=== PATIENT | male | born 1955 | race Caucasian/White ===

== ENCOUNTER 2016-04-25 00:19 | Inpatient (IN) | payer OTHER ==
[2016-04-25] MEDS ORDERED: SODIUM CHLORIDE 0.9% 1,000 ML IV STA (00:23)
[2016-04-25] MEDS ORDERED: methylPREDNISolone SOD SUCCI 125 MG/2 ML VIAL IV STA (00:23)
[2016-04-25] MEDS ORDERED: IPRATROPIUM-ALBUTEROL 3 ML NEB INHALATION STA (00:23)
--- NOTE | 2016-04-25 00:26 | ED ---
SOB HPI - General Stated Complaint: SOB Time Seen by Provider: 04/25/16 00:19 Source: patient, EMS, RN notes reviewed Mode of arrival: EMS - History of Present Illness Initial Comments: This is a 60-year-old male who lives a alf who was brought here for evaluation for shortness of breath. He was diagnosed with pneumonia earlier yesterday. He was started on antibiotics he feels like he is not getting better be getting worse she was sent here. He does complain shortness of breath. He was moaning upon admission stating this helped him get his breath. He denies any chest pain he does complain of headache. No overt chills or sweats reported by the patient at this time. MD Complaint: shortness of breath - Related Data Allergies Allergy/AdvReac Type Severity Reaction Status Date / Time No Known Allergies Allergy Verified 04/25/16 00:27 Review of Systems ROS Statement: Those systems with pertinent positive or pertinent negative responses have been documented in the HPI. ROS Other: All systems not noted in ROS Statement are negative. General Exam - General Exam Comments Initial Comments: Is a well-developed well-nourished awake alert anxious appearing male General appearance: alert, anxious, in distress Head exam: Present: atraumatic, normocephalic, normal inspection Eye exam: Present: normal appearance, PERRL, EOMI. Absent: scleral icterus, conjunctival injection, periorbital swelling ENT exam: Present: mucous membranes dry Neck exam: Present: normal inspection. Absent: tenderness, meningismus, lymphadenopathy Respiratory exam: Present: accessory muscle use, decreased breath sounds. Absent: respiratory distress, wheezes, rales, rhonchi, stridor Cardiovascular Exam: Present: regular rate, normal rhythm, normal heart sounds. Absent: systolic murmur, diastolic murmur, rubs, gallop, clicks GI/Abdominal exam: Present: soft, normal bowel sounds. Absent: distended, tenderness, guarding, rebound, rigid Extremities exam: Present: normal inspection, full ROM, normal capillary refill. Absent: tenderness, pedal edema, joint swelling, calf tenderness Back exam: Present: normal inspection Neurological exam: Present: alert, oriented X3, CN II-XII intact Psychiatric exam: Present: normal affect, normal mood Skin exam: Present: warm, dry, intact, normal color. Absent: rash Course Vital Signs 04/25/16 04/25/16 04/25/16 00:24 00:26 00:36 Temperature 102.3 F H Pulse Rate 124 H 114 H 112 H Respiratory 20 22 Rate Blood Pressure 163/95 182/100 O2 Sat by Pulse 90 L 96 Oximetry 04/25/16 04/25/16 04/25/16 00:43 01:10 01:25 Temperature 100.0 F H Pulse Rate 108 H 105 H Respiratory 22 26 H Rate Blood Pressure 118/74 O2 Sat by Pulse 92 L Oximetry - Reevaluation(s) Reevaluation #1: 04/25/16 01:39 Reevaluation patient revealed he did have some improvement in his aeration. He is feeling a little bit better. Reevaluation #2: 04/25/16 01:39 Repeat evaluation patient states he is feeling a little bit better so short of breath however. His fever has improved after tylanol Medical Decision Making - Lab Data Result diagrams: 04/25/16 00:25 04/25/16 00:25 Lab Results 04/25/16 04/25/16 04/25/16 Range/Units 00:25 00:25 00:25 WBC 24.7 H (3.8-10.6) k/uL RBC 4.67 (4.30-5.90) m/uL Hgb 13.2 (13.0-17.5) gm/dL Hct 41.9 (39.0-53.0) % MCV 89.8 (80.0-100.0) fL MCH 28.3 (25.0-35.0) pg MCHC 31.5 (31.0-37.0) g/dL RDW 14.7 (11.5-15.5) % Plt Count 254 (150-450) k/uL Neutrophils % 81 % Lymphocytes % 10 % Monocytes % 7 % Eosinophils % 0 % Basophils % 1 % Neutrophils # 20.1 H (1.3-7.7) k/uL Lymphocytes # 2.5 (1.0-4.8) k/uL Monocytes # 1.6 H (0-1.0) k/uL Eosinophils # 0.1 (0-0.7) k/uL Basophils # 0.2 (0-0.2) k/uL PT (9.0-12.0) sec INR (<1.1) APTT (22.0-30.0) sec Sodium 138 (137-145) mmol/L Potassium 4.8 (3.5-5.1) mmol/L Chloride 97 L (98-107) mmol/L Carbon Dioxide 32 H (22-30) mmol/L Anion Gap 9 mmol/L BUN 19 (9-20) mg/dL Creatinine 0.60 L (0.66-1.25) mg/dL Est GFR (MDRD) Af Amer >60 (>60 ml/min/1.73 sqM) Est GFR (MDRD) Non-Af >60 (>60 ml/min/1.73 sqM) Glucose 144 H (74-99) mg/dL Plasma Lactic Acid Jourdan (0.7-2.0) mmol/L Calcium 10.0 (8.4-10.2) mg/dL Magnesium 1.5 L (1.6-2.3) mg/dL Total Bilirubin 0.8 (0.2-1.3) mg/dL AST 16 L (17-59) U/L ALT 43 (21-72) U/L Alkaline Phosphatase 78 (38-126) U/L Total Creatine Kinase <20 L (55-170) U/L CK-MB (CK-2) 0.4 (0.0-2.4) ng/mL CK-MB (CK-2) Rel Index 0.0 Troponin I 0.031 (0.000-0.034) ng/mL NT-Pro-B Natriuret Pep pg/mL Total Protein 6.4 (6.3-8.2) g/dL Albumin 3.5 (3.5-5.0) g/dL 04/25/16 04/25/16 04/25/16 Range/Units 00:25 00:25 00:25 WBC (3.8-10.6) k/uL RBC (4.30-5.90) m/uL Hgb (13.0-17.5) gm/dL Hct (39.0-53.0) % MCV (80.0-100.0) fL MCH (25.0-35.0) pg MCHC (31.0-37.0) g/dL RDW (11.5-15.5) % Plt Count (150-450) k/uL Neutrophils % % Lymphocytes % % Monocytes % % Eosinophils % % Basophils % % Neutrophils # (1.3-7.7) k/uL Lymphocytes # (1.0-4.8) k/uL Monocytes # (0-1.0) k/uL Eosinophils # (0-0.7) k/uL Basophils # (0-0.2) k/uL PT 11.3 (9.0-12.0) sec INR 1.1 (<1.1) APTT 21.8 L (22.0-30.0) sec Sodium (137-145) mmol/L Potassium (3.5-5.1) mmol/L Chloride (98-107) mmol/L Carbon Dioxide (22-30) mmol/L Anion Gap mmol/L BUN (9-20) mg/dL Creatinine (0.66-1.25) mg/dL Est GFR (MDRD) Af Amer (>60 ml/min/1.73 sqM) Est GFR (MDRD) Non-Af (>60 ml/min/1.73 sqM) Glucose (74-99) mg/dL Plasma Lactic Acid Jourdan 1.7 (0.7-2.0) mmol/L Calcium (8.4-10.2) mg/dL Magnesium (1.6-2.3) mg/dL Total Bilirubin (0.2-1.3) mg/dL AST (17-59) U/L ALT (21-72) U/L Alkaline Phosphatase (38-126) U/L Total Creatine Kinase (55-170) U/L CK-MB (CK-2) (0.0-2.4) ng/mL CK-MB (CK-2) Rel Index Troponin I (0.000-0.034) ng/mL NT-Pro-B Natriuret Pep 117 pg/mL Total Protein (6.3-8.2) g/dL Albumin (3.5-5.0) g/dL - Radiology Data Radiology results: report reviewed (She does show evidence of right lower lobe pneumonia.), image reviewed Critical Care Time Critical Care Time: Yes Critical Care Time: 37 minutes of critical care time which includes the monitoring of the EMS call as well as discussed with paramedics history physical lab and x-ray evaluation the patient reevaluation patient several occasions for responsive therapy discuss with the patient discussed with the admitting service admission orders and documentation of the above. Disposition Clinical Impression: Right lower lobe pneumonia, Acute exacerbation of chronic obstructive airways disease, Adult respiratory distress syndrome, Hypoxemia, Febrile illness, acute Disposition: ADMITTED IP TO THIS HOSP Condition: Stable
[2016-04-25 00:38] LABS: Basophils # (A) 0.2 k/uL (0-0.2); Basophils % (A) 1 %; CH 28.5; CHCM 31.9; Eosinophils # (A) 0.1 k/uL (0-0.7); Eosinophils % (A) 0 %; HCT 41.9 % (39.0-53.0); HGB 13.2 gm/dL (13.0-17.5); Luc # (Auto) 0.35; Luc % (Auto) 1; Lymphocytes # (A) 2.5 k/uL (1.0-4.8); Lymphocytes % (A) 10 %; MCH 28.3 pg (25.0-35.0); MCHC 31.5 g/dL (31.0-37.0); MCV 89.8 fL (80.0-100.0); Mean Platelet Volume 6.7; Monocytes # (A) 1.6 k/uL (0-1.0); Monocytes % (A) 7 %; Neutrophils # (A) 20.1 k/uL (1.3-7.7); Neutrophils % (A) 81 %; RBC 4.67 m/uL (4.30-5.90); RDW 14.7 % (11.5-15.5); WBC 24.7 k/uL (3.8-10.6); WBC (Perox) 23.26
[2016-04-25 00:47] LABS: ALT 43 U/L (21-72); AST 16 U/L (17-59); Alkaline Phosphatase 78 U/L (38-126); Anion Gap 9 mmol/L; Blood Urea Nitrogen 19 mg/dL (9-20); Carbon Dioxide 32 mmol/L (22-30); Chloride 97 mmol/L (98-107); Glucose 144 mg/dL (74-99); Magnesium 1.5 mg/dL (1.6-2.3); Non-African American GFR(MDRD) >60 (>60 ml/min/1.73 sqM); Potassium 4.8 mmol/L (3.5-5.1); Sodium 138 mmol/L (137-145); Total Bilirubin 0.8 mg/dL (0.2-1.3); Total Protein 6.4 g/dL (6.3-8.2)
[2016-04-25 00:54] LABS: INR 1.1 (<1.1); Prothrombin Time 11.3 sec (9.0-12.0)
[2016-04-25 00:57] LABS: Creatine Kinase <20 U/L (55-170)
[2016-04-25] MEDS ORDERED: MAGNESIUM SULFATE-D5W PMX 1 GM in DEXTROSE/WATER 1 100ML.BAG IVPB ONE (01:02)
[2016-04-25 01:05] LABS: Partial Thromboplastin Time 21.8 sec (22.0-30.0)
[2016-04-25 01:10] LABS: Creatine Kinase MB 0.4 ng/mL (0.0-2.4); Troponin I 0.031 ng/mL (0.000-0.034)
[2016-04-25] MEDS ORDERED: ACETAMINOPHEN IV (For NPO) 1,000 MG in EMPTY BAG 1 BAG IVPB STA (01:16)
--- NOTE | 2016-04-25 01:25 | XR ---
EXAM: XR Chest, 4 Views. CLINICAL HISTORY: Reason: difficulty breathing TECHNIQUE: Frontal and lateral views of the chest. COMPARISON: No relevant prior studies available. FINDINGS: Lungs: Right middle lobe alveolar opacities suggestive of pneumonia. Additional more inferior right middle lobe lesion is seen measuring up to 12 mm. Pleural space: Unremarkable. No pneumothorax. Heart: Unremarkable. No cardiomegaly. Mediastinum: Unremarkable. Bones/joints: Multilevel degenerative changes of the thoracic spine with mild chronic anterior wedging deformities. IMPRESSION: Right middle lobe alveolar opacities suggestive of pneumonia. Additional more inferior right middle lobe lesion is seen measuring up to 12 mm. Followup after resolution of treatment recommended.
[2016-04-25] MEDS ORDERED: PNEUMONIA PROTOCOL UTILIZED 1 EACH MISC PO PRN (01:41)
[2016-04-25] MEDS ORDERED: PIPERACILLIN-TAZOBACTAM 3.375 GM in DEXTROSE/WATER 1 50ML.BAG IVPB STA (01:52)
[2016-04-25] MEDS ORDERED: LEVOFLOXACIN 750MG-D5W PMX 750 MG in DEXTROSE/WATER 1 150ML.BAG IVPB STA (01:52)
[2016-04-25 02:57] VITALS: BMI 36.5
[2016-04-25] MEDS: SODIUM CHLORIDE 0.9% 1,000 ML IV SCH ×2 (03:11→12:54)
[2016-04-25] MEDS: ACETAMINOPHEN TAB 325 MG TAB PO SCH ×6 (03:12→20:51)
[2016-04-25] MEDS ORDERED: IPRATROPIUM-ALBUTEROL 3 ML NEB INHALATION SCH (04:00)
[2016-04-25] MEDS: methylPREDNISolone SOD SUCCI 125 MG/2 ML VIAL IV SCH ×2 (05:24→12:53)
[2016-04-25] MEDS: ALPRAZolam 0.25 MG TAB PO SCH ×2 (08:06→16:34)
[2016-04-25 08:13] LABS: Glucose,Whole Blood 280 mg/dL (75-99)
[2016-04-25] MEDS: INSULIN LISPRO (humaLOG) 300 UNIT/3 ML VIAL SQ SCH ×8 (08:15→22:14)
[2016-04-25] MEDS: MELOXICAM 7.5 MG TAB PO SCH (08:15)
[2016-04-25] MEDS: IPRATROPIUM-ALBUTEROL 3 ML NEB INHALATION SCH ×4 (08:32→18:51)
[2016-04-25] MEDS ORDERED: amLODIPine 10 MG TAB PO SCH (09:00)
[2016-04-25] MEDS ORDERED: FISH OIL PO SCH (09:00)
[2016-04-25] MEDS ORDERED: LISINOPRIL 20 MG TAB PO SCH (09:00)
[2016-04-25] MEDS ORDERED: FATTY ACIDS PO SCH (09:00)
[2016-04-25] MEDS ORDERED: OMEGA PO SCH (09:00)
[2016-04-25 11:51] LABS: Glucose,Whole Blood 279 mg/dL (75-99)
[2016-04-25] MEDS: TAMSULOSIN 0.4 MG CAP.ER.24H PO SCH (12:54)
[2016-04-25 14:27] LABS: Hemoglobin A1C 8.8 % (4.2-6.1)
--- NOTE | 2016-04-25 16:26 | HP ---
DATE OF ADMISSION: Patient is a very pleasant 60-year-old gentleman who came in with complaints of cough, runny nose, not feeling well. Patient is unable to bring up much and patient does have advanced COPD. Patient does have a history of advanced COPD and emphysema and does use 3 liters of oxygen at the rehab facility. Patient was discharged from [facility] and is presently resident of [facility]. Patient came in with fever, chills and found to have significant infiltrate in the right middle lobe. Patient was started on treatment with Zosyn and levofloxacin for healthcare associated pneumonia with significant improvement in his symptoms, awaiting for cultures. Blood cultures were obtained. Patient is presently on 5 L of oxygen. The patient was also complaining of shortness of breath. Denied any orthopnea or PND. REVIEW OF SYSTEMS: CONSTITUTIONAL: As described in HPI. HEENT: No recent visual problems or hearing problems. Denied any sore throat. CARDIOVASCULAR: No chest pain, orthopnea, PND, no palpitations, no syncope. PULMONARY: As described in HPI. GASTROINTESTINAL: No diarrhea, no nausea, no vomiting, no abdominal pain. Normoactive bowel sounds. NEUROLOGICAL: No headaches, no weakness, no numbness. HEMATOLOGICAL: Denies any bleeding or petechiae. GENITOURINARY: Denies any burning micturition, frequency, or urgency. MUSCULOSKELETAL/RHEUMATOLOGICAL: Denies any joint pain, swelling, or any muscle pain. ENDOCRINE: Denies any polyuria or polydipsia. The rest of the 14 point review of systems is negative. PAST MEDICAL HISTORY: Significant for COPD as mentioned above, diabetes mellitus, gastroesophageal reflux disease, hypertension, benign prostatic hypertrophy, cholecystectomy, hernia repair, hemorrhoidectomy in the past. SOCIAL HISTORY: Former smoker, smoked for 40 years, quit smoking years ago. Denied any alcohol abuse or drug abuse. FAMILY HISTORY: Unknown at this point of time. PHYSICAL EXAMINATION: Temperature 96.2, pulse of 78, respiratory rate of 18, blood pressure 108/86, saturating at 97% on 5 L of oxygen by nasal cannula. GENERAL: The patient is alert and oriented x3, not in any acute distress. Well developed, well nourished. HEENT: Pupils are round and equally reacting to light. EOMI. No scleral icterus. No conjunctival pallor. Normocephalic, atraumatic. No pharyngeal erythema. No thyromegaly. CARDIOVASCULAR: S1 and S2 present. No murmurs, rubs, or gallops. PULMONARY: Patient has a bronchophony egophony in the right posterior and upper lung tavarez. Fairly good air entry into bilateral lung tavarez. No wheezing was appreciated. Rhonchus breath sounds. ABDOMEN: Soft, nontender, nondistended, normoactive bowel sounds. No palpable organomegaly. MUSCULOSKELETAL: No joint swelling or deformity. EXTREMITIES: No cyanosis, clubbing, or pedal edema. NEUROLOGICAL: Gross neurological examination did not reveal any focal deficits. SKIN: No rashes. Chest x-ray as mentioned above. ASSESSMENT AND PLAN: 1. Sepsis secondary to right middle lobe and right lower lobe pneumonia. Patient is on appropriate antibiotics, treating for healthcare associated pneumonia. Awaiting sputum cultures. 2. Highly elevated blood sugars and uncontrolled blood sugars secondary to systemic steroids. Will continue with his home regimen along with sliding scale insulin for steroids and patient's hemoglobin A1c is 8.8 at the other hospital. 3. Hypomagnesemia. Magnesium will be supplemented. 4. Acute on chronic hypercapnic respiratory failure secondary to chronic obstructive pulmonary disease exacerbation. Patient is on systemic steroids inhalational treatments which will be continued. Actually cut down the steroids to 60 daily of oral steroids 5. Benign prostatic hypertrophy. 6. Generalized deconditioning. Plan is to continue with antibiotics. Possibility of discharge on Wednesday to subacute rehabilitation with oral antibiotics. I will await the cultures in the meantime, sputum cultures and blood cultures during that time. Leukocytosis secondary to pneumonia.
[2016-04-25] MEDS: MAGNESIUM SULFATE-D5W PMX 1 GM in DEXTROSE/WATER 1 100ML.BAG IVPB SCH ×2 (16:34→22:13)
[2016-04-25 16:43] LABS: Glucose,Whole Blood 300 mg/dL (75-99)
[2016-04-25] MEDS: PIPERACILLIN-TAZOBACTAM 3.375 GM in DEXTROSE/WATER 1 50ML.BAG IVPB SCH (18:06)
[2016-04-25] MEDS: MONTELUKAST 10 MG TAB PO SCH (20:51)
[2016-04-25 21:35] LABS: Glucose,Whole Blood 292 mg/dL (75-99)
[2016-04-25] MEDS: INSULIN GLARGINE 100 UNIT/ML 10 ML VIAL SQ SCH (22:13)
[2016-04-26] MEDS: SODIUM CHLORIDE 0.9% 1,000 ML IV SCH ×3 (00:14→17:47)
[2016-04-26] MEDS: PIPERACILLIN-TAZOBACTAM 3.375 GM in DEXTROSE/WATER 1 50ML.BAG IVPB SCH ×4 (00:14→23:33)
[2016-04-26] MEDS: ALPRAZolam 0.25 MG TAB PO SCH ×4 (00:17→23:33)
[2016-04-26] MEDS: ACETAMINOPHEN TAB 325 MG TAB PO SCH ×6 (04:14→21:27)
[2016-04-26] MEDS: IPRATROPIUM-ALBUTEROL 3 ML NEB INHALATION PRN ×2 (05:16→23:41)
[2016-04-26 07:35] LABS: Glucose,Whole Blood 259 mg/dL (75-99)
[2016-04-26] MEDS: IPRATROPIUM-ALBUTEROL 3 ML NEB INHALATION SCH ×4 (08:27→19:56)
[2016-04-26] MEDS: TAMSULOSIN 0.4 MG CAP.ER.24H PO SCH (09:33)
[2016-04-26] MEDS: MELOXICAM 7.5 MG TAB PO SCH (09:33)
[2016-04-26] MEDS: LEVOFLOXACIN 750 MG TAB PO SCH (09:33)
[2016-04-26] MEDS: predniSONE 20 MG TAB PO SCH (09:33)
[2016-04-26] MEDS: INSULIN LISPRO (humaLOG) 300 UNIT/3 ML VIAL SQ SCH ×8 (09:34→21:24)
--- NOTE | 2016-04-26 09:58 | XR ---
EXAMINATION TYPE: XR chest 2V DATE OF EXAM: 04/26/2016 9:53 AM COMPARISON: 04/25/2016 INDICATION: Pneumonia TECHNIQUE: Single frontal view of the chest is obtained. FINDINGS: The heart size is normal. The pulmonary vasculature is normal. There is a patchy infiltrate to the right lower lobe. Underlying mass is not entirely excluded. Follo w-up to clearing is recommended. This appears improving from comparison. IMPRESSION: 1. Improving right lower lobe infiltrate. Follow-up to complete clearing is recommended. Underlying m ass is not excluded.
[2016-04-26 12:04] LABS: Glucose,Whole Blood 255 mg/dL (75-99)
[2016-04-26] MEDS ORDERED: IV VANCOMYCIN PER PHARMACY 1 EACH MISC MISCELLANE PRN (15:34)
--- NOTE | 2016-04-26 15:50 | PN ---
A 60-year-old admitted with pneumonia, which is improving at this point of time. REVIEW OF SYSTEMS: CARDIOVASCULAR: No chest pain, no orthopnea, no PND, no palpitations. GASTROINTESTINAL: No diarrhea, nausea or vomiting. No abdominal pain. Normoactive bowel sounds. NEUROLOGIC: No headaches, no weakness, no numbness. RESPIRATORY: Improving shortness of breath. Medications were reviewed. PHYSICAL EXAMINATION: Temperature 96.5, pulse of 76, respiratory rate of 18, blood pressure is 100/70, saturating at 95% on room air. RESPIRATORY: No significant change compared to yesterday and no wheezing was appreciated. Fairly good air entry into bilateral lung tavarez. GENERAL: The patient is alert and oriented x3, not in any acute distress. Well developed, well nourished. HEENT: Pupils are round and equally reacting to light. EOMI. No scleral icterus. No conjunctival pallor. Normocephalic, atraumatic. No pharyngeal erythema. No thyromegaly. CARDIOVASCULAR: S1 and S2 present. No murmurs, rubs, or gallops. ABDOMEN: Soft, nontender, nondistended, normoactive bowel sounds. No palpable organomegaly. MUSCULOSKELETAL: No joint swelling or deformity. EXTREMITIES: No cyanosis, clubbing, or pedal edema. NEUROLOGICAL: Gross neurological examination did not reveal any focal deficits. SKIN: No rashes. LABORATORY DATA: None available from today. ASSESSMENT AND PLAN: 1. Sepsis secondary to right middle lobe as well as right lower lobe pneumonia, infiltrate is improving, blood cultures are so far negative. Sputum cultures are pending, which is showing gram-positive cocci in clusters. Patient will be started on vancomycin and patient has bacteremia with gram-positive cocci in clusters. Will repeat blood cultures today and tomorrow. Patient will be started on vancomycin, pharmacy to dose. 2. Diabetes mellitus type 2. Continue with present regimen with fairly controlled blood sugars. 3. Acute on chronic hypercapnic respiratory failure secondary to chronic obstructive pulmonary disease. 4. Benign prostatic hypertrophy. 5. General deconditioning.
[2016-04-26 17:51] LABS: Glucose,Whole Blood 272 mg/dL (75-99)
[2016-04-26] MEDS: VANCOMYCIN 1,500 MG in SODIUM CHLORIDE 0.9% 250 ML IVPB SCH (21:09)
[2016-04-26] MEDS: MONTELUKAST 10 MG TAB PO SCH (21:24)
[2016-04-26] MEDS: INSULIN GLARGINE 100 UNIT/ML 10 ML VIAL SQ SCH (21:25)
[2016-04-26 21:30] LABS: Glucose,Whole Blood 244 mg/dL (75-99)
[2016-04-27] MEDS: ACETAMINOPHEN TAB 325 MG TAB PO SCH ×6 (03:05→21:58)
[2016-04-27] MEDS: IPRATROPIUM-ALBUTEROL 3 ML NEB INHALATION PRN (03:33)
[2016-04-27] MEDS: VANCOMYCIN 1,500 MG in SODIUM CHLORIDE 0.9% 250 ML IVPB SCH (04:20)
[2016-04-27] MEDS: SODIUM CHLORIDE 0.9% 1,000 ML IV SCH ×3 (04:21→23:09)
[2016-04-27 07:03] LABS: Glucose,Whole Blood 239 mg/dL (75-99)
[2016-04-27] MEDS: IPRATROPIUM-ALBUTEROL 3 ML NEB INHALATION SCH ×4 (07:37→21:24)
[2016-04-27] MEDS: ALPRAZolam 0.25 MG TAB PO SCH ×3 (08:46→23:10)
[2016-04-27] MEDS: MELOXICAM 7.5 MG TAB PO SCH (08:46)
[2016-04-27] MEDS: LEVOFLOXACIN 750 MG TAB PO SCH (08:46)
[2016-04-27] MEDS: PIPERACILLIN-TAZOBACTAM 3.375 GM in DEXTROSE/WATER 1 50ML.BAG IVPB SCH (08:46)
[2016-04-27] MEDS: predniSONE 20 MG TAB PO SCH (08:46)
[2016-04-27] MEDS: INSULIN LISPRO (humaLOG) 300 UNIT/3 ML VIAL SQ SCH ×8 (08:47→21:58)
[2016-04-27] MEDS: TAMSULOSIN 0.4 MG CAP.ER.24H PO SCH (08:47)
[2016-04-27 09:05] LABS: CH 28.4; CHCM 30.9; HCT 36.7 % (39.0-53.0); HDW 2.37; HGB 11.4 gm/dL (13.0-17.5); Hypochromasia Slight; MCH 28.6 pg (25.0-35.0); MCHC 30.9 g/dL (31.0-37.0); MCV 92.3 fL (80.0-100.0); Mean Platelet Volume 6.3; RBC 3.97 m/uL (4.30-5.90); RDW 14.4 % (11.5-15.5); WBC 14.1 k/uL (3.8-10.6)
[2016-04-27 09:37] LABS: Anion Gap 9 mmol/L; Blood Urea Nitrogen 27 mg/dL (9-20); Calcium 9.7 mg/dL (8.4-10.2); Carbon Dioxide 31 mmol/L (22-30); Chloride 100 mmol/L (98-107); Glucose 229 mg/dL (74-99); Non-African American GFR(MDRD) >60 (>60 ml/min/1.73 sqM); Sodium 140 mmol/L (137-145)
[2016-04-27 09:45] LABS: Potassium 4.7 mmol/L (3.5-5.1)
[2016-04-27 12:26] LABS: Glucose,Whole Blood 219 mg/dL (75-99)
[2016-04-27] MEDS: cefTRIAXone 2,000 MG in SODIUM CHLORIDE 0.9% 100 ML IVPB SCH (13:27)
[2016-04-27] MEDS: HYDROcodone/APAP 5-325MG 1 EACH TAB PO PRN (13:32)
[2016-04-27] MEDS ORDERED: SALINE NASAL GEL 14.1 GM TUBE TOPICAL PRN (13:32)
[2016-04-27 16:43] LABS: Glucose,Whole Blood 273 mg/dL (75-99)
--- NOTE | 2016-04-27 17:17 | P.PN ---
Subjective Date of service 04/27/2016 Progress note being dictated for Dr. Sethi Interval history: This 60-year-old gentleman admitted with sepsis secondary to right middle lobe, right lower lobe pneumonia, coagulase-negative staph and alpha hemolytic Streptococcus bacteremia, and multiple other medical issues. Sputum culture reporting moderate gram-positive bacilli. Antibiotics adjusted and changed to Rocephin. Repeat blood culture ordered. Afebrile. Objective - Vital Signs Vital signs: Vital Signs Temp 96.3 F L 04/27/16 15:00 Pulse 74 04/27/16 16:19 Resp 20 04/27/16 15:00 BP 130/74 04/27/16 15:00 Pulse Ox 95 04/27/16 15:00 Intake & Output 04/26/16 04/27/16 04/27/16 18:59 06:59 18:59 Intake Total 700 Output Total 1200 Balance -1200 700 Intake: Oral 700 Output: Urine 1200 Other: # Voids 3 2 # Bowel Movements 1 - Exam PHYSICAL EXAM: VITAL SIGNS: As above GENERAL: [Sitting up in bed, tired appearing] HEENT: [Pupils equal conjunctiva normal.] NECK: [Supple, no JVD] RESPIRATORY EFFORT:[Mildly increased] LUNGS: [Clear air entry, no wheezing, no crackles, occasional rhonchi] CARDIOVASCULAR[regular S1 and S2, no murmurs rubs or gallops, no edema] GI: [Abdomen soft, nontender, positive bowel sounds.] PSYCH: [Alert and oriented -2, mood and affect normal. NEURO: No focal deficits Microbiology 04/26/16 11:45 Sputum Gram Stain - Preliminary 04/25/16 00:25 Blood Blood Culture Gram Stain - Preliminary 04/25/16 00:25 Blood Blood Culture - Preliminary Coagulase Negative Staph Alpha Hemolytic Streptococcus 04/25/16 00:25 Blood Blood Culture - Preliminary - Labs CBC & Chem 7: 04/27/16 08:33 04/27/16 08:33 Labs: Abnormal Lab Results - Last 24 Hours (Table) 04/26/16 04/26/16 04/27/16 Range/Units 17:50 21:16 07:00 WBC (3.8-10.6) k/uL RBC (4.30-5.90) m/uL Hgb (13.0-17.5) gm/dL Hct (39.0-53.0) % MCHC (31.0-37.0) g/dL Carbon Dioxide (22-30) mmol/L BUN (9-20) mg/dL Creatinine (0.66-1.25) mg/dL Glucose (74-99) mg/dL POC Glucose (mg/dL) 272 H 244 H 239 H (75-99) mg/dL 04/27/16 04/27/16 04/27/16 Range/Units 08:33 08:33 12:24 WBC 14.1 H (3.8-10.6) k/uL RBC 3.97 L (4.30-5.90) m/uL Hgb 11.4 L (13.0-17.5) gm/dL Hct 36.7 L (39.0-53.0) % MCHC 30.9 L (31.0-37.0) g/dL Carbon Dioxide 31 H (22-30) mmol/L BUN 27 H (9-20) mg/dL Creatinine 0.50 L (0.66-1.25) mg/dL Glucose 229 H (74-99) mg/dL POC Glucose (mg/dL) 219 H (75-99) mg/dL 04/27/16 Range/Units 16:41 WBC (3.8-10.6) k/uL RBC (4.30-5.90) m/uL Hgb (13.0-17.5) gm/dL Hct (39.0-53.0) % MCHC (31.0-37.0) g/dL Carbon Dioxide (22-30) mmol/L BUN (9-20) mg/dL Creatinine (0.66-1.25) mg/dL Glucose (74-99) mg/dL POC Glucose (mg/dL) 273 H (75-99) mg/dL Microbiology - Last 24 Hours (Table) 04/26/16 11:45 Gram Stain - Preliminary Sputum Assessment and Plan Plan: 1. [Sepsis secondary to her right mid and right lower lobe Gram-positive bacilli pneumonia, coagulase-negative staph and alpha hemolytic Streptococcus bacteremia. 2. [Diabetes mellitus type 2]. 3. [Acute on chronic hypercapnic respiratory failure secondary to COPD]. 4. [Acute hypoxic respiratory failure]. 5. [Benign prostatic hypertrophy]. 6. Medical debilitation. Plan: Continue on current medication regime ,monitoring and symptomatic treatment. Antibiotics changed to Rocephin, infectious disease consulted. Continue following cultures closely. Prognosis guarded given multiple complex medical issues. Further recommendations to follow. The impression and plan of care has been dictated as directed. : I performed a H&P examination of this patient and discussed the same with the dictator. I agree with the dictator's note. Any additional findings/opinions/ etc. will be noted.
[2016-04-27 20:43] LABS: Glucose,Whole Blood 277 mg/dL (75-99)
[2016-04-27] MEDS: INSULIN GLARGINE 100 UNIT/ML 10 ML VIAL SQ SCH (21:57)
[2016-04-27] MEDS: MONTELUKAST 10 MG TAB PO SCH (21:58)
[2016-04-28] MEDS: IPRATROPIUM-ALBUTEROL 3 ML NEB INHALATION PRN ×3 (00:13→23:30)
[2016-04-28] MEDS ORDERED: VANCOMYCIN TROUGH DUE 1 EACH MISC MISCELLANE ONE (03:00)
[2016-04-28] MEDS: ACETAMINOPHEN TAB 325 MG TAB PO SCH ×6 (03:41→20:34)
[2016-04-28 06:58] LABS: Glucose,Whole Blood 125 mg/dL (75-99)
[2016-04-28] MEDS: IPRATROPIUM-ALBUTEROL 3 ML NEB INHALATION SCH ×4 (07:05→20:06)
[2016-04-28] MEDS: INSULIN LISPRO (humaLOG) 300 UNIT/3 ML VIAL SQ SCH ×9 (07:15→20:53)
[2016-04-28] MEDS: cefTRIAXone 2,000 MG in SODIUM CHLORIDE 0.9% 100 ML IVPB SCH (08:13)
[2016-04-28] MEDS: MELOXICAM 7.5 MG TAB PO SCH (08:14)
[2016-04-28] MEDS: ALPRAZolam 0.25 MG TAB PO SCH ×3 (08:14→23:33)
[2016-04-28] MEDS: TAMSULOSIN 0.4 MG CAP.ER.24H PO SCH (08:15)
[2016-04-28] MEDS: predniSONE 20 MG TAB PO SCH (08:15)
[2016-04-28 08:33] LABS: Anion Gap 7 mmol/L; Blood Urea Nitrogen 19 mg/dL (9-20); Calcium 9.4 mg/dL (8.4-10.2); Carbon Dioxide 31 mmol/L (22-30); Chloride 102 mmol/L (98-107); Glucose 121 mg/dL (74-99); Non-African American GFR(MDRD) >60 (>60 ml/min/1.73 sqM); Potassium 4.1 mmol/L (3.5-5.1); Sodium 140 mmol/L (137-145)
[2016-04-28] MEDS: SODIUM CHLORIDE 0.9% 1,000 ML IV SCH ×2 (12:00→19:47)
--- NOTE | 2016-04-28 12:00 | CONS ---
DATE OF CONSULTATION: 04/28/2016 Reason for consultation is pneumonia and bacteremia. HISTORY OF PRESENT ILLNESS: The patient is a 60-year-old male with has been brought into the ER at [facility] on 04/25/2016 with chief complaints of increasing shortness of breath. Apparently, the patient was diagnosed with pneumonia at that facility and was started on antibiotic; however, the patient was not showing any improvement. He is not sure exactly which antibiotic he was taking. Patient main symptom has been shortness of breath. He did have a cough and bring up some big brown sputum but no hemoptysis. Patient denies any significant chest pain. Denies having any URI symptom. Patient denies having any nausea, vomiting. Patient denies having any diarrhea or any other GI symptom. Subsequently, patient has been evaluated by the ER physician and the patient did have a chest x-ray suggestive of right middle pneumonia. The patient did have blood cultures obtained which grew gram-positive cocci. vanco was added to the Rocephin. I was asked to see the patient for further recommendation regarding antibiotic therapy. REVIEW OF SYSTEMS: CONSTITUTIONAL: Positive for weakness and chills. EYES: No complaint. ENT: No complaint. RESPIRATORY: As per HPI. CARDIOVASCULAR: No complaint. GENITOURINARY: No complaint. GASTROINTESTINAL: No complaint. MUSCULOSKELETAL: No complaint. INTEGUMENT: No complaint. PSYCHOLOGIC: No complaint. ENDOCRINE: No complaint. NEUROLOGIC: No complaint. PAST MEDICAL HISTORY: Significant for COPD, diabetes mellitus, gastroesophageal reflux disease, hypertension, benign prostatic hypertrophy. PAST SURGICAL HISTORY: Cholecystectomy, hernia repair, hemorrhoidectomy. SOCIAL HISTORY: The patient is a 40 pack-year smoking; quit a few years ago. Denies any alcohol or drug use. Currently a [facility] resident. FAMILY HISTORY: No pertinent findings were noticed. ALLERGIES: No known drug allergies. Medications currently include the patient is on Tylenol, Brodnax, DuoNeb, Xanax, Rocephin 2 gm daily, Lantus, Humalog, Mobic, Singulair, Flomax. On examination, blood pressure is 125/79 with a pulse of 70, temperature of 96.4, T-max is 102.3. He is 99% on 4 L nasal cannula. General description is a middle-age male lying in bed in no distress. No tachypnea or accessory muscle of respiration use. HEENT examination shows pallor. No scleral icterus. Oral mucous membrane is dry. NECK: Trachea central, no thyromegaly. LUNGS: Unlabored breathing. Some coarse breath sounds on the right side, no wheeze. HEART: S1, S2 with regular rate and rhythm. ABDOMEN: Soft. No tenderness. EXTREMITIES: No edema of the feet. SKIN EXAMINATION: No rash or mass palpable. LABS: Hemoglobin 11.4, white count of 14.1, admission white was 24.7, BUN of 19, creatinine 0.42. Blood cultures with coagulase-negative staph, followup blood culture has been negative. Sputum showing a gram-negative bacilli. DIAGNOSTIC IMPRESSION AND PLAN: 1. Patient admitted to the hospital with difficulty in breathing, have a cough with right middle lobe infiltrate in a patient who did have a fever of 102 degrees Fahrenheit in a patient who is a [facility] resident, likely representing a gram-negative pneumonia with the sputum showing the same. 2. Patient with positive blood culture with coagulase negative staph with multiple pathogens and blood culture, more likely representing a contamination and a followup blood pressure has been negative. PLAN: 1. No need for any further vancomycin therapy at this point. 2. Will discontinue the Rocephin. 3. Will start the patient on Zosyn 3.375 q.8 while awaiting for the final ID on the gram-negative on the sputum. 4. Will follow up on the clinical condition and cultures to further adjust the medication if needed. Thank you for this consultation. Will follow this patient along with you.
[2016-04-28] MEDS: PIPERACILLIN-TAZOBACTAM 3.375 GM in DEXTROSE/WATER 1 50ML.BAG IVPB SCH ×2 (12:01→19:44)
[2016-04-28] MEDS: HYDROcodone/APAP 5-325MG 1 EACH TAB PO PRN ×2 (12:06→19:44)
[2016-04-28 12:18] LABS: Glucose,Whole Blood 140 mg/dL (75-99)
--- NOTE | 2016-04-28 16:28 | P.PN ---
Subjective Date of service 04/28/2016 Progress note being dictated for Dr. Sethi Interval history: This 60-year-old [place] [facility] resident admitted with sepsis secondary to right middle and lower lobe pneumonia, coagulase-negative staph and alpha hemolytic Streptococcus bacteremia, recent hernia repair and multiple other medical issues. Evaluated by ID with Antibiotics changed to Zosyn. Preliminary Follow-up blood culture negative. Positive diet intake with no nausea or vomiting. Afebrile. Objective - Vital Signs Vital signs: Vital Signs Temp 96.8 F L 04/28/16 15:00 Pulse 84 04/28/16 16:04 Resp 16 04/28/16 15:00 BP 136/79 04/28/16 15:00 Pulse Ox 96 04/28/16 15:00 Intake & Output 04/27/16 04/28/16 04/28/16 18:59 06:59 18:59 Output Total 1050 Balance -1050 Output: Urine 1050 Other: Voiding Method Urinal # Voids 2 3 # Bowel Movements 1 - Exam PHYSICAL EXAM: VITAL SIGNS: As above GENERAL: [Sitting up in bed, tired appearing] HEENT: [Pupils equal conjunctiva normal, pale] NECK: [Supple, no JVD] RESPIRATORY EFFORT: Normal] LUNGS: [Clear air entry, diminished on right ,no wheezing, no crackles, occasional rhonchi] CARDIOVASCULAR[regular S1 and S2, no murmurs rubs or gallops, no edema] GI: [Abdomen soft, nontender, positive bowel sounds.] PSYCH: [Alert and oriented -2, mood and affect normal. NEURO: No focal deficits Microbiology 04/27/16 08:33 Blood Blood Culture - Preliminary No Growth after 24 hours 04/26/16 11:45 Sputum Gram Stain - Preliminary 04/26/16 11:45 Sputum Sputum Culture - Preliminary Gram Neg Bacilli 04/25/16 00:25 Blood Blood Culture Gram Stain - Final 04/25/16 00:25 Blood Blood Culture - Final Coagulase Negative Staph Alpha Hemolytic Streptococcus Coagulase Negative Staph#2 04/26/16 16:02 Blood Blood Culture - Preliminary No Growth after 24 hours 04/25/16 00:25 Blood Blood Culture - Preliminary - Labs CBC & Chem 7: 04/27/16 08:33 04/28/16 07:35 Labs: Abnormal Lab Results - Last 24 Hours (Table) 04/27/16 04/27/16 04/28/16 Range/Units 16:41 20:42 06:56 Carbon Dioxide (22-30) mmol/L Creatinine (0.66-1.25) mg/dL Glucose (74-99) mg/dL POC Glucose (mg/dL) 273 H 277 H 125 H (75-99) mg/dL 04/28/16 04/28/16 Range/Units 07:35 12:09 Carbon Dioxide 31 H (22-30) mmol/L Creatinine 0.42 L (0.66-1.25) mg/dL Glucose 121 H (74-99) mg/dL POC Glucose (mg/dL) 140 H (75-99) mg/dL Microbiology - Last 24 Hours (Table) 04/27/16 08:33 Blood Culture - Preliminary Blood No Growth after 24 hours 04/26/16 11:45 Gram Stain - Preliminary Sputum Sputum Culture - Preliminary Gram Neg Bacilli 04/26/16 16:02 Blood Culture - Preliminary Blood No Growth after 24 hours Assessment and Plan Plan: 1. [Sepsis secondary to her right mid and right lower lobe Gram-positive bacilli pneumonia, coagulase-negative staph and alpha hemolytic Streptococcus bacteremia. 2. [Diabetes mellitus type 2]. 3. [Acute on chronic hypercapnic respiratory failure secondary to COPD]. 4. [Acute hypoxic respiratory failure]. 5. [Benign prostatic hypertrophy]. 6. Medical debilitation. Plan: Continue on current medication regime , Zosyn, monitoring and symptomatic treatment. Antibiotics as per ID. Continues on cultures closely. Continue following cultures closely. Prognosis guarded given multiple complex medical issues. Further recommendations to follow. The impression and plan of care has been dictated as directed. : I performed a H&P examination of this patient and discussed the same with the dictator. I agree with the dictator's note. Any additional findings/opinions/ etc. will be noted.
[2016-04-28 16:52] LABS: Glucose,Whole Blood 324 mg/dL (75-99)
[2016-04-28 20:49] LABS: Glucose,Whole Blood 255 mg/dL (75-99)
[2016-04-28] MEDS: INSULIN GLARGINE 100 UNIT/ML 10 ML VIAL SQ SCH (20:52)
[2016-04-28] MEDS: MONTELUKAST 10 MG TAB PO SCH (20:55)
[2016-04-29] MEDS: ACETAMINOPHEN TAB 325 MG TAB PO SCH ×6 (03:00→21:58)
[2016-04-29] MEDS: IPRATROPIUM-ALBUTEROL 3 ML NEB INHALATION PRN ×2 (03:11→23:58)
[2016-04-29] MEDS: PIPERACILLIN-TAZOBACTAM 3.375 GM in DEXTROSE/WATER 1 50ML.BAG IVPB SCH ×3 (03:38→20:11)
[2016-04-29] MEDS: SODIUM CHLORIDE 0.9% 1,000 ML IV SCH ×2 (05:34→15:45)
[2016-04-29] MEDS: HYDROcodone/APAP 5-325MG 1 EACH TAB PO PRN ×2 (06:16→17:33)
[2016-04-29 07:34] LABS: Glucose,Whole Blood 131 mg/dL (75-99)
[2016-04-29] MEDS: INSULIN LISPRO (humaLOG) 300 UNIT/3 ML VIAL SQ SCH ×8 (07:54→21:57)
[2016-04-29] MEDS: MELOXICAM 7.5 MG TAB PO SCH (07:56)
[2016-04-29] MEDS: ALPRAZolam 0.25 MG TAB PO SCH ×3 (07:56→23:26)
[2016-04-29] MEDS: predniSONE 20 MG TAB PO SCH (07:58)
[2016-04-29] MEDS: TAMSULOSIN 0.4 MG CAP.ER.24H PO SCH (07:58)
[2016-04-29] MEDS: IPRATROPIUM-ALBUTEROL 3 ML NEB INHALATION SCH ×4 (08:27→20:28)
[2016-04-29 09:18] LABS: Anion Gap 7 mmol/L; Blood Urea Nitrogen 21 mg/dL (9-20); Calcium 9.8 mg/dL (8.4-10.2); Carbon Dioxide 32 mmol/L (22-30); Chloride 102 mmol/L (98-107); Glucose 144 mg/dL (74-99); Non-African American GFR(MDRD) >60 (>60 ml/min/1.73 sqM); Potassium 4.4 mmol/L (3.5-5.1); Sodium 141 mmol/L (137-145)
[2016-04-29 12:32] LABS: Glucose,Whole Blood 195 mg/dL (75-99)
[2016-04-29 17:05] LABS: Glucose,Whole Blood 233 mg/dL (75-99)
[2016-04-29 17:27] VITALS: RESP 18
[2016-04-29 21:09] LABS: Glucose,Whole Blood 249 mg/dL (75-99)
[2016-04-29] MEDS: INSULIN GLARGINE 100 UNIT/ML 10 ML VIAL SQ SCH (21:56)
[2016-04-29] MEDS: MONTELUKAST 10 MG TAB PO SCH (21:56)
[2016-04-30] MEDS: ACETAMINOPHEN TAB 325 MG TAB PO SCH ×4 (02:34→16:19)
[2016-04-30] MEDS: SODIUM CHLORIDE 0.9% 1,000 ML IV SCH ×2 (02:34→11:18)
[2016-04-30] MEDS: IPRATROPIUM-ALBUTEROL 3 ML NEB INHALATION PRN (03:32)
[2016-04-30] MEDS: PIPERACILLIN-TAZOBACTAM 3.375 GM in DEXTROSE/WATER 1 50ML.BAG IVPB SCH ×2 (04:10→12:29)
--- NOTE | 2016-04-30 05:40 | PN ---
DATE OF SERVICE: 04/29/2016 Reason for followup is pseudomonas pneumonia. INTERVAL HISTORY: The patient is afebrile. His breathing has slightly improved. He did have some cough. Patient denies significant chest pain. No abdominal pain or any diarrhea. On examination, blood pressure 114/76 with pulse of 80, temperature 97.3. He 98% on 4 L nasal cannula. General description is a middle-age male, up in the chair, in no distress. RESPIRATORY SYSTEM: Unlabored breathing. Some coarse breath sounds at base. No wheeze. HEART: S1, S2. Regular rate and rhythm. ABDOMEN: Soft, no tenderness. LABS: BUN of 21 with a creatinine of 0.54. Sputum is showing a Pseudomonas aeruginosa, sensitivities pending. DIAGNOSTIC IMPRESSION AND PLAN: Patient with right lower lobe gram-negative pneumonia. Sputum has been pseudomonas. Currently the patient is on Zosyn, will await for the sensitivity to finalize to determine his discharge antibiotics. Continue supportive care.
[2016-04-30 07:17] LABS: Glucose,Whole Blood 166 mg/dL (75-99)
[2016-04-30] MEDS: ALPRAZolam 0.25 MG TAB PO SCH ×2 (07:57→16:21)
[2016-04-30] MEDS: HYDROcodone/APAP 5-325MG 1 EACH TAB PO PRN (07:57)
[2016-04-30] MEDS: TAMSULOSIN 0.4 MG CAP.ER.24H PO SCH (07:58)
[2016-04-30] MEDS: INSULIN LISPRO (humaLOG) 300 UNIT/3 ML VIAL SQ SCH ×4 (07:58→12:32)
[2016-04-30] MEDS: MELOXICAM 7.5 MG TAB PO SCH (07:58)
[2016-04-30] MEDS: predniSONE 20 MG TAB PO SCH (07:59)
[2016-04-30 08:04] LABS: Anion Gap 4 mmol/L; Blood Urea Nitrogen 18 mg/dL (9-20); Calcium 9.4 mg/dL (8.4-10.2); Carbon Dioxide 35 mmol/L (22-30); Chloride 100 mmol/L (98-107); Glucose 169 mg/dL (74-99); Non-African American GFR(MDRD) >60 (>60 ml/min/1.73 sqM); Sodium 139 mmol/L (137-145)
[2016-04-30 08:17] LABS: Potassium 4.7 mmol/L (3.5-5.1)
[2016-04-30] MEDS: IPRATROPIUM-ALBUTEROL 3 ML NEB INHALATION SCH ×2 (08:21→11:25)
--- NOTE | 2016-04-30 11:17 | P.PN ---
Subjective Date of service 04/29/2016 Progress note being dictated for Dr. Sethi Interval history: This 60-year-old [place] [facility] resident admitted with sepsis secondary to right middle and lower lobe pneumonia, coagulase-negative staph and alpha hemolytic Streptococcus bacteremia, recent hernia repair and multiple other medical issues. Repeat preliminary blood cultures negative currently. Sputum Positive for pseudomonas aeruginosa, sensitivities pending .Continues on Zosyn. Nonproductive cough. Sitting up in chair, occasional fine shaking/tremors which patient states is chronic. Positive diet intake with no nausea or vomiting. Feeling better. Afebrile. Objective - Vital Signs Vital signs: Vital Signs Temp 97.3 F L 04/29/16 15:00 Pulse 84 04/29/16 17:06 Resp 18 04/29/16 15:00 BP 114/76 04/29/16 15:00 Pulse Ox 98 04/29/16 15:00 Intake & Output 04/28/16 04/29/16 04/29/16 18:59 06:59 18:59 Intake Total 50 650 Output Total 873 649 4823 Balance -800 -625 -850 Weight 97.5 kg Intake: Intake, IV Titration 50 650 Amount Piperacillin-Tazobactam 3 50 50 .375 gm In Dextrose/Water 1 50ml.bag @ 12.5 mls/hr IVPB Q8H [facility] Rx#: [id number] Sodium Chloride 0.9% 1, 600 000 ml @ 100 mls/hr IV . Q10H [facility] Rx#:[id number] Output: Urine 776 [id number] Other: Voiding Method Urinal Urinal # Voids 1 3 # Bowel Movements 1 - Exam PHYSICAL EXAM: VITAL SIGNS: As above GENERAL: [Sitting up in chair, tired appearing, occasional tremor] HEENT: [Pupils equal conjunctiva normal, pale] NECK: [Supple, no JVD] RESPIRATORY EFFORT: Normal] LUNGS: [Clear air entry, diminished on right ,no wheezing, no crackles, coarse rhonchi] CARDIOVASCULAR[regular S1 and S2, no murmurs rubs or gallops, no edema] GI: [Abdomen soft, nontender, positive bowel sounds.] PSYCH: [Alert and oriented -3, mood and affect normal. NEURO: No focal deficits Microbiology Microbiology 04/27/16 08:33 Blood Blood Culture - Preliminary No Growth after 72 hours 04/26/16 16:02 Blood Blood Culture - Preliminary No Growth after 72 hours 04/26/16 11:45 Sputum Gram Stain - Final 04/26/16 11:45 Sputum Sputum Culture - Final Pseudomonas aeruginosa 04/25/16 00:25 Blood Blood Culture Gram Stain - Final 04/25/16 00:25 Blood Blood Culture - Final Coagulase Negative Staph Alpha Hemolytic Streptococcus Coagulase Negative Staph#2 04/25/16 00:25 Blood Blood Culture - Preliminary - Labs CBC & Chem 7: 04/27/16 08:33 04/30/16 07:30 Labs: Abnormal Lab Results - Last 24 Hours (Table) 04/28/16 04/29/16 04/29/16 Range/Units 20:45 07:24 08:20 Carbon Dioxide 32 H (22-30) mmol/L BUN 21 H (9-20) mg/dL Creatinine 0.54 L (0.66-1.25) mg/dL Glucose 144 H (74-99) mg/dL POC Glucose (mg/dL) 255 H 131 H (75-99) mg/dL 04/29/16 04/29/16 Range/Units 12:29 16:58 Carbon Dioxide (22-30) mmol/L BUN (9-20) mg/dL Creatinine (0.66-1.25) mg/dL Glucose (74-99) mg/dL POC Glucose (mg/dL) 195 H 233 H (75-99) mg/dL Microbiology - Last 24 Hours (Table) 04/26/16 16:02 Blood Culture - Preliminary Blood No Growth after 72 hours 04/27/16 08:33 Blood Culture - Preliminary Blood No Growth after 48 hours 04/26/16 11:45 Gram Stain - Final Sputum Sputum Culture - Final Pseudomonas aeruginosa Assessment and Plan Plan: 1. [Sepsis secondary to right mid and right lower lobe gram-negative pneumonia with pseudomonas aeruginosa, coagulase-negative staph and alpha hemolytic Streptococcus bacteremia. 2. [Diabetes mellitus type 2]. 3. [Acute on chronic hypercapnic respiratory failure secondary to COPD]. 4. [Acute hypoxic respiratory failure]. 5. [Benign prostatic hypertrophy]. 6. Medical debilitation. Plan: Continue on current medication regime , Zosyn, monitoring and symptomatic treatment. Antibiotics as per ID. Continue monitoring cultures closely. Awaiting final sensitivitiy. Discharge planning in progress for tomorrow for return to [facility]. Follow-up chest x-ray ordered .Further recommendations to follow. The impression and plan of care has been dictated as directed. : I performed a H&P examination of this patient and discussed the same with the dictator. I agree with the dictator's note. Any additional findings/opinions/ etc. will be noted.
[2016-04-30 11:55] LABS: Glucose,Whole Blood 223 mg/dL (75-99)
--- NOTE | 2016-04-30 13:53 | XR ---
EXAMINATION TYPE: XR chest 2V DATE OF EXAM: 04/30/2016 1:39 PM COMPARISON: Chest x-ray from 4 days ago. HISTORY: History of COPD and asthma presents with pneumonia. TECHNIQUE: Frontal and lateral views of the chest are obtained. FINDINGS: There is persistent right basilar opacity likely confined to middle lobe on 2 views. There is no new focal airspace opacity, pleural effusion, or pneumothorax seen bilaterally. Underlying em physematous change is present. The cardiac silhouette size is within normal limits. The osseous str uctures are intact. IMPRESSION: Persistent right middle lobe masslike infiltrate, no new infiltrate is seen, follow-up t o resolution to rule out underlying mass once again advised.
--- NOTE | 2016-04-30 14:14 | DS ---
DATE OF ADMISSION: 04/25/2016 DATE OF DISCHARGE: Patient is admitted with right middle lobe and right lower lobe pneumonia and patient has alpha hemolytic streptococci bacteremia, which improved at this point of time and patient is grew pseudomonas in the sputum which is sensitive to Cipro. The patient will be discharged on 750 mg p.o. b.i.d. of Cipro for 14 more days. Patient is at his baseline. Patient does have some tremors which is his baseline and patient was seen and examined on the day of discharge. Vitals are stable. PHYSICAL EXAMINATION: GENERAL: The patient is alert and oriented x3, not in any acute distress. Well developed, well nourished. HEENT: Pupils are round and equally reacting to light. EOMI. No scleral icterus. No conjunctival pallor. Normocephalic, atraumatic. No pharyngeal erythema. No thyromegaly. CARDIOVASCULAR: S1 and S2 present. No murmurs, rubs, or gallops. PULMONARY: Chest is clear to auscultation, no wheezing or crackles. ABDOMEN: Soft, nontender, nondistended, normoactive bowel sounds. No palpable organomegaly. MUSCULOSKELETAL: No joint swelling or deformity. EXTREMITIES: No cyanosis, clubbing, or pedal edema. SKIN: No rashes. NEUROLOGICAL EXAMINATION: No focal deficits but patient does have generalized weakness. Patient is being discharged back to subacute rehabilitation. Please refer to my depart summary for further list of discharge medications. ASSESSMENT AND PLAN: 1. Sepsis secondary to the right mid and lower lobe pseudomonal pneumonia. 2. Hemolytic streptococcal bacteremia, which improved. Repeat cultures are negative. 3. Type 2 diabetes mellitus. 4. Acute on chronic hypercapnic respiratory failure secondary to chronic obstructive pulmonary disease with minimal exacerbation. 5. Acute hypoxic respiratory failure secondary to pneumonia. 6. Benign prostatic hypertrophy. 7. Chronic medical debility. Patient will be discharged today in stable medical condition to subacute rehabilitation. Activity as tolerated. Cardiac diet. Patient will follow with Dr. Dheeraj Hoffmann in 2 to 3 days in subacute rehab. Spent greater than 35 minutes in total discharge process.
[2016-04-30 15:07] VITALS: BP 157/88; PULSE 76; TEMP 98.4
--- NOTE | 2016-04-30 22:18 | PN ---
DATE OF SERVICE: 04/30/2016 REASON FOR FOLLOWUP: Pseudomonas pneumonia. INTERVAL HISTORY: The patient is seen on rounds this afternoon, where the patient has been breathing comfortably. He remains to be afebrile. Denies significant chest pain or shortness of breath. Occasional cough. Not bringing up any sputum. No abdominal pain or any diarrhea. On examination, blood pressure 157/88 with a pulse of 76, temperature 98.4. He is 94% on 3L nasal cannula. General description is a middle-age male, lying in bed in no distress. RESPIRATORY SYSTEM: Unlabored breathing. Clear to auscultation anteriorly. HEART: S1, S2. Regular rate and rhythm. ABDOMEN: Soft. No tenderness. LABS: BUN of 18 with a creatinine 0.5. Sputum with Pseudomonas that is sensitive to ciprofloxacin as well as Zosyn. DIAGNOSTIC IMPRESSION AND PLAN: Patient with a right middle lung pneumonia. Sputum has been positive for Pseudomonas. The patient did well on Zosyn. In view of overall improvement, no fever, no elevated white count, patient will be on Cipro 750 twice a day for 2 weeks. The patient is encouraged to have an x-ray at the end of therapy to make sure the pneumonia has resolved. If not, he will need further workup, including a CT and maybe bronch. This was discussed with the attending physician on the floor.
== END 2016-04-30 17:06 | DRG 871 ==
LOC: EC 00:19 → 4MS4W 01:41
PROVIDERS: ADMIT Hospitalist; ATTEND Hospitalist
DX: A41.9 Sepsis, unspecified organism (principal); J15.1 Pneumonia due to Pseudomonas; J96.21 Acute and chronic respiratory failure with hypoxia; J96.22 Acute and chronic respiratory failure with hypercapnia; J44.0 Chronic obstructive pulmonary disease with (acute) lower respiratory infection; J44.1 Chronic obstructive pulmonary disease with (acute) exacerbation; E11.65 Type 2 diabetes mellitus with hyperglycemia; E83.42 Hypomagnesemia; I10 Essential (primary) hypertension; K21.9 Gastro-esophageal reflux disease without esophagitis; N40.0 Benign prostatic hyperplasia without lower urinary tract symptoms; T38.0X5A Adverse effect of glucocorticoids and synthetic analogues, initial encounter; R25.1 Tremor, unspecified; Z87.891 Personal history of nicotine dependence; Z99.81 Dependence on supplemental oxygen; Z79.4 Long term (current) use of insulin; Z79.899 Other long term (current) drug therapy; Y95 Nosocomial condition
CPT/HCPCS: 36415; 71020; 80048; 80053; 82550; 82553; 83036; 83605; 83735; 83880; 84484; 85025; 85027; 85610; 85730; 87040; 87070; 87205; 93005; 94640; 94760; 96361; 96365; 96375; 99291

== ENCOUNTER 2020-09-10 03:30 | Observation (INO) | payer MEDICARE, OTHER ==
--- NOTE | 2020-09-10 04:29 | ED ---
SOB HPI - General Chief Complaint: Shortness of Breath Stated Complaint: cardiac rhythm changes Time Seen by Provider: 09/10/20 03:35 Source: EMS, RN notes reviewed, old records reviewed Mode of arrival: EMS Limitations: no limitations - History of Present Illness Initial Comments: This is a 64-year-old male to the ER for evaluation. Patient presents today for evaluation regards to COPD exacerbation. Patient is brought in as accepted transfer for evaluation. He also complains of chest pain, urinary retention. MD Complaint: shortness of breath, cough, chest pain, anxiety -: days(s) Severity: moderate Severity scale (1-10): 5 Quality: aching Consistency: constant Improves With: nothing Worsens With: exertion, movement Known History Of: COPD Context: recent URI Associated Symptoms: chest pain, abdominal pain Treatments Prior to Arrival: none - Related Data Home Medications Medication Instructions Recorded Confirmed Acetaminophen [Tylenol] 650 mg PO Q4H PRN 04/25/16 04/25/16 Albuterol Inhaler (Mhu) [Ventolin 2 puff INHALATION RT-Q8H PRN 04/25/16 04/25/16 Hfa Inhaler (Mhu)] Albuterol Nebulized [Ventolin 2.5 mg INHALATION RT-Q4H 04/25/16 04/25/16 Nebulized] Atorvastatin [Lipitor] 40 mg PO HS 04/25/16 04/25/16 Fluticasone/Salmeterol [Advair 1 puff INHALATION RT-BID 04/25/16 04/25/16 250-50 Diskus] INSULIN ASPART (NovoLOG) [NovoLOG 12 unit SQ DAILY@1100 04/25/16 04/25/16 (formulary)] INSULIN ASPART (NovoLOG) [NovoLOG 14 unit SQ DAILY@1700 04/25/16 04/25/16 (formulary)] INSULIN LISPRO (HumaLOG) [humaLOG] See Protocol SQ ACHS 04/25/16 04/25/16 Insulin Aspart [NovoLOG] 10 units SQ DAILY@0700 04/25/16 04/25/16 Insulin Glargine [Lantus] 30 unit SQ HS 04/25/16 04/25/16 Ipratropium Nebulized [Atrovent 0.5 mg INHALATION RT-Q6H 04/25/16 04/25/16 Nebulized 0.2 MG/ML] Meloxicam [Mobic] 15 mg PO DAILY 04/25/16 04/25/16 Menthol [Biofreeze] 1 applic TOPICAL BID@1600,2100 04/25/16 04/25/16 Menthol [Biofreeze] 1 applic TOPICAL HS 04/25/16 04/25/16 Montelukast [Singulair] 10 mg PO HS 04/25/16 04/25/16 Mylanta Susp 30 ml PO Q4H PRN 04/25/16 04/25/16 Holland-3 Fatty Acids/Fish Oil [Fish 2 cap PO BID 04/25/16 04/25/16 Oil 1,000 mg Softgel] Tamsulosin [Flomax] 0.8 mg PO DAILY 04/25/16 04/25/16 lisinopriL [Zestril] 20 mg PO BID 04/25/16 04/25/16 Previous Rx's Medication Instructions Recorded ALPRAZolam [Xanax] 0.25 mg PO Q8HR #20 tablet 04/30/16 Ciprofloxacin HCl [Cipro] 750 mg PO BID #28 tablet 04/30/16 HYDROcodone/APAP 5-325MG [[place] 1 tab PO Q4HR PRN #30 tab 04/30/16 5-325] predniSONE 10 mg PO DAILY #30 tab 04/30/16 Allergies Allergy/AdvReac Type Severity Reaction Status Date / Time No Known Allergies Allergy Verified 04/25/16 11:34 Review of Systems ROS Statement: Those systems with pertinent positive or pertinent negative responses have been documented in the HPI. ROS Other: All systems not noted in ROS Statement are negative. Past Medical History Past Medical History: COPD, Diabetes Mellitus, GERD/Reflux, Hypertension Additional Past Medical History / Comment(s): BPH, left leg dvt History of Any Multi-Drug Resistant Organisms: None Reported Past Surgical History: Cholecystectomy, Hernia Repair Additional Past Surgical History / Comment(s): hemmorids removed, Past Psychological History: No Psychological Hx Reported Past Alcohol Use History: None Reported Past Drug Use History: None Reported General Exam Limitations: no limitations General appearance: alert, in no apparent distress Head exam: Present: atraumatic, normocephalic, normal inspection Eye exam: Present: normal appearance, PERRL, EOMI. Absent: scleral icterus, conjunctival injection, periorbital swelling ENT exam: Present: normal exam, mucous membranes moist Neck exam: Present: normal inspection. Absent: tenderness, meningismus, lymphadenopathy Respiratory exam: Present: normal lung sounds bilaterally. Absent: respiratory distress, wheezes, rales, rhonchi, stridor Cardiovascular Exam: Present: regular rate, normal rhythm, normal heart sounds. Absent: systolic murmur, diastolic murmur, rubs, gallop, clicks GI/Abdominal exam: Present: soft, normal bowel sounds. Absent: distended, tenderness, guarding, rebound, rigid Extremities exam: Present: normal inspection, full ROM, normal capillary refill. Absent: tenderness, pedal edema, joint swelling, calf tenderness Back exam: Present: normal inspection Neurological exam: Present: alert, oriented X3, CN II-XII intact Psychiatric exam: Present: normal affect, normal mood Skin exam: Present: warm, dry, intact, normal color. Absent: rash Course Vital Signs 09/10/20 03:32 Pulse Rate 73 Respiratory 16 Rate Blood Pressure 132/96 O2 Sat by Pulse 94 L Oximetry - Reevaluation(s) Reevaluation #1: 09/10/20 05:21 Medical record is reviewed Reevaluation #2: 09/10/20 05:21 Patient's transfer paperwork has been reviewed Reevaluation #3: 09/10/20 05:22 Patient's urinary retention is improved as he does have Abad placed, shortness of breath is improved with breathing treatments Medical Decision Making - Medical Decision Making 64 male to be admitted for COPD exacerbation compounded with some chest pain as well as urinary retention with Abad placed. Patient to be admitted for further evaluation Disposition Clinical Impression: Acute exacerbation of chronic obstructive airways disease, Hypoxemia, Urinary retention, Chest pain Disposition: ADMITTED IP TO THIS HOSP Condition: Fair Is patient prescribed a controlled substance at d/c from ED?: No Referrals: Chetan Lang DO [Primary Care Provider] - 1-2 days
[2020-09-10] MEDS ORDERED: IPRATROPIUM-ALBUTEROL 3 ML NEB INHALATION STA (05:17)
[2020-09-10] MEDS: methylPREDNISolone SOD SUCCI 125 MG/2 ML VIAL IV SCH ×2 (05:52→11:36)
[2020-09-10 07:16] LABS: Glucose,Whole Blood 211 mg/dL (75-99)
[2020-09-10 07:49] LABS: HCT 45.7 % (39.0-53.0); HGB 14.5 gm/dL (13.0-17.5); MCH 29.5 pg (25.0-35.0); MCHC 31.8 g/dL (31.0-37.0); MCV 92.7 fL (80.0-100.0); Mean Platelet Volume 7.1; RBC 4.93 m/uL (4.30-5.90); RDW 14.5 % (11.5-15.5); WBC 11.4 k/uL (3.8-10.6)
[2020-09-10 07:58] LABS: Platelet Count 180 k/uL (150-450)
[2020-09-10] MEDS ORDERED: ALBUTEROL NEBULIZED 2.5 MG/3 ML INHALATION SCH (08:00)
[2020-09-10 08:01] LABS: ALT 27 U/L (4-49); AST 23 U/L (17-59); African American GFR (CKD) >90 (>60 ml/min/1.73 sqM); Albumin 3.9 g/dL (3.5-5.0); Alkaline Phosphatase 65 U/L (38-126); Blood Urea Nitrogen 25 mg/dL (9-20); Calcium 9.4 mg/dL (8.4-10.2); Chloride 95 mmol/L (98-107); Glucose 224 mg/dL (74-99); Non-African American GFR(CKD) >90 (>60 ml/min/1.73 sqM); Potassium 4.5 mmol/L (3.5-5.1); Sodium 138 mmol/L (137-145); Total Bilirubin 0.9 mg/dL (0.2-1.3); Total Protein 6.4 g/dL (6.3-8.2)
[2020-09-10 08:09] LABS: Anion Gap 8 mmol/L
[2020-09-10] MEDS ORDERED: IPRATROPIUM-ALBUTEROL 3 ML NEB INHALATION PRN (08:12)
[2020-09-10 08:18] LABS: Carbon Dioxide 35 mmol/L (22-30)
--- NOTE | 2020-09-10 08:31 | XR ---
EXAMINATION TYPE: XR chest 1V portable DATE OF EXAM: 09/10/2020 COMPARISON: 04/30/2016 HISTORY: short of breath TECHNIQUE: Single frontal view of the chest is obtained. FINDINGS: There is no focal air space opacity, pleural effusion, or pneumothorax seen. The cardiac silhouette size is within normal limits. The osseous structures are intact. IMPRESSION: No acute process.
[2020-09-10] MEDS: APIXABAN 5 MG TAB PO SCH ×2 (09:08→21:04)
--- NOTE | 2020-09-10 09:37 | P.CNPUL ---
History of Present Illness Consult date: 09/10/20 Requesting physician: Johnson Harmon Reason for consult: dyspnea Chief complaint: Shortness of breath, urinary retention History of present illness: 64-year-old white male patient with past medical history of advanced COPD on home oxygen usually at 4 L/m, former smoker, hypertension, diabetes mellitus type 2, A. fib, BPH, history of left leg DVT, who was recently hospitalized at [facility] for acute exacerbation of COPD, urinary retention, and A. fib with RVR. Patient states he was discharged from there 6 days ago. He started experiencing worsening shortness of breath and went for evaluation to the [facility] on 09/09/2020. he denied any fever or chills, he denied any complaints of chest pain, he is producing some white colored sputum. Denies any hemoptysis, he reports some increased swelling in his bilateral lower extremities. He also reports some bruising on his toes on his left foot. Denies any injury to the left foot. At [facility] patient was afebrile, no EKG available for review, but his heart rate was controlled, blood pressure is 151/82, and he was satting 96% on 4 L of oxygen. No chest x-ray from [facility] was found on the chart. Patient requested a transfer to [facility] because he had an appointment with a urologist today, and in addition he was supposed to follow-up with a janitorial services supervisor after his most recent hospitalization. His lab work at [facility] showed white blood cell count of 9.1, hemoglobin of 13.7, WBC 9.1, d-dimer was 0.19, INR is 1.09, sodium was 141, potassium is 4.0, chloride is 101, CO2 was 36, BUN was 29, creatinine was 0.5, glucose was 166, ALT was 25, AST was 19, alkaline phosphatase is 41, troponin is less than 0.05. Patient is on Eliquis 2.5 mg twice daily for anticoagulation, he is on oral diltiazem extended release 60 mg every 12 hours, he is on Ventolin inhaler, Symbicort, DuoNeb nebulized treatments, Singulair, and patient was sent home on prednisone taper after his most recent admission. Chest x-ray was completed at this hospital showing no acute process. Patient is short of breath with exertion, he is currently on 4 L of oxygen pulse ox is 94%, blood pressure is stable, patient is currently not on the monitor, but physical exam reveals irregular heart sounds, with a controlled rate. Not appear to be in any acute distress, lung sounds revealed diffuse rhonchi. One plus lower extremity edema noted. Review of Systems All systems: negative Constitutional: Denies chills, Denies fever Eyes: denies blurred vision, denies pain Ears, nose, mouth and throat: Denies headache, Denies sore throat Cardiovascular: Reports decreased exercise tolerance, Reports dyspnea on exertion, Reports irregular heart beat, Reports leg edema, Denies chest pain, Denies shortness of breath Respiratory: Reports cough with sputum, Reports dyspnea, Reports home oxygen, Reports respiratory infections, Denies cough Gastrointestinal: Denies abdominal pain, Denies diarrhea, Denies nausea, Denies vomiting Musculoskeletal: Denies myalgias Integumentary: Denies pruritus, Denies rash Neurological: Denies numbness, Denies weakness Psychiatric: Denies anxiety, Denies depression Endocrine: Denies fatigue, Denies weight change Past Medical History Past Medical History: COPD, Diabetes Mellitus, GERD/Reflux, Hypertension Additional Past Medical History / Comment(s): BPH, left leg dvt History of Any Multi-Drug Resistant Organisms: None Reported Past Surgical History: Cholecystectomy, Hernia Repair Additional Past Surgical History / Comment(s): hemmorids removed, Past Psychological History: No Psychological Hx Reported Past Alcohol Use History: None Reported Past Drug Use History: None Reported Medications and Allergies Home Medications Medication Instructions Recorded Confirmed Type Insulin Glargine [Lantus] 20 unit SQ HS 04/25/16 09/10/20 History Montelukast [Singulair] 10 mg PO DAILY@1200 04/25/16 09/10/20 History Tamsulosin [Flomax] 0.4 mg PO DAILY@1200 04/25/16 09/10/20 History ALPRAZolam [Xanax] 0.25 mg PO BID PRN 09/10/20 09/10/20 History Albuterol Sulfate [Ventolin HFA] 2 puff INHALATION RT-Q4H PRN 09/10/20 09/10/20 History Apixaban [Eliquis] 5 mg PO BID 09/10/20 09/10/20 History Aspirin EC [Ecotrin Low Dose] 81 mg PO DAILY@1200 09/10/20 09/10/20 History Baclofen [Lioresal] 10 mg PO TID 09/10/20 09/10/20 History Budesonide/Formoterol Fumarate 2 puff INHALATION RT-BID 09/10/20 09/10/20 History [Symbicort 160-4.5 Mcg Inhaler] Diltiazem HCl [Diltiazem HCl 12Hr 60 mg PO Q12H 09/10/20 09/10/20 History ER] Docusate [Colace] 100 mg PO DAILY PRN 09/10/20 09/10/20 History Ipratropium-Albuterol Nebulize 3 ml INHALATION RT-QID 09/10/20 09/10/20 History [Duoneb 0.5 mg-3 mg/3 ml Soln] Magnesium Oxide 400 mg PO DAILY@1200 09/10/20 09/10/20 History Pantoprazole Sodium [Protonix] 40 mg PO DAILY@1200 09/10/20 09/10/20 History Allergies Allergy/AdvReac Type Severity Reaction Status Date / Time No Known Allergies Allergy Verified 09/10/20 08:33 Physical Exam Vitals: Vital Signs Pulse Resp BP Pulse Ox 09/10/20 07:00 77 16 152/99 94 L 09/10/20 03:32 73 16 132/96 94 L Intake and Output 09/09/20 09/10/20 09/10/20 22:59 06:59 14:59 Output Total 1100 Balance -1100 Output: Urine 1100 Uretheral (Abad) 1100 Other: Weight 104.326 kg GENERAL EXAM: Alert, very pleasant, 64-year-old white male, on 4 L of oxygen pulse ox of 94%, resting on the gurney in the emergency Department, mildly dyspneic with exertion, and conversation but otherwise comfortable in no apparent distress. HEAD: Normocephalic/atraumatic. EYES: Normal reaction of pupils, equal size. Conjunctiva pink, sclera white. NOSE: Clear with pink turbinates. THROAT: No erythema or exudates. NECK: No masses, no JVD, no thyroid enlargement, no adenopathy. CHEST: No chest wall deformity. Symmetrical expansion. LUNGS: Equal air entry with diffuse rhonchi CVS: Regular rate and rhythm, normal S1 and S2, no gallops, no murmurs, no rubs ABDOMEN: Soft, nontender. No hepatosplenomegaly, normal bowel sounds, no gua rding or rigidity. EXTREMITIES: No clubbing, 1+ lower extremity edema no cyanosis, 2+ pulses and upper and lower extremities. Bruising of the second, third, fourth toes on the left leg MUSCULOSKELETAL: Muscle strength and tone normal. SPINE: No scoliosis or deformity SKIN: No rashes CENTRAL NERVOUS SYSTEM: Alert and oriented -3. No focal deficits, tone is normal in all 4 extremities. PSYCHIATRIC: Alert and oriented -3. Appropriate affect. Intact judgment and insight. Results - Laboratory Findings CBC and BMP: 09/10/20 07:37 09/10/20 07:37 Abnormal lab findings: Abnormal Labs 09/10/20 09/10/20 09/10/20 05:53 05:53 05:53 WBC MCHC 30.2 L Plt Count 8 L* Neutrophils # (Manual) 9.20 H Lymphocytes # (Manual) 0.71 L Sodium 121 L Chloride 82 L Carbon Dioxide 35 H BUN Creatinine 0.42 L Glucose 637 H* POC Glucose (mg/dL) Calcium 8.1 L Magnesium 19.4 H* Total Creatine Kinase 29 L CK-MB (CK-2) 2.6 H Total Protein 5.4 L Albumin 3.3 L 09/10/20 09/10/20 09/10/20 07:14 07:37 07:37 WBC 11.4 H MCHC Plt Count Neutrophils # (Manual) Lymphocytes # (Manual) Sodium Chloride 95 L Carbon Dioxide 35 H BUN 25 H Creatinine 0.49 L Glucose 224 H POC Glucose (mg/dL) 211 H Calcium Magnesium Total Creatine Kinase CK-MB (CK-2) Total Protein Albumin - Diagnostic Findings Chest x-ray: report reviewed, image reviewed Assessment and Plan Plan: Assessment: #1. Dyspnea related to acute exacerbation of COPD, chest x-ray showed no evidence of acute pulmonary disease #2. Recent hospitalization for acute exacerbation of COPD, A. fib with RVR, and urinary retention at [facility], discharged home 6 days ago #3. BPH and urinary retention #4. Advanced COPD, on home oxygen at 4 L #5. Ex-smoker #6. A. fib, on Eliquis #7. Diabetes mellitus type 2 #8. Hypertension #9. GERD/reflux #10. History of left leg DVT Plan: Continue IV Solu-Medrol DuoNeb 4 times a day and every 2 hours when necessary for shortness of breath Pulmicort and Perforomist Chest x-ray has been reviewed Urology and cardiology evaluation We'll continue to follow I performed a history & physical examination of the patient and discussed their management with my nurse practitioner, Leatha Be. I reviewed the nurse practitioner's note and agree with the documented findings and plan of care. Lung sounds are positive for diffuse wheezes throughout the lung tavarez. The findings and the impression was discussed with the patient. I attest to the documentation by the nurse practitioner. Time with Patient: Greater than 30
[2020-09-10] MEDS ORDERED: ALPRAZolam 0.25 MG TAB PO PRN (09:40)
--- NOTE | 2020-09-10 09:53 | P.CRDCN ---
History of Present Illness History of present illness: HISTORY OF PRESENTING ILLNESS This is a pleasant 64-year-old male past medical history significant for COPD on home oxygen, paroxysmal atrial fibrillation on eliquis, diabetes mellitus, hypertension and gastroesophageal reflux disease. He denies prior history of coronary artery disease. He states he was diagnosed with atrial fibrillation within the last month and has not established with a specialty development consultant. We have been asked to see in consultation for chest pain. He was transferred here from [facility] for further pulmonary and cardiac evaluation. He states he has been admitted to [facility] 3 times over the previous one month. He states he is having persistent shortness of breath and not achieving any answers or relief. He is seen and examined sitting up in bed, mildly dyspneic with conversation. He denies symptoms of chest discomfort. He has no dizziness or palpitations. There is no EKG for review at [place] or here. He sound regular on exam. He is not on telemetry. Chest x-ray is negative for an acute cardiopulmonary process. Laboratory data reviewed, WBC 11.4, hemoglobin 14.5, platelets 180, sodium 138, potassium 4.5, creatinine 0.49, magnesium 2.0 and troponin at [place] was negative 1. Current daily cardiac medications include diltiazem 60 mg twice a day, aspirin 81 mg daily and Eliquis 5 mg twice a day. REVIEW OF SYSTEMS At the time of my exam: CONSTITUTIONAL: Denies fever or chills. CARDIOVASCULAR: Complains of shortness of breath. Denies chest pain, orthopnea, PND or palpitations. RESPIRATORY: Denies cough. GASTROINTESTINAL: Denies abdominal pain, diarrhea, constipation, nausea or vomiting. MUSCULOSKELETAL: Denies myalgias. NEUROLOGIC: Denies numbness, tingling, headacbe or weakness. ENDOCRINE: Denies fatigue, weight change, polydipsia or polyurina. GENITOURINARY: Denies burning, hematuria or urgency with micturation. HEMATOLOGIC: Denies history of anemia or bleeding. PHYSICAL EXAMINATION Blood pressure 125/83 heart rate 74 afebrile and maintaining oxygen saturation on nasal cannula. CONSTITUTIONAL: No apparent distress. HEENT: Head is normocephalic. Pupils are equal, round. Sclerae anicteric. Mucous membranes of the mouth are moist. No JVD. No carotid bruit. CHEST EXAMINATION: No chest wall tenderness is noted on palpation or with deep breathing. Scattered rhonchi, diminished bilaterally. No wheezes or rales. HEART EXAMINATION: Regular rate and rhythm. S1, S2 heard. No murmurs, gallops or rub. Distant heart sounds. ABDOMEN: Soft, nontender. Positive bowel sounds. EXTREMITIES: 2+ peripheral pulses, trace bilateral lower extremity edema and no calf tenderness. Ecchymosis noted to the left second, third and fourth toe. NEUROLOGIC EXAMINATION: Patient is awake, alert and oriented x3. ASSESSMENT Shortness of breath, likely due to COPD Leukocytosis Paroxysmal atrial fibrillation on eliquis Hypertension End stage COPD on home oxygen PLAN Obtain troponin to rule out an acute event. Obtain baseline EKG. Obtain 2D echocardiogram and doppler study to assess cardiac structure and function. Resume Eliquis for thromboembolic protection. Resume diltiazem for rate control. Check a arterial duplex of the lower extremities. Thank you kindly for this consultation. Nurse Practitioner note has been reviewed, I agree with a documented findings and plan of care. Patient was seen and examined. Past Medical History Past Medical History: COPD, Diabetes Mellitus, GERD/Reflux, Hypertension Additional Past Medical History / Comment(s): BPH, left leg dvt History of Any Multi-Drug Resistant Organisms: None Reported Past Surgical History: Cholecystectomy, Hernia Repair Additional Past Surgical History / Comment(s): hemmorids removed, Past Psychological History: No Psychological Hx Reported Past Alcohol Use History: None Reported Past Drug Use History: None Reported Medications and Allergies Home Medications Medication Instructions Recorded Confirmed Type Insulin Glargine [Lantus] 20 unit SQ HS 04/25/16 09/10/20 History Montelukast [Singulair] 10 mg PO DAILY@1200 04/25/16 09/10/20 History Tamsulosin [Flomax] 0.4 mg PO DAILY@1200 04/25/16 09/10/20 History ALPRAZolam [Xanax] 0.25 mg PO BID PRN 09/10/20 09/10/20 History Albuterol Sulfate [Ventolin HFA] 2 puff INHALATION RT-Q4H PRN 09/10/20 09/10/20 History Apixaban [Eliquis] 5 mg PO BID 09/10/20 09/10/20 History Aspirin EC [Ecotrin Low Dose] 81 mg PO DAILY@1200 09/10/20 09/10/20 History Baclofen [Lioresal] 10 mg PO TID 09/10/20 09/10/20 History Budesonide/Formoterol Fumarate 2 puff INHALATION RT-BID 09/10/20 09/10/20 History [Symbicort 160-4.5 Mcg Inhaler] Diltiazem HCl [Diltiazem HCl 12Hr 60 mg PO Q12H 09/10/20 09/10/20 History ER] Docusate [Colace] 100 mg PO DAILY PRN 09/10/20 09/10/20 History Ipratropium-Albuterol Nebulize 3 ml INHALATION RT-QID 09/10/20 09/10/20 History [Duoneb 0.5 mg-3 mg/3 ml Soln] Magnesium Oxide 400 mg PO DAILY@1200 09/10/20 09/10/20 History Pantoprazole Sodium [Protonix] 40 mg PO DAILY@1200 09/10/20 09/10/20 History Allergies Allergy/AdvReac Type Severity Reaction Status Date / Time No Known Allergies Allergy Verified 09/10/20 08:33 Physical Exam Vitals: Vital Signs Temp Pulse Resp BP Pulse Ox 09/10/20 09:33 98.4 F 74 20 125/83 92 L 09/10/20 07:00 77 16 152/99 94 L 09/10/20 03:32 73 16 132/96 94 L Intake and Output 09/09/20 09/10/20 09/10/20 22:59 06:59 14:59 Output Total 1100 Balance -1100 Output: Urine 1100 Uretheral (Abad) 1100 Other: Weight 104.326 kg Results 09/10/20 07:37 09/10/20 07:37 Cardiac Enzymes 09/10/20 09/10/20 09/10/20 Range/Units 05:53 05:53 05:53 AST 20 (17-59) U/L CK-MB (CK-2) 2.6 H (0.0-2.4) ng/mL Troponin I 0.028 (0.000-0.034) ng/mL 09/10/20 Range/Units 07:37 AST 23 (17-59) U/L CK-MB (CK-2) (0.0-2.4) ng/mL Troponin I (0.000-0.034) ng/mL CBC 09/10/20 09/10/20 Range/Units 05:53 07:37 WBC 10.2 11.4 H (3.8-10.6) k/uL RBC 4.44 4.93 (4.30-5.90) m/uL Hgb 13.0 14.5 (13.0-17.5) gm/dL Hct 43.2 45.7 (39.0-53.0) % Plt Count 8 L* 180 D (150-450) k/uL Comprehensive Metabolic Panel 09/10/20 09/10/20 Range/Units 05:53 07:37 Sodium 121 L 138 (137-145) mmol/L Potassium 3.9 4.5 (3.5-5.1) mmol/L Chloride 82 L 95 L (98-107) mmol/L Carbon Dioxide 35 H 35 H (22-30) mmol/L BUN 20 25 H (9-20) mg/dL Creatinine 0.42 L 0.49 L (0.66-1.25) mg/dL Glucose 637 H* 224 H (74-99) mg/dL Calcium 8.1 L 9.4 (8.4-10.2) mg/dL AST 20 23 (17-59) U/L ALT 23 27 (4-49) U/L Alkaline Phosphatase 63 65 (38-126) U/L Total Protein 5.4 L 6.4 (6.3-8.2) g/dL Albumin 3.3 L 3.9 (3.5-5.0) g/dL Current Medications Generic Name Dose Route Start Last Admin Trade Name Freq PRN Reason Stop Dose Admin Albuterol/Ipratropium 3 ml 09/10/20 12:00 Ipratropium-Albuterol 3 Ml Neb INHALATION RT-QID CHARLES Albuterol/Ipratropium 3 ml 09/10/20 08:12 Ipratropium-Albuterol 3 Ml Neb INHALATION RT-Q2H PRN Shortness Of Breath Or Wheezing Apixaban 5 mg 09/10/20 09:00 09/10/20 09:08 Apixaban 5 Mg Tab PO 5 mg BID [facility] Administration Protocol Budesonide 1 mg 09/10/20 20:00 Budesonide 1 Mg/2 Ml Nebu INHALATION RT-BID [facility] Formoterol Fumarate 20 mcg 09/10/20 20:00 Formoterol Fumarate 20 Mcg/2 Ml Nebu INHALATION RT-BID CHARLES Methylprednisolone Sodium Succinate 60 mg 09/10/20 06:00 09/10/20 05:52 Methylprednisolone Sod Succi 125 Mg/2 Ml Vial IV 60 mg Q6HR CHARLES Administration Intake and Output 09/09/20 09/10/20 09/10/20 22:59 06:59 14:59 Output Total 1100 Balance -1100 Output: Urine 1100 Uretheral (Abad) 1100 Other: Weight 104.326 kg 09/10/20 07:37 09/10/20 07:37
[2020-09-10 10:05] LABS: Troponin I 0.029 ng/mL (0.000-0.034)
[2020-09-10] MEDS: DILTIAZEM CD 120 MG CAP.ER.24H PO SCH (10:38)
[2020-09-10 10:46] LABS: Glucose,Whole Blood 228 mg/dL (75-99)
[2020-09-10 11:02] LABS: Creatine Kinase MB 3.4 ng/mL (0.0-2.4)
--- NOTE | 2020-09-10 11:19 | ECHOF ---
Referral Reason:cp MEASUREMENTS -------- HEIGHT: 188.0 cm WEIGHT: 104.3 kg BP: 152/99 RVIDd: 5.1 cm (< 3.3) IVSd: 1.4 cm (0.6 - 1.1) LVIDd: 4.1 cm (3.9 - 5.3) LVPWd: 1.3 cm (0.6 - 1.1) IVSs: 1.5 cm LVIDs: 2.9 cm LVPWs: 1.7 cm Ao Diam: 3.8 cm (2.0 - 3.7) AV Cusp: 2.2 cm (1.5 - 2.6) LA Diam: 3.8 cm (2.7 - 3.8) MV EXCURSION: 25.333 mm (> 18.000) MV EF SLOPE: 101 mm/s (70 - 150) EPSS: 0.4 cm MV E Saul: 0.55 m/s MV DecT: 170 ms MV A Saul: 0.64 m/s MV E/A Ratio: 0.86 RAP: 5.00 mmHg RVSP: 35.24 mmHg FINDINGS -------- Sinus rhythm. This was a technically difficult study with suboptimal apical views. The left ventricular size is normal. There is moderate concentric left ventricular hypertrophy. O verall left ventricular systolic function is normal with, an EF between 55 - 60 %. The right ventricle is severely enlarged. The left atrial size is normal. The right atrium is moderately enlarged. 5.0mg of Lumason was utilized for enhancement of images Interatrial and interventricular septum intact. The aortic valve is trileaflet and appears structurally normal. There is no evidence of aortic regu rgitation. There is no evidence of aortic stenosis. No mitral regurgitation. Mild tricuspid regurgitation present. There is mild pulmonary hypertension. The right ventricular systolic pressure, as measured by Doppler, is 35.24mmHg. There is no pulmonic regurgitation present. The aortic root size is normal. IVC Not well visulized. There is no pericardial effusion. CONCLUSIONS -------- 1. The left ventricular size is normal. 2. There is moderate concentric left ventricular hypertrophy. 3. Overall left ventricular systolic function is normal with, an EF between 55 - 60 %. 4. The right ventricle is severely enlarged. 5. The right atrium is moderately enlarged. 6. Mild tricuspid regurgitation present. 7. There is mild pulmonary hypertension. 8. The right ventricular systolic pressure, as measured by Doppler, is 35.24mmHg. ENVIRONMENTAL SAFETY SPECIALIST: Gabi Logan RDCS
[2020-09-10] MEDS: ASPIRIN 81 MG PO SCH (11:35)
[2020-09-10] MEDS: PANTOPRAZOLE 40 MG TABLET PO SCH (11:36)
[2020-09-10] MEDS: MAGNESIUM OXIDE 400 MG TAB PO SCH (11:36)
[2020-09-10] MEDS: MONTELUKAST 10 MG TAB PO SCH (11:36)
[2020-09-10] MEDS: INSULIN ASPART (NovoLOG) 100 UNIT/ML VIAL SQ SCH ×3 (11:37→21:04)
[2020-09-10] MEDS: methylPREDNISolone SOD SUCCI 40 MG/ML 1 ML VIAL IV SCH ×2 (12:00→21:03)
[2020-09-10] MEDS ORDERED: IPRATROPIUM-ALBUTEROL 3 ML NEB INHALATION SCH (12:00)
[2020-09-10] MEDS ORDERED: TAMSULOSIN 0.4 MG CAP.ER.24H PO SCH (12:00)
[2020-09-10] MEDS: IPRATROPIUM-ALBUTEROL 3 ML NEB INHALATION SCH ×4 (15:13→23:34)
[2020-09-10] MEDS: guaiFENesin 600 MG TABLET.ER PO SCH ×3 (15:22→21:04)
[2020-09-10] MEDS: BACLOFEN 10 MG TAB PO SCH ×2 (15:22→21:05)
[2020-09-10 15:33] LABS: Glucose,Whole Blood 207 mg/dL (75-99)
[2020-09-10 17:13] LABS: Glucose,Whole Blood 245 mg/dL (75-99)
[2020-09-10] MEDS: FORMOTEROL FUMARATE 20 MCG/2 ML NEBU INHALATION SCH (19:18)
[2020-09-10] MEDS: BUDESONIDE 1 MG/2 ML NEBU INHALATION SCH (19:18)
[2020-09-10 20:28] LABS: Glucose,Whole Blood 195 mg/dL (75-99)
[2020-09-10] MEDS ORDERED: RX INFO: IV CONTRAST WAS GIVEN 1 EACH MISC MISCELLANE PRN (20:37)
--- NOTE | 2020-09-10 20:44 | P.HPIM ---
History of Present Illness H&P Date: 09/10/20 Chief Complaint: Shortness of breath History of presenting complaint: This is a 64-year-old patient who follows with Dr. Hernandez. Patient was transferred here from [facility]. Chronic stable medical conditions include diabetes, GERD, hypertension, BPH. Home oxygen-4 L. Patient presented to [facility] with increasing shortness of breath, congested chest. Co ugh. Clear sputum. Appetite is fair. No fever no chills. At [facility] patient started having trouble making urine. On the wound to make a small amount. Also some discoloration was noted of the left distal foot. Patient thinks he may have bumped his foot 4 days ago. Some discomfort. No fever no chills. No chest pain. Tired. Does use a walker. [Patient was recently discharged from [facility] and was discharged about 6 days ago. Had COPD exacerbation and A. fib with rapid ventricular rate] Review of systems: GEN.: Tired EYES: None HEENT: None NECK: None RESPIRATORY: As above CARDIOVASCULAR: None GASTROINTESTINAL: None GENITOURINARY: Trouble making urine MUSCULOSKELETAL: Some joint pains LYMPHATICS: None HEMATOLOGICAL: None PSYCHIATRY: None NEUROLOGICAL: Does use a walker Past medical history to include: COPD, diabetes, GERD, hypertension, BPH, left leg DVT Social history: Lives alone. Does use a walker. Smoked about 2 packs a day for close to 40 years stopped about 40 years ago. Used to work with chemicals [employer] Family history: Reviewed, noncontributory to presentation Physical examination: VITAL SIGNS: 98.4, 74, 20, 03/18/1982, 92% on 4 L GENERAL: BMI 29.5, declining in bed, short of breath. EYES: Pupils equal. Conjunctiva normal. HEENT: External appearance of nose and ears normal, oral cavity grossly normal. NECK: JVD unable to assess; masses not palpable. HEART: First and second heart sounds are normal; no edema. LUNGS: Respiratory rate increased, diminished breath sounds prolonged expiration occasional crackles. ABDOMEN: Soft, nontender, liver spleen not palpable, no masses palpable. PSYCH: Alert and oriented x3; mood and affect tiredl. MUSCULAR skeletal: Evidence of OA NEUROLOGICAL: Cranial nerves grossly intact; no facial asymmetry, power and sensation grossly intact. LYMPHATICS: No lymph nodes palpable in the axilla and neck EXTREMITY: Patient has dorsalis pedis is palpable in the right side. Unable to feel some the left side. He has bruising across to toes, on left side. INVESTIGATIONS, reviewed in the clinical context: WBC 11.4 hemoglobin 14.5 platelets 180 potassium 4.5 BUN 25 creatinine 0.49 Troponin I 0.029, proBNP 470 COVID 19 not detected 2-D echocardiogram: Moderate concentric LVH. EF 55-60% right ventricle severely enlarged Assessment and plan: -Acute COPD exacerbation in a previous smoker DuoNeb, every 4 hours, IV Solu-Medrol, inhaled Pulmicort -Chronic hypoxic respiratory failure from COPD On 4 L of oxygen -BPH with urinary retention Increase Flomax to 0.4 mg twice a day -Diabetes mellitus type 2, chronically on insulin On Lantus. For Accu-Cheks -Paroxysmal atrial fibrillation, currently sinus rhythm On Cardizem CD 60 mg every 12. He eliquis -GERD On PPI -Chronic gait dysfunction, uses a walker at baseline -Possible PAD. Consult vascular. Aspirin. Lipitor. Patient placed on DuoNeb, IV Solu-Medrol, inhaled Pulmicort. Home medications and resume. Follow Accu-Cheks. Care was discussed with the patient. Questions answered. Past Medical History Past Medical History: COPD, Diabetes Mellitus, GERD/Reflux, Hypertension Additional Past Medical History / Comment(s): BPH, left leg dvt History of Any Multi-Drug Resistant Organisms: None Reported Past Surgical History: Cholecystectomy, Hernia Repair Additional Past Surgical History / Comment(s): hemmorids removed, Past Psychological History: No Psychological Hx Reported Past Alcohol Use History: None Reported Past Drug Use History: None Reported Medications and Allergies Home Medications Medication Instructions Recorded Confirmed Type Insulin Glargine [Lantus] 20 unit SQ HS 04/25/16 09/10/20 History Montelukast [Singulair] 10 mg PO DAILY@1200 04/25/16 09/10/20 History Tamsulosin [Flomax] 0.4 mg PO DAILY@1200 04/25/16 09/10/20 History ALPRAZolam [Xanax] 0.25 mg PO BID PRN 09/10/20 09/10/20 History Albuterol Sulfate [Ventolin HFA] 2 puff INHALATION RT-Q4H PRN 09/10/20 09/10/20 History Apixaban [Eliquis] 5 mg PO BID 09/10/20 09/10/20 History Aspirin EC [Ecotrin Low Dose] 81 mg PO DAILY@1200 09/10/20 09/10/20 History Baclofen [Lioresal] 10 mg PO TID 09/10/20 09/10/20 History Budesonide/Formoterol Fumarate 2 puff INHALATION RT-BID 09/10/20 09/10/20 History [Symbicort 160-4.5 Mcg Inhaler] Diltiazem HCl [Diltiazem HCl 12Hr 60 mg PO Q12H 09/10/20 09/10/20 History ER] Docusate [Colace] 100 mg PO DAILY PRN 09/10/20 09/10/20 History Ipratropium-Albuterol Nebulize 3 ml INHALATION RT-QID 09/10/20 09/10/20 History [Duoneb 0.5 mg-3 mg/3 ml Soln] Magnesium Oxide 400 mg PO DAILY@1200 09/10/20 09/10/20 History Pantoprazole Sodium [Protonix] 40 mg PO DAILY@1200 09/10/20 09/10/20 History Allergies Allergy/AdvReac Type Severity Reaction Status Date / Time No Known Allergies Allergy Verified 09/10/20 08:33 Physical Exam Vitals: Vital Signs Temp Pulse Resp BP Pulse Ox 09/10/20 09:33 98.4 F 74 20 125/83 92 L 09/10/20 07:00 77 16 152/99 94 L 09/10/20 03:32 73 16 132/96 94 L Intake and Output 09/09/20 09/10/20 09/10/20 22:59 06:59 14:59 Output Total 1100 Balance -1100 Output: Urine 1100 Uretheral (Abad) 1100 Other: Weight 104.326 kg Results CBC & Chem 7: 09/10/20 07:37 09/10/20 07:37 Labs: Abnormal Lab Results - Last 24 Hours (Table) 09/10/20 09/10/20 09/10/20 Range/Units 05:53 05:53 05:53 WBC (3.8-10.6) k/uL MCHC 30.2 L (31.0-37.0) g/dL Plt Count 8 L* (150-450) k/uL Neutrophils # (Manual) 9.20 H (1.3-7.7) k/uL Lymphocytes # (Manual) 0.71 L (1.0-4.8) k/uL Sodium 121 L (137-145) mmol/L Chloride 82 L (98-107) mmol/L Carbon Dioxide 35 H (22-30) mmol/L BUN (9-20) mg/dL Creatinine 0.42 L (0.66-1.25) mg/dL Glucose 637 H* (74-99) mg/dL POC Glucose (mg/dL) (75-99) mg/dL Calcium 8.1 L (8.4-10.2) mg/dL Magnesium 19.4 H* (1.6-2.3) mg/dL Total Creatine Kinase 29 L (55-170) U/L CK-MB (CK-2) 2.6 H (0.0-2.4) ng/mL Total Protein 5.4 L (6.3-8.2) g/dL Albumin 3.3 L (3.5-5.0) g/dL 09/10/20 09/10/20 09/10/20 Range/Units 07:14 07:37 07:37 WBC 11.4 H (3.8-10.6) k/uL MCHC (31.0-37.0) g/dL Plt Count (150-450) k/uL Neutrophils # (Manual) (1.3-7.7) k/uL Lymphocytes # (Manual) (1.0-4.8) k/uL Sodium (137-145) mmol/L Chloride 95 L (98-107) mmol/L Carbon Dioxide 35 H (22-30) mmol/L BUN 25 H (9-20) mg/dL Creatinine 0.49 L (0.66-1.25) mg/dL Glucose 224 H (74-99) mg/dL POC Glucose (mg/dL) 211 H (75-99) mg/dL Calcium (8.4-10.2) mg/dL Magnesium (1.6-2.3) mg/dL Total Creatine Kinase (55-170) U/L CK-MB (CK-2) (0.0-2.4) ng/mL Total Protein (6.3-8.2) g/dL Albumin (3.5-5.0) g/dL
[2020-09-10] MEDS: ATORVASTATIN 20 MG TAB PO SCH (21:04)
[2020-09-10] MEDS: TAMSULOSIN 0.4 MG CAP.ER.24H PO SCH (21:05)
[2020-09-10] MEDS: INSULIN DETEMIR (LEVEMIR) 100 UNIT/ML SYR SQ SCH (21:07)
--- NOTE | 2020-09-10 21:19 | P.GSCN ---
History of Present Illness Consult date: 09/10/20 Reason for Consult: Urinary retention Requesting physician: Gonzalez Hernández History of present illness: The patient is a 64-year-old white male with a history of COPD and atrial fibrillation. He is admitted with shortness of breath due to COPD exacerbation. He has taken tamsulosin for approximately 7 years, and experienced voiding difficulty for the past month. He has undergone Abad catheter placement on 3 occasions due to recurrent urinary retention. He currently has a Abad catheter in place, which was placed at [facility] prior to transfer to [facility]. He denies any prior history of UTIs or urolithiasis. Review of Systems - Constitutional Denies chills, Denies fever - Respiratory Reports dyspnea - Genitourinary Reports as per HPI Past Medical History Past Medical History: COPD, Diabetes Mellitus, GERD/Reflux, Hypertension Additional Past Medical History / Comment(s): BPH, left leg dvt History of Any Multi-Drug Resistant Organisms: None Reported Past Surgical History: Cholecystectomy, Hernia Repair Additional Past Surgical History / Comment(s): hemmorids removed, Past Psychological History: No Psychological Hx Reported Past Alcohol Use History: None Reported Past Drug Use History: None Reported Medications and Allergies Home Medications Medication Instructions Recorded Confirmed Type Insulin Glargine [Lantus] 20 unit SQ HS 04/25/16 09/10/20 History Montelukast [Singulair] 10 mg PO DAILY@1200 04/25/16 09/10/20 History Tamsulosin [Flomax] 0.4 mg PO DAILY@1200 04/25/16 09/10/20 History ALPRAZolam [Xanax] 0.25 mg PO BID PRN 09/10/20 09/10/20 History Albuterol Sulfate [Ventolin HFA] 2 puff INHALATION RT-Q4H PRN 09/10/20 09/10/20 History Apixaban [Eliquis] 5 mg PO BID 09/10/20 09/10/20 History Aspirin EC [Ecotrin Low Dose] 81 mg PO DAILY@1200 09/10/20 09/10/20 History Baclofen [Lioresal] 10 mg PO TID 09/10/20 09/10/20 History Budesonide/Formoterol Fumarate 2 puff INHALATION RT-BID 09/10/20 09/10/20 History [Symbicort 160-4.5 Mcg Inhaler] Diltiazem HCl [Diltiazem HCl 12Hr 60 mg PO Q12H 09/10/20 09/10/20 History ER] Docusate [Colace] 100 mg PO DAILY PRN 09/10/20 09/10/20 History Ipratropium-Albuterol Nebulize 3 ml INHALATION RT-QID 09/10/20 09/10/20 History [Duoneb 0.5 mg-3 mg/3 ml Soln] Magnesium Oxide 400 mg PO DAILY@1200 09/10/20 09/10/20 History Pantoprazole Sodium [Protonix] 40 mg PO DAILY@1200 09/10/20 09/10/20 History Allergies Allergy/AdvReac Type Severity Reaction Status Date / Time No Known Allergies Allergy Verified 09/10/20 08:33 Surgical - Exam Vital Signs Pulse Resp BP Pulse Ox 73 16 132/96 94 L 09/10/20 03:32 09/10/20 03:32 09/10/20 03:32 09/10/20 03:32 - General well developed, well nourished, no distress - Respiratory normal respiratory effort - Abdomen Abdomen: soft, non tender, no guarding, no rigid, no rebound - Genitourinary normal penis with no external lesions, testicles non-tender - Rectum Rectum: normal sphincter tone, no masses, other (Prostate 4050 grams, smooth) - Integumentary Ecchymosis of left distal dorsal foot. - Psychiatric oriented to time, oriented to person, oriented to place, speech is normal, memory intact Results - Labs 09/10/20 07:37 09/10/20 07:37 Abnormal Lab Results - Last 24 Hours (Table) 09/10/20 09/10/20 09/10/20 Range/Units 07:14 07:37 07:37 WBC 11.4 H (3.8-10.6) k/uL Chloride 95 L (98-107) mmol/L Carbon Dioxide 35 H (22-30) mmol/L BUN 25 H (9-20) mg/dL Creatinine 0.49 L (0.66-1.25) mg/dL Glucose 224 H (74-99) mg/dL POC Glucose (mg/dL) 211 H (75-99) mg/dL Total Creatine Kinase (55-170) U/L CK-MB (CK-2) (0.0-2.4) ng/mL 09/10/20 09/10/20 09/10/20 Range/Units 07:37 10:43 15:31 WBC (3.8-10.6) k/uL Chloride (98-107) mmol/L Carbon Dioxide (22-30) mmol/L BUN (9-20) mg/dL Creatinine (0.66-1.25) mg/dL Glucose (74-99) mg/dL POC Glucose (mg/dL) 228 H 207 H (75-99) mg/dL Total Creatine Kinase 27 L (55-170) U/L CK-MB (CK-2) 3.4 H (0.0-2.4) ng/mL Diabetes panel 09/10/20 09/10/20 Range/Units 05:53 07:37 Sodium 138 (137-145) mmol/L Potassium 4.5 (3.5-5.1) mmol/L Chloride 95 L (98-107) mmol/L Carbon Dioxide 35 H (22-30) mmol/L BUN 25 H (9-20) mg/dL Creatinine 0.49 L (0.66-1.25) mg/dL Glucose 224 H (74-99) mg/dL Calcium 9.4 (8.4-10.2) mg/dL AST 23 (17-59) U/L ALT 27 (4-49) U/L Alkaline Phosphatase 65 (38-126) U/L Total Protein 6.4 (6.3-8.2) g/dL Albumin 3.9 (3.5-5.0) g/dL Calcium panel 09/10/20 09/10/20 Range/Units 05:53 07:37 Calcium 9.4 (8.4-10.2) mg/dL Albumin 3.9 (3.5-5.0) g/dL Pituitary panel 09/10/20 09/10/20 Range/Units 05:53 07:37 Sodium 138 (137-145) mmol/L Potassium 4.5 (3.5-5.1) mmol/L Chloride 95 L (98-107) mmol/L Carbon Dioxide 35 H (22-30) mmol/L BUN 25 H (9-20) mg/dL Creatinine 0.49 L (0.66-1.25) mg/dL Glucose 224 H (74-99) mg/dL Calcium 9.4 (8.4-10.2) mg/dL Adrenal panel 09/10/20 09/10/20 Range/Units 05:53 07:37 Sodium 138 (137-145) mmol/L Potassium 4.5 (3.5-5.1) mmol/L Chloride 95 L (98-107) mmol/L Carbon Dioxide 35 H (22-30) mmol/L BUN 25 H (9-20) mg/dL Creatinine 0.49 L (0.66-1.25) mg/dL Glucose 224 H (74-99) mg/dL Calcium 9.4 (8.4-10.2) mg/dL Total Bilirubin 0.9 (0.2-1.3) mg/dL AST 23 (17-59) U/L ALT 27 (4-49) U/L Alkaline Phosphatase 65 (38-126) U/L Total Protein 6.4 (6.3-8.2) g/dL Albumin 3.9 (3.5-5.0) g/dL Assessment and Plan (1) Urinary retention Current Visit: Yes Status: Acute Code(s): R33.9 - RETENTION OF URINE, UNSPECIFIED SNOMED Code(s): 661974714 Plan: In summary, the patient is a 64-year-old male with a long history of BPH. He has undergone Abad catheter placement on several occasions this past month for recurrent urinary retention. It would be my recommendation that the Abad catheter remain in place, and arrangements will be made for him to undergo urodynamic testing and cystoscopy in my office (as an out-patient) for further evaluation. However, if he remains hospitalized for several days, it would be reasonable to remove the Abad catheter for a voiding trial. Tamsulosin should be continued. Time with Patient: Greater than 30
[2020-09-11] MEDS: IPRATROPIUM-ALBUTEROL 3 ML NEB INHALATION SCH ×5 (04:13→20:04)
[2020-09-11] MEDS: methylPREDNISolone SOD SUCCI 40 MG/ML 1 ML VIAL IV SCH (04:29)
[2020-09-11 07:13] LABS: Glucose,Whole Blood 203 mg/dL (75-99)
[2020-09-11] MEDS: INSULIN ASPART (NovoLOG) 100 UNIT/ML VIAL SQ SCH ×4 (07:44→21:12)
[2020-09-11] MEDS: guaiFENesin 600 MG TABLET.ER PO SCH ×4 (07:45→21:12)
[2020-09-11] MEDS: BACLOFEN 10 MG TAB PO SCH ×3 (07:45→21:12)
[2020-09-11] MEDS: DILTIAZEM CD 120 MG CAP.ER.24H PO SCH (07:46)
[2020-09-11] MEDS: APIXABAN 5 MG TAB PO SCH ×2 (07:46→21:12)
[2020-09-11] MEDS: TAMSULOSIN 0.4 MG CAP.ER.24H PO SCH ×2 (07:46→21:12)
[2020-09-11] MEDS: FORMOTEROL FUMARATE 20 MCG/2 ML NEBU INHALATION SCH ×2 (07:54→20:04)
[2020-09-11] MEDS: BUDESONIDE 1 MG/2 ML NEBU INHALATION SCH ×2 (07:54→20:04)
--- NOTE | 2020-09-11 10:25 | P.GSCN ---
History of Present Illness Consult date: 09/11/20 Reason for Consult: Left lower extremity pain Requesting physician: Gonzalez Hernández History of present illness: This is a 64-year-old male who was a transfer from an outside hospital for evaluation of COPD exacerbation, chest pain, and urinary retention. His past medical history includes COPD, oxygen dependent, proximal atrial fibrillation on [place], diabetes mellitus, hypertension, GERD, BPH, and a history of a left lower extremity DVT. The patient has a history of urinary retention and urinary tract infections with multiple Abad catheters. He reports he was having difficulty making urine. The patient states he hit his left foot hard on a cement porch. When he tripped 4-5 days ago. States he had pain and bruising following with discoloration, therefor vascular surgery was consulted. Does state that he did have some vascular work on his right leg approximately 6-7 years ago at [facility], he is not sure what but believes possible angioplasty. He has artery underwent an arterial duplex study showing an PADMINI on the right of 0.91, left, 1.12. He is a former smoker, quit approximately 14 years ago. He denies any pain in his left leg or foot at this time, denies any pain in his legs, weakness, or achiness with walking. States he cannot walk long ways due to his breathing and his COPD. Review of Systems A 14 point review of systems was completed all pertinent positives and negatives as stated in the HPI Past Medical History Past Medical History: COPD, Diabetes Mellitus, GERD/Reflux, Hypertension Additional Past Medical History / Comment(s): BPH, left leg dvt History of Any Multi-Drug Resistant Organisms: None Reported Past Surgical History: Cholecystectomy, Hernia Repair Additional Past Surgical History / Comment(s): hemmorids removed, Past Psychological History: No Psychological Hx Reported Past Alcohol Use History: None Reported Past Drug Use History: None Reported Medications and Allergies Home Medications Medication Instructions Recorded Confirmed Type Insulin Glargine [Lantus] 20 unit SQ HS 04/25/16 09/10/20 History Montelukast [Singulair] 10 mg PO DAILY@1200 04/25/16 09/10/20 History Tamsulosin [Flomax] 0.4 mg PO DAILY@1200 04/25/16 09/10/20 History ALPRAZolam [Xanax] 0.25 mg PO BID PRN 09/10/20 09/10/20 History Albuterol Sulfate [Ventolin HFA] 2 puff INHALATION RT-Q4H PRN 09/10/20 09/10/20 History Apixaban [Eliquis] 5 mg PO BID 09/10/20 09/10/20 History Aspirin EC [Ecotrin Low Dose] 81 mg PO DAILY@1200 09/10/20 09/10/20 History Baclofen [Lioresal] 10 mg PO TID 09/10/20 09/10/20 History Budesonide/Formoterol Fumarate 2 puff INHALATION RT-BID 09/10/20 09/10/20 History [Symbicort 160-4.5 Mcg Inhaler] Diltiazem HCl [Diltiazem HCl 12Hr 60 mg PO Q12H 09/10/20 09/10/20 History ER] Docusate [Colace] 100 mg PO DAILY PRN 09/10/20 09/10/20 History Ipratropium-Albuterol Nebulize 3 ml INHALATION RT-QID 09/10/20 09/10/20 History [Duoneb 0.5 mg-3 mg/3 ml Soln] Magnesium Oxide 400 mg PO DAILY@1200 09/10/20 09/10/20 History Pantoprazole Sodium [Protonix] 40 mg PO DAILY@1200 09/10/20 09/10/20 History Allergies Allergy/AdvReac Type Severity Reaction Status Date / Time No Known Allergies Allergy Verified 09/10/20 08:33 Surgical - Exam Vital Signs Pulse Resp BP Pulse Ox 73 16 132/96 94 L 09/10/20 03:32 09/10/20 03:32 09/10/20 03:32 09/10/20 03:32 General appearance: The patient is alert, oriented, in no acute distress. HET: Head is normocephalic and atraumatic. Pupils are equal and reactive. Oropharynx is clear without lesions. Neck: Supple without lymphadenopathy. Trachea midline. Heart: S1 S2. Regular rate and rhythm. Lungs: Managed bilaterally. Abdomen: Soft, nontender, nondistended with bowel sounds. No peritoneal signs. No palpable organomegaly or masses. Extremities: Bilateral lower extremity edema. Left foot medial aspect of plantar surface with bruising as well as along the first through the fourth to es. Good capillary refill bilaterally. Palpable bilateral femoral pulses, palpable right dorsalis pedis pulse. Unable to palpate left dorsalis pedis pulse. Bilateral multiphasic dorsalis pedis and posterior tibialis Doppler signal. Neurological: No focal deficits. Strength and sensation are grossly intact. Results - Labs 09/10/20 07:37 09/10/20 07:37 Abnormal Lab Results - Last 24 Hours (Table) 09/10/20 09/10/20 09/10/20 Range/Units 07:37 07:37 07:37 WBC 11.4 H (3.8-10.6) k/uL Chloride 95 L (98-107) mmol/L Carbon Dioxide 35 H (22-30) mmol/L BUN 25 H (9-20) mg/dL Creatinine 0.49 L (0.66-1.25) mg/dL Glucose 224 H (74-99) mg/dL POC Glucose (mg/dL) (75-99) mg/dL Total Creatine Kinase 27 L (55-170) U/L CK-MB (CK-2) 3.4 H (0.0-2.4) ng/mL 09/10/20 09/10/20 09/10/20 Range/Units 10:43 15:31 17:11 WBC (3.8-10.6) k/uL Chloride (98-107) mmol/L Carbon Dioxide (22-30) mmol/L BUN (9-20) mg/dL Creatinine (0.66-1.25) mg/dL Glucose (74-99) mg/dL POC Glucose (mg/dL) 228 H 207 H 245 H (75-99) mg/dL Total Creatine Kinase (55-170) U/L CK-MB (CK-2) (0.0-2.4) ng/mL 09/10/20 09/11/20 Range/Units 20:27 07:12 WBC (3.8-10.6) k/uL Chloride (98-107) mmol/L Carbon Dioxide (22-30) mmol/L BUN (9-20) mg/dL Creatinine (0.66-1.25) mg/dL Glucose (74-99) mg/dL POC Glucose (mg/dL) 195 H 203 H (75-99) mg/dL Total Creatine Kinase (55-170) U/L CK-MB (CK-2) (0.0-2.4) ng/mL Diabetes panel 09/10/20 09/10/20 Range/Units 05:53 07:37 Sodium 138 (137-145) mmol/L Potassium 4.5 (3.5-5.1) mmol/L Chloride 95 L (98-107) mmol/L Carbon Dioxide 35 H (22-30) mmol/L BUN 25 H (9-20) mg/dL Creatinine 0.49 L (0.66-1.25) mg/dL Glucose 224 H (74-99) mg/dL Calcium 9.4 (8.4-10.2) mg/dL AST 23 (17-59) U/L ALT 27 (4-49) U/L Alkaline Phosphatase 65 (38-126) U/L Total Protein 6.4 (6.3-8.2) g/dL Albumin 3.9 (3.5-5.0) g/dL Calcium panel 09/10/20 09/10/20 Range/Units 05:53 07:37 Calcium 9.4 (8.4-10.2) mg/dL Albumin 3.9 (3.5-5.0) g/dL Pituitary panel 09/10/20 09/10/20 Range/Units 05:53 07:37 Sodium 138 (137-145) mmol/L Potassium 4.5 (3.5-5.1) mmol/L Chloride 95 L (98-107) mmol/L Carbon Dioxide 35 H (22-30) mmol/L BUN 25 H (9-20) mg/dL Creatinine 0.49 L (0.66-1.25) mg/dL Glucose 224 H (74-99) mg/dL Calcium 9.4 (8.4-10.2) mg/dL Adrenal panel 09/10/20 09/10/20 Range/Units 05:53 07:37 Sodium 138 (137-145) mmol/L Potassium 4.5 (3.5-5.1) mmol/L Chloride 95 L (98-107) mmol/L Carbon Dioxide 35 H (22-30) mmol/L BUN 25 H (9-20) mg/dL Creatinine 0.49 L (0.66-1.25) mg/dL Glucose 224 H (74-99) mg/dL Calcium 9.4 (8.4-10.2) mg/dL Total Bilirubin 0.9 (0.2-1.3) mg/dL AST 23 (17-59) U/L ALT 27 (4-49) U/L Alkaline Phosphatase 65 (38-126) U/L Total Protein 6.4 (6.3-8.2) g/dL Albumin 3.9 (3.5-5.0) g/dL - Imaging Comments: Arterial duplex study: PADMINI right 0.91, left 1.12 Assessment and Plan Assessment: 1. Left foot pain 2. COPD oxygen dependent 3. Atrial fibrillation on Eliquis 4. Urinary retention 5. Diabetes mellitus 6. Hypertension 7. BPH 8. History of left lower extremity DVT Plan: 1. Arterial duplex studies reviewed 2. Continue current medical management 3. There is no indication for any vascular surgical intervention at this time Thank you for this consultation, we will continue to follow The impression and plan of care has been dictated as directed. Dr. Abad I performed a history and examination of this patient, discussed the same with the dictator. I agree with the dictator's note ,documented as a scribe. Any additional findings or plans will be noted.
--- NOTE | 2020-09-11 10:37 | P.PN ---
Subjective Progress Note Date: 09/11/20 Principal diagnosis: COPD exacerbation, urinary retention. 64-year-old white male patient with past medical history of advanced COPD on home oxygen usually at 4 L/m, former smoker, hypertension, diabetes mellitus type 2, A. fib, BPH, history of left leg DVT, who was recently hospitalized at [facility] for acute exacerbation of COPD, urinary retention, and A. fib with RVR. Patient states he was discharged from there 6 days ago. He started experiencing worsening shortness of breath and went for evaluation to the [facility] on 09/09/2020. he denied any fever or chills, he denied any complaints of chest pain, he is producing some white colored sputum. Denies any hemoptysis, he reports some increased swelling in his bilateral lower extremities. He also reports some bruising on his toes on his left foot. Denies any injury to the left foot. At [facility] patient was afebrile, no EKG available for review, but his heart rate was controlled, blood pressure is 151/82, and he was satting 96% on 4 L of oxygen. No chest x-ray from [place] was found on the chart. Patient requested a transfer to [facility] because he had an appointment with a urologist today, and in addition he was supposed to follow-up with a jewelry manager after his most recent hospitalization. His lab work at [place] showed white blood cell count of 9.1, hemoglobin of 13.7, WBC 9.1, d-dimer was 0.19, INR is 1.09, sodium was 141, potassium is 4.0, chloride is 101, CO2 was 36, BUN was 29, creatinine was 0.5, glucose was 166, ALT was 25, AST was 19, alkaline phosphatase is 41, troponin is less than 0.05. Patient is on Eliquis 2.5 mg twice daily for anticoagulation, he is on oral diltiazem extended release 60 mg every 12 hours, he is on Ventolin inhaler, Symbicort, DuoNeb nebulized treatments, Singulair, and patient was sent home on prednisone taper after his most recent admission. Chest x-ray was completed at this hospital showing no acute process. Patient is short of breath with exertion, he is currently on 4 L of oxygen pulse ox is 94%, blood pressure is stable, patient is currently not on the monitor, but physical exam reveals irregular heart sounds, with a controlled rate. Not appear to be in any acute distress, lung sounds revealed diffuse rhonchi. One plus lower extremity edema noted. Progress note dated 09/11/2020. 64-year-old white male, seen yesterday in the emergency department. The patient has advanced COPD. He's currently on 4 L oxygen /. He doesn't smoke currently. He does have a history of hypertension, diabetes, atrial fibrillation, BPH, and DVT of the left leg. He went to [facility] for urinary retention and COPD exacerbation as well as atrial fibrillation with RVR. Currently, from the pulmonary standpoint, the patient's doing much better. He states that his breathing is much improved. He was seen by urology, and they placed a Abad catheter, and told him that they would leave it in for a week or 2 and see him back in the office. No new lab data today. Chest x-ray only showed changes of COPD, without an acute process. Objective - Vital Signs Vital signs: Vital Signs Temp 97.6 F 09/11/20 07:00 Pulse 75 09/11/20 08:14 Resp 18 09/11/20 07:00 BP 137/80 09/11/20 07:00 Pulse Ox 91 L 09/11/20 07:55 Intake & Output 09/10/20 09/11/20 09/11/20 18:59 06:59 18:59 Intake Total 200 Output Total 1400 Balance -1400 200 Weight 104.326 kg Intake: Oral 200 Output: Urine 1400 Other: Voiding Method Bedside Commode Indwelling Catheter # Bowel Movements 1 - Exam No acute distress, oriented 3. Currently on 4 L nasal cannula. No audible wheezing, use of accessory muscles, or conversational dyspnea. HEENT examination is grossly unremarkable. Neck supple. Full range of motion. No adenopathy thyromegaly or neck vein distention. Cardiovascular examination reveals regular rhythm rate. S1-S2 normal. No S3 or S4. No discernible murmur noted. Heart sounds are distant. Heart rate 75 bpm. Lungs reveal mild scattered rhonchi. No wheezes or crackles. Breath sounds equal bilaterally but diminished throughout. There is prolongation on forced maneuver. Abdomen soft bowel sounds are heard. No masses or tenderness. Extremities are intact. No cyanosis or clubbing. Mild lower extremity edema noted. Skin is without rash or lesion. Neurologic examination is brief but nonfocal. - Labs CBC & Chem 7: 09/10/20 07:37 09/10/20 07:37 Labs: Abnormal Lab Results - Last 24 Hours (Table) 09/10/20 09/10/20 09/10/20 Range/Units 07:37 07:37 10:43 WBC 11.4 H (3.8-10.6) k/uL POC Glucose (mg/dL) 228 H (75-99) mg/dL CK-MB (CK-2) 3.4 H (0.0-2.4) ng/mL 09/10/20 09/10/20 09/10/20 Range/Units 15:31 17:11 20:27 WBC (3.8-10.6) k/uL POC Glucose (mg/dL) 207 H 245 H 195 H (75-99) mg/dL CK-MB (CK-2) (0.0-2.4) ng/mL 09/11/20 Range/Units 07:12 WBC (3.8-10.6) k/uL POC Glucose (mg/dL) 203 H (75-99) mg/dL CK-MB (CK-2) (0.0-2.4) ng/mL Assessment and Plan Assessment: #1. Dyspnea related to acute exacerbation of COPD, chest x-ray showed no evidence of acute pulmonary disease #2. Recent hospitalization for acute exacerbation of COPD, A. fib with RVR, and urinary retention at [facility], discharged home 6 days ago #3. BPH and urinary retention #4. Advanced COPD, on home oxygen at 4 L #5. Ex-smoker #6. A. fib, on Eliquis #7. Diabetes mellitus type 2 #8. Hypertension #9. GERD/reflux #10. History of left leg DVT Plan: Plan dated 09/11/2020. The patient continues on appropriate medications including DuoNeb, Pulmicort, P erforomist, and IV Solu-Medrol. The patient has been seen by cardiology and urology. We will continue to follow. No additional recommendations are made. Prognosis is guarded. I suspect the patient has severe COPD. He has not been seen by a lung doctor as yet. Time with Patient: Greater than 30
--- NOTE | 2020-09-11 11:04 | P.PN ---
Subjective HISTORY OF PRESENTING ILLNESS This is a pleasant 64-year-old male past medical history significant for COPD on home oxygen, paroxysmal atrial fibrillation on eliquis, diabetes mellitus, hypertension and gastroesophageal reflux disease. He denies prior history of coronary artery disease. He states he was diagnosed with atrial fibrillation within the last month and has not established with a software solutions architect. We have been asked to see in consultation for chest pain. He was transferred here from [facility] for further pulmonary and cardiac evaluation. He states he has been admitted to [facility] 3 times over the previous one month. He states he is having persistent shortness of breath and not achieving any answers or relief. He is seen and examined sitting up in bed, mildly dyspneic with conversation. He denies symptoms of chest discomfort. He has no dizziness or palpitations. There is no EKG for review at [place] or here. He sound regular on exam. He is not on telemetry. Chest x-ray is negative for an acute cardiopulmonary process. Laboratory data reviewed, WBC 11.4, hemoglobin 14.5, platelets 180, sodium 138, potassium 4.5, creatinine 0.49, magnesium 2.0 and troponin at [place] was negative 1. Current daily cardiac medications include diltiazem 60 mg twice a day, aspirin 81 mg daily and Eliquis 5 mg twice a day. 09/11/2020 Patient seen and examined sitting up in bed in no acute distress. He continues to be short of breath. He has no symptoms of chest discomfort. Blood pressure 137/80 heart rate 75 afebrile maintaining oxygen saturation on nasal cannula. EKG reveals sinus mechanism, first-degree AV block with nonspecific abnormalities with no acute ST or T wave abnormalities noted. Echocardiogram obtained reveals preserved LV systolic function with ejection fraction 55-60%, severely enlarged right ventricle, moderately enlarged right atrium, mild tricuspid regurgitation. PHYSICAL EXAMINATION CONSTITUTIONAL: No apparent distress. HEENT: Head is normocephalic. Pupils are equal, round. Sclerae anicteric. Mucous membranes of the mouth are moist. No JVD. No carotid bruit. CHEST EXAMINATION: No chest wall tenderness is noted on palpation or with deep breathing. Scattered rhonchi, diminished bilaterally. No wheezes or rales. HEART EXAMINATION: Regular rate and rhythm. S1, S2 heard. No murmurs, gallops or rub. Distant heart sounds. EXTREMITIES: 2+ peripheral pulses, trace bilateral lower extremity edema and no calf tenderness. Ecchymosis noted to the left second, third and fourth toe. ASSESSMENT Shortness of breath, likely due to COPD Leukocytosis Paroxysmal atrial fibrillation on eliquis Hypertension End stage COPD on home oxygen PLAN Clinically stable from a cardiac perspective. Follow-up with vascular surgery on lower extremity duplex. Continue Eliquis for thromboembolic protection. Ongoing treatment for COPD with pulmonary care team. We will follow along as needed, please call with further questions or concerns. Nurse Practitioner note has been reviewed, I agree with a documented findings and plan of care. Patient was seen and examined. Objective - Vital Signs Vital signs: Vital Signs Temp 97.6 F 09/11/20 07:00 Pulse 75 09/11/20 08:14 Resp 18 09/11/20 07:00 BP 137/80 09/11/20 07:00 Pulse Ox 91 L 09/11/20 07:55 Intake & Output 09/10/20 09/11/20 09/11/20 18:59 06:59 18:59 Intake Total 200 Output Total 1400 Balance -1400 200 Weight 104.326 kg Intake: Oral 200 Output: Urine 1400 Other: Voiding Method Bedside Commode Indwelling Catheter # Bowel Movements 1 - Labs CBC & Chem 7: 09/10/20 07:37 09/10/20 07:37 Labs: Abnormal Lab Results - Last 24 Hours (Table) 09/10/20 09/10/20 09/10/20 Range/Units 07:37 15:31 17:11 POC Glucose (mg/dL) 207 H 245 H (75-99) mg/dL CK-MB (CK-2) 3.4 H (0.0-2.4) ng/mL 09/10/20 09/11/20 Range/Units 20:27 07:12 POC Glucose (mg/dL) 195 H 203 H (75-99) mg/dL CK-MB (CK-2) (0.0-2.4) ng/mL
[2020-09-11 11:39] LABS: Glucose,Whole Blood 275 mg/dL (75-99)
--- NOTE | 2020-09-11 12:32 | P.ARTDOP ---
Arterial Doppler LOWER EXTREMITY ARTERIAL DOPPLER: DATE OF SERVICE: 09/10/2020 Reason for study: Discoloration left foot and toes. Doppler waveforms: Multiphasic bilaterally throughout. Pulse volume recording: []. Pressure gradients: None significant. Ankle-brachial indices: 0.91 on the right and one on the left. Toe brachial indices: 0.78 on the right, 0.61 on the left Impression: Normal study.
[2020-09-11] MEDS: MONTELUKAST 10 MG TAB PO SCH (12:53)
[2020-09-11] MEDS: ASPIRIN 81 MG PO SCH (12:53)
[2020-09-11] MEDS: MAGNESIUM OXIDE 400 MG TAB PO SCH (12:53)
[2020-09-11] MEDS: PANTOPRAZOLE 40 MG TABLET PO SCH (12:53)
[2020-09-11 17:29] LABS: Glucose,Whole Blood 140 mg/dL (75-99)
--- NOTE | 2020-09-11 17:52 | P.PN ---
Progress Note - Text Progress Note Date: 09/11/20 Chief Complaint: Shortness of breath History of presenting complaint: This is a 64-year-old patient who follows with Dr. Hernandez. Patient was transferred here from [facility]. Chronic stable medical conditions include diabetes, GERD, hypertension, BPH. Home oxygen-4 L. Patient presented to [facility] with increasing shortness of breath, congested chest. Cough. Clear sputum. Appetite is fair. No fever no chills. At [facility] patient started having trouble making urine. On the wound to make a small amount. Also some discoloration was noted of the left distal foot. Patient thinks he may have bumped his foot 4 days ago. Some discomfort. No fever no chills. No chest pain. Tired. Does use a walker. [Patient was recently discharged from another hospital and was discharged about 6 days ago. Had COPD exacerbation and A. fib with rapid ventricular rate] Admitted with acute COPD exacerbation. Acute urinary retention. Placed on neb was bronchodilators, steroids. Abad catheter was placed. Seen by urology. Dose of Flomax was increased. Discharged with Abad. Seen by surgery. No definitive intervention currently. September 11: Less congested. Bringing up sputum. Oral intake improving. Less wheezing. On bronchodilator Review of systems: Was done for constitutional, cardiovascular, GI, pulmonary. relevant finding as above Active Medications Albuterol/Ipratropium (Ipratropium-Albuterol 3 Ml Neb) 3 ml INHALATION RT-Q2H PRN PRN Reason: Shortness Of Breath Or Wheezing Albuterol/Ipratropium (Ipratropium-Albuterol 3 Ml Neb) 3 ml INHALATION RT-Q4H [facility] Last Admin: 09/11/20 15:50 Dose: 3 ml Documented by: Alprazolam (Alprazolam 0.25 Mg Tab) 0.25 mg PO BID PRN PRN Reason: Anxiety Last Admin: 09/10/20 21:04 Dose: 0.25 mg Documented by: Apixaban (Apixaban 5 Mg Tab) 5 mg PO BID [facility]; Protocol Last Admin: 09/11/20 07:46 Dose: 5 mg Documented by: Aspirin (Aspirin 81 Mg) 81 mg PO DAILY@1200 [facility] Last Admin: 09/11/20 12:53 Dose: 81 mg Documented by: Atorvastatin Calcium (Atorvastatin 20 Mg Tab) 20 mg PO [facility] Last Admin: 09/10/20 21:04 Dose: 20 mg Documented by: Baclofen (Baclofen 10 Mg Tab) 10 mg PO TID [facility] Last Admin: 09/11/20 17:21 Dose: 10 mg Documented by: Budesonide (Budesonide 1 Mg/2 Ml Nebu) 1 mg INHALATION RT-BID [facility] Last Admin: 09/11/20 07:54 Dose: 1 mg Documented by: Diltiazem HCl (Diltiazem Cd 120 Mg Cap.Er.24h) 120 mg PO DAILY [facility] Last Admin: 09/11/20 07:46 Dose: 120 mg Documented by: Formoterol Fumarate (Formoterol Fumarate 20 Mcg/2 Ml Nebu) 20 mcg INHALATION RT-BID [facility] Last Admin: 09/11/20 07:54 Dose: 20 mcg Documented by: Guaifenesin (Guaifenesin 600 Mg Tablet.Er) 600 mg PO QID [facility] Last Admin: 09/11/20 17:21 Dose: 600 mg Documented by: Insulin Aspart (Insulin Aspart (Novolog) 100 Unit/Ml Vial) 0 unit SQ [facility]; Protocol Last Admin: 09/11/20 13:00 Dose: 10 unit Documented by: Insulin Detemir (Insulin Detemir (Levemir) 100 Unit/Ml Syr) 20 unit SQ [facility] Last Admin: 09/10/20 21:07 Dose: 20 unit Documented by: Magnesium Oxide (Magnesium Oxide 400 Mg Tab) 400 mg PO DAILY@1200 [facility] Last Admin: 09/11/20 12:53 Dose: 400 mg Documented by: Miscellaneous Information (Rx Info: Iv Contrast Was Given 1 Each Misc) 1 each MISCELLANE DAILY PRN PRN Reason: Per Protocol Stop: 09/12/20 20:38 Montelukast Sodium (Montelukast 10 Mg Tab) 10 mg PO DAILY@1200 [facility] Last Admin: 09/11/20 12:53 Dose: 10 mg Documented by: Pantoprazole Sodium (Pantoprazole 40 Mg Tablet) 40 mg PO DAILY@1200 [facility] Last Admin: 09/11/20 12:53 Dose: 40 mg Documented by: Prednisone (Prednisone 10 Mg Tab) 30 mg PO DAILY [facility] Tamsulosin HCl (Tamsulosin 0.4 Mg Cap.Er.24h) 0.4 mg PO BID [facility] Last Admin: 09/11/20 07:46 Dose: 0.4 mg Documented by: Past medical history to include: COPD, diabetes, GERD, hypertension, BPH, left leg DVT Social history: Lives alone. Does use a walker. Smoked about 2 packs a day for close to 40 years stopped about 40 years ago. Used to work with [employer] Family history: Reviewed, noncontributory to presentation Physical examination: VITAL SIGNS: 97.7, 74, 18, 1 26 x 73, 95% on nasal cannula GENERAL: BMI 29.5, declining in bed, short of breath. EYES: Pupils equal. Conjunctiva normal. HEENT: External appearance of nose and ears normal, oral cavity grossly normal. NECK: JVD unable to assess; masses not palpable. HEART: First and second heart sounds are normal; no edema. LUNGS: Respiratory rate increased, diminished breath sounds prolonged expiration ABDOMEN: Soft, nontender, liver spleen not palpable, no masses palpable. PSYCH: Alert and oriented x3; mood and affect tiredl. MUSCULAR skeletal: Evidence of OA EXTREMITY: Patient has dorsalis pedis is palpable in the right side. Unable to feel some the left side. He has bruising across to toes, on left side. INVESTIGATIONS, reviewed in the clinical context: WBC 11.4 hemoglobin 14.5 platelets 180 potassium 4.5 BUN 25 creatinine 0.49 Troponin I 0.029, proBNP 470 COVID 19 not detected 2-D echocardiogram: Moderate concentric LVH. EF 55-60% right ventricle severely enlarged Assessment and plan: -Acute COPD exacerbation in a previous smoker DuoNeb, every 4 hours, IV Solu-Medrol, inhaled Pulmicort -Chronic hypoxic respiratory failure from COPD On 4 L of oxygen -BPH with urinary retention . Flomax to 0.4 mg twice a day. Abad catheter. Follow-up outpatient urology -Diabetes mellitus type 2, chronically on insulin On Lantus. For Accu-Cheks -Paroxysmal atrial fibrillation, currently sinus rhythm On Cardizem CD 60 mg every 12. He eliquis -GERD On PPI -Chronic gait dysfunction, uses a walker at baseline -Possible PAD. Consult vascular. Aspirin. Lipitor. Continue DuoNeb, IV [id number] to by mouth prednisone, inhaled Pulmicort. Hopefully home tomorrow.
[2020-09-11 20:59] LABS: Glucose,Whole Blood 257 mg/dL (75-99)
[2020-09-11] MEDS: ATORVASTATIN 20 MG TAB PO SCH (21:12)
[2020-09-11] MEDS: INSULIN DETEMIR (LEVEMIR) 100 UNIT/ML SYR SQ SCH (21:12)
[2020-09-12] MEDS: IPRATROPIUM-ALBUTEROL 3 ML NEB INHALATION SCH ×5 (00:56→15:40)
[2020-09-12 07:01] LABS: Glucose,Whole Blood 137 mg/dL (75-99)
[2020-09-12] MEDS: BUDESONIDE 1 MG/2 ML NEBU INHALATION SCH (08:08)
[2020-09-12] MEDS: FORMOTEROL FUMARATE 20 MCG/2 ML NEBU INHALATION SCH (08:08)
[2020-09-12] MEDS: INSULIN ASPART (NovoLOG) 100 UNIT/ML VIAL SQ SCH ×2 (08:26→12:36)
[2020-09-12] MEDS: BACLOFEN 10 MG TAB PO SCH (08:27)
[2020-09-12] MEDS: DILTIAZEM CD 120 MG CAP.ER.24H PO SCH (08:27)
[2020-09-12] MEDS: TAMSULOSIN 0.4 MG CAP.ER.24H PO SCH (08:27)
[2020-09-12] MEDS: guaiFENesin 600 MG TABLET.ER PO SCH ×2 (08:27→12:36)
[2020-09-12] MEDS: APIXABAN 5 MG TAB PO SCH (08:27)
[2020-09-12] MEDS ORDERED: predniSONE 10 MG TAB PO SCH (09:00)
[2020-09-12 11:53] LABS: Glucose,Whole Blood 170 mg/dL (75-99)
[2020-09-12] MEDS: PANTOPRAZOLE 40 MG TABLET PO SCH (12:36)
[2020-09-12] MEDS: MONTELUKAST 10 MG TAB PO SCH (12:36)
[2020-09-12] MEDS: ASPIRIN 81 MG PO SCH (12:36)
[2020-09-12] MEDS: MAGNESIUM OXIDE 400 MG TAB PO SCH (12:36)
--- NOTE | 2020-09-12 12:54 | P.PN ---
Subjective Progress Note Date: 09/12/20 Principal diagnosis: COPD exacerbation, urinary retention. 64-year-old white male patient with past medical history of advanced COPD on home oxygen usually at 4 L/m, former smoker, hypertension, diabetes mellitus type 2, A. fib, BPH, history of left leg DVT, who was recently hospitalized at [facility] for acute exacerbation of COPD, urinary retention, and A. fib with RVR. Patient states he was discharged from there 6 days ago. He started experiencing worsening shortness of breath and went for evaluation to the [facility] on 09/09/2020. he denied any fever or chills, he denied any complaints of chest pain, he is producing some white colored sputum. Denies any hemoptysis, he reports some increased swelling in his bilateral lower extremities. He also reports some bruising on his toes on his left foot. Denies any injury to the left foot. At [facility] patient was afebrile, no EKG available for review, but his heart rate was controlled, blood pressure is 151/82, and he was satting 96% on 4 L of oxygen. No chest x-ray from [place] was found on the chart. Patient requested a transfer to [facility] because he had an appointment with a urologist today, and in addition he was supposed to follow-up with a edi developer after his most recent hospitalization. His lab work at [place] showed white blood cell count of 9.1, hemoglobin of 13.7, WBC 9.1, d-dimer was 0.19, INR is 1.09, sodium was 141, potassium is 4.0, chloride is 101, CO2 was 36, BUN was 29, creatinine was 0.5, glucose was 166, ALT was 25, AST was 19, alkaline phosphatase is 41, troponin is less than 0.05. Patient is on Eliquis 2.5 mg twice daily for anticoagulation, he is on oral diltiazem extended release 60 mg every 12 hours, he is on Ventolin inhaler, Symbicort, DuoNeb nebulized treatments, Singulair, and patient was sent home on prednisone taper after his most recent admission. Chest x-ray was completed at this hospital showing no acute process. Patient is short of breath with exertion, he is currently on 4 L of oxygen pulse ox is 94%, blood pressure is stable, patient is currently not on the monitor, but physical exam reveals irregular heart sounds, with a controlled rate. Not appear to be in any acute distress, lung sounds revealed diffuse rhonchi. One plus lower extremity edema noted. Progress note dated 09/11/2020. 64-year-old white male, seen yesterday in the emergency department. The patient has advanced COPD. He's currently on 4 L oxygen 14/09. He doesn't smoke currently. He does have a history of hypertension, diabetes, atrial fibrillation, BPH, and DVT of the left leg. He went to [facility] for urinary retention and COPD exacerbation as well as atrial fibrillation with RVR. Currently, from the pulmonary standpoint, the patient's doing much better. He states that his breathing is much improved. He was seen by urology, and they placed a Abad catheter, and told him that they would leave it in for a week or 2 and see him back in the office. No new lab data today. Chest x-ray only showed changes of COPD, without an acute process. Progress note dated 09/12/2020. 64-year-old white male, seen in consultation at couple days ago. He was initially seen in the emergency department. The patient does have advanced COPD, with chronic hypoxemic respiratory failure, on home O2 at 4 L/m, 14/09. He quit smoking in the years back. He also has a history of hypertension, diabetes, atrial fibrillation, BPH, DVT, as well as urinary retention. He came into the hospital for the urinary retention which is anything else. Urology saw the patient and placed a Abad catheter. He is to go home with a Abad catheter, and they will deal with it later. Apparently though, is leaking around the catheter and the patient would like to see urology before he gets discharged. Clinically from the pulmonary standpoint, he is doing well. No new labs today. Objective - Vital Signs Vital signs: Vital Signs Temp 98.0 F 09/12/20 07:00 Pulse 74 09/12/20 12:04 Resp 16 09/12/20 08:00 BP 129/85 09/12/20 07:00 Pulse Ox 97 09/12/20 07:00 Intake & Output 09/11/20 09/12/20 09/12/20 18:59 06:59 18:59 Intake Total 600 Output Total 1000 950 Balance -400 -950 Intake: Oral 600 Output: Urine 1000 950 Other: Voiding Method Indwelling Catheter Indwelling Catheter Indwelling Catheter # Voids 1 - Exam No acute distress, oriented 3. Currently on 4 L nasal cannula. No audible wheezing, use of accessory muscles, or conversational dyspnea. HEENT examination is grossly unremarkable. Neck supple. Full range of motion. No adenopathy thyromegaly or neck vein distention. Cardiovascular examination reveals regular rhythm rate. S1-S2 normal. No S3 or S4. No discernible murmur noted. Heart sounds are distant. Heart rate 74 bpm. Lungs reveal mild scattered rhonchi. No wheezes or crackles. Breath sounds equ al bilaterally but diminished throughout. There is prolongation on forced maneuver. Lung sounds are essentially unchanged. Abdomen soft bowel sounds are heard. No masses or tenderness. Extremities are intact. No cyanosis or clubbing. Mild lower extremity edema noted. Skin is without rash or lesion. Neurologic examination is brief but nonfocal. - Labs CBC & Chem 7: 09/10/20 07:37 09/10/20 07:37 Labs: Abnormal Lab Results - Last 24 Hours (Table) 09/11/20 09/11/20 09/12/20 Range/Units 17:27 20:58 06:59 POC Glucose (mg/dL) 140 H 257 H 137 H (75-99) mg/dL 09/12/20 Range/Units 11:50 POC Glucose (mg/dL) 170 H (75-99) mg/dL Assessment and Plan Assessment: #1. Dyspnea related to acute exacerbation of COPD, chest x-ray showed no evidence of acute pulmonary disease. #2. Recent hospitalization for acute exacerbation of COPD, A. fib with RVR, and urinary retention at [facility], discharged home 6 days ago. #3. BPH and urinary retention. #4. Advanced COPD, on home oxygen at 4 L. #5. Ex-smoker. #6. A. fib, on Eliquis. #7. Diabetes mellitus type 2. #8. Hypertension. #9. GERD/reflux. #10. History of left leg DVT. Plan: Plan dated 09/11/2020. The patient continues on appropriate medications including DuoNeb, Pulmicort, Perforomist, and IV Solu-Medrol. The patient has been seen by cardiology and urology. We will continue to follow. No additional recommendations are made. Prognosis is guarded. I suspect the patient has severe COPD. He has not been seen by a lung doctor as yet. Plan dated 09/12/2020. The patient's doing much better from the pulmonary standpoint. In fact, and my opinion, he could be discharged home on the lung standpoint. He does have some issues that remain such as his leaking Abad catheter. His medications will be reviewed. Additional medication changes will be made. The patient will follow- up in the office. No additional recommendations are made. Prognosis is guarded. Time with Patient: Less than 30
[2020-09-12 14:36] VITALS: TEMP 98.3
[2020-09-12 15:13] VITALS: BP 138/80; RESP 20
[2020-09-12 15:50] VITALS: PULSE 74
--- NOTE | 2020-09-12 18:32 | P.DS ---
Providers Date of admission: 09/10/20 05:18 Expected date of discharge: 09/12/20 Attending physician: Gonzalez Hernández Consults: 09/10/20 05:17 Consult Physician Routine Consulting Provider: Jennifer Barragan Consult Reason/Comments: cp Do you want consulting provider notified?: Yes Consult Physician Routine Consulting Provider: Farhad Mesa Consult Reason/Comments: copd Do you want consulting provider notified?: Yes Consult Physician Routine Consulting Provider: Dean Julian Consult Reason/Comments: retention Do you want consulting provider notified?: Yes 09/10/20 20:26 Consult Physician Routine Consulting Provider: Joanna Abad Consult Reason/Comments: Left legPAD Do you want consulting provider notified?: Yes Primary care physician: Chetan Lang [facility] Course: Chief Complaint: Shortness of breath History of presenting complaint: This is a 64-year-old patient who follows with Dr. Hernandez. Patient was transferred here from [facility]. Chronic stable medical conditions include diabetes, GERD, hypertension, BPH. Home oxygen-4 L. Patient presented to [facility] with increasing shortness of breath, congested chest. Cough. Clear sputum. Appetite is fair. No fever no chills. At [facility] patient started having trouble making urine. On the wound to make a small amount. Also some discoloration was noted of the left distal foot. Patient thinks he may have bumped his foot 4 days ago. Some discomfort. No fever no chills. No chest pain. Tired. Does use a walker. [Patient was recently discharged from another hospital and was discharged about 6 days ago. Had COPD exacerbation and A. fib with rapid ventricular rate] Admitted with acute COPD exacerbation. Acute urinary retention. Placed on neb was bronchodilators, steroids. Abad catheter was placed. Seen by urology. Dose of Flomax was increased. Discharged with Abad. Seen by surgery. No definitive intervention currently. We will follow with Dr. julian as outpatient. September 11: Less congested. Bringing up sputum. Oral intake improving. Less wheezing. On bronchodilator September 12: Breathing much improved. Decreased congestion. Eating well. Keen to go home. Has a supplies at home. Consultation: Dr. Ernandez from pulmonary Dr. Colleen Rob from cardiology Dr. Abad from vascular Dr. julian from urology Past medical history to include: COPD, diabetes, GERD, hypertension, BPH, left leg DVT Social history: Lives alone. Does use a walker. Smoked about 2 packs a day for close to 40 years stopped about 40 years ago. Used to work with [employer] Family history: Reviewed, noncontributory to presentation Physical examination: VITAL SIGNS: 98.3, 82, 18, 138/80, 95% on 4 L GENERAL: BMI 29.5, sitting up in a chair, breathing better EYES: Pupils equal. Conjunctiva normal. HEENT: External appearance of nose and ears normal, oral cavity grossly normal. NECK: JVD unable to assess; masses not palpable. HEART: First and second heart sounds are normal; no edema. LUNGS: Respiratory rate normal, diminished breath sounds ABDOMEN: Soft, nontender, liver spleen not palpable, no masses palpable. PSYCH: Alert and oriented x3; mood and affect tiredl. MUSCULAR skeletal: Evidence of OA EXTREMITY: Patient has dorsalis pedis is palpable in the right side. Unable to feel some the left side. He has bruising across to toes, on left side. INVESTIGATIONS, reviewed in the clinical context: WBC 11.4 hemoglobin 14.5 platelets 180 potassium 4.5 BUN 25 creatinine 0.49 Troponin I 0.029, proBNP 470 COVID 19 not detected 2-D echocardiogram: Moderate concentric LVH. EF 55-60% right ventricle severely enlarged Assessment and plan: -Acute COPD exacerbation in a previous smoker: Improved DuoNeb, every 4 hours, IV Solu-Medrol, inhaled Pulmicort -Chronic hypoxic respiratory failure from COPD On 4 L of oxygen -BPH with urinary retention . Flomax to 0.4 mg twice a day. Abad catheter. Follow-up outpatient by Dr. julian -Diabetes mellitus type 2, chronically on insulin On Lantus. For Accu-Cheks -Paroxysmal atrial fibrillation, currently sinus rhythm On Cardizem CD 60 mg every 12. eliquis -GERD On PPI -Chronic gait dysfunction, uses a walker at baseline -Possible PAD. Seen by vascular. Aspirin. Lipitor. Disposition: Home Patient Condition at Discharge: Fair Plan - Discharge Summary Discharge Rx Participant: Yes New Discharge Prescriptions: New guaiFENesin [Mucinex] 600 mg PO QID #100 tablet.er predniSONE 30 mg PO DIRECTED #12 tab Diltiazem Cd [Cardizem CD] 120 mg PO DAILY #30 cap.er.24h Atorvastatin [Lipitor] 20 mg PO HS #30 tab Continue Montelukast [Singulair] 10 mg PO DAILY@1200 Insulin Glargine [Lantus] 20 unit SQ HS Pantoprazole Sodium [Protonix] 40 mg PO DAILY@1200 Aspirin EC [Ecotrin Low Dose] 81 mg PO DAILY@1200 ALPRAZolam [Xanax] 0.25 mg PO BID PRN PRN Reason: Anxiety Budesonide/Formoterol Fumarate [Symbicort 160-4.5 Mcg Inhaler] 2 puff INHALATION RT-BID Albuterol Sulfate [Ventolin HFA] 2 puff INHALATION RT-Q4H PRN PRN Reason: Shortness Of Breath Magnesium Oxide 400 mg PO DAILY@1200 Ipratropium-Albuterol Nebulize [Duoneb 0.5 mg-3 mg/3 ml Soln] 3 ml INHALATION RT-QID Apixaban [Eliquis] 5 mg PO BID Baclofen [Lioresal] 10 mg PO TID Changed Tamsulosin [Flomax] 0.4 mg PO BID #60 cap Discontinued Docusate [Colace] 100 mg PO DAILY PRN PRN Reason: Constipation Diltiazem HCl [Diltiazem HCl 12Hr ER] 60 mg PO Q12H Discharge Medication List Insulin Glargine [Lantus] 20 unit SQ HS 04/25/16 [History] Montelukast [Singulair] 10 mg PO DAILY@1200 04/25/16 [History] ALPRAZolam [Xanax] 0.25 mg PO BID PRN 09/10/20 [History] Albuterol Sulfate [Ventolin HFA] 2 puff INHALATION RT-Q4H PRN 09/10/20 [History] Apixaban [Eliquis] 5 mg PO BID 09/10/20 [History] Aspirin EC [Ecotrin Low Dose] 81 mg PO DAILY@1200 09/10/20 [History] Baclofen [Lioresal] 10 mg PO TID 09/10/20 [History] Budesonide/Formoterol Fumarate [Symbicort 160-4.5 Mcg Inhaler] 2 puff INHALATION RT-BID 09/10/20 [History] Ipratropium-Albuterol Nebulize [Duoneb 0.5 mg-3 mg/3 ml Soln] 3 ml INHALATION RT-QID 09/10/20 [History] Magnesium Oxide 400 mg PO DAILY@1200 09/10/20 [History] Pantoprazole Sodium [Protonix] 40 mg PO DAILY@1200 09/10/20 [History] Atorvastatin [Lipitor] 20 mg PO HS #30 tab 09/12/20 [Rx] Diltiazem Cd [Cardizem CD] 120 mg PO DAILY #30 cap.er.24h 09/12/20 [Rx] Tamsulosin [Flomax] 0.4 mg PO BID #60 cap 09/12/20 [Rx] guaiFENesin [Mucinex] 600 mg PO QID #100 tablet.er 09/12/20 [Rx] predniSONE 30 mg PO DIRECTED #12 tab 09/12/20 [Rx] Follow up Appointment(s)/Referral(s): Chetan Lang DO [Primary Care Provider] - 09/16/20 10:45 am Dean Julian MD [STAFF PHYSICIAN] - 09/17/20 9:00 am [facility], [NON-STAFF] - 1-2 Days [facility] [NON-STAFF] - 1-2 Days Shashi Rob MD [STAFF PHYSICIAN] - 2 Weeks (The office says will call patient with appointment time) Patient Instructions/Handouts: Urinary Retention in Men (GEN), Abad Catheter Placement and Care (DC), COPD (Chronic Obstructive Pulmonary Disease) (DC)
[2020-09-12] MEDS ORDERED: SYMBICORT 160-4.5 MCG INHALER INHALATION SCH (20:00)
== END 2020-09-12 16:21 ==
LOC: EC 03:30 → 1SOBS 05:18 → 6NMEDSUR 15:21
PROVIDERS: ADMIT Hospitalist; ATTEND Hospitalist
DX: J44.1 Chronic obstructive pulmonary disease with (acute) exacerbation (principal); J96.11 Chronic respiratory failure with hypoxia; R33.8 Other retention of urine; N40.1 Benign prostatic hyperplasia with lower urinary tract symptoms; E11.9 Type 2 diabetes mellitus without complications; Z20.822 Contact with and (suspected) exposure to COVID-19; I48.0 Paroxysmal atrial fibrillation; K21.9 Gastro-esophageal reflux disease without esophagitis; R26.9 Unspecified abnormalities of gait and mobility; I10 Essential (primary) hypertension; D72.829 Elevated white blood cell count, unspecified; R60.0 Localized edema; F41.9 Anxiety disorder, unspecified; I44.0 Atrioventricular block, first degree; Z79.01 Long term (current) use of anticoagulants; Z79.1 Long term (current) use of non-steroidal anti-inflammatories (NSAID); Z79.4 Long term (current) use of insulin; Z79.51 Long term (current) use of inhaled steroids; Z79.82 Long term (current) use of aspirin; Z79.899 Other long term (current) drug therapy; Z90.89 Acquired absence of other organs; Z87.891 Personal history of nicotine dependence; Z86.718 Personal history of other venous thrombosis and embolism
CPT/HCPCS: 96376 ×2; 96374; 99285; 51798; 94640 ×6; 94760; 93005; 97162; 97166; 85379; 83880; 80053; 82550; 82553; 83735; 84484; 85025; 85027; 87635; 71045; 93923; G0378 ×3; C8929; J2920 ×2; J2930; J7512; Q9950; 93306

== ENCOUNTER 2020-09-13 16:33 | Inpatient (IN) | payer MEDICARE, OTHER ==
[2020-09-13] MEDS ORDERED: IPRATROPIUM-ALBUTEROL 3 ML NEB INHALATION STA ×2 (16:46→17:48)
[2020-09-13 17:18] LABS: Basophils % (A) 0 %; Eosinophils % (A) 0 %; HCT 48.2 % (39.0-53.0); Lymphocytes # (A) 0.3 k/uL (1.0-4.8); Lymphocytes % (A) 3 %; MCH 28.8 pg (25.0-35.0); MCHC 31.1 g/dL (31.0-37.0); MCV 92.6 fL (80.0-100.0); Mean Platelet Volume 7.1; Monocytes # (A) 0.5 k/uL (0-1.0); Monocytes % (A) 4 %; Neutrophils # (A) 11.6 k/uL (1.3-7.7); Neutrophils % (A) 93 %; Platelet Count 170 k/uL (150-450); RBC 5.21 m/uL (4.30-5.90); RDW 14.6 % (11.5-15.5); WBC 12.6 k/uL (3.8-10.6)
[2020-09-13 17:27] LABS: ALT 23 U/L (4-49); AST 22 U/L (17-59); African American GFR (CKD) >90 (>60 ml/min/1.73 sqM); Albumin 3.7 g/dL (3.5-5.0); Alkaline Phosphatase 68 U/L (38-126); Anion Gap 5 mmol/L; Blood Urea Nitrogen 33 mg/dL (9-20); Carbon Dioxide 34 mmol/L (22-30); Chloride 99 mmol/L (98-107); Glucose 205 mg/dL (74-99); Magnesium 1.9 mg/dL (1.6-2.3); Non-African American GFR(CKD) >90 (>60 ml/min/1.73 sqM); Potassium 4.3 mmol/L (3.5-5.1); Sodium 138 mmol/L (137-145); Total Bilirubin 1.4 mg/dL (0.2-1.3); Total Protein 6.2 g/dL (6.3-8.2)
[2020-09-13 17:28] LABS: INR 1.2 (<1.2); Partial Thromboplastin Time 24.1 sec (22.0-30.0)
--- NOTE | 2020-09-13 17:37 | XR ---
EXAMINATION TYPE: XR chest 1V portable DATE OF EXAM: 09/13/2020 COMPARISON: 09/10/2020 HISTORY: Short of breath TECHNIQUE: Single view FINDINGS: There is no heart failure nor confluent pneumonic infiltrate. There is minimal linear densi ty at the lung bases. There are no hilar masses. Bony thorax is intact. There is probably some emphys jairo. IMPRESSION: COPD. Mild fibrotic changes at the lung bases. No change compared to recent exam.
[2020-09-13] MEDS ORDERED: ACETAMINOPHEN TAB 500 MG TAB PO STA (17:53)
[2020-09-13] MEDS ORDERED: AZITHROMYCIN 500 MG in SODIUM CHLORIDE 0.9% 250 ML IVPB STA (18:07)
[2020-09-13] MEDS: MAGNESIUM SULFATE-D5W PMX 1 GM in DEXTROSE/WATER 1 100ML.BAG IVPB SCH ×2 (18:10→19:14)
[2020-09-13 18:23] LABS: Bacteria,Urine Occasional /hpf; Mucus,Urine Rare /hpf; RBC,Urine >182 /hpf (0-5); WBC,Urine 24 /hpf (0-5)
[2020-09-13 18:26] LABS: Appearance,Urine Bloody (Clear); Color,Urine Brown
--- NOTE | 2020-09-13 20:40 | ED ---
General Adult HPI - General Chief complaint: Shortness of Breath Stated complaint: SOB Time Seen by Provider: 09/13/20 16:42 Source: EMS Mode of arrival: EMS Limitations: no limitations - History of Present Illness Initial comments: Patient is a 64-year-old male with past medical history remarkable for chronic hypoxic respiratory failure on nasal cannula oxygen at home secondary to COPD, diabetes, GERD, hypertension who presents emergency Department complaining of a one-day history of worsening shortness of breath. Patient was just discharged from this hospital earlier this week, and was given a Abad catheter due to urinary retention. He states he was at home today when he explains to COPD exacerbation. He attempted to take his home treatments which she cannot name and had little improvement. Patient otherwise has complained of just gener alized chest tightness. He denies abdominal pain, nausea, vomiting. He states he is having sputum production that is yellow in nature which is abnormal for him. He denies any dysuria but states that the color of his urine has changed. He states that the chest pressure is not endorses his breathing has gotten worse. He otherwise denies any acute complaint this time. Patient presents for his difficulty breathing. - Related Data Home Medications Medication Instructions Recorded Confirmed Insulin Glargine [Lantus] 20 unit SQ HS 04/25/16 09/13/20 Montelukast [Singulair] 10 mg PO DAILY@1200 04/25/16 09/13/20 ALPRAZolam [Xanax] 0.25 mg PO BID PRN 09/10/20 09/13/20 Albuterol Sulfate [Ventolin HFA] 2 puff INHALATION RT-Q4H PRN 09/10/20 09/13/20 Apixaban [Eliquis] 5 mg PO BID 09/10/20 09/13/20 Aspirin EC [Ecotrin Low Dose] 81 mg PO DAILY@1200 09/10/20 09/13/20 Baclofen [Lioresal] 10 mg PO TID 09/10/20 09/13/20 Budesonide/Formoterol Fumarate 2 puff INHALATION RT-BID 09/10/20 09/13/20 [Symbicort 160-4.5 Mcg Inhaler] Ipratropium-Albuterol Nebulize 3 ml INHALATION RT-QID 09/10/20 09/13/20 [Duoneb 0.5 mg-3 mg/3 ml Soln] Magnesium Oxide 400 mg PO DAILY@1200 09/10/20 09/13/20 Pantoprazole Sodium [Protonix] 40 mg PO DAILY@1200 09/10/20 09/13/20 predniSONE See Taper PO DIRECTED 09/13/20 09/13/20 Previous Rx's Medication Instructions Recorded Atorvastatin [Lipitor] 20 mg PO HS #30 tab 09/12/20 Diltiazem Cd [Cardizem CD] 120 mg PO DAILY #30 cap.er.24h 09/12/20 Tamsulosin [Flomax] 0.4 mg PO BID #60 cap 09/12/20 guaiFENesin [Mucinex] 600 mg PO QID #100 tablet.er 09/12/20 Allergies Allergy/AdvReac Type Severity Reaction Status Date / Time No Known Allergies Allergy Verified 09/13/20 16:41 Review of Systems ROS Statement: Those systems with pertinent positive or pertinent negative responses have been documented in the HPI. Review of Systems: CONST: Denies fever EYES: Denies blurry vision ENT: Denies nasal congestion C/V: Endorses chest pain RESP: Endorses shortness of breath GI: Denies abdominal pain : Denies dysuria SKIN: Denies rash. MSK: Denies joint pain. NEURO: Denies headache ROS Other: All systems not noted in ROS Statement are negative. Past Medical History Past Medical History: COPD, Diabetes Mellitus, GERD/Reflux, Hypertension Additional Past Medical History / Comment(s): BPH, left leg dvt History of Any Multi-Drug Resistant Organisms: None Reported Past Surgical History: Cholecystectomy, Hernia Repair Additional Past Surgical History / Comment(s): hemmorids removed, Past Psychological History: No Psychological Hx Reported Past Alcohol Use History: None Reported Past Drug Use History: None Reported General Exam - General Exam Comments Initial Comments: General: Appears dyspneic with tachypnea and difficulty breathing. HEAD: Normal with no signs of head trauma. EYES: PERRLA, EOMI, conjunctiva normal, no discharge. ENT: Hearing grossly intact, normal oropharynx. RESPIRATORY: Patient has reduced breath sounds bilaterally. There is end expiratory wheezing. There are no obvious rhonchi. There is increased work of breathing. C/V: Regular rate and rhythm. S1 and S2 auscultated, no edema, peripheral pulses 2+ and intact throughout ABD: Abd is soft, nontender, nondistended EXT: Normal range of motion, no obvious deformity SKIN: No rashes or lesions observed on exposed skin. NEURO: Alert and oriented 4. : Fully catheter in place with dark urine. Limitations: no limitations Course Vital Signs 09/13/20 09/13/20 09/13/20 16:36 17:11 17:23 Temperature 101.7 F H Pulse Rate 79 90 84 Respiratory 40 H Rate Blood Pressure 156/100 O2 Sat by Pulse 89 L Oximetry 09/13/20 09/13/20 09/13/20 17:43 18:30 19:01 Temperature 99 F Pulse Rate 83 76 Respiratory 20 20 Rate Blood Pressure 127/83 137/79 O2 Sat by Pulse 94 L 92 L Oximetry 09/13/20 19:06 Temperature Pulse Rate 75 Respiratory 20 Rate Blood Pressure 137/74 O2 Sat by Pulse 94 L Oximetry Medical Decision Making - Medical Decision Making Based on the patient's presentation and physical exam, he is febrile and I'm concerned for possible upper respiratory infection this time. I cannot rule out urinary tract infection either with his recent Abad placement. He does appear to be having a COPD exacerbation as well. He is complaining of mild chest pain. Appropriate we'll obtain a cardiac workup including troponin, EKG, chest x-rayslaboratory studies and urinalysis. Patient was in agreement this plan. I did offer him BiPAP, however he refused. Due to his work of breathing actively that he requires more than just nasal cannula, and therefore he was placed on high flow nasal cannula at 6 L. Patient was in agreement this plan. He will be given 2 g magnesium. He already received 125 mg of Solu-Medrol in route to the hospital. He will also be given DuoNeb breathing treatments. Patient was in agreement with this plan. He'll be placed on continuous cardiac monitoring while he is here in the emergency department. Patient's EKG revealed no acute ischemia. Chest x-ray revealed COPD with mild fibrotic changes. No obvious infiltrates. Laboratory studies are remarkable for a mildly ALLERGY troponin of 0.064, repeats are pending. Patient has a mildly elevated be when of 33. Patient has a mild leukocytosis of 12.6. Patient's urinalysis is remarkable for multiple RBCs, 24 WBCs, and occasional bacteria. Covid is not detected. I spoke with cardiology of the phone regarding the elevated troponin and they believe it is likely secondary to COPD. And low suspicion for cardiac etiology for symptoms at this time. Routine consult will be placed for cardiology due to his elevated troponin and we will trend the troponins. On reevaluation, patient is feeling improved. Denies chest pain. He is saturating well on high flow nasal cannula. Patient is now wheezing and has breath sounds bilaterally versus a prior for lung exam. Due to the patient's productive cough as well as questionable UTI, he will be started on Rocephin as well as azithromycin for infection. Urine culture was sent. We will replace is fully catheter. This is ordered. I did discuss with the patient I would I would like to admit him to the hospital he was in agreement with this plan. I consulted with pulmonology, Dr. Jiang, who agreed to evaluate the patient. He was in agreement with this plan. Also contacted the patient's admitting team, Dr. Hernández, who was in agreement with this plan. Patient was therefore admitted in serous condition. - Lab Data Result diagrams: 09/13/20 17:01 09/13/20 17:01 Lab Results 09/13/20 09/13/20 09/13/20 Range/Units 17:01 17:01 17:01 WBC 12.6 H (3.8-10.6) k/uL RBC 5.21 (4.30-5.90) m/uL Hgb 15.0 (13.0-17.5) gm/dL Hct 48.2 (39.0-53.0) % MCV 92.6 (80.0-100.0) fL MCH 28.8 (25.0-35.0) pg MCHC 31.1 (31.0-37.0) g/dL RDW 14.6 (11.5-15.5) % Plt Count 170 (150-450) k/uL MPV 7.1 Neutrophils % 93 % Lymphocytes % 3 % Monocytes % 4 % Eosinophils % 0 % Basophils % 0 % Neutrophils # 11.6 H (1.3-7.7) k/uL Lymphocytes # 0.3 L (1.0-4.8) k/uL Monocytes # 0.5 (0-1.0) k/uL Eosinophils # 0.0 (0-0.7) k/uL Basophils # 0.0 (0-0.2) k/uL PT 12.0 (9.0-12.0) sec INR 1.2 H (<1.2) APTT 24.1 (22.0-30.0) sec Sodium 138 (137-145) mmol/L Potassium 4.3 (3.5-5.1) mmol/L Chloride 99 (98-107) mmol/L Carbon Dioxide 34 H (22-30) mmol/L Anion Gap 5 mmol/L BUN 33 H (9-20) mg/dL Creatinine 0.54 L (0.66-1.25) mg/dL Est GFR (CKD-EPI)AfAm >90 (>60 ml/min/1.73 sqM) Est GFR (CKD-EPI)NonAf >90 (>60 ml/min/1.73 sqM) Glucose 205 H (74-99) mg/dL Plasma Lactic Acid Jourdan (0.7-2.0) mmol/L Calcium 9.0 (8.4-10.2) mg/dL Magnesium 1.9 (1.6-2.3) mg/dL Total Bilirubin 1.4 H (0.2-1.3) mg/dL AST 22 (17-59) U/L ALT 23 (4-49) U/L Alkaline Phosphatase 68 (38-126) U/L Troponin I (0.000-0.034) ng/mL NT-Pro-B Natriuret Pep pg/mL Total Protein 6.2 L (6.3-8.2) g/dL Albumin 3.7 (3.5-5.0) g/dL Urine Color Urine Appearance (Clear) Urine RBC (0-5) /hpf Urine WBC (0-5) /hpf Urine WBC Clumps (None) /hpf Urine Bacteria (None) /hpf Urine Mucus (None) /hpf Coronavirus (PCR) (Not Detectd) 09/13/20 09/13/20 09/13/20 Range/Units 17:01 17:01 17:01 WBC (3.8-10.6) k/uL RBC (4.30-5.90) m/uL Hgb (13.0-17.5) gm/dL Hct (39.0-53.0) % MCV (80.0-100.0) fL MCH (25.0-35.0) pg MCHC (31.0-37.0) g/dL RDW (11.5-15.5) % Plt Count (150-450) k/uL MPV Neutrophils % % Lymphocytes % % Monocytes % % Eosinophils % % Basophils % % Neutrophils # (1.3-7.7) k/uL Lymphocytes # (1.0-4.8) k/uL Monocytes # (0-1.0) k/uL Eosinophils # (0-0.7) k/uL Basophils # (0-0.2) k/uL PT (9.0-12.0) sec INR (<1.2) APTT (22.0-30.0) sec Sodium (137-145) mmol/L Potassium (3.5-5.1) mmol/L Chloride (98-107) mmol/L Carbon Dioxide (22-30) mmol/L Anion Gap mmol/L BUN (9-20) mg/dL Creatinine (0.66-1.25) mg/dL Est GFR (CKD-EPI)AfAm (>60 ml/min/1.73 sqM) Est GFR (CKD-EPI)NonAf (>60 ml/min/1.73 sqM) Glucose (74-99) mg/dL Plasma Lactic Acid Jourdan (0.7-2.0) mmol/L Calcium (8.4-10.2) mg/dL Magnesium (1.6-2.3) mg/dL Total Bilirubin (0.2-1.3) mg/dL AST (17-59) U/L ALT (4-49) U/L Alkaline Phosphatase (38-126) U/L Troponin I 0.064 H* (0.000-0.034) ng/mL NT-Pro-B Natriuret Pep 467 pg/mL Total Protein (6.3-8.2) g/dL Albumin (3.5-5.0) g/dL Urine Color Urine Appearance (Clear) Urine RBC (0-5) /hpf Urine WBC (0-5) /hpf Urine WBC Clumps (None) /hpf Urine Bacteria (None) /hpf Urine Mucus (None) /hpf Coronavirus (PCR) Not Detected (Not Detectd) 09/13/20 09/13/20 Range/Units 17:13 17:19 WBC (3.8-10.6) k/uL RBC (4.30-5.90) m/uL Hgb (13.0-17.5) gm/dL Hct (39.0-53.0) % MCV (80.0-100.0) fL MCH (25.0-35.0) pg MCHC (31.0-37.0) g/dL RDW (11.5-15.5) % Plt Count (150-450) k/uL MPV Neutrophils % % Lymphocytes % % Monocytes % % Eosinophils % % Basophils % % Neutrophils # (1.3-7.7) k/uL Lymphocytes # (1.0-4.8) k/uL Monocytes # (0-1.0) k/uL Eosinophils # (0-0.7) k/uL Basophils # (0-0.2) k/uL PT (9.0-12.0) sec INR (<1.2) APTT (22.0-30.0) sec Sodium (137-145) mmol/L Potassium (3.5-5.1) mmol/L Chloride (98-107) mmol/L Carbon Dioxide (22-30) mmol/L Anion Gap mmol/L BUN (9-20) mg/dL Creatinine (0.66-1.25) mg/dL Est GFR (CKD-EPI)AfAm (>60 ml/min/1.73 sqM) Est GFR (CKD-EPI)NonAf (>60 ml/min/1.73 sqM) Glucose (74-99) mg/dL Plasma Lactic Acid Jourdan 1.2 (0.7-2.0) mmol/L Calcium (8.4-10.2) mg/dL Magnesium (1.6-2.3) mg/dL Total Bilirubin (0.2-1.3) mg/dL AST (17-59) U/L ALT (4-49) U/L Alkaline Phosphatase (38-126) U/L Troponin I (0.000-0.034) ng/mL NT-Pro-B Natriuret Pep pg/mL Total Protein (6.3-8.2) g/dL Albumin (3.5-5.0) g/dL Urine Color Brown Urine Appearance Bloody (Clear) Urine RBC >182 H (0-5) /hpf Urine WBC 24 H (0-5) /hpf Urine WBC Clumps Few H (None) /hpf Urine Bacteria Occasional H (None) /hpf Urine Mucus Rare H (None) /hpf Coronavirus (PCR) (Not Detectd) - EKG Data -: EKG Interpreted by Me EKG Comments: 12-lead Electrocardiogram Interpretation Note EKG was reviewed and interpreted by myself. 12-lead ECG performed at 1747 is interpreted by me as revealing normal sinus rhythm at a rate of 90 beats per minute. Left axis deviation. Parables 170 ms, QRS duration 60 ms, QTc is 430 ms.. There were no ST or T wave abnormalities to suggest myocardial ischemia or injury. R wave progression across the precordium was satisfactory. By my interpretation this EKG is non-diagnostic for acute ischemia. Disposition Clinical Impression: COPD exacerbation, Bronchitis, Abad catheter in place, Hypoxia, Hematuria, Febrile illness, acute Narrative: Chronic hypoxic respiratory failure on home oxygen Disposition: ADMITTED IP TO THIS HOSP Condition: Serious Referrals: Chetan Lang DO [Primary Care Provider] - 1-2 days
[2020-09-13] MEDS ORDERED: ALPRAZolam 0.25 MG TAB PO PRN (20:47)
[2020-09-13] MEDS ORDERED: APIXABAN 5 MG TAB PO SCH (21:00)
[2020-09-13] MEDS ORDERED: APIXABAN 2.5 MG TABLET PO SCH (21:00)
[2020-09-13] MEDS: ATORVASTATIN 20 MG TAB PO SCH (21:52)
[2020-09-13] MEDS: TAMSULOSIN 0.4 MG CAP.ER.24H PO SCH (21:52)
[2020-09-13] MEDS: guaiFENesin 600 MG TABLET.ER PO SCH (22:27)
[2020-09-14] MEDS ORDERED: IPRATROPIUM-ALBUTEROL 3 ML NEB INHALATION SCH
[2020-09-14] MEDS ORDERED: IPRATROPIUM-ALBUTEROL 3 ML NEB INHALATION PRN (03:20)
[2020-09-14] MEDS: methylPREDNISolone SOD SUCCI 40 MG/ML 1 ML VIAL IV SCH ×2 (05:42→09:41)
[2020-09-14] MEDS: IPRATROPIUM-ALBUTEROL 3 ML NEB INHALATION SCH ×7 (06:12→23:50)
[2020-09-14] MEDS ORDERED: SYMBICORT 160-4.5 MCG INHALER INHALATION SCH (08:00)
--- NOTE | 2020-09-14 09:21 | CONS ---
CONSULTATION Mr. Castano is a 64-year-old male who presented to the emergency room with hematuria, dyspnea and fever. His troponins were checked and were mildly elevated and because of that cardiology consultation was requested. The patient denies any clear anginal symptoms. He has a history of chronic obstructive lung disease, on home oxygen. He is limited in his physical activity. He noted the hematuria recently. He was in the hospital recently and he has a history of paroxysmal atrial fibrillation, has been anticoagulated. He is in sinus mechanism at this time. He denies any dizziness or palpitation. He denies any syncope. He has no clear PND nor orthopnea. He had an echocardiogram during his last admission that showed normal systolic function with mild tricuspid regurgitation. His coronary risk factors are remarkable for remote history of smoking. He is hyperlipidemic, diabetic. MEDICATION: At home include Lipitor 20 mg daily, Cardizem CD 120 mg daily, Eliquis 5 mg twice a day, insulin, Singulair 10 mg daily, Protonix, Flomax, Mucinex. REVIEW OF SYSTEMS: RESPIRATORY SYSTEM: He has a history of chronic obstructive pulmonary disease, on home oxygen. He has some cough. On presentation to the emergency room he was febrile with temperature of 101.7. GI SYSTEM: No recent GI bleeding. No peptic ulcer disease. SYSTEM: He had hematuria. NERVOUS SYSTEM: No history of stroke or seizure. PHYSICAL EXAMINATION: GENERAL: He is a 64-year-old male, alert, oriented, no apparent distress. VITAL SIGNS: Blood pressure running in the 130s to 150s with a heart rate in the 80s. HEAD: Normocephalic. Eyes sclerae anicteric. LUNGS: With decreased air exchange, no wheezes. HEART: Regular rhythm S1, S2. No S3. No rub. No gallop. ABDOMEN: Soft and nontender. Positive bowel sounds. No organomegaly. EXTREMITIES: No edema. Intact pulses. LAB DATA: Lab data revealed a hemoglobin of 15, white blood cells 12.6. Troponin 0.064, 0.061 and 0.047. BUN and creatinine 33 and 0.54, potassium 4.3. EKG revealed a sinus mechanism with PACs and left axis deviation with rare PVCs. Chest x-ray shows evidence of COPD with no acute changes. IMPRESSION: 1. Symptoms of progressive dyspnea in a patient with known history of severe chronic obstructive lung disease, possible exacerbation of chronic obstructive pulmonary disease. 2. Hematuria, etiology unclear. The patient has been anticoagulated. 3. Paroxysmal fibrillation. Remains in sinus mechanism. 4. Prior history of benign prostatic hypertrophy and urinary retention. 5. Troponin elevation most likely representing a type 2 myocardial infarction. No evidence to suggest acute myocardial infarction at this time. 6. Diabetes. 7. Hyperlipidemia. RECOMMENDATION: From the cardiac standpoint, I will hold on the Eliquis pending the evaluation of his hematuria. I do not see any indication of acute coronary syndrome at this time. We will continue the rest of his medical regimen. Depending on his progress, further recommendation will be made. Thank you for this consult. We will follow with you. WESTON / CAMILAN: [id number] / NANCIE
[2020-09-14] MEDS: PANTOPRAZOLE 40 MG TABLET PO SCH (09:42)
[2020-09-14] MEDS: DILTIAZEM CD 120 MG CAP.ER.24H PO SCH (09:42)
[2020-09-14] MEDS: TAMSULOSIN 0.4 MG CAP.ER.24H PO SCH ×2 (09:42→20:10)
[2020-09-14] MEDS: ASPIRIN 81 MG PO SCH (09:42)
[2020-09-14] MEDS: guaiFENesin 600 MG TABLET.ER PO SCH ×4 (09:43→21:24)
[2020-09-14 11:44] LABS: Glucose,Whole Blood 265 mg/dL (75-99)
[2020-09-14] MEDS: MAGNESIUM OXIDE 400 MG TAB PO SCH (12:23)
[2020-09-14] MEDS: MONTELUKAST 10 MG TAB PO SCH (12:23)
[2020-09-14] MEDS: INSULIN ASPART (NovoLOG) 100 UNIT/ML VIAL SQ SCH ×3 (12:23→20:10)
--- NOTE | 2020-09-14 12:32 | P.CNPUL ---
History of Present Illness Consult date: 09/14/20 Reason for consult: dyspnea Chief complaint: Fever, chills, shortness of breath, urinary tract infection History of present illness: This is a 64-year-old white male patient with past medical history of advanced COPD on home oxygen, usually worse 4 L/m, former smoker, hypertension, diabetes mellitus, chronic A. fib, BPH, previous history of left leg DVT. We recently saw the patient in consultation during his recent hospital admission for acute exacerbation of COPD and urinary retention. Patient was treated with nebulized treatments and steroids. He was seen by urology during his previous admission, he had been on tamsulosin previously, his had 3 previous occasions of Abad catheter placement related to recurrent urinary retention. Patient wasn't discharged home with a Abad catheter in place and instructions to follow-up with urology on an outpatient basis to undergo urodynamic testing and cystoscopy in the office for further evaluation. Patient was discharged home on 09/12/2020. On 09/13/2020 patient was brought back to the emergency department per EMS for evaluating of fever, chills, worsening shortness of breath. Patient attempted to take his home treatments however they did not improve his breathing much. She was complaining of just generalized chest tightness, he denied any abdominal pain, nausea or vomiting. He stated that he was having occasional cough with some sputum production that was yellowish in nature, which was abnormal for him. He still had his Abad catheter in place and he thought that the color of urine has changed. Patient's EKG revealed no acute ischemia. Chest x-ray revealed COPD with mild fibrotic changes, no obvious infiltrates. His troponin was mildly elevated at 0.064. He had a mild leukocytosis with a white blood cell count of 12.6. Patient's urinalysis was remarkable for multiple red blood cells, 24 white blood cells, and occasional bacteria. COVID was not detected. Urine cultures have been sent, patient was started on azithromycin and Rocephin, nebulized bronchodilators and IV steroids. During our evaluation patient is seen comfortably, he is currently on 5 L of oxygen pulse ox is 98-99%, appears to be in no acute distress, lung sounds are diminished, no wheezing auscultated, afebrile, hemodynamically he is stable, no altered mentation, remains just on Rocephin for antibiotic coverage. Abad catheter is draining clear aaliyah urine. Review of Systems All systems: negative Constitutional: Reports fever, Denies chills Eyes: denies blurred vision, denies pain Ears, nose, mouth and throat: Denies headache, Denies sore throat Cardiovascular: Denies chest pain, Denies shortness of breath Respiratory: Reports cough with sputum, Reports dyspnea, Reports home oxygen, R eports respiratory infections, Reports wheezing, Denies cough Gastrointestinal: Denies abdominal pain, Denies diarrhea, Denies nausea, Denies vomiting Musculoskeletal: Denies myalgias Integumentary: Denies pruritus, Denies rash Neurological: Denies numbness, Denies weakness Psychiatric: Denies anxiety, Denies depression Endocrine: Denies fatigue, Denies weight change Past Medical History Past Medical History: COPD, Diabetes Mellitus, GERD/Reflux, Hypertension Additional Past Medical History / Comment(s): BPH, left leg dvt History of Any Multi-Drug Resistant Organisms: None Reported Past Surgical History: Cholecystectomy, Hernia Repair Additional Past Surgical History / Comment(s): hemmorids removed, Past Psychological History: No Psychological Hx Reported Past Alcohol Use History: None Reported Past Drug Use History: None Reported Medications and Allergies Home Medications Medication Instructions Recorded Confirmed Type Insulin Glargine [Lantus] 20 unit SQ HS 04/25/16 09/13/20 History Montelukast [Singulair] 10 mg PO DAILY@1200 04/25/16 09/13/20 History ALPRAZolam [Xanax] 0.25 mg PO BID PRN 09/10/20 09/13/20 History Albuterol Sulfate [Ventolin HFA] 2 puff INHALATION RT-Q4H PRN 09/10/20 09/13/20 History Apixaban [Eliquis] 5 mg PO BID 09/10/20 09/13/20 History Aspirin EC [Ecotrin Low Dose] 81 mg PO DAILY@1200 09/10/20 09/13/20 History Baclofen [Lioresal] 10 mg PO TID 09/10/20 09/13/20 History Budesonide/Formoterol Fumarate 2 puff INHALATION RT-BID 09/10/20 09/13/20 History [Symbicort 160-4.5 Mcg Inhaler] Ipratropium-Albuterol Nebulize 3 ml INHALATION RT-QID 09/10/20 09/13/20 History [Duoneb 0.5 mg-3 mg/3 ml Soln] Magnesium Oxide 400 mg PO DAILY@1200 09/10/20 09/13/20 History Pantoprazole Sodium [Protonix] 40 mg PO DAILY@1200 09/10/20 09/13/20 History Atorvastatin [Lipitor] 20 mg PO HS #30 tab 09/12/20 09/13/20 Rx Diltiazem Cd [Cardizem CD] 120 mg PO DAILY #30 cap.er.24h 09/12/20 09/13/20 Rx Tamsulosin [Flomax] 0.4 mg PO BID #60 cap 09/12/20 09/13/20 Rx guaiFENesin [Mucinex] 600 mg PO QID #100 tablet.er 09/12/20 09/13/20 Rx predniSONE See Taper PO DIRECTED 09/13/20 09/13/20 History Allergies Allergy/AdvReac Type Severity Reaction Status Date / Time No Known Allergies Allergy Verified 09/13/20 16:41 Physical Exam Vitals: Vital Signs Temp Pulse Resp BP Pulse Ox 09/14/20 09:09 76 09/14/20 08:55 72 09/14/20 08:11 97.6 F 70 20 153/83 98 09/14/20 07:15 98.3 F 55 L 16 132/83 99 09/14/20 06:22 63 09/14/20 06:15 71 09/14/20 02:28 98 F 09/14/20 00:00 58 L 17 128/84 98 09/13/20 19:06 75 20 137/74 94 L 09/13/20 19:01 99 F 09/13/20 18:30 76 20 137/79 92 L 09/13/20 17:43 83 20 127/83 94 L 09/13/20 17:23 84 09/13/20 17:11 90 09/13/20 16:36 101.7 F H 79 40 H 156/100 89 L Intake and Output 09/13/20 09/14/20 09/14/20 22:59 06:59 14:59 Other: Weight 104.326 kg GENERAL EXAM: Alert, very pleasant, 64-year-old white male, on 5 L of oxygen pulse ox of 98%, comfortable in no apparent distress. HEAD: Normocephalic/atraumatic. EYES: Normal reaction of pupils, equal size. Conjunctiva pink, sclera white. NOSE: Clear with pink turbinates. THROAT: No erythema or exudates. NECK: No masses, no JVD, no thyroid enlargement, no adenopathy. CHEST: No chest wall deformity. Symmetrical expansion. LUNGS: Equal air entry with no evidence of rhonchi or wheezing CVS: Regular rate and rhythm, normal S1 and S2, no gallops, no murmurs, no rubs ABDOMEN: Soft, nontender. No hepatosplenomegaly, normal bowel sounds, no guarding or rigidity. EXTREMITIES: No clubbing, 1+ lower extremity edema no cyanosis, 2+ pulses and upper and lower extremities. Bruising of the second, third, fourth toes on the left leg MUSCULOSKELETAL: Muscle strength and tone normal. SPINE: No scoliosis or deformity SKIN: No rashes CENTRAL NERVOUS SYSTEM: Alert and oriented -3. No focal deficits, tone is normal in all 4 extremities. PSYCHIATRIC: Alert and oriented -3. Appropriate affect. Intact judgment and insight. Results - Laboratory Findings CBC and BMP: 09/13/20 17:01 09/13/20 17:01 PT/INR, D-dimer PT 12.0 sec (9.0-12.0) 09/13/20 17:01 INR 1.2 (<1.2) H 09/13/20 17:01 Abnormal lab findings: Abnormal Labs 09/13/20 09/13/20 09/13/20 17:01 17:01 17:01 WBC 12.6 H Neutrophils # 11.6 H Lymphocytes # 0.3 L INR 1.2 H Carbon Dioxide 34 H BUN 33 H Creatinine 0.54 L Glucose 205 H POC Glucose (mg/dL) Total Bilirubin 1.4 H Troponin I Total Protein 6.2 L Urine RBC Urine WBC Urine WBC Clumps Urine Bacteria Urine Mucus 09/13/20 09/13/20 09/13/20 17:01 17:19 21:17 WBC Neutrophils # Lymphocytes # INR Carbon Dioxide BUN Creatinine Glucose POC Glucose (mg/dL) Total Bilirubin Troponin I 0.064 H* 0.061 H* Total Protein Urine RBC >182 H Urine WBC 24 H Urine WBC Clumps Few H Urine Bacteria Occasional H Urine Mucus Rare H 09/14/20 09/14/20 00:25 11:43 WBC Neutrophils # Lymphocytes # INR Carbon Dioxide BUN Creatinine Glucose POC Glucose (mg/dL) 265 H Total Bilirubin Troponin I 0.047 H* Total Protein Urine RBC Urine WBC Urine WBC Clumps Urine Bacteria Urine Mucus - Diagnostic Findings Chest x-ray: report reviewed, image reviewed Assessment and Plan Plan: Assessment: #1. Acute exacerbation of COPD, chest x-ray showed no evidence of acute pulmonary disease, and some chronic fibrotic changes. COVID-19 PCR was negative #2. Acute urinary tract infection, currently on Rocephin #3. Mild elevation of troponins, cardiology is following #4. Chronic indwelling catheter for urinary retention, patient is being followed by urology #5. BPH #6. Advanced COPD, normally wears 4 L of oxygen on a regular basis #7. Ex-smoker #8. Paroxysmal A. fib, currently in sinus rhythm, on Eliquis #9. Diabetes mellitus #10. History of left leg DVT #11. Recent hospitalization at [facility] for COPD, A. fib with RVR and urinary retention #12. Hypertension Plan: Continue current antibiotics, patient is just on Rocephin Will await urine cultures Vital signs are stable Lung sounds are not particularly wheezy, patient has already improved since admission in terms of breathing We'll switch IV steroids to oral prednisone Continue nebulized bronchodilators We'll continue to follow I performed a history & physical examination of the patient and discussed their management with my nurse practitioner, Leatha Be. I reviewed the nurse practitioner's note and agree with the documented findings and plan of care. Lung sounds are positive for diminished breath sounds. The findings and the impression was discussed with the patient. I attest to the documentation by the nurse practitioner. Time with Patient: Greater than 30
[2020-09-14] MEDS: BUDESONIDE 1 MG/2 ML NEBU INHALATION SCH ×2 (12:37→20:07)
[2020-09-14] MEDS: FORMOTEROL FUMARATE 20 MCG/2 ML NEBU INHALATION SCH ×2 (12:37→20:17)
--- NOTE | 2020-09-14 14:49 | P.HPIM ---
History of Present Illness H&P Date: 09/14/20 Chief Complaint: Short of breath History of presenting complaint: This is a 64-year-old patient who follows with Dr. Hernandez. Chronic stable medical conditions include diabetes, GERD, hypertension, BPH. Home oxygen-4 L. Just Admitted to the hospital from September 10 through September 12: with acute COPD exacerbation. Acute urinary retention. Abad catheter was placed. Seen by urology. Dose of Flomax was increased. Discharged with Abad. He was to follow up with urology as outpatient. Also seen by vascular. No intervention. Now presents with some blood in the Abad catheter. Also some fever cough congestion increase in shortness of breath and wheezing. Slight sputum production yellow in color. Decreased appetite. Review of systems: GEN.: Tired, fever EYES: None HEENT: None NECK: None RESPIRATORY: As above CARDIOVASCULAR: None GASTROINTESTINAL: None GENITOURINARY: Hematuria MUSCULOSKELETAL: Some joint pains LYMPHATICS: None HEMATOLOGICAL: None PSYCHIATRY: None NEUROLOGICAL: Does use a walker Past medical history to include: COPD, diabetes, GERD, hypertension, BPH, left leg DVT Social history: Lives alone. Does use a walker. Smoked about 2 packs a day for close to 40 years stopped about 14 years ago. Used to work with [employer] Family history: Reviewed, noncontributory to presentation Physical examination: VITAL SIGNS: 97.6, 70, 20, 153/83, 98% on 5 L GENERAL: BMI 30.3, declining in bed, short of breath EYES: Pupils equal. Conjunctiva normal. HEENT: External appearance of nose and ears normal, oral cavity grossly normal. NECK: JVD unable to assess; masses not palpable. HEART: First and second heart sounds are normal; no edema. LUNGS: Respiratory rate increased, diminished breath sounds prolonged expiration occasional crackles. ABDOMEN: Soft, nontender, liver spleen not palpable, no masses palpable. PSYCH: Alert and oriented x3; mood and affect tiredl. MUSCULAR skeletal: Evidence of OA NEUROLOGICAL: Cranial nerves grossly intact; no facial asymmetry, power and sensation grossly intact. LYMPHATICS: No lymph nodes palpable in the axilla and neck EXTREMITY: Patient has dorsalis pedis is palpable in the right side. Unable to feel some the left side. He has bruising across to toes, on left side. INVESTIGATIONS, reviewed in the clinical context: WBC 12.6 hemoglobin 15 potassium 4.3 BUN 33 creatinine 0.5 for Troponin I 0.064, 0.061, 0.047 EKG tracing personally reviewed by me-normal sinus rhythm. PVC. COVID 19: Not detected Chest x-ray film -possible fibrotic changes at the bases. Recent testing 2-D echocardiogram: Moderate concentric LVH. EF 55-60% right ventricle severely enlarged Assessment and plan: -Acute COPD exacerbation in a previous smoker DuoNeb, every 4 hours, IV Solu-Medrol, inhaled Pulmicort -Acute tracheal bronchitis IV ceftriaxone -Chronic hypoxic respiratory failure from COPD On 4 L of oxygen -Acute hematuria likely from traumatic from Abad catheter Flush Bladder -BPH with urinary retention . Flomax to 0.4 mg twice a day. Abad catheter. Follow-up outpatient by Dr. obregon -Diabetes mellitus type 2, chronically on insulin On Lantus. For Accu-Cheks -Paroxysmal atrial fibrillation, currently sinus rhythm On Cardizem CD 60 mg every 12. eliquis -GERD On PPI -Chronic gait dysfunction, uses a walker at baseline -Possible PAD. Aspirin. Lipitor. DuoNeb, inhaled steroids. Long-acting beta agonist. Home medications renewed. Flush Abad catheter. Other home medications renewed. Discussed with the patient. Given the complexity and severity of patient's condition expect the patient to be in the hospital at least for 2 overnights Past Medical History Past Medical History: COPD, Diabetes Mellitus, GERD/Reflux, Hypertension Additional Past Medical History / Comment(s): BPH, left leg dvt History of Any Multi-Drug Resistant Organisms: None Reported Past Surgical History: Cholecystectomy, Hernia Repair Additional Past Surgical History / Comment(s): hemmorids removed, Past Psychological History: No Psychological Hx Reported Past Alcohol Use History: None Reported Past Drug Use History: None Reported Medications and Allergies Home Medications Medication Instructions Recorded Confirmed Type Insulin Glargine [Lantus] 20 unit SQ HS 04/25/16 09/13/20 History Montelukast [Singulair] 10 mg PO DAILY@1200 04/25/16 09/13/20 History ALPRAZolam [Xanax] 0.25 mg PO BID PRN 09/10/20 09/13/20 History Albuterol Sulfate [Ventolin HFA] 2 puff INHALATION RT-Q4H PRN 09/10/20 09/13/20 History Apixaban [Eliquis] 5 mg PO BID 09/10/20 09/13/20 History Aspirin EC [Ecotrin Low Dose] 81 mg PO DAILY@1200 09/10/20 09/13/20 History Baclofen [Lioresal] 10 mg PO TID 09/10/20 09/13/20 History Budesonide/Formoterol Fumarate 2 puff INHALATION RT-BID 09/10/20 09/13/20 History [Symbicort 160-4.5 Mcg Inhaler] Ipratropium-Albuterol Nebulize 3 ml INHALATION RT-QID 09/10/20 09/13/20 History [Duoneb 0.5 mg-3 mg/3 ml Soln] Magnesium Oxide 400 mg PO DAILY@1200 09/10/20 09/13/20 History Pantoprazole Sodium [Protonix] 40 mg PO DAILY@1200 09/10/20 09/13/20 History Atorvastatin [Lipitor] 20 mg PO HS #30 tab 09/12/20 09/13/20 Rx Diltiazem Cd [Cardizem CD] 120 mg PO DAILY #30 cap.er.24h 09/12/20 09/13/20 Rx Tamsulosin [Flomax] 0.4 mg PO BID #60 cap 09/12/20 09/13/20 Rx guaiFENesin [Mucinex] 600 mg PO QID #100 tablet.er 09/12/20 09/13/20 Rx predniSONE See Taper PO DIRECTED 09/13/20 09/13/20 History Allergies Allergy/AdvReac Type Severity Reaction Status Date / Time No Known Allergies Allergy Verified 09/13/20 16:41 Physical Exam Vitals: Vital Signs Temp Pulse Resp BP Pulse Ox 09/14/20 09:09 76 09/14/20 08:55 72 09/14/20 08:11 97.6 F 70 20 153/83 98 09/14/20 07:15 98.3 F 55 L 16 132/83 99 09/14/20 06:22 63 09/14/20 06:15 71 09/14/20 02:28 98 F 09/14/20 00:00 58 L 17 128/84 98 09/13/20 19:06 75 20 137/74 94 L 09/13/20 19:01 99 F 09/13/20 18:30 76 20 137/79 92 L 09/13/20 17:43 83 20 127/83 94 L 09/13/20 17:23 84 09/13/20 17:11 90 09/13/20 16:36 101.7 F H 79 40 H 156/100 89 L Intake and Output 09/13/20 09/14/20 09/14/20 22:59 06:59 14:59 Other: Weight 104.326 kg Results CBC & Chem 7: 09/13/20 17:01 09/13/20 17:01 Labs: Abnormal Lab Results - Last 24 Hours (Table) 09/13/20 09/13/20 09/13/20 Range/Units 17:01 17:01 17:01 WBC 12.6 H (3.8-10.6) k/uL Neutrophils # 11.6 H (1.3-7.7) k/uL Lymphocytes # 0.3 L (1.0-4.8) k/uL INR 1.2 H (<1.2) Carbon Dioxide 34 H (22-30) mmol/L BUN 33 H (9-20) mg/dL Creatinine 0.54 L (0.66-1.25) mg/dL Glucose 205 H (74-99) mg/dL Total Bilirubin 1.4 H (0.2-1.3) mg/dL Troponin I (0.000-0.034) ng/mL Total Protein 6.2 L (6.3-8.2) g/dL Urine RBC (0-5) /hpf Urine WBC (0-5) /hpf Urine WBC Clumps (None) /hpf Urine Bacteria (None) /hpf Urine Mucus (None) /hpf 09/13/20 09/13/20 09/13/20 Range/Units 17:01 17:19 21:17 WBC (3.8-10.6) k/uL Neutrophils # (1.3-7.7) k/uL Lymphocytes # (1.0-4.8) k/uL INR (<1.2) Carbon Dioxide (22-30) mmol/L BUN (9-20) mg/dL Creatinine (0.66-1.25) mg/dL Glucose (74-99) mg/dL Total Bilirubin (0.2-1.3) mg/dL Troponin I 0.064 H* 0.061 H* (0.000-0.034) ng/mL Total Protein (6.3-8.2) g/dL Urine RBC >182 H (0-5) /hpf Urine WBC 24 H (0-5) /hpf Urine WBC Clumps Few H (None) /hpf Urine Bacteria Occasional H (None) /hpf Urine Mucus Rare H (None) /hpf 09/14/20 Range/Units 00:25 WBC (3.8-10.6) k/uL Neutrophils # (1.3-7.7) k/uL Lymphocytes # (1.0-4.8) k/uL INR (<1.2) Carbon Dioxide (22-30) mmol/L BUN (9-20) mg/dL Creatinine (0.66-1.25) mg/dL Glucose (74-99) mg/dL Total Bilirubin (0.2-1.3) mg/dL Troponin I 0.047 H* (0.000-0.034) ng/mL Total Protein (6.3-8.2) g/dL Urine RBC (0-5) /hpf Urine WBC (0-5) /hpf Urine WBC Clumps (None) /hpf Urine Bacteria (None) /hpf Urine Mucus (None) /hpf Microbiology - Last 24 Hours (Table) 09/13/20 17:19 Urine Culture - Preliminary Urine,Voided
[2020-09-14 16:32] LABS: Glucose,Whole Blood 195 mg/dL (75-99)
[2020-09-14] MEDS: BACLOFEN 10 MG TAB PO SCH ×2 (16:32→21:24)
[2020-09-14] MEDS: ENOXAPARIN 40 MG/0.4 ML SYRINGE SQ SCH (18:03)
[2020-09-14 20:03] LABS: Glucose,Whole Blood 264 mg/dL (75-99)
[2020-09-14] MEDS: INSULIN DETEMIR (LEVEMIR) 100 UNIT/ML SYR SQ SCH (20:10)
[2020-09-14] MEDS: ATORVASTATIN 20 MG TAB PO SCH (20:10)
[2020-09-15] MEDS: BENZOCAINE/MENTHOL LOZENG 1 EACH LOZENGE MUCOUS MEM PRN ×4 (00:30→21:17)
[2020-09-15] MEDS: ACETAMINOPHEN TAB 325 MG TAB PO PRN (02:12)
[2020-09-15] MEDS: BUDESONIDE 1 MG/2 ML NEBU INHALATION SCH ×2 (05:17→19:17)
[2020-09-15] MEDS: IPRATROPIUM-ALBUTEROL 3 ML NEB INHALATION SCH ×6 (05:17→23:43)
[2020-09-15] MEDS: FORMOTEROL FUMARATE 20 MCG/2 ML NEBU INHALATION SCH ×2 (05:17→19:17)
[2020-09-15 06:03] LABS: Glucose,Whole Blood 113 mg/dL (75-99)
[2020-09-15] MEDS: INSULIN ASPART (NovoLOG) 100 UNIT/ML VIAL SQ SCH ×4 (06:04→21:12)
[2020-09-15] MEDS: guaiFENesin 600 MG TABLET.ER PO SCH ×4 (08:48→21:12)
[2020-09-15] MEDS: ENOXAPARIN 40 MG/0.4 ML SYRINGE SQ SCH (08:48)
[2020-09-15] MEDS: MAGNESIUM OXIDE 400 MG TAB PO SCH (08:48)
[2020-09-15] MEDS: predniSONE 20 MG TAB PO SCH (08:48)
[2020-09-15] MEDS: BACLOFEN 10 MG TAB PO SCH ×3 (08:48→21:12)
[2020-09-15] MEDS: DILTIAZEM CD 120 MG CAP.ER.24H PO SCH (08:48)
[2020-09-15] MEDS: TAMSULOSIN 0.4 MG CAP.ER.24H PO SCH ×2 (08:48→21:12)
[2020-09-15 11:45] LABS: Glucose,Whole Blood 127 mg/dL (75-99)
--- NOTE | 2020-09-15 11:57 | PN ---
PROGRESS NOTE Mr. Castano is 64-year-old male with history of atrial fibrillation, history of chronic obstructive lung disease, who presented with symptoms of progressive dyspnea as well as hematuria. His breathing is slightly better today. His hematuria persists although is better. He denies any chest pain. He denies any dizziness or palpitation. He continues to be in sinus mechanism. He had a mild troponin elevation that most likely represents a type 2 event related to his exacerbation of chronic obstructive pulmonary disease. He continues to have an indwelling Abad catheter. He continues to be at this time on aspirin 81 mg daily Lipitor 20 mg daily, diltiazem CD 120 mg daily, Singulair, prednisone and Protonix. PHYSICAL EXAMINATION: Blood pressure 127/80 with a heart rate in the 80s. Lungs with decreased air exchange. No wheezes. Heart: Regular rate and rhythm S1, S2. No S3. No rub. Abdomen: Soft, nontender. Extremities: No edema. Discoloration of the toes on the left side noted. IMPRESSION: 1. Exacerbation of chronic obstructive pulmonary disease. 2. Mild troponin elevation related to exacerbation of chronic obstructive pulmonary disease, does not represent any acute ischemic event. 3. History of paroxysmal atrial fibrillation. 4. Hematuria. 5. Diabetes mellitus. 6. Hyperlipidemia. RECOMMENDATIONS: From the cardiac standpoint, will continue present therapy. Continue the treatment as per Dr. Jiang. Await the input of the urology service and depending on his progress further recommendations will be made. MMODL / IJN: [id number] /
[2020-09-15] MEDS: MONTELUKAST 10 MG TAB PO SCH (12:11)
[2020-09-15] MEDS: PANTOPRAZOLE 40 MG TABLET PO SCH (12:11)
[2020-09-15] MEDS: ASPIRIN 81 MG PO SCH (12:11)
--- NOTE | 2020-09-15 12:18 | P.PN ---
Subjective Progress Note Date: 09/15/20 Principal diagnosis: Acute exacerbation of COPD, urinary retention This is a 64-year-old white male patient with past medical history of advanced COPD on home oxygen, usually worse 4 L/m, former smoker, hypertension, diabetes mellitus, chronic A. fib, BPH, previous history of left leg DVT. We recently saw the patient in consultation during his recent hospital admission for acute exacerbation of COPD and urinary retention. Patient was treated with nebulized treatments and steroids. He was seen by urology during his previous admission, he had been on tamsulosin previously, his had 3 previous occasions of Abad catheter placement related to recurrent urinary retention. Patient wasn't discharged home with a Abad catheter in place and instructions to follow-up with urology on an outpatient basis to undergo urodynamic testing and cystoscopy in the office for further evaluation. Patient was discharged home on 09/12/2020. On 09/13/2020 patient was brought back to the emergency department per EMS for evaluating of fever, chills, worsening shortness of breath. Patient attempted to take his home treatments however they did not improve his breathing much. She was complaining of just generalized chest tightness, he denied any abdominal pain, nausea or vomiting. He stated that he was having occasional cough with some sputum production that was yellowish in nature, which was abnormal for him. He still had his Abad catheter in place and he thought that the color of urine has changed. Patient's EKG revealed no acute ischemia. Chest x-ray revealed COPD with mild fibrotic changes, no obvious infiltrates. His troponin was mildly elevated at 0.064. He had a mild leukocytosis with a white blood cell count of 12.6. Patient's urinalysis was remarkable for m ultiple red blood cells, 24 white blood cells, and occasional bacteria. COVID was not detected. Urine cultures have been sent, patient was started on azithromycin and Rocephin, nebulized bronchodilators and IV steroids. During our evaluation patient is seen comfortably, he is currently on 5 L of oxygen pulse ox is 98-99%, appears to be in no acute distress, lung sounds are diminished, no wheezing auscultated, afebrile, hemodynamically he is stable, no altered mentation, remains just on Rocephin for antibiotic coverage. Abad catheter is draining clear aaliyah urine. On 09/15/2020 patient seen in follow-up on selective care unit, he is breathing easier today, resting comfortably in bed, currently on 5 L of oxygen pulse ox is 96%, afebrile, hemodynamically stable, no complaints of chest discomfort, remains on Rocephin for empiric antibiotic coverage, culture showed coagulase- negative staph, blood culture showed gram-positive cocci in clusters. Likely contaminated specimen. No fever or chills, remains on oral prednisone, and breathing treatments. Objective - Vital Signs Vital signs: Vital Signs Temp 97.6 F 09/15/20 08:00 Pulse 96 09/15/20 11:55 Resp 18 09/15/20 08:00 BP 127/81 09/15/20 08:00 Pulse Ox 96 09/15/20 08:00 Intake & Output 09/14/20 09/15/20 09/15/20 18:59 06:59 18:59 Intake Total 180 240 Output Total 600 820 Balance -420 -820 240 Weight 104.326 kg 93.5 kg Intake: Oral 180 240 Output: Urine 600 820 Other: Voiding Method Indwelling Catheter Indwelling Catheter Indwelling Catheter # Bowel Movements 1 - Exam GENERAL EXAM: Alert, very pleasant, 64-year-old white male, on 5 L of oxygen pulse ox of 98%, comfortable in no apparent distress. HEAD: Normocephalic/atraumatic. EYES: Normal reaction of pupils, equal size. Conjunctiva pink, sclera white. NOSE: Clear with pink turbinates. THROAT: No erythema or exudates. NECK: No masses, no JVD, no thyroid enlargement, no adenopathy. CHEST: No chest wall deformity. Symmetrical expansion. LUNGS: Equal air entry with no evidence of rhonchi or wheezing CVS: Regular rate and rhythm, normal S1 and S2, no gallops, no murmurs, no rubs ABDOMEN: Soft, nontender. No hepatosplenomegaly, normal bowel sounds, no guarding or rigidity. EXTREMITIES: No clubbing, 1+ lower extremity edema no cyanosis, 2+ pulses and upper and lower extremities. Bruising of the second, third, fourth toes on the left leg MUSCULOSKELETAL: Muscle strength and tone normal. SPINE: No scoliosis or deformity SKIN: No rashes CENTRAL NERVOUS SYSTEM: Alert and oriented -3. No focal deficits, tone is normal in all 4 extremities. PSYCHIATRIC: Alert and oriented -3. Appropriate affect. Intact judgment and insight - Labs CBC & Chem 7: 09/13/20 17:01 09/13/20 17:01 Labs: Abnormal Lab Results - Last 24 Hours (Table) 09/14/20 09/14/20 09/15/20 Range/Units 16:31 20:01 06:02 POC Glucose (mg/dL) 195 H 264 H 113 H (75-99) mg/dL 09/15/20 Range/Units 11:44 POC Glucose (mg/dL) 127 H (75-99) mg/dL Microbiology - Last 24 Hours (Table) 09/13/20 17:19 Blood Culture Gram Stain - Preliminary Blood 09/13/20 17:19 Blood Culture - Final Blood 09/13/20 17:19 Urine Culture - Preliminary Urine,Voided Coagulase Negative Staph Assessment and Plan Plan: Assessment: #1. Acute exacerbation of COPD, chest x-ray showed no evidence of acute pulmonary disease, and some chronic fibrotic changes. COVID-19 PCR was negative #2. Acute urinary tract infection, currently on Rocephin #3. Mild elevation of troponins, cardiology is following #4. Chronic indwelling catheter for urinary retention, patient is being followed by urology #5. BPH #6. Advanced COPD, normally wears 4 L of oxygen on a regular basis #7. Ex-smoker #8. Paroxysmal A. fib, currently in sinus rhythm, on Eliquis #9. Diabetes mellitus #10. History of left leg DVT #11. Recent hospitalization at [facility] for COPD, A. fib with RVR and urinary retention #12. Hypertension Plan: Continue oral prednisone, Continue antibiotics Continue nebulized bronchodilators Breathing is improving Urine and blood culture have been noted, Waiting final cultures Consult urology I performed a history & physical examination of the patient and discussed their management with my nurse practitioner, Leatha Be. I reviewed the nurse practitioner's note and agree with the documented findings and plan of care. Lung sounds are positive for diminished breath sounds. The findings and the impression was discussed with the patient. I attest to the documentation by the nurse practitioner. Time with Patient: Less than 30
[2020-09-15 16:40] LABS: Glucose,Whole Blood 227 mg/dL (75-99)
--- NOTE | 2020-09-15 16:46 | P.PN ---
Progress Note - Text Progress Note Date: 09/15/20 Chief Complaint: Short of breath History of presenting complaint: This is a 64-year-old patient who follows with Dr. Hernandez. Chronic stable medical conditions include diabetes, GERD, hypertension, BPH. Home oxygen-4 L. Just Admitted to the hospital from September 10 through September 12: with acute COPD exacerbation. Acute urinary retention. Abad catheter was placed. Seen by urology. Dose of Flomax was increased. Discharged with Abad. He was to follow up with urology as outpatient. Also seen by vascular. No intervention. Now presents with some blood in the Abad catheter. Also some fever cough congestion increase in shortness of breath and wheezing. Slight sputum production yellow in color. Decreased appetite. Admitted with COPD exacerbation, some hematuria, felt to be traumatic. Started on bronchodilators, inhaled steroids. Mucinex. September 15: Sitting up on bed. Some wheezing. Some cough. Some sputum production. Started to eat better. Urine has cleared up. Review of systems: Was done for constitutional, cardiovascular, GI, pulmonary. relevant finding as above Active Medications Acetaminophen (Acetaminophen Tab 325 Mg Tab) 650 mg PO Q6HR PRN PRN Reason: Mild Pain or Fever > 100.5 Last Admin: 09/15/20 02:12 Dose: 650 mg Documented by: Albuterol/Ipratropium (Ipratropium-Albuterol 3 Ml Neb) 3 ml INHALATION RT-Q2H PRN PRN Reason: Shortness Of Breath Or Wheezing Last Admin: 09/14/20 06:15 Dose: 3 ml Documented by: Albuterol/Ipratropium (Ipratropium-Albuterol 3 Ml Neb) 3 ml INHALATION RT-Q4H [facility] Last Admin: 09/15/20 15:21 Dose: 3 ml Documented by: Alprazolam (Alprazolam 0.25 Mg Tab) 0.25 mg PO BID PRN PRN Reason: Anxiety Last Admin: 09/14/20 09:42 Dose: 0.25 mg Documented by: Aspirin (Aspirin 81 Mg) 81 mg PO DAILY@1200 [facility] Last Admin: 09/15/20 12:11 Dose: 81 mg Documented by: Atorvastatin Calcium (Atorvastatin 20 Mg Tab) 20 mg PO [facility] Last Admin: 09/14/20 20:10 Dose: 20 mg Documented by: Baclofen (Baclofen 10 Mg Tab) 10 mg PO TID [facility] Last Admin: 09/15/20 08:48 Dose: 10 mg Documented by: Benzocaine/Menthol (Benzocaine/Menthol Lozeng 1 Each Lozenge) 1 each MUCOUS MEM Q4HR PRN PRN Reason: Cough Last Admin: 09/15/20 08:48 Dose: 1 each Documented by: Budesonide (Budesonide 1 Mg/2 Ml Nebu) 1 mg INHALATION RT-BID [facility] Last Admin: 09/15/20 05:17 Dose: 1 mg Documented by: Diltiazem HCl (Diltiazem Cd 120 Mg Cap.Er.24h) 120 mg PO DAILY [facility] Last Admin: 09/15/20 08:48 Dose: 120 mg Documented by: Enoxaparin Sodium (Enoxaparin 40 Mg/0.4 Ml Syringe) 40 mg SQ DAILY [facility] Last Admin: 09/15/20 08:48 Dose: 40 mg Documented by: Formoterol Fumarate (Formoterol Fumarate 20 Mcg/2 Ml Nebu) 20 mcg INHALATION RT-BID [facility] Last Admin: 09/15/20 05:17 Dose: 20 mcg Documented by: Guaifenesin (Guaifenesin 600 Mg Tablet.Er) 600 mg PO QID [facility] Last Admin: 09/15/20 12:11 Dose: 600 mg Documented by: Ceftriaxone Sodium 1 gm/ (Sodium Chloride) 50 mls @ 100 mls/hr IVPB Q24HR [facility] Last Admin: 09/15/20 08:47 Dose: 100 mls/hr Documented by: Insulin Aspart (Insulin Aspart (Novolog) 100 Unit/Ml Vial) 0 unit SQ [facility]; Protocol Last Admin: 09/15/20 12:12 Dose: Not Given Documented by: Insulin Detemir (Insulin Detemir (Levemir) 100 Unit/Ml Syr) 20 unit SQ HS [facility] Last Admin: 09/14/20 20:10 Dose: 20 unit Documented by: Magnesium Oxide (Magnesium Oxide 400 Mg Tab) 400 mg PO DAILY@1200 [facility] Last Admin: 09/15/20 08:48 Dose: 400 mg Documented by: Montelukast Sodium (Montelukast 10 Mg Tab) 10 mg PO DAILY@1200 [facility] Last Admin: 09/15/20 12:11 Dose: 10 mg Documented by: Pantoprazole Sodium (Pantoprazole 40 Mg Tablet) 40 mg PO DAILY@1200 [facility] Last Admin: 09/15/20 12:11 Dose: 40 mg Documented by: Prednisone (Prednisone 20 Mg Tab) 40 mg PO DAILY [facility] Last Admin: 09/15/20 08:48 Dose: 40 mg Documented by: Tamsulosin HCl (Tamsulosin 0.4 Mg Cap.Er.24h) 0.4 mg PO BID [facility] Last Admin: 09/15/20 08:48 Dose: 0.4 mg Documented by: Past medical history to include: COPD, diabetes, GERD, hypertension, BPH, left leg DVT Social history: Lives alone. Does use a walker. Smoked about 2 packs a day for close to 40 years stopped about 14 years ago. Used to work with [employer] Family history: Reviewed, noncontributory to presentation Physical examination: VITAL SIGNS: Afebrile, 76, 18, 149/89, 95% on 5 L GENERAL: Requiring in bed, short of breath EYES: Pupils equal. Conjunctiva normal. HEENT: External appearance of nose and ears normal, oral cavity grossly normal. NECK: JVD unable to assess; masses not palpable. HEART: First and second heart sounds are normal; no edema. LUNGS: Respiratory rate increased, diminished breath sounds prolonged expiration occasional crackles. ABDOMEN: Soft, nontender, liver spleen not palpable, no masses palpable. PSYCH: Alert and oriented x3; mood and affect tiredl. MUSCULAR skeletal: Evidence of OA EXTREMITY: Patient has dorsalis pedis is palpable in the right side. Unable to feel some the left side. He has bruising across to toes, on left side. INVESTIGATIONS, reviewed in the clinical context: WBC 12.6 hemoglobin 15 potassium 4.3 BUN 33 creatinine 0.5 for Troponin I 0.064, 0.061, 0.047 EKG tracing personally reviewed by me-normal sinus rhythm. PVC. COVID 19: Not detected Chest x-ray film -possible fibrotic changes at the bases. Recent testing 2-D echocardiogram: Moderate concentric LVH. EF 55-60% right ventricle severely enlarged Assessment and plan: -Acute COPD exacerbation in a previous smoker: Slow to respond DuoNeb, every 4 hours, prednisone 40, inhaled Pulmicort -Acute tracheal bronchitis IV ceftriaxone -Chronic hypoxic respiratory failure from COPD On 4 L of oxygen -Acute hematuria likely from traumatic from Abad catheter: Clear to Flush Bladder -BPH with urinary retention . Flomax to 0.4 mg twice a day. Abad catheter. Follow-up outpatient by Dr. obregon -Diabetes mellitus type 2, chronically on insulin On Lantus. For Accu-Cheks -Paroxysmal atrial fibrillation, currently sinus rhythm On Cardizem CD 60 mg every 12. eliquis -GERD On PPI -Chronic gait dysfunction, uses a walker at baseline -Possible PAD. Aspirin. Lipitor. DuoNeb, inhaled steroids. Long-acting beta agonist. Other home medications renewed. Discussed with the patient.
[2020-09-15 19:57] LABS: Glucose,Whole Blood 219 mg/dL (75-99)
[2020-09-15] MEDS: ATORVASTATIN 20 MG TAB PO SCH (21:12)
[2020-09-15] MEDS: INSULIN DETEMIR (LEVEMIR) 100 UNIT/ML SYR SQ SCH (21:12)
--- NOTE | 2020-09-15 21:49 | P.GSCN ---
History of Present Illness Consult date: 09/15/20 Reason for Consult: Hematuria Requesting physician: Gonzalez Hernández History of present illness: The patient is a 64-year-old white male with a history of COPD and atrial fibrillation. He was admitted last week with shortness of breath due to COPD exacerbation. He has taken tamsulosin for approximately 7 years, and expe rienced voiding difficulty for the past month. He has undergone Abad catheter placement on 3 occasions due to recurrent urinary retention. He currently has a Abad catheter in place, which was placed at [facility] prior to transfer to [facility] last week. He denies any prior history of UTIs or urolithiasis. He was discharged home on September 12, but readmitted with hematu sheila, shortness of breath, fever and chills. Review of Systems - Constitutional Reports chills, Reports fever - Respiratory Reports dyspnea - Genitourinary Reports hematuria Past Medical History Past Medical History: COPD, Diabetes Mellitus, GERD/Reflux, Hypertension Additional Past Medical History / Comment(s): BPH, left leg dvt History of Any Multi-Drug Resistant Organisms: None Reported Past Surgical History: Cholecystectomy, Hernia Repair Additional Past Surgical History / Comment(s): hemmorids removed, Past Anesthesia/Blood Transfusion Reactions: No Reported Reaction Past Psychological History: No Psychological Hx Reported Past Alcohol Use History: None Reported Past Drug Use History: None Reported Medications and Allergies Home Medications Medication Instructions Recorded Confirmed Type Insulin Glargine [Lantus] 20 unit SQ HS 04/25/16 09/13/20 History Montelukast [Singulair] 10 mg PO DAILY@1200 04/25/16 09/13/20 History ALPRAZolam [Xanax] 0.25 mg PO BID PRN 09/10/20 09/13/20 History Albuterol Sulfate [Ventolin HFA] 2 puff INHALATION RT-Q4H PRN 09/10/20 09/13/20 History Apixaban [Eliquis] 5 mg PO BID 09/10/20 09/13/20 History Aspirin EC [Ecotrin Low Dose] 81 mg PO DAILY@1200 09/10/20 09/13/20 History Baclofen [Lioresal] 10 mg PO TID 09/10/20 09/13/20 History Budesonide/Formoterol Fumarate 2 puff INHALATION RT-BID 09/10/20 09/13/20 History [Symbicort 160-4.5 Mcg Inhaler] Ipratropium-Albuterol Nebulize 3 ml INHALATION RT-QID 09/10/20 09/13/20 History [Duoneb 0.5 mg-3 mg/3 ml Soln] Magnesium Oxide 400 mg PO DAILY@1200 09/10/20 09/13/20 History Pantoprazole Sodium [Protonix] 40 mg PO DAILY@1200 09/10/20 09/13/20 History Atorvastatin [Lipitor] 20 mg PO HS #30 tab 09/12/20 09/13/20 Rx Diltiazem Cd [Cardizem CD] 120 mg PO DAILY #30 cap.er.24h 09/12/20 09/13/20 Rx Tamsulosin [Flomax] 0.4 mg PO BID #60 cap 09/12/20 09/13/20 Rx guaiFENesin [Mucinex] 600 mg PO QID #100 tablet.er 09/12/20 09/13/20 Rx predniSONE See Taper PO DIRECTED 09/13/20 09/13/20 History Allergies Allergy/AdvReac Type Severity Reaction Status Date / Time No Known Allergies Allergy Verified 09/13/20 16:41 Surgical - Exam Vital Signs Temp Pulse Resp BP Pulse Ox 101.7 F H 79 40 H 156/100 89 L 09/13/20 16:36 09/13/20 16:36 09/13/20 16:36 09/13/20 16:36 09/13/20 16:36 - General well developed, well nourished, no distress - Genitourinary normal penis with no external lesions, testicles non-tender - Psychiatric oriented to time, oriented to person, oriented to place, speech is normal, memory intact Results - Labs 09/13/20 17:01 09/13/20 17:01 Abnormal Lab Results - Last 24 Hours (Table) 09/15/20 09/15/20 09/15/20 Range/Units 06:02 11:44 16:38 POC Glucose (mg/dL) 113 H 127 H 227 H (75-99) mg/dL 09/15/20 Range/Units 19:56 POC Glucose (mg/dL) 219 H (75-99) mg/dL Microbiology - Last 24 Hours (Table) 09/13/20 17:19 Urine Culture - Final Urine,Voided Staphylococcus epidermidis 09/13/20 17:19 Blood Culture Gram Stain - Preliminary Blood 09/13/20 17:19 Blood Culture - Final Blood Assessment and Plan (1) Urinary retention Current Visit: No Status: Acute Code(s): R33.9 - RETENTION OF URINE, UNSPECIFIED SNOMED Code(s): 923240143 Plan: A urine culture obtained on September 13 shows staph epidermidis. The Abad catheter is currently draining clear yellow urine. Patient is receiving ceftriaxone. He also continues to receive tamsulosin 0.4 mg twice a day. The Abad catheter will be removed tomorrow for a voiding trial. Time with Patient: Less than 30
[2020-09-16] MEDS: IPRATROPIUM-ALBUTEROL 3 ML NEB INHALATION SCH ×6 (03:07→23:53)
[2020-09-16 06:04] LABS: Glucose,Whole Blood 133 mg/dL (75-99)
[2020-09-16] MEDS: INSULIN ASPART (NovoLOG) 100 UNIT/ML VIAL SQ SCH ×4 (06:07→20:24)
[2020-09-16] MEDS: guaiFENesin 600 MG TABLET.ER PO SCH ×4 (08:41→20:24)
[2020-09-16] MEDS: MAGNESIUM OXIDE 400 MG TAB PO SCH (08:42)
[2020-09-16] MEDS: PANTOPRAZOLE 40 MG TABLET PO SCH (08:42)
[2020-09-16] MEDS: TAMSULOSIN 0.4 MG CAP.ER.24H PO SCH ×2 (08:42→20:23)
[2020-09-16] MEDS: MONTELUKAST 10 MG TAB PO SCH (08:42)
[2020-09-16] MEDS: predniSONE 20 MG TAB PO SCH (08:42)
[2020-09-16] MEDS: BACLOFEN 10 MG TAB PO SCH ×3 (08:42→20:23)
[2020-09-16] MEDS: ASPIRIN 81 MG PO SCH (08:42)
[2020-09-16] MEDS: DILTIAZEM CD 120 MG CAP.ER.24H PO SCH (08:42)
[2020-09-16] MEDS: ENOXAPARIN 40 MG/0.4 ML SYRINGE SQ SCH (08:43)
[2020-09-16] MEDS: BUDESONIDE 1 MG/2 ML NEBU INHALATION SCH ×2 (08:45→19:01)
[2020-09-16] MEDS: FORMOTEROL FUMARATE 20 MCG/2 ML NEBU INHALATION SCH ×2 (08:45→19:01)
[2020-09-16] MEDS: ACETAMINOPHEN TAB 325 MG TAB PO PRN (08:48)
[2020-09-16 09:56] LABS: Appearance,Urine Clear (Clear); Bacteria,Urine Rare /hpf; Bilirubin,Urine Negative (Negative); Blood,Urine Small (Negative); Color,Urine Yellow; Glucose,Urine (UA) Trace (Negative); Hyaline Casts,Urine 1 /lpf (0-2); Ketones,Urine Negative (Negative); Leukocyte Esterase,Urine Moderate (Negative); Mucus,Urine Occasional /hpf; Nitrite,Urine Negative (Negative); PH, Urine 5.5 (5.0-8.0); Protein,Urine Trace (Negative); RBC,Urine 9 /hpf (0-5); Specific Gravity,Urine 1.023 (1.001-1.035); Squamous Epithelial Cell,Urine <1 /hpf (0-4); Urobilinogen,Urine <2.0 mg/dL (<2.0); WBC,Urine 17 /hpf (0-5)
[2020-09-16 11:40] LABS: Glucose,Whole Blood 188 mg/dL (75-99)
--- NOTE | 2020-09-16 11:50 | CDI ---
Documentation Clarification Form Date: 09/16/2020 11:23:59 AM From: Amy Martinez RN CCDS Admit Date: 09/13/2020 06:43:00 PM Patient Name: Raghav Castano Visit Number: [id number] Discharge Date: ATTENTION: The Clinical Documentation Specialists (CDI) and [facility] Coding Staff appreciate your assistance in clarifying documentation. Please respond to the clarification below the line at the bottom and electronically sign. The CDI & [facility] Coding staff will review the response and follow-up if needed. Please note: Queries are made part of the Legal Health Record. If you have any questions, please contact the author of this message via ITS. Dr. Heriberto Darling, UTI is documented 09/15, in Pulmonology progress note. Additional clarification regarding this diagnosis is requested. History/Risk Factors: 64-year-old male presents to the ED for fever cough congestion, increased shortness of breath and wheezing. Medical History: Recently discharged 09/12 with AECOPD and Acute urinary retention. Discharged with rea catheter and increased Flomax. COPD, DM, BPH and Left leg DVT. H&P 09/14. Clinical Indicators: Vital Signs: 09/13 B/P 156/100; HR 79; Temp 102.7 F Oral; RR 40; SpO2 89% nasal cannula 6L. WBC: 09/13 12.6 Urinalysis: 09/13 Rbc >182, Wbc 24, Wbc Clumps Few, Bacteria Occasional, Mucus Rare. Urine Culture: 09/13 Staphylococcus epidermidis. A urine culture obtained on September 13 shows staph epidermidis The Rea catheter is currently draining clear yellow urine. Patient is receiving ceftriaxone. He also continues to receive tamsulosin 0.4mg twice a day. Urology Consult 09/15. Treatment Urology consult above. Antibiotics: 09/13 Azithromycin 500mg Ivpb x1; 09/13 Ceftriaxone 1gm IVPB X1; 09/14 Ceftriaxone 1gm IVPB Q24HR [facility]. Please clarify if there is an additional diagnosis associated with the UTI: [ ] UTI only [ ] UTI secondary to Rea Catheter [ ] Other, please specify [ ] Unable to determine (Template Last Revised: April 2020) UTI, catheter related MTDD
--- NOTE | 2020-09-16 12:32 | P.PN ---
Subjective This is a pleasant 64-year-old male past medical history significant for COPD and paroxysmal atrial fibrillation. He initially had presented to the hospital with symptoms of shortness of breath and hematuria. His hematuria has improved and his hemoglobin is stable. He denies symptoms of chest pain. He states his breathing is stable with no worsening since admission. Blood pressure 136/86 heart rate 85 afebrile maintaining oxygen saturation on nasal cannula. Telemetry tracings reviewed, he continues to maintain sinus mechanism. GENERAL: Well-appearing, well-nourished and in no acute distress. NECK: Supple without JVD or thyromegaly. LUNGS: Breath sounds clear to auscultation bilaterally. Respiration equal and unlabored. No wheezes, rales or rhonchi. Diminished bilaterally. HEART: Regular rate and rhythm without murmurs, rubs or gallops. S1 and S2 heard. EXTREMITIES: Normal range of motion, no edema. Discoloration noted to the left second and third toe as well as the anterior portion of the left foot. No clubbing or cyanosis. Peripheral pulses intact. ASSESSMENT Acute exacerbation of COPD Troponin elevation secondary to COPD does not represent an acute ischemic event Paroxysmal atrial fibrillation on Eliquis Hematuria Diabetes mellitus Dyslipidemia PLAN Resume Eliquis for thromboembolic protection. Ongoing medical management, we will follow along as needed. Nurse Practitioner note has been reviewed, I agree with a documented findings and plan of care. Patient was seen and examined. Objective - Vital Signs Vital signs: Vital Signs Temp 98.2 F 09/16/20 12:00 Pulse 85 09/16/20 12:00 Resp 18 09/16/20 12:00 BP 136/86 09/16/20 12:00 Pulse Ox 96 09/16/20 12:00 Intake & Output 09/15/20 09/16/20 09/16/20 18:59 06:59 18:59 Intake Total 900 Output Total 550 1700 80 Balance 350 -1700 -80 Weight 95 kg Intake: Oral 900 Output: Urine 550 1700 Post Void Residual 80 Other: Voiding Method Indwelling Catheter Indwelling Catheter Urinal - Labs CBC & Chem 7: 09/13/20 17:01 09/13/20 17:01 Labs: Abnormal Lab Results - Last 24 Hours (Table) 09/15/20 09/15/20 09/16/20 Range/Units 16:38 19:56 06:02 POC Glucose (mg/dL) 227 H 219 H 133 H (75-99) mg/dL Urine Protein (Negative) Urine Glucose (UA) (Negative) Urine Blood (Negative) Ur Leukocyte Esterase (Negative) Urine RBC (0-5) /hpf Urine WBC (0-5) /hpf Urine Bacteria (None) /hpf Urine Mucus (None) /hpf 09/16/20 09/16/20 Range/Units 09:40 11:36 POC Glucose (mg/dL) 188 H (75-99) mg/dL Urine Protein Trace H (Negative) Urine Glucose (UA) Trace H (Negative) Urine Blood Small H (Negative) Ur Leukocyte Esterase Moderate H (Negative) Urine RBC 9 H (0-5) /hpf Urine WBC 17 H (0-5) /hpf Urine Bacteria Rare H (None) /hpf Urine Mucus Occasional H (None) /hpf Microbiology - Last 24 Hours (Table) 09/13/20 17:19 Urine Culture - Final Urine,Voided Staphylococcus epidermidis 09/13/20 17:19 Blood Culture Gram Stain - Preliminary Blood
--- NOTE | 2020-09-16 13:07 | P.PN ---
Subjective Progress Note Date: 09/16/20 Principal diagnosis: Acute exacerbation of COPD, urinary retention This is a 64-year-old white male patient with past medical history of advanced COPD on home oxygen, usually worse 4 L/m, former smoker, hypertension, diabetes mellitus, chronic A. fib, BPH, previous history of left leg DVT. We recently saw the patient in consultation during his recent hospital admission for acute exacerbation of COPD and urinary retention. Patient was treated with nebulized treatments and steroids. He was seen by urology during his previous admission, he had been on tamsulosin previously, his had 3 previous occasions of Abad catheter placement related to recurrent urinary retention. Patient wasn't discharged home with a Abad catheter in place and instructions to follow-up with urology on an outpatient basis to undergo urodynamic testing and cystoscopy in the office for further evaluation. Patient was discharged home on 09/12/2020. On 09/13/2020 patient was brought back to the emergency department per EMS for evaluating of fever, chills, worsening shortness of breath. Patient attempted to take his home treatments however they did not improve his breathing much. She was complaining of just generalized chest tightness, he denied any abdominal pain, nausea or vomiting. He stated that he was having occasional cough with some sputum production that was yellowish in nature, which was abnormal for him. He still had his Abad catheter in place and he thought that the color of urine has changed. Patient's EKG revealed no acute ischemia. Chest x-ray revealed COPD with mild fibrotic changes, no obvious infiltrates. His troponin was mildly elevated at 0.064. He had a mild leukocytosis with a white blood cell count of 12.6. Patient's urinalysis was remarkable for m ultiple red blood cells, 24 white blood cells, and occasional bacteria. COVID was not detected. Urine cultures have been sent, patient was started on azithromycin and Rocephin, nebulized bronchodilators and IV steroids. During our evaluation patient is seen comfortably, he is currently on 5 L of oxygen pulse ox is 98-99%, appears to be in no acute distress, lung sounds are diminished, no wheezing auscultated, afebrile, hemodynamically he is stable, no altered mentation, remains just on Rocephin for antibiotic coverage. Abad catheter is draining clear aaliyah urine. On 09/15/2020 patient seen in follow-up on selective care unit, he is breathing easier today, resting comfortably in bed, currently on 5 L of oxygen pulse ox is 96%, afebrile, hemodynamically stable, no complaints of chest discomfort, remains on Rocephin for empiric antibiotic coverage, culture showed coagulase- negative staph, blood culture showed gram-positive cocci in clusters. Likely contaminated specimen. No fever or chills, remains on oral prednisone, and breathing treatments. On 09/16/2020 patient seen in follow-up on selective care unit. He is breathing comfortably, lung sounds reveal a few scattered rhonchi, no worsening dyspnea, no worsening wheezing coughing or phlegm production. He is on oral prednisone 40 mg daily, nebulized bronchodilators, his heart rate is controlled, his IV Cardizem has been converted to oral Cardizem CD 120 mg daily, patient is on Eliquis for anticoagulation, he is also on IV Levaquin, his urine cultures showed Staphylococcus epidermidis, and blood culture was positive for micrococcus species. No acute events overnight. Fever or chills. Hemodynamically has been stable, Abad catheter is been removed per urology. Patient is being monitored for urinary retention. Objective - Vital Signs Vital signs: Vital Signs Temp 98.2 F 09/16/20 12:00 Pulse 96 09/16/20 12:40 Resp 18 09/16/20 12:00 BP 136/86 09/16/20 12:00 Pulse Ox 96 09/16/20 12:00 Intake & Output 09/15/20 09/16/20 09/16/20 18:59 06:59 18:59 Intake Total 900 240 Output Total 550 1700 80 Balance 350 -1700 160 Weight 95 kg Intake: Oral 900 240 Output: Urine 550 1700 Post Void Residual 80 Other: Voiding Method Indwelling Catheter Indwelling Catheter Urinal - Exam GENERAL EXAM: Alert, very pleasant, 64-year-old white male, on 4 L of oxygen pulse ox of 98%, comfortable in no apparent distress. HEAD: Normocephalic/atraumatic. EYES: Normal reaction of pupils, equal size. Conjunctiva pink, sclera white. NOSE: Clear with pink turbinates. THROAT: No erythema or exudates. NECK: No masses, no JVD, no thyroid enlargement, no adenopathy. CHEST: No chest wall deformity. Symmetrical expansion. LUNGS: Equal air entry with no evidence of rhonchi or wheezing CVS: Regular rate and rhythm, normal S1 and S2, no gallops, no murmurs, no rubs ABDOMEN: Soft, nontender. No hepatosplenomegaly, normal bowel sounds, no guarding or rigidity. EXTREMITIES: No clubbing, 1+ lower extremity edema no cyanosis, 2+ pulses and upper and lower extremities. Bruising of the second, third, fourth toes on the left leg MUSCULOSKELETAL: Muscle strength and tone normal. SPINE: No scoliosis or deformity SKIN: No rashes CENTRAL NERVOUS SYSTEM: Alert and oriented -3. No focal deficits, tone is normal in all 4 extremities. PSYCHIATRIC: Alert and oriented -3. Appropriate affect. Intact judgment and insight - Labs CBC & Chem 7: 09/13/20 17:01 09/13/20 17:01 Labs: Abnormal Lab Results - Last 24 Hours (Table) 09/15/20 09/15/20 09/16/20 Range/Units 16:38 19:56 06:02 POC Glucose (mg/dL) 227 H 219 H 133 H (75-99) mg/dL Urine Protein (Negative) Urine Glucose (UA) (Negative) Urine Blood (Negative) Ur Leukocyte Esterase (Negative) Urine RBC (0-5) /hpf Urine WBC (0-5) /hpf Urine Bacteria (None) /hpf Urine Mucus (None) /hpf 09/16/20 09/16/20 Range/Units 09:40 11:36 POC Glucose (mg/dL) 188 H (75-99) mg/dL Urine Protein Trace H (Negative) Urine Glucose (UA) Trace H (Negative) Urine Blood Small H (Negative) Ur Leukocyte Esterase Moderate H (Negative) Urine RBC 9 H (0-5) /hpf Urine WBC 17 H (0-5) /hpf Urine Bacteria Rare H (None) /hpf Urine Mucus Occasional H (None) /hpf Microbiology - Last 24 Hours (Table) 09/13/20 17:19 Blood Culture Gram Stain - Preliminary Blood Blood Culture - Preliminary Micrococcus species 09/13/20 17:19 Urine Culture - Final Urine,Voided Staphylococcus epidermidis Assessment and Plan Plan: Assessment: #1. Acute exacerbation of COPD, chest x-ray showed no evidence of acute pulmonary disease, and some chronic fibrotic changes. COVID-19 PCR was negative #2. Acute urinary tract infection, currently on Rocephin #3. Mild elevation of troponins, cardiology is following #4. Chronic indwelling catheter for urinary retention, patient is being followed by urology #5. BPH #6. Advanced COPD, normally wears 4 L of oxygen on a regular basis #7. Ex-smoker #8. Paroxysmal A. fib, currently in sinus rhythm, on Eliquis #9. Diabetes mellitus #10. History of left leg DVT #11. Recent hospitalization at [facility] for COPD, A. fib with RVR and urinary retention #12. Hypertension Plan: Continue oral prednisone Patient is improving from pulmonary perspective Continue nebulized bronchodilators and antibiotics His heart rate is better controlled, he has been transitioned to oral Cardizem and he is on oral anticoagulation form of Eliquis Vital signs are stable Urology saw the patient, for catheter has been removed From pulmonary perspective he can probably be considered for discharge home in next 24-48 hours if cleared by cardiology and urology. I performed a history & physical examination of the patient and discussed their management with my nurse practitioner, Leatha Be. I reviewed the nurse practitioner's note and agree with the documented findings and plan of care. Lung sounds are positive for diminished breath sounds. The findings and the impression was discussed with the patient. I attest to the documentation by the nurse practitioner. Time with Patient: Less than 30
[2020-09-16] MEDS: LEVOFLOXACIN 500MG-D5W PMX 500 MG in DEXTROSE/WATER 1 100ML.BAG IVPB SCH (13:10)
--- NOTE | 2020-09-16 13:13 | P.PN ---
Progress Note - Text Progress Note Date: 09/16/20 No acute overnight event, rea removed this am, patient has been able to void. Denies any gross hematuria or any dysuria. -Obtain a PVR if >300 mL reinsert rea. If patient is still in retention then he will need cystoscopy/Urodynamics as an outpatient -Continue flomax 0.4 mg BID
[2020-09-16 16:37] LABS: Glucose,Whole Blood 210 mg/dL (75-99)
[2020-09-16 18:54] LABS: Appearance,Urine Clear (Clear); Bilirubin,Urine Negative (Negative); Blood,Urine Negative (Negative); Color,Urine Light Yellow; Glucose,Urine (UA) 4+ (Negative); Ketones,Urine Negative (Negative); Leukocyte Esterase,Urine Negative (Negative); Nitrite,Urine Negative (Negative); PH, Urine 7.5 (5.0-8.0); Protein,Urine Negative (Negative); Specific Gravity,Urine 1.009 (1.001-1.035); Urobilinogen,Urine <2.0 mg/dL (<2.0)
[2020-09-16 19:57] LABS: Glucose,Whole Blood 231 mg/dL (75-99)
[2020-09-16] MEDS: ATORVASTATIN 20 MG TAB PO SCH (20:23)
[2020-09-16] MEDS: INSULIN DETEMIR (LEVEMIR) 100 UNIT/ML SYR SQ SCH (21:21)
--- NOTE | 2020-09-16 22:16 | P.CONS ---
History of Present Illness - Reason for Consult Consult date: 09/16/20 Bacteremia Requesting physician: Heriberto E Sheet - Chief Complaint Shortness of breath x few days - History of Present Illness Patient is a 64-year male presenting to the hospital 3 days ago for evaluation of increasing shortness of breath patient did use some home nebulizer treatment without improvement notes was complaining of generalized chest tightness patient also have a cough with some yellow sputum no hemoptysis no chest pain patient did have urinary retention requiring a Abad catheter placement patient denied any dysuria or change in color of his urine with the symptom the patient has been evaluated by ER physician on arrival to the ER the patient did have a fever of 101.7 treated for right patient did have white count of 12.6 and he has not been repeated since then did have elevated BUN hematocrit was normal liver enzymes are normal urine was positive brown PCR was negative patient did have a chest x-ray COPD microbleed changes lung bases no change compared to recent exam patient has been treated with 3 doses of Rocephin and currently on Levaquin did have overall resolution of his fever patient urine culture subsequently came back positive for staph epi and the blood cultures came back positive with the micrococcus species that has prompted this infectious disease consultation patient is recommending of shortness of breath cough and sputum production though no sputum has been collected on this admission. Review of Systems Positive point has been mentioned in the HPI rest of the systems are negative Past Medical History Past Medical History: COPD, Diabetes Mellitus, GERD/Reflux, Hypertension Additional Past Medical History / Comment(s): BPH, left leg dvt History of Any Multi-Drug Resistant Organisms: None Reported Past Surgical History: Cholecystectomy, Hernia Repair Additional Past Surgical History / Comment(s): hemmorids removed, Past Anesthesia/Blood Transfusion Reactions: No Reported Reaction Past Psychological History: No Psychological Hx Reported Past Alcohol Use History: None Reported Past Drug Use History: None Reported Medications and Allergies Home Medications Medication Instructions Recorded Confirmed Type Insulin Glargine [Lantus] 20 unit SQ HS 04/25/16 09/13/20 History Montelukast [Singulair] 10 mg PO DAILY@1200 04/25/16 09/13/20 History ALPRAZolam [Xanax] 0.25 mg PO BID PRN 09/10/20 09/13/20 History Albuterol Sulfate [Ventolin HFA] 2 puff INHALATION RT-Q4H PRN 09/10/20 09/13/20 History Apixaban [Eliquis] 5 mg PO BID 09/10/20 09/13/20 History Aspirin EC [Ecotrin Low Dose] 81 mg PO DAILY@1200 09/10/20 09/13/20 History Baclofen [Lioresal] 10 mg PO TID 09/10/20 09/13/20 History Budesonide/Formoterol Fumarate 2 puff INHALATION RT-BID 09/10/20 09/13/20 History [Symbicort 160-4.5 Mcg Inhaler] Ipratropium-Albuterol Nebulize 3 ml INHALATION RT-QID 09/10/20 09/13/20 History [Duoneb 0.5 mg-3 mg/3 ml Soln] Magnesium Oxide 400 mg PO DAILY@1200 09/10/20 09/13/20 History Pantoprazole Sodium [Protonix] 40 mg PO DAILY@1200 09/10/20 09/13/20 History Atorvastatin [Lipitor] 20 mg PO HS #30 tab 09/12/20 09/13/20 Rx Diltiazem Cd [Cardizem CD] 120 mg PO DAILY #30 cap.er.24h 09/12/20 09/13/20 Rx Tamsulosin [Flomax] 0.4 mg PO BID #60 cap 09/12/20 09/13/20 Rx guaiFENesin [Mucinex] 600 mg PO QID #100 tablet.er 09/12/20 09/13/20 Rx predniSONE See Taper PO DIRECTED 09/13/20 09/13/20 History Allergies Allergy/AdvReac Type Severity Reaction Status Date / Time No Known Allergies Allergy Verified 09/13/20 16:41 Physical Exam Vitals: Vital Signs Temp Pulse Pulse Resp BP Pulse Ox 09/16/20 16:21 78 09/16/20 16:16 92 L 09/16/20 16:10 72 09/16/20 16:00 98.1 F 79 16 151/83 92 L 09/16/20 14:00 85 18 09/16/20 12:40 96 09/16/20 12:30 92 09/16/20 12:00 98.2 F 85 18 136/86 96 09/16/20 09:11 84 09/16/20 09:03 80 09/16/20 09:02 80 09/16/20 08:48 86 94 L 09/16/20 08:10 97.9 F 72 18 136/77 94 L 09/16/20 03:49 97.5 F L 64 20 143/89 98 09/16/20 03:17 80 09/16/20 03:07 78 09/15/20 23:53 73 09/15/20 23:43 70 09/15/20 23:36 97.7 F 64 20 145/86 96 09/15/20 20:00 97.7 F 78 20 134/82 98 09/15/20 19:34 69 09/15/20 19:25 66 09/15/20 19:24 66 09/15/20 19:17 64 Intake and Output 09/16/20 09/16/20 09/16/20 06:59 14:59 22:59 Intake Total 240 Output Total 850 1230 Balance -850 -990 Intake: Oral 240 Output: Urine 850 1150 Post Void Residual 80 Other: Voiding Method Indwelling Catheter Urinal Weight 95 kg GENERAL DESCRIPTION: An elderly male lying in bed, no distress. No tachypnea or accessory muscle of respiration use. HEENT: Shows Pallor , no scleral icterus. Oral mucous membrane is dry. No pharyngeal erythema or thrush NECK: Trachea central, no thyromegaly. LUNGS: Unlabored breathing. coarse breath sounds bilaterally. No wheeze or crackle. HEART: S1, S2, regular rate and rhythm. No loud murmur ABDOMEN: Soft, no tenderness , guarding or rigidity, no organomegaly EXTREMITIES: No edema of feet. SKIN: No rash, no masses palpable. NEUROLOGICAL: The patient is awake, alert, oriented x3, mood and affect normal. Results CBC & Chem 7: 09/13/20 17:01 09/13/20 17:01 Labs: Abnormal Lab Results - Last 24 Hours (Table) 09/15/20 09/16/20 09/16/20 Range/Units 19:56 06:02 09:40 POC Glucose (mg/dL) 219 H 133 H (75-99) mg/dL Urine Protein Trace H (Negative) Urine Glucose (UA) Trace H (Negative) Urine Blood Small H (Negative) Ur Leukocyte Esterase Moderate H (Negative) Urine RBC 9 H (0-5) /hpf Urine WBC 17 H (0-5) /hpf Urine Bacteria Rare H (None) /hpf Urine Mucus Occasional H (None) /hpf 09/16/20 09/16/20 Range/Units 11:36 16:31 POC Glucose (mg/dL) 188 H 210 H (75-99) mg/dL Urine Protein (Negative) Urine Glucose (UA) (Negative) Urine Blood (Negative) Ur Leukocyte Esterase (Negative) Urine RBC (0-5) /hpf Urine WBC (0-5) /hpf Urine Bacteria (None) /hpf Urine Mucus (None) /hpf Microbiology - Last 24 Hours (Table) 09/13/20 17:19 Blood Culture Gram Stain - Preliminary Blood Blood Culture - Preliminary Micrococcus species 09/13/20 17:19 Urine Culture - Final Urine,Voided Staphylococcus epidermidis Assessment and Plan Assessment: 1-patient presented to hospital with sepsis in hospital have a fever elevated white count predominantly respiratory symptoms concern for possible community- acquired pneumonia hence this patient's admission overall improvement with Rocephin and Levaquin unfortunately sputum was not collected in any chest x-ray did not show significant consolidation, the patient did have a positive UA and urine could have been the likely source as well with reformats with staph epi sensitive to Levaquin resistant to oxacillin 2-positive blood culture with micrococcus which is likely skin contaminant (1) UTI (urinary tract infection) Current Visit: Yes Status: Acute Code(s): N39.0 - URINARY TRACT INFECTION, SITE NOT SPECIFIED SNOMED Code(s): 68198955 (2) Sepsis Current Visit: Yes Status: Acute Code(s): A41.9 - SEPSIS, UNSPECIFIED ORGANISM SNOMED Code(s): 16813985 (3) Positive blood culture Current Visit: Yes Status: Acute Code(s): R78.81 - BACTEREMIA SNOMED Code(s): 940597443 (4) Right lower lobe pneumonia Current Visit: No Status: Acute Code(s): J18.1 - LOBAR PNEUMONIA, UNSPECIFIED ORGANISM SNOMED Code(s): 533029907 Plan: 1-blood cultures will be repeated document clearance of his bacteremia 2-obtain sputum for Gram stain culture 3-check a CRP procalcitonin level and repeat chest x-ray 4-continue with the Levaquin We will follow on clinical condition and cultures to further adjust medication if needed Thank you for this consultation we will follow the patient along with you Time with Patient: Greater than 30
--- NOTE | 2020-09-16 22:20 | P.PN ---
Subjective This is a pleasant 64 years old male with multiple medical problems was admitted on 09/13 for urinary retention and shortness of breath. Found to have acute COPD exacerbation improved with steroids, pulmonary and the case and his currently on a prednisone 40 mg daily. Also he has evidence of urinary tract infection evaluated by urologist. Culture is growing staph epidermidis treated with ceftriaxone, repeat urinalysis from today is negative. Patient Abad catheter was discontinued and post void residual is not elevated. A radiology services manager fol lowing patient elevated troponin secondary to COPD that needs only conservative management and monitoring. Vision was cleared by all consultants for discharge including radiology services manager and neurologist, leaving pulmonary considering discharging the patient between today and tomorrow however blood culture came back positive with Micrococcus today. Patient today is placed on Levaquin IV and consult infectious disease team Objective - Vital Signs Vital signs: Vital Signs Temp 98.1 F 09/16/20 16:00 Pulse 77 09/16/20 19:18 Resp 16 09/16/20 16:00 BP 151/83 09/16/20 16:00 Pulse Ox 92 L 09/16/20 16:16 Intake & Output 09/16/20 09/16/20 09/17/20 06:59 18:59 06:59 Intake Total 480 Output Total 1700 1230 Balance -1700 -750 Weight 95 kg Intake: Oral 480 Output: Urine 1700 1150 Post Void Residual 80 Other: Voiding Method Indwelling Catheter Urinal - Exam -GENERAL: The patient is alert and oriented x3, not in any acute distress. Well developed, well nourished. Generally weak HEENT: Pupils are round and equally reacting to light. EOMI. No scleral icterus. No conjunctival pallor. Normocephalic, atraumatic. No pharyngeal erythema. No thyromegaly. CARDIOVASCULAR: S1 and S2 present. No murmurs, rubs, or gallops. PULMONARY: Chest is clear to auscultation, no wheezing or crackles. ABDOMEN: Soft, nontender, nondistended, normoactive bowel sounds. No palpable organomegaly. MUSCULOSKELETAL: No joint swelling or deformity. EXTREMITIES: No cyanosis, clubbing, or pedal edema. NEUROLOGICAL: Gross neurological examination did not reveal any focal deficits. SKIN: No rashes. no petechiae. - Labs CBC & Chem 7: 09/13/20 17:01 09/13/20 17:01 Labs: Abnormal Lab Results - Last 24 Hours (Table) 09/15/20 09/16/20 09/16/20 Range/Units 19:56 06:02 09:40 POC Glucose (mg/dL) 219 H 133 H (75-99) mg/dL Urine Protein Trace H (Negative) Urine Glucose (UA) Trace H (Negative) Urine Blood Small H (Negative) Ur Leukocyte Esterase Moderate H (Negative) Urine RBC 9 H (0-5) /hpf Urine WBC 17 H (0-5) /hpf Urine Bacteria Rare H (None) /hpf Urine Mucus Occasional H (None) /hpf 09/16/20 09/16/20 09/16/20 Range/Units 11:36 16:31 18:30 POC Glucose (mg/dL) 188 H 210 H (75-99) mg/dL Urine Protein (Negative) Urine Glucose (UA) 4+ H (Negative) Urine Blood (Negative) Ur Leukocyte Esterase (Negative) Urine RBC (0-5) /hpf Urine WBC (0-5) /hpf Urine Bacteria (None) /hpf Urine Mucus (None) /hpf Microbiology - Last 24 Hours (Table) 09/13/20 17:19 Blood Culture Gram Stain - Preliminary Blood Blood Culture - Preliminary Micrococcus species 09/13/20 17:19 Urine Culture - Final Urine,Voided Staphylococcus epidermidis Assessment and Plan Assessment: Micrococcus bacteremia Acute COPD exacerbation, improving Weighted troponin secondary to COPD per radiology services manager Acute urinary tract infection secondary to staph epidermidis, efficiently treated Recent history of urinary retention, improved Plan: This is a pleasant 64 years old male currently presents with positive blood culture with Micrococcus. Continue Levaquin Infectious disease consult Chest x-ray in the morning and repeat labs Labs and medication were reviewed.. Continue same treatment. Continue with symptomatic treatment. Resume home medication. Monitor lytes and vitals. DVT and GI prophylaxis. Further recommendationsas per clinical course of the patient DVT prophylaxis: Eliquis GI Prophylaxis: Ppi PT/OT: Pending Prognosis is guarded
[2020-09-16] MEDS: BENZOCAINE/MENTHOL LOZENG 1 EACH LOZENGE MUCOUS MEM PRN (23:48)
[2020-09-17] MEDS: IPRATROPIUM-ALBUTEROL 3 ML NEB INHALATION SCH ×5 (03:19→19:29)
[2020-09-17 06:11] LABS: Glucose,Whole Blood 110 mg/dL (75-99)
[2020-09-17] MEDS: INSULIN ASPART (NovoLOG) 100 UNIT/ML VIAL SQ SCH ×4 (06:23→20:59)
--- NOTE | 2020-09-17 07:13 | XR ---
EXAMINATION TYPE: XR chest 2V DATE OF EXAM: 09/17/2020 COMPARISON: 09/13/2020 HISTORY: Shortness of breath TECHNIQUE: Frontal and lateral views of the chest are obtained. FINDINGS: Scattered senescent parenchymal changes noted. Hyperinflation compatible with COPD. No evidence for infiltrate. No evidence for atelectasis. Heart size is stable. Mediastinal structures are stable and grossly unremarkable. No evidence for hilar prominence. Degenerative changes dorsal spine. IMPRESSION: 1. No evidence for acute pulmonary disease.
[2020-09-17] MEDS: FORMOTEROL FUMARATE 20 MCG/2 ML NEBU INHALATION SCH ×2 (07:34→19:29)
[2020-09-17] MEDS: BUDESONIDE 1 MG/2 ML NEBU INHALATION SCH ×2 (07:34→19:29)
[2020-09-17] MEDS: TAMSULOSIN 0.4 MG CAP.ER.24H PO SCH ×2 (08:26→20:58)
[2020-09-17] MEDS: guaiFENesin 600 MG TABLET.ER PO SCH ×4 (08:26→20:58)
[2020-09-17] MEDS: DILTIAZEM CD 120 MG CAP.ER.24H PO SCH (08:26)
[2020-09-17] MEDS: BACLOFEN 10 MG TAB PO SCH ×3 (08:26→20:59)
[2020-09-17] MEDS: predniSONE 20 MG TAB PO SCH (08:26)
[2020-09-17] MEDS: APIXABAN 5 MG TAB PO SCH ×2 (08:26→20:58)
[2020-09-17] MEDS: BENZOCAINE/MENTHOL LOZENG 1 EACH LOZENGE MUCOUS MEM PRN ×2 (08:31→20:58)
[2020-09-17] MEDS ORDERED: DOCUSATE 100 MG CAP PO PRN (08:38)
[2020-09-17 09:27] LABS: Basophils % (A) 0 %; Eosinophils % (A) 0 %; HCT 45.2 % (39.0-53.0); HGB 14.3 gm/dL (13.0-17.5); Lymphocytes % (A) 10 %; MCH 29.4 pg (25.0-35.0); MCHC 31.6 g/dL (31.0-37.0); MCV 93.2 fL (80.0-100.0); Mean Platelet Volume 7.1; Monocytes # (A) 0.7 k/uL (0-1.0); Monocytes % (A) 7 %; Neutrophils # (A) 8.6 k/uL (1.3-7.7); Neutrophils % (A) 82 %; Platelet Count 165 k/uL (150-450); RBC 4.85 m/uL (4.30-5.90); RDW 14.2 % (11.5-15.5); WBC 10.5 k/uL (3.8-10.6)
[2020-09-17 09:41] LABS: African American GFR (CKD) >90 (>60 ml/min/1.73 sqM); Blood Urea Nitrogen 18 mg/dL (9-20); C Reactive Protein 1.3 mg/dL (<1.0); Calcium 9.2 mg/dL (8.4-10.2); Chloride 95 mmol/L (98-107); Glucose 123 mg/dL (74-99); Non-African American GFR(CKD) >90 (>60 ml/min/1.73 sqM); Potassium 4.2 mmol/L (3.5-5.1); Sodium 140 mmol/L (137-145)
[2020-09-17 09:45] LABS: Anion Gap 6 mmol/L
[2020-09-17 09:53] LABS: Carbon Dioxide 39 mmol/L (22-30)
[2020-09-17 11:57] LABS: Glucose,Whole Blood 144 mg/dL (75-99)
[2020-09-17] MEDS: PANTOPRAZOLE 40 MG TABLET PO SCH (12:16)
[2020-09-17] MEDS: LEVOFLOXACIN 500MG-D5W PMX 500 MG in DEXTROSE/WATER 1 100ML.BAG IVPB SCH (12:16)
[2020-09-17] MEDS: methylPREDNISolone SOD SUCCI 125 MG/2 ML VIAL IV SCH ×3 (12:16→22:43)
[2020-09-17] MEDS: MAGNESIUM OXIDE 400 MG TAB PO SCH (12:17)
[2020-09-17] MEDS: MONTELUKAST 10 MG TAB PO SCH (12:17)
[2020-09-17] MEDS: ACETAMINOPHEN TAB 325 MG TAB PO PRN (12:18)
--- NOTE | 2020-09-17 12:24 | P.PN ---
Subjective This is a pleasant 64 years old male with multiple medical problems was admitted on 09/13 for urinary retention and shortness of breath. Found to have acute COPD exacerbation improved with steroids, pulmonary and the case and his currently on a prednisone 40 mg daily. Also he has evidence of urinary tract infection evaluated by urologist. Culture is growing staph epidermidis treated with ceftriaxone, repeat urinalysis from today is negative. Patient Abad catheter was discontinued and post void residual is not elevated. A marketing and communications officer fol lowing patient elevated troponin secondary to COPD that needs only conservative management and monitoring. Vision was cleared by all consultants for discharge including marketing and communications officer and neurologist, leaving pulmonary considering discharging the patient between today and tomorrow however blood culture came back positive with Micrococcus today. Patient today is placed on Levaquin IV and consult infectious disease team 09/17/2020 She still feels generally weak and short of breath while at rest, his saturation 96% on 5 L oxygen, compared to 4 L at home as is telling me today. His air entry is diminished on both sides so we switched his prednisone to Solu- Medrol 60 mg again His pain well with no difficulties Repeat chest x-ray for positive blood cultures should is unremarkable, repeat urinalysis showing improvement Blood culture is positive for Micrococcus species. Currently covered with Lakeisha carney Discussed the plan with the patient and he agrees with it Objective - Vital Signs Vital signs: Vital Signs Temp 98.3 F 09/17/20 12:15 Pulse 74 09/17/20 12:15 Resp 18 09/17/20 12:15 BP 146/90 09/17/20 12:15 Pulse Ox 96 09/17/20 12:15 Intake & Output 09/16/20 09/17/20 09/17/20 18:59 06:59 18:59 Intake Total 480 250 Output Total 1230 2320 250 Balance -750 -2320 0 Weight 90.5 kg Intake: Oral 480 250 Output: Urine 1150 2320 250 Post Void Residual 80 Other: Voiding Method Urinal Urinal Urinal # Voids 2 - Exam -GENERAL: The patient is alert and oriented x3, not in any acute distress. Well developed, well nourished. Generally weak HEENT: Pupils are round and equally reacting to light. EOMI. No scleral icterus. No conjunctival pallor. Normocephalic, atraumatic. No pharyngeal erythema. No thyromegaly. CARDIOVASCULAR: S1 and S2 present. No murmurs, rubs, or gallops. PULMONARY: Chest is clear to auscultation, no wheezing or crackles. ABDOMEN: Soft, nontender, nondistended, normoactive bowel sounds. No palpable organomegaly. MUSCULOSKELETAL: No joint swelling or deformity. EXTREMITIES: No cyanosis, clubbing, or pedal edema. NEUROLOGICAL: Gross neurological examination did not reveal any focal deficits. SKIN: No rashes. no petechiae. - Labs CBC & Chem 7: 09/17/20 08:29 09/17/20 08:29 Labs: Abnormal Lab Results - Last 24 Hours (Table) 09/16/20 09/16/20 09/16/20 Range/Units 16:31 18:30 19:56 Neutrophils # (1.3-7.7) k/uL Chloride (98-107) mmol/L Carbon Dioxide (22-30) mmol/L Creatinine (0.66-1.25) mg/dL Glucose (74-99) mg/dL POC Glucose (mg/dL) 210 H 231 H (75-99) mg/dL C-Reactive Protein (<1.0) mg/dL Urine Glucose (UA) 4+ H (Negative) 09/17/20 09/17/20 09/17/20 Range/Units 06:10 08:29 08:29 Neutrophils # 8.6 H (1.3-7.7) k/uL Chloride 95 L (98-107) mmol/L Carbon Dioxide 39 H (22-30) mmol/L Creatinine 0.45 L (0.66-1.25) mg/dL Glucose 123 H (74-99) mg/dL POC Glucose (mg/dL) 110 H (75-99) mg/dL C-Reactive Protein 1.3 H (<1.0) mg/dL Urine Glucose (UA) (Negative) 09/17/20 Range/Units 11:50 Neutrophils # (1.3-7.7) k/uL Chloride (98-107) mmol/L Carbon Dioxide (22-30) mmol/L Creatinine (0.66-1.25) mg/dL Glucose (74-99) mg/dL POC Glucose (mg/dL) 144 H (75-99) mg/dL C-Reactive Protein (<1.0) mg/dL Urine Glucose (UA) (Negative) Microbiology - Last 24 Hours (Table) 09/13/20 17:19 Blood Culture Gram Stain - Preliminary Blood Blood Culture - Preliminary Micrococcus species Assessment and Plan Assessment: Micrococcus bacteremia Acute COPD exacerbation, improving Elevated troponin secondary to COPD per marketing and communications officer Acute urinary tract infection secondary to staph epidermidis, efficiently treated Recent history of urinary retention, improved Plan: This is a pleasant 64 years old male currently presents with positive blood culture with Micrococcus. Continue Levaquin Infectious disease consult Labs and medication were reviewed.. Continue same treatment. Continue with symptomatic treatment. Resume home medication. Monitor lytes and vitals. DVT and GI prophylaxis. Further recommendationsas per clinical course of the patient DVT prophylaxis: Eliquis which is home medication GI Prophylaxis: Ppi PT/OT: Pending Prognosis is guarded
--- NOTE | 2020-09-17 12:50 | P.PN ---
Subjective Progress Note Date: 09/17/20 This is a 64-year-old white male patient with past medical history of advanced COPD on home oxygen, usually worse 4 L/m, former smoker, hypertension, diabetes mellitus, chronic A. fib, BPH, previous history of left leg DVT. We recently saw the patient in consultation during his recent hospital admission for acute exacerbation of COPD and urinary retention. Patient was treated with nebulized treatments and steroids. He was seen by urology during his previous admission, he had been on tamsulosin previously, his had 3 previous occasions of Abad catheter placement related to recurrent urinary retention. Patient wasn't discharged home with a Abad catheter in place and instructions to follow-up w [facility] urology on an outpatient basis to undergo urodynamic testing and cystoscopy in the office for further evaluation. Patient was discharged home on 09/12/2020. On 09/13/2020 patient was brought back to the emergency department per EMS for evaluating of fever, chills, worsening shortness of breath. Patient attempted to take his home treatments however they did not improve his breathing much. She was complaining of just generalized chest tightness, he denied any abdominal pain, nausea or vomiting. He stated that he was having occasional cough with some sputum production that was yellowish in nature, which was abnormal for him. He still had his Abad catheter in place and he thought that the color of urine has changed. Patient's EKG revealed no acute ischemia. Chest x-ray revealed COPD with mild fibrotic changes, no obvious infiltrates. His troponin was mildly elevated at 0.064. He had a mild leukocytosis with a white blood cell count of 12.6. Patient's urinalysis was remarkable for multiple red blood cells, 24 white blood cells, and occasional bacteria. COVID was not detected. Urine cultures have been sent, patient was started on azithromycin and Rocephin, nebulized bronchodilators and IV steroids. During our evaluation patient is seen comfortably, he is currently on 5 L of oxygen pulse ox is 98-99%, appears to be in no acute distress, lung sounds are diminished, no wheezing auscultated, afebrile, hemodynamically he is stable, no altered mentation, remains just on Rocephin for antibiotic coverage. Abad catheter is draining clear aaliyah urine. On 09/15/2020 patient seen in follow-up on selective care unit, he is breathing easier today, resting comfortably in bed, currently on 5 L of oxygen pulse ox is 96%, afebrile, hemodynamically stable, no complaints of chest discomfort, remains on Rocephin for empiric antibiotic coverage, culture showed coagulase-negative staph, blood culture showed gram-positive cocci in clusters. Likely contaminated specimen. No fever or chills, remains on oral prednisone, and breathing treatments. On 09/16/2020 patient seen in follow-up on selective care unit. He is breathing comfortably, lung sounds reveal a few scattered rhonchi, no worsening dyspnea, no worsening wheezing coughing or phlegm production. He is on oral prednisone 40 mg daily, nebulized bronchodilators, his heart rate is controlled, his IV Cardizem has been converted to oral Cardizem CD 120 mg daily, patient is on Eliquis for anticoagulation, he is also on IV Levaquin, his urine cultures showed Staphylococcus epidermidis, and blood culture was positive for micrococcus species. No acute events overnight. Fever or chills. Hemodynamically has been stable, Abad catheter is been removed per urology. Patient is being monitored for urinary retention. 2020, the patient is being seen for a follow-up. The patient was being seen for COPD exacerbation ongoing shortness of breath. The patient is known to have COPD with chronic hypoxic respiratory failure and on 02 4l minute nasal cannula. The patient is also known to have various comorbidities including hypertension, diabetes mellitus, chronic atrial fibrillation, previous history of revealed a left lower extremity DVT He remains on nebulizer treatments around the clock. The patient remains on IV Solu-Medrol. He is also on bronchodilators it is gradually improving. Abad cath was inserted for urinary retention and he is voiding for now and the catheter has been removed. No chills. No fever. No other complaints otherwise for now. Objective - Vital Signs Vital signs: Vital Signs Temp 98.3 F 09/17/20 12:15 Pulse 74 09/17/20 12:15 Resp 18 09/17/20 12:15 BP 146/90 09/17/20 12:15 Pulse Ox 96 09/17/20 12:15 Intake & Output 09/16/20 09/17/20 09/17/20 18:59 06:59 18:59 Intake Total 480 250 Output Total 1230 2320 250 Balance -750 -2320 0 Weight 90.5 kg Intake: Oral 480 250 Output: Urine 1150 2320 250 Post Void Residual 80 Other: Voiding Method Urinal Urinal Urinal # Voids 2 - Exam GENERAL EXAM: Alert, very pleasant, 64-year-old white male, on 4 L of oxygen pulse ox of 98%, comfortable in no apparent distress. HEAD: Normocephalic/atraumatic. EYES: Normal reaction of pupils, equal size. Conjunctiva pink, sclera white. NOSE: Clear with pink turbinates. THROAT: No erythema or exudates. NECK: No masses, no JVD, no thyroid enlargement, no adenopathy. CHEST: No chest wall deformity. Symmetrical expansion. LUNGS: Equal air entry with no evidence of rhonchi or wheezing CVS: Regular rate and rhythm, normal S1 and S2, no gallops, no murmurs, no rubs ABDOMEN: Soft, nontender. No hepatosplenomegaly, normal bowel sounds, no guarding or rigidity. EXTREMITIES: No clubbing, 1+ lower extremity edema no cyanosis, 2+ pulses and upper and lower extremities. Bruising of the second, third, fourth toes on the left leg MUSCULOSKELETAL: Muscle strength and tone normal. SPINE: No scoliosis or deformity SKIN: No rashes CENTRAL NERVOUS SYSTEM: Alert and oriented -3. No focal deficits, tone is normal in all 4 extremities. PSYCHIATRIC: Alert and oriented -3. Appropriate affect. Intact judgment and insight - Labs CBC & Chem 7: 09/17/20 08:29 09/17/20 08:29 Labs: Abnormal Lab Results - Last 24 Hours (Table) 09/16/20 09/16/20 09/16/20 Range/Units 16:31 18:30 19:56 Neutrophils # (1.3-7.7) k/uL Chloride (98-107) mmol/L Carbon Dioxide (22-30) mmol/L Creatinine (0.66-1.25) mg/dL Glucose (74-99) mg/dL POC Glucose (mg/dL) 210 H 231 H (75-99) mg/dL C-Reactive Protein (<1.0) mg/dL Urine Glucose (UA) 4+ H (Negative) 09/17/20 09/17/20 09/17/20 Range/Units 06:10 08:29 08:29 Neutrophils # 8.6 H (1.3-7.7) k/uL Chloride 95 L (98-107) mmol/L Carbon Dioxide 39 H (22-30) mmol/L Creatinine 0.45 L (0.66-1.25) mg/dL Glucose 123 H (74-99) mg/dL POC Glucose (mg/dL) 110 H (75-99) mg/dL C-Reactive Protein 1.3 H (<1.0) mg/dL Urine Glucose (UA) (Negative) 09/17/20 Range/Units 11:50 Neutrophils # (1.3-7.7) k/uL Chloride (98-107) mmol/L Carbon Dioxide (22-30) mmol/L Creatinine (0.66-1.25) mg/dL Glucose (74-99) mg/dL POC Glucose (mg/dL) 144 H (75-99) mg/dL C-Reactive Protein (<1.0) mg/dL Urine Glucose (UA) (Negative) Microbiology - Last 24 Hours (Table) 09/13/20 17:19 Blood Culture Gram Stain - Preliminary Blood Blood Culture - Preliminary Micrococcus species Assessment and Plan Plan: #1. Acute exacerbation of COPD, chest x-ray showed no evidence of acute pulmonary disease, and some chronic fibrotic changes. COVID-19 PCR was negative #2. Acute urinary tract infection, currently on Rocephin #3. Mild elevation of troponins, cardiology is following #4. Chronic indwelling catheter for urinary retention, patient is being followed by urology #5. BPH #6. Advanced COPD, normally wears 4 L of oxygen on a regular basis #7. Ex-smoker #8. Paroxysmal A. fib, currently in sinus rhythm, on Eliquis #9. Diabetes mellitus #10. History of left leg DVT #11. Recent hospitalization at [facility] for COPD, A. fib with RVR and urinary retention #12. Hypertension Plan: Continue IV Solu Medrol for another 24 hours and switch the patient's of prednisone as of tomorrow, clinically improving Patient is improving from pulmonary perspective Continue nebulized bronchodilators and antibiotics His heart rate is better controlled, he has been transitioned to oral Cardizem and he is on oral anticoagulation form of Eliquis Vital signs are stable Urology saw the patient, for catheter has been removed From pulmonary perspective he can probably be considered for discharge home in next 24-48 hours , may need also rehabilitation/ECF at a time of discharge and this is to be considered by the medical group.
--- NOTE | 2020-09-17 15:23 | CDI ---
Documentation Clarification Form Date: 09/17/2020 03:06:28 PM From: Amy Martinez RN CCDS Admit Date: 09/13/2020 06:43:00 PM Patient Name: Raghav Castano Visit Number: [id number] Discharge Date: ATTENTION: The Clinical Documentation Specialists (CDI) and [facility] Coding Staff appreciate your assistance in clarifying documentation. Please respond to the clarification below the line at the bottom and electronically sign. The CDI & [facility] Coding staff will review the response and follow-up if needed. Please note: Queries are made part of the Legal Health Record. If you have any questions, please contact the author of this message via ITS. Dr. Heriberto Darling, The patient presented with the following clinical indicators. Additional clarification regarding the etiology/cause of the clinical indicators is requested. History/Risk Factors: 64-year-old male presents to the ED for fever cough congestion, increased shortness of breath and wheezing. Medical History: Recently discharged 09/12 with AECOPD and Acute urinary retention. Discharged with rea catheter and increased Flomax. COPD, DM, BPH and Left leg DVT. H&P 09/14. Clinical Indicators: WBC: 09/13: 12.6 Blood cultures: 09/13 Micrococcus; gram positive cocci in clusters. Vital Signs: 09/13 B/P 156/100; HR 79; Temp 102.7 F Oral; RR 40; SpO2 89% nasal cannula 6L. Treatment: ID Consult: 09/16 Sepsis with fever, elevated white count, predominantly respiratory symptoms concern for possible community acquired pneumonia. Positive blood culture which is likely skin contaminant. UTI. Positive blood culture. Right lower lobe pneumonia. Antibiotics: 09/13 Azithromycin 500mg Ivpb x1; 09/13 Ceftriaxone 1gm IVPB X1; 09/14 Ceftriaxone 1gm IVPB Q24HR CHARLES d/c 09/16; 09/16 Levaquin 500mg IVPB Q24H to current. IV Bolus: In your professional opinion, please clarify if these findings signify one of the following conditions: [ ] Sepsis POA [ ] Sepsis ruled out [ ] Other, please specify [ ] Unable to determine SIRS Criteria: 2 or more of the following may indicate SIRS -Temperature < 96.8F (36C) or > 101.0F (38.3C) -Heart Rate > 90 bpm -Respiratory Rate > 20 breaths/min or PaCO2 < 32 mmHg -White Blood Cell Count > 12,000 or < 4,000 cells/mm3 or > 10% bands (Template Last Reviewed: March 2020) Sepsis with fever and leukocytosis. Present On admission.improved MTDD
[2020-09-17 16:57] LABS: Glucose,Whole Blood 240 mg/dL (75-99)
[2020-09-17 20:27] LABS: Glucose,Whole Blood 239 mg/dL (75-99)
[2020-09-17] MEDS: ATORVASTATIN 20 MG TAB PO SCH (20:58)
[2020-09-17] MEDS: INSULIN DETEMIR (LEVEMIR) 100 UNIT/ML SYR SQ SCH (20:59)
--- NOTE | 2020-09-17 22:43 | PN ---
PROGRESS NOTE DATE OF SERVICE: 09/17/2020. REASON FOR FOLLOWUP: 1. Positive blood culture. 2. UTI and question of pneumonia. INTERVAL HISTORY: Patient is afebrile. The patient is breathing more comfortably. The patient did have a cough with occasional sputum. No chest pain. No abdominal pain. No diarrhea. PHYSICAL EXAMINATION: Blood pressure 154/82 with a pulse of 87, temperature 98.6, 92% on 5 L nasal cannula. General description is an elderly male lying in bed in no distress. Respiratory system: Unlabored breathing, coarse breath sounds bilaterally. No wheeze. Heart S1, S2. Regular rate and rhythm. Abdomen: Soft, no tenderness. LABS: Hemoglobin is 14.8, white count 10.5, BUN of 18, creatinine 0.45. Procalcitonin 0.04. CRP is 1.3. Sputum pending. Chest x-ray did not show any acute infiltrate. DIAGNOSTIC IMPRESSION AND PLAN: 1. Patient with a positive blood culture with micrococcus species likely contaminant. 2. Patient with possible catheter associated urinary tract infection , urine has been Staph epi. Patient has responded to the Levaquin to continue for another week to finish course of therapy and close outpatient followup. MMODL / IJN: [id number] /
[2020-09-18] MEDS: IPRATROPIUM-ALBUTEROL 3 ML NEB INHALATION SCH ×6 (06:03→20:25)
[2020-09-18 06:06] LABS: Glucose,Whole Blood 216 mg/dL (75-99)
[2020-09-18] MEDS: INSULIN ASPART (NovoLOG) 100 UNIT/ML VIAL SQ SCH ×4 (06:55→20:43)
[2020-09-18] MEDS: methylPREDNISolone SOD SUCCI 125 MG/2 ML VIAL IV SCH ×4 (06:55→22:55)
[2020-09-18] MEDS: BUDESONIDE 1 MG/2 ML NEBU INHALATION SCH ×2 (08:14→20:25)
[2020-09-18] MEDS: FORMOTEROL FUMARATE 20 MCG/2 ML NEBU INHALATION SCH ×2 (08:14→20:25)
[2020-09-18] MEDS: TAMSULOSIN 0.4 MG CAP.ER.24H PO SCH ×2 (08:29→20:43)
[2020-09-18] MEDS: BACLOFEN 10 MG TAB PO SCH ×3 (08:29→20:43)
[2020-09-18] MEDS: guaiFENesin 600 MG TABLET.ER PO SCH ×4 (08:29→20:43)
[2020-09-18] MEDS: APIXABAN 5 MG TAB PO SCH ×2 (08:29→20:43)
[2020-09-18] MEDS: DILTIAZEM CD 120 MG CAP.ER.24H PO SCH (08:30)
[2020-09-18 11:00] VITALS: BMI 26.2
[2020-09-18 12:21] LABS: Glucose,Whole Blood 270 mg/dL (75-99)
[2020-09-18] MEDS: LEVOFLOXACIN 500MG-D5W PMX 500 MG in DEXTROSE/WATER 1 100ML.BAG IVPB SCH (12:29)
[2020-09-18] MEDS: MONTELUKAST 10 MG TAB PO SCH (12:30)
[2020-09-18] MEDS: PANTOPRAZOLE 40 MG TABLET PO SCH (12:30)
[2020-09-18] MEDS: MAGNESIUM OXIDE 400 MG TAB PO SCH (12:30)
--- NOTE | 2020-09-18 12:56 | P.PN ---
Subjective Progress Note Date: 09/18/20 Principal diagnosis: Acute exacerbation of COPD, urinary retention This is a 64-year-old white male patient with past medical history of advanced COPD on home oxygen, usually worse 4 L/m, former smoker, hypertension, diabetes mellitus, chronic A. fib, BPH, previous history of left leg DVT. We recently saw the patient in consultation during his recent hospital admission for acute exacerbation of COPD and urinary retention. Patient was treated with nebulized treatments and steroids. He was seen by urology during his previous admission, he had been on tamsulosin previously, his had 3 previous occasions of Abad catheter placement related to recurrent urinary retention. Patient wasn't discharged home with a Abad catheter in place and instructions to follow-up with urology on an outpatient basis to undergo urodynamic testing and cystoscopy in the office for further evaluation. Patient was discharged home on 09/12/2020. On 09/13/2020 patient was brought back to the emergency department per EMS for evaluating of fever, chills, worsening shortness of breath. Patient attempted to take his home treatments however they did not improve his breathing much. She was complaining of just generalized chest tightness, he denied any abdominal pain, nausea or vomiting. He stated that he was having occasional cough with some sputum production that was yellowish in nature, which was abnormal for him. He still had his Abad catheter in place and he thought that the color of urine has changed. Patient's EKG revealed no acute ischemia. Chest x-ray revealed COPD with mild fibrotic changes, no obvious infiltrates. His troponin was mildly elevated at 0.064. He had a mild leukocytosis with a white blood cell count of 12.6. Patient's urinalysis was remarkable for m ultiple red blood cells, 24 white blood cells, and occasional bacteria. COVID was not detected. Urine cultures have been sent, patient was started on azithromycin and Rocephin, nebulized bronchodilators and IV steroids. During our evaluation patient is seen comfortably, he is currently on 5 L of oxygen pulse ox is 98-99%, appears to be in no acute distress, lung sounds are diminished, no wheezing auscultated, afebrile, hemodynamically he is stable, no altered mentation, remains just on Rocephin for antibiotic coverage. Abad catheter is draining clear aaliyah urine. On 09/15/2020 patient seen in follow-up on selective care unit, he is breathing easier today, resting comfortably in bed, currently on 5 L of oxygen pulse ox is 96%, afebrile, hemodynamically stable, no complaints of chest discomfort, remains on Rocephin for empiric antibiotic coverage, culture showed coagulase- negative staph, blood culture showed gram-positive cocci in clusters. Likely contaminated specimen. No fever or chills, remains on oral prednisone, and breathing treatments. On 09/16/2020 patient seen in follow-up on selective care unit. He is breathing comfortably, lung sounds reveal a few scattered rhonchi, no worsening dyspnea, no worsening wheezing coughing or phlegm production. He is on oral prednisone 40 mg daily, nebulized bronchodilators, his heart rate is controlled, his IV Cardizem has been converted to oral Cardizem CD 120 mg daily, patient is on Eliquis for anticoagulation, he is also on IV Levaquin, his urine cultures showed Staphylococcus epidermidis, and blood culture was positive for micrococcus species. No acute events overnight. Fever or chills. Hemodynamically has been stable, Abad catheter is been removed per urology. Patient is being monitored for urinary retention. On the 09/18/2020 patient seen in follow-up on selective care unit, he is awake and alert, in no acute distress, he is breathing easier today, much less bronchospastic and congested. He remains on 5 L of oxygen with a pulse ox of 90%, lung sounds are diminished, no major wheezing or coughing, his been afebrile, remains on Levaquin, remains on IV Solu-Medrol and nebulized bronchodilators. His urine cultures were positive for staph epidermidis, and blood culture from 09/13/2020 showed micrococcus species, follow-up blood cultures have been negative at the 24-hour dennis, sputum Gram stain showing moderate PMNs, and few gram-positive cocci. Pro-calcitonin is negative at 0.04, repeat urinalysis was done showing rare bacteria, 17 of white blood cells, and 4+ glucose. Patient has been voiding. ID service and neurology are following. Objective - Vital Signs Vital signs: Vital Signs Temp 97.6 F 09/18/20 08:00 Pulse 100 09/18/20 11:34 Resp 18 09/18/20 11:09 BP 164/96 09/18/20 11:09 Pulse Ox 90 L 09/18/20 11:09 Intake & Output 09/17/20 09/18/20 09/18/20 18:59 06:59 18:59 Intake Total 730 240 360 Output Total 650 1200 550 Balance 80 -960 -190 Weight 90 kg 90 kg Intake: Oral 730 240 360 Output: Urine 650 1200 550 Other: Voiding Method Urinal Urinal Urinal # Voids 3 - Exam GENERAL EXAM: Alert, very pleasant, 64-year-old white male, on 5 L of oxygen pulse ox of 94%, comfortable in no apparent distress. HEAD: Normocephalic/atraumatic. EYES: Normal reaction of pupils, equal size. Conjunctiva pink, sclera white. NOSE: Clear with pink turbinates. THROAT: No erythema or exudates. NECK: No masses, no JVD, no thyroid enlargement, no adenopathy. CHEST: No chest wall deformity. Symmetrical expansion. LUNGS: Equal air entry with no evidence of rhonchi or wheezing CVS: Regular rate and rhythm, normal S1 and S2, no gallops, no murmurs, no rubs ABDOMEN: Soft, nontender. No hepatosplenomegaly, normal bowel sounds, no guarding or rigidity. EXTREMITIES: No clubbing, 1+ lower extremity edema no cyanosis, 2+ pulses and upper and lower extremities. Bruising of the second, third, fourth toes on the left leg MUSCULOSKELETAL: Muscle strength and tone normal. SPINE: No scoliosis or deformity SKIN: No rashes CENTRAL NERVOUS SYSTEM: Alert and oriented -3. No focal deficits, tone is normal in all 4 extremities. PSYCHIATRIC: Alert and oriented -3. Appropriate affect. Intact judgment and insight - Labs CBC & Chem 7: 09/17/20 08:29 09/17/20 08:29 Labs: Abnormal Lab Results - Last 24 Hours (Table) 09/17/20 09/17/20 09/18/20 Range/Units 16:46 20:25 06:05 POC Glucose (mg/dL) 240 H 239 H 216 H (75-99) mg/dL 09/18/20 Range/Units 12:00 POC Glucose (mg/dL) 270 H (75-99) mg/dL Microbiology - Last 24 Hours (Table) 09/17/20 08:29 Blood Culture - Preliminary Blood No Growth after 24 hours 09/17/20 03:30 Gram Stain - Preliminary Sputum Sputum Culture - Preliminary Assessment and Plan Plan: Assessment: #1. Acute exacerbation of COPD, chest x-ray showed no evidence of acute pulmonary disease, and some chronic fibrotic changes. COVID-19 PCR was negative #2. Acute urinary tract infection, currently on Rocephin #3. Mild elevation of troponins, cardiology is following #4. Chronic indwelling catheter for urinary retention, patient is being followed by urology #5. BPH #6. Advanced COPD, normally wears 4 L of oxygen on a regular basis #7. Ex-smoker #8. Paroxysmal A. fib, currently in sinus rhythm, on Eliquis #9. Diabetes mellitus #10. History of left leg DVT #11. Recent hospitalization at [facility] for COPD, A. fib with RVR and urinary retention #12. Hypertension Plan: Continue nebulized bronchodilators and steroids Patient is improving, less bronchospastic and dyspneic We can probably dropped down his IV steroids to 40 mg every 8 hours Overall his breathing easier, He's had no acute events overnight Follow-up blood cultures remain negative, No fever or chills Discharge planning is following and the plan is home with home care I performed a history & physical examination of the patient and discussed their management with my nurse practitioner, Leatha Be. I reviewed the nurse practitioner's note and agree with the documented findings and plan of care. Lung sounds are positive for diminished breath sounds. The findings and the impression was discussed with the patient. I attest to the documentation by the nurse practitioner. Time with Patient: Less than 30
--- NOTE | 2020-09-18 13:30 | P.PN ---
Subjective This is a pleasant 64 years old male with multiple medical problems was admitted on 09/13 for urinary retention and shortness of breath. Found to have acute COPD exacerbation improved with steroids, pulmonary and the case and his currently on a prednisone 40 mg daily. Also he has evidence of urinary tract infection evaluated by urologist. Culture is growing staph epidermidis treated with ceftriaxone, repeat urinalysis from today is negative. Patient Abad catheter was discontinued and post void residual is not elevated. A patient admitting clerk fol lowing patient elevated troponin secondary to COPD that needs only conservative management and monitoring. Vision was cleared by all consultants for discharge including patient admitting clerk and neurologist, leaving pulmonary considering discharging the patient between today and tomorrow however blood culture came back positive with Micrococcus today. Patient today is placed on Levaquin IV and consult infectious disease team 09/17/2020 She still feels generally weak and short of breath while at rest, his saturation 96% on 5 L oxygen, compared to 4 L at home as is telling me today. His air entry is diminished on both sides so we switched his prednisone to Solu- Medrol 60 mg again His pain well with no difficulties Repeat chest x-ray for positive blood cultures should is unremarkable, repeat urinalysis showing improvement Blood culture is positive for Micrococcus species. Currently covered with Lakeisha carney Discussed the plan with the patient and he agrees with it 09/18/2020 Patient states that his breathing is feeling better today although it is still limited. He is saturating 88% on 5-6 L of oxygen, mildly tachypneic. No chest pain or abdominal pain or other new symptoms. His leukocytosis is improving. His breathing is improving. His Micrococcus species in a blood culture most likely concomitant. Repeat blood culture are still pending His UTI secondary to staph epidermidis is responding to Levaquin PT/OT recommended home health care versus rehab, I talked to the patient and he refuses in rehab and he wants to go home with home care stated last time they looked in rehab for 4-5 days does not want that. Possible discharge in 24-48 hours if he keeps improving Objective - Vital Signs Vital signs: Vital Signs Temp 97.6 F 09/18/20 08:00 Pulse 100 09/18/20 11:34 Resp 18 09/18/20 11:09 BP 164/96 09/18/20 11:09 Pulse Ox 90 L 07/28/21 11:09 Intake & Output 09/17/20 09/18/20 09/18/20 18:59 06:59 18:59 Intake Total 730 240 360 Output Total 650 1200 550 Balance 80 -960 -190 Weight 90 kg 90 kg Intake: Oral 730 240 360 Output: Urine 650 1200 550 Other: Voiding Method Urinal Urinal Urinal # Voids 3 - Exam -GENERAL: The patient is alert and oriented x3, not in any acute distress. Well developed, well nourished. Generally weak HEENT: Pupils are round and equally reacting to light. EOMI. No scleral icterus. No conjunctival pallor. Normocephalic, atraumatic. No pharyngeal erythema. No thyromegaly. CARDIOVASCULAR: S1 and S2 present. No murmurs, rubs, or gallops. PULMONARY: Chest is clear to auscultation, no wheezing or crackles. ABDOMEN: Soft, nontender, nondistended, normoactive bowel sounds. No palpable organomegaly. MUSCULOSKELETAL: No joint swelling or deformity. EXTREMITIES: No cyanosis, clubbing, or pedal edema. NEUROLOGICAL: Gross neurological examination did not reveal any focal deficits. SKIN: No rashes. no petechiae. - Labs CBC & Chem 7: 09/17/20 08:29 09/17/20 08:29 Labs: Abnormal Lab Results - Last 24 Hours (Table) 09/17/20 09/17/20 09/18/20 Range/Units 16:46 20:25 06:05 POC Glucose (mg/dL) 240 H 239 H 216 H (75-99) mg/dL 09/18/20 Range/Units 12:00 POC Glucose (mg/dL) 270 H (75-99) mg/dL Microbiology - Last 24 Hours (Table) 09/17/20 03:30 Gram Stain - Preliminary Sputum Sputum Culture - Preliminary 09/17/20 08:29 Blood Culture - Preliminary Blood No Growth after 24 hours Assessment and Plan Assessment: Micrococcus bacteremia Acute COPD exacerbation, improving Elevated troponin secondary to COPD per patient admitting clerk Acute urinary tract infection secondary to staph epidermidis, efficiently treated Recent history of urinary retention, improved Plan: This is a pleasant 64 years old male currently presents with positive blood culture with Micrococcus. Continue Levaquin Infectious disease consult Labs and medication were reviewed.. Continue same treatment. Continue with symptomatic treatment. Resume home medication. Monitor lytes and vitals. DVT and GI prophylaxis. Further recommendationsas per clinical course of the patient DVT prophylaxis: Eliquis which is home medication GI Prophylaxis: Ppi PT/OT: Pending Prognosis is guarded
[2020-09-18 16:38] LABS: Glucose,Whole Blood 189 mg/dL (75-99)
--- NOTE | 2020-09-18 18:09 | PN ---
PROGRESS NOTE DATE OF SERVICE: 09/18/2020 REASON FOR FOLLOW UP: 1. Positive blood culture. 2. UTI. INTERVAL HISTORY: The patient is afebrile. The patient is breathing more comfortably. The patient denies having any chest pain. He did have a cough, decreased intensity with occasional sputum production. No abdominal pain or diarrhea. PHYSICAL EXAMINATION: Blood pressure 154/96, pulse of 85, temperature is 97.6. He is 94% on 6 L nasal cannula. General description is an elderly male lying in bed in no distress. Respiratory system: Unlabored breathing. Coarse breath sounds bilaterally, no wheeze. Heart S1, S2. Regular rate and rhythm. LABS: No new labs have been obtained today. DIAGNOSTIC IMPRESSION AND PLAN: 1. Patient admitted to the hospital with shortness of breath and cough. He did have a fever, elevated white count on admission, possible urinary source. Pneumonia excluded. Patient having overall improvement. Continue Levaquin for another 5 days to finish a course of therapy. 2. Positive blood culture, likely skin contaminant and no need for further therapy for the same. MMODL / IJN: [id number] /
[2020-09-18 19:56] LABS: Glucose,Whole Blood 180 mg/dL (75-99)
[2020-09-18] MEDS: ATORVASTATIN 20 MG TAB PO SCH (20:43)
[2020-09-18] MEDS: INSULIN DETEMIR (LEVEMIR) 100 UNIT/ML SYR SQ SCH (20:43)
[2020-09-19] MEDS: ACETAMINOPHEN TAB 325 MG TAB PO PRN (00:12)
[2020-09-19] MEDS: IPRATROPIUM-ALBUTEROL 3 ML NEB INHALATION SCH ×6 (00:23→19:17)
[2020-09-19 06:06] LABS: Glucose,Whole Blood 209 mg/dL (75-99)
[2020-09-19] MEDS: methylPREDNISolone SOD SUCCI 125 MG/2 ML VIAL IV SCH ×2 (06:37→13:05)
[2020-09-19] MEDS: INSULIN ASPART (NovoLOG) 100 UNIT/ML VIAL SQ SCH ×3 (06:38→17:38)
[2020-09-19] MEDS: BENZOCAINE/MENTHOL LOZENG 1 EACH LOZENGE MUCOUS MEM PRN ×2 (06:41→17:38)
[2020-09-19] MEDS: BUDESONIDE 1 MG/2 ML NEBU INHALATION SCH ×2 (07:11→19:17)
[2020-09-19] MEDS: FORMOTEROL FUMARATE 20 MCG/2 ML NEBU INHALATION SCH ×2 (07:11→19:17)
[2020-09-19] MEDS: BACLOFEN 10 MG TAB PO SCH ×2 (08:24→17:38)
[2020-09-19] MEDS: TAMSULOSIN 0.4 MG CAP.ER.24H PO SCH (08:24)
[2020-09-19] MEDS: DILTIAZEM CD 120 MG CAP.ER.24H PO SCH (08:24)
[2020-09-19] MEDS: guaiFENesin 600 MG TABLET.ER PO SCH ×3 (08:24→17:39)
[2020-09-19] MEDS: APIXABAN 5 MG TAB PO SCH (08:24)
[2020-09-19 09:04] VITALS: TEMP 97.8
[2020-09-19 11:43] VITALS: RESP 18
[2020-09-19 12:51] LABS: Glucose,Whole Blood 189 mg/dL (75-99)
[2020-09-19] MEDS: MAGNESIUM OXIDE 400 MG TAB PO SCH (13:06)
[2020-09-19] MEDS: MONTELUKAST 10 MG TAB PO SCH (13:06)
[2020-09-19] MEDS: LEVOFLOXACIN 500MG-D5W PMX 500 MG in DEXTROSE/WATER 1 100ML.BAG IVPB SCH (13:06)
[2020-09-19] MEDS: PANTOPRAZOLE 40 MG TABLET PO SCH (13:06)
--- NOTE | 2020-09-19 14:22 | P.PN ---
Subjective Progress Note Date: 09/19/20 Principal diagnosis: Acute exacerbation of COPD, urinary retention This is a 64-year-old white male patient with past medical history of advanced COPD on home oxygen, usually worse 4 L/m, former smoker, hypertension, diabetes mellitus, chronic A. fib, BPH, previous history of left leg DVT. We recently saw the patient in consultation during his recent hospital admission for acute exacerbation of COPD and urinary retention. Patient was treated with nebulized treatments and steroids. He was seen by urology during his previous admission, he had been on tamsulosin previously, his had 3 previous occasions of Abad catheter placement related to recurrent urinary retention. Patient wasn't discharged home with a Abda catheter in place and instructions to follow-up with urology on an outpatient basis to undergo urodynamic testing and cystoscopy in the office for further evaluation. Patient was discharged home on 09/12/2020. On 09/13/2020 patient was brought back to the emergency department per EMS for evaluating of fever, chills, worsening shortness of breath. Patient attempted to take his home treatments however they did not improve his breathing much. She was complaining of just generalized chest tightness, he denied any abdominal pain, nausea or vomiting. He stated that he was having occasional cough with some sputum production that was yellowish in nature, which was abnormal for him. He still had his Abad catheter in place and he thought that the color of urine has changed. Patient's EKG revealed no acute ischemia. Chest x-ray revealed COPD with mild fibrotic changes, no obvious infiltrates. His troponin was mildly elevated at 0.064. He had a mild leukocytosis with a white blood cell count of 12.6. Patient's urinalysis was remarkable for m ultiple red blood cells, 24 white blood cells, and occasional bacteria. COVID was not detected. Urine cultures have been sent, patient was started on azithromycin and Rocephin, nebulized bronchodilators and IV steroids. During our evaluation patient is seen comfortably, he is currently on 5 L of oxygen pulse ox is 98-99%, appears to be in no acute distress, lung sounds are diminished, no wheezing auscultated, afebrile, hemodynamically he is stable, no altered mentation, remains just on Rocephin for antibiotic coverage. Abad catheter is draining clear aaliyah urine. On 09/15/2020 patient seen in follow-up on selective care unit, he is breathing easier today, resting comfortably in bed, currently on 5 L of oxygen pulse ox is 96%, afebrile, hemodynamically stable, no complaints of chest discomfort, remains on Rocephin for empiric antibiotic coverage, culture showed coagulase- negative staph, blood culture showed gram-positive cocci in clusters. Likely contaminated specimen. No fever or chills, remains on oral prednisone, and breathing treatments. On 09/16/2020 patient seen in follow-up on selective care unit. He is breathing comfortably, lung sounds reveal a few scattered rhonchi, no worsening dyspnea, no worsening wheezing coughing or phlegm production. He is on oral prednisone 40 mg daily, nebulized bronchodilators, his heart rate is controlled, his IV Cardizem has been converted to oral Cardizem CD 120 mg daily, patient is on Eliquis for anticoagulation, he is also on IV Levaquin, his urine cultures showed Staphylococcus epidermidis, and blood culture was positive for micrococcus species. No acute events overnight. Fever or chills. Hemodynamically has been stable, Abad catheter is been removed per urology. Patient is being monitored for urinary retention. On the 09/18/2020 patient seen in follow-up on selective care unit, he is awake and alert, in no acute distress, he is breathing easier today, much less bronchospastic and congested. He remains on 5 L of oxygen with a pulse ox of 90%, lung sounds are diminished, no major wheezing or coughing, his been afebrile, remains on Levaquin, remains on IV Solu-Medrol and nebulized bronchodilators. His urine cultures were positive for staph epidermidis, and blood culture from 09/13/2020 showed micrococcus species, follow-up blood cultures have been negative at the 24-hour dennis, sputum Gram stain showing moderate PMNs, and few gram-positive cocci. Pro-calcitonin is negative at 0.04, repeat urinalysis was done showing rare bacteria, 17 of white blood cells, and 4+ glucose. Patient has been voiding. ID service and neurology are following. On 09/19/2020 patient seen in follow-up on selective care. He is awake and alert, in no acute distress, sitting up in the chair, he is sounding better today, and breathing easier. He is currently on 5 L of oxygen a pulse ox of 96%, and he normally wears 4 L of oxygen at home on a regular basis, his vital signs have been stable, he has had no fever or chills, he is breathing comfortably. Patient remains on antibiotics in the form of Levaquin, he is on nebulized bronchodilators, his been treated with IV steroids which we can transition to oral prednisone today. Urine culture was positive for MSSA. Abad catheter has been discontinued, patient has been voiding. Objective - Vital Signs Vital signs: Vital Signs Temp 97.8 F 09/19/20 08:00 Pulse 75 09/19/20 11:42 Resp 18 09/19/20 13:32 BP 152/87 09/19/20 11:42 Pulse Ox 96 09/19/20 11:42 Intake & Output 09/18/20 09/19/20 09/19/20 18:59 06:59 18:59 Intake Total 1000 780 118 Output Total 800 600 250 Balance 200 180 -132 Weight 90 kg 90.7 kg Intake: Oral 1000 780 118 Output: Urine 800 600 250 Other: Voiding Method Urinal Urinal # Voids 1 1 # Bowel Movements 1 - Exam GENERAL EXAM: Alert, very pleasant, 64-year-old white male, on 5 L of oxygen pulse ox of 96%, comfortable in no apparent distress. HEAD: Normocephalic/atraumatic. EYES: Normal reaction of pupils, equal size. Conjunctiva pink, sclera white. NOSE: Clear with pink turbinates. THROAT: No erythema or exudates. NECK: No masses, no JVD, no thyroid enlargement, no adenopathy. CHEST: No chest wall deformity. Symmetrical expansion. LUNGS: Equal air entry with no evidence of rhonchi or wheezing CVS: Regular rate and rhythm, normal S1 and S2, no gallops, no murmurs, no rubs ABDOMEN: Soft, nontender. No hepatosplenomegaly, normal bowel sounds, no guarding or rigidity. EXTREMITIES: No clubbing, 1+ lower extremity edema no cyanosis, 2+ pulses and upper and lower extremities. Bruising of the second, third, fourth toes on the left leg MUSCULOSKELETAL: Muscle strength and tone normal. SPINE: No scoliosis or deformity SKIN: No rashes CENTRAL NERVOUS SYSTEM: Alert and oriented -3. No focal deficits, tone is normal in all 4 extremities. PSYCHIATRIC: Alert and oriented -3. Appropriate affect. Intact judgment and insight - Labs CBC & Chem 7: 09/17/20 08:29 09/17/20 08:29 Labs: Abnormal Lab Results - Last 24 Hours (Table) 09/18/20 09/18/20 09/19/20 Range/Units 16:36 19:54 06:04 POC Glucose (mg/dL) 189 H 180 H 209 H (75-99) mg/dL 09/19/20 Range/Units 12:02 POC Glucose (mg/dL) 189 H (75-99) mg/dL Microbiology - Last 24 Hours (Table) 09/17/20 08:29 Blood Culture - Preliminary Blood No Growth after 48 hours 09/17/20 03:30 Gram Stain - Final Sputum Sputum Culture - Final 09/13/20 17:19 Blood Culture Gram Stain - Final Blood Blood Culture - Final Micrococcus species Assessment and Plan Plan: Assessment: #1. Acute exacerbation of COPD, chest x-ray showed no evidence of acute pulmonary disease, and some chronic fibrotic changes. COVID-19 PCR was negative #2. Acute urinary tract infection, related to MSSA, currently on Levaquin #3. Mild elevation of troponins, cardiology is following #4. Chronic indwelling catheter for urinary retention, patient is being followed by urology #5. BPH #6. Advanced COPD, normally wears 4 L of oxygen on a regular basis #7. Ex-smoker #8. Paroxysmal A. fib, currently in sinus rhythm, on Eliquis #9. Diabetes mellitus #10. History of left leg DVT #11. Recent hospitalization at [facility] for COPD, A. fib with RVR and urinary retention #12. Hypertension Plan: Patient is breathing much easier Vital signs are stable He is close to his baseline in terms of breathing, his had no fever or chills Switch IV steroids to oral prednisone Weaning FiO2 Patient does have home oxygen, nebulized bronchodilators He is stable for discharge home from pulmonary perspective with outpatient follow-up with Dr. Alas in the office in 7-10 days I performed a history & physical examination of the patient and discussed their management with my nurse practitioner, Leatha Be. I reviewed the nurse practitioner's note and agree with the documented findings and plan of care. Lung sounds are positive for diminished breath sounds. The findings and the impression was discussed with the patient. I attest to the documentation by the nurse practitioner. Time with Patient: Less than 30
[2020-09-19 15:49] VITALS: BP 165/92
--- NOTE | 2020-09-19 16:04 | PN ---
PROGRESS NOTE DATE OF SERVICE: 09/19/2020 REASON FOR FOLLOWUP: UTI, tracheobronchitis, and positive blood culture. INTERVAL HISTORY: Patient is afebrile. The patient is breathing slightly comfortably, still requiring 5 L nasal cannula. The patient denies having any chest pain. No worsening cough or sputum production. No diarrhea. PHYSICAL EXAMINATION: Blood pressure 152/87, pulse of 75, temperature 98.8, he is 96% on 5 L nasal cannula. General description is elderly male up in the chair in no distress. Respiratory system: Unlabored breathing, decreased intensity of breath sounds. Occasional wheeze. Heart: S1, S2. Regular rate and rhythm. LABS: No new labs have been obtained today. Sputum has been negative. Blood culture has been negative. DIAGNOSTIC IMPRESSION AND PLAN: 1. Patient with a positive micrococcus, possible ( ) negative. No need for further workup for the same. 2. ( ) hospital, possible source. Chest x-ray has been negative. The patient is on Levaquin. ( ) in the short course on discharge and close outpatient followup. MMODL / IJN: [id number] /
[2020-09-19 17:10] LABS: Glucose,Whole Blood 267 mg/dL (75-99)
[2020-09-19 19:19] VITALS: PULSE 76
--- NOTE | 2020-09-19 20:23 | P.DS ---
Providers Date of admission: 09/13/20 18:43 Attending physician: Gonzalez Hernández Consults: 09/13/20 18:42 Consult Physician Stat Consulting Provider: Cory Jiang Consult Reason/Comments: copd exacerbation, high flow nasal cannula Do you want consulting provider notified?: Already Contacted 09/13/20 22:00 Consult Physician Routine Consulting Provider: Jennifer Barragan Consult Reason/Comments: chest pain, elevated troponin Do you want consulting provider notified?: Already Contacted 09/15/20 16:47 Consult Physician Routine Consulting Provider: Brad Duque Consult Reason/Comments: Hematuria/patient request Do you want consulting provider notified?: Yes 09/16/20 16:32 Consult Physician Urgent Consulting Provider: Madeleine Devries Consult Reason/Comments: positive blood culture Do you want consulting provider notified?: Yes Primary care physician: Chetan Lang [place] [facility] Course: Diagnoses: Micrococcus bacteremia, most likely contamination. Repeated blood culture is negative and patient was cleared for discharge by ID team Acute COPD exacerbation, improving Elevated troponin secondary to COPD per manager diabetes Acute urinary tract infection secondary to staph epidermidis, continue with short course of oral antibiotics upon discharge Recent history of urinary retention, improved Chronic hypoxic respiratory failure Hospital course: This is a pleasant 64 years old male with multiple medical problems was admitted on 09/13 for urinary retention and shortness of breath. Found to have acute COPD exacerbation improved with steroids, pulmonary and the case and his currently on a prednisone 40 mg daily. Also he has evidence of urinary tract infection evaluated by urologist. Culture is growing staph epidermidis treated with ceftriaxone and later switch to IV Levaquin, repeat urinalysis is negative. Patient Abad catheter was discontinued and post void residual is not elevated. A manager diabetes following patient elevated troponin secondary to COPD that needs only conservative management and monitoring. Patient breathing improved close to baseline, he is on home oxygen 4 L/m, cleared by epic manager for discharge on tapered steroids. No fever or leukocytosis and his infection was clearing. Repeated blood culture is negative. Infectious disease team. The patient for discharge on oral Levaquin for 5 more days. Attendance Secretary recommended to increase Eliquis 5 mg twice a day and discontinue aspirin. I called his pharmacy at [facility] where he wanted his prescription sent to. His co-pay for Eliquis is $9.2, patient agrees with the co-pay. Patient feeling much better as and he is happy is going home today. Problems and management plan were discussed with the patient and he verbalized understanding and acceptance Patient was found stable and can be discharged home however he needs follow-up as an outpatient. Patient was instructed to follow up with PCP Dr. yang within one week and patient agrees Patient was instructed to follow up with Dr. Zaldivar and 09/[address] Jiang epic manager on 09/25 [address] his manager diabetes [address]. martinez on 09/[address] manager [address] Rob on 10/01 and he agrees with these appointments stating he will follow- up Physical exam Gen: patient is a AAOx3, no distress CVS: S1-S2, RRR, no murmur Lungs: B/L CTA, no wheezing Abdomen: soft, no distention, no tenderness, positive bowel sounds Extremity: no leg edema or induration Time spent more than 35 minutes Patient Condition at Discharge: Serious Plan - Discharge Summary Discharge Rx Participant: No New Discharge Prescriptions: New Levofloxacin [Levaquin] 500 mg PO Q24H 5 Days #5 tab Formoterol Fumarate [Perforomist] 20 mcg INHALATION RT-BID #8 nebu predniSONE 10 mg PO DIRECTED #40 tab Apixaban [Eliquis] 5 mg PO BID tab Continue Montelukast [Singulair] 10 mg PO DAILY@1200 Insulin Glargine [Lantus] 20 unit SQ HS Pantoprazole Sodium [Protonix] 40 mg PO DAILY@1200 Aspirin EC [Ecotrin Low Dose] 81 mg PO DAILY@1200 ALPRAZolam [Xanax] 0.25 mg PO BID PRN PRN Reason: Anxiety guaiFENesin [Mucinex] 600 mg PO QID #100 tablet.er Budesonide/Formoterol Fumarate [Symbicort 160-4.5 Mcg Inhaler] 2 puff INHALATION RT-BID Albuterol Sulfate [Ventolin HFA] 2 puff INHALATION RT-Q4H PRN PRN Reason: Shortness Of Breath Magnesium Oxide 400 mg PO DAILY@1200 Ipratropium-Albuterol Nebulize [Duoneb 0.5 mg-3 mg/3 ml Soln] 3 ml INHALATION RT-QID Baclofen [Lioresal] 10 mg PO TID Diltiazem Cd [Cardizem CD] 120 mg PO DAILY #30 cap.er.24h Atorvastatin [Lipitor] 20 mg PO HS #30 tab Tamsulosin [Flomax] 0.4 mg PO BID #60 cap Discontinued predniSONE See Taper PO DIRECTED No Action Apixaban [Eliquis] 5 mg PO BID Discharge Medication List Insulin Glargine [Lantus] 20 unit SQ HS 04/25/16 [History] Montelukast [Singulair] 10 mg PO DAILY@1200 04/25/16 [History] ALPRAZolam [Xanax] 0.25 mg PO BID PRN 09/10/20 [History] Albuterol Sulfate [Ventolin HFA] 2 puff INHALATION RT-Q4H PRN 09/10/20 [History] Apixaban [Eliquis] 5 mg PO BID 09/10/20 [History] Aspirin EC [Ecotrin Low Dose] 81 mg PO DAILY@1200 09/10/20 [History] Baclofen [Lioresal] 10 mg PO TID 09/10/20 [History] Budesonide/Formoterol Fumarate [Symbicort 160-4.5 Mcg Inhaler] 2 puff INHALATION RT-BID 09/10/20 [History] Ipratropium-Albuterol Nebulize [Duoneb 0.5 mg-3 mg/3 ml Soln] 3 ml INHALATION RT-QID 09/10/20 [History] Magnesium Oxide 400 mg PO DAILY@1200 09/10/20 [History] Pantoprazole Sodium [Protonix] 40 mg PO DAILY@1200 09/10/20 [History] Atorvastatin [Lipitor] 20 mg PO HS #30 tab 09/12/20 [Rx] Diltiazem Cd [Cardizem CD] 120 mg PO DAILY #30 cap.er.24h 09/12/20 [Rx] Tamsulosin [Flomax] 0.4 mg PO BID #60 cap 09/12/20 [Rx] guaiFENesin [Mucinex] 600 mg PO QID #100 tablet.er 09/12/20 [Rx] Apixaban [Eliquis] 5 mg PO BID tab 09/19/20 [Rx] Formoterol Fumarate [Perforomist] 20 mcg INHALATION RT-BID #8 nebu 09/19/20 [Rx] Levofloxacin [Levaquin] 500 mg PO Q24H 5 Days #5 tab 09/19/20 [Rx] predniSONE 10 mg PO DIRECTED #40 tab 09/19/20 [Rx] Follow up Appointment(s)/Referral(s): Chetan Lang DO [Primary Care Provider] - 1-2 days (Please call to make a follow-up appointment) Dean Julian MD [STAFF PHYSICIAN] - 09/23/20 2:20 pm (urologist will call the patient ) Cory Jiang DO [Doctor of Osteopathic Medicine] - 09/25/20 2:00 pm (Please arrive 20 minutes before appointment) [facility], [NON-STAFF] - Shannon Martinez MD [REFERRING] - 09/26/20 Shashi Rob MD [STAFF PHYSICIAN] - 10/01/20 2:30 pm (your appt. is Tu10/01/20 at 2:30 pm ) Activity/Diet/Wound Care/Special Instructions: heart healthy diet activity is restricted till you see your doctor Discharge Disposition: HOME WITH HOME HEALTH SERVICES
[2020-09-20] MEDS ORDERED: predniSONE 20 MG TAB PO SCH (09:00)
[2020-09-20] MEDS ORDERED: LEVOFLOXACIN 500 MG TAB PO SCH (13:00)
== END 2020-09-19 19:30 | disposition home health service (06) | DRG 698 ==
LOC: EC 16:33 → 3SCARD 18:43
PROVIDERS: ADMIT Hospitalist; ATTEND Hospitalist
DX: T83.511A Infection and inflammatory reaction due to indwelling urethral catheter, initial encounter (principal); I21.A1 Myocardial infarction type 2; A41.1 Sepsis due to other specified staphylococcus; J96.11 Chronic respiratory failure with hypoxia; J44.1 Chronic obstructive pulmonary disease with (acute) exacerbation; J44.0 Chronic obstructive pulmonary disease with (acute) lower respiratory infection; N39.0 Urinary tract infection, site not specified; J20.9 Acute bronchitis, unspecified; K21.9 Gastro-esophageal reflux disease without esophagitis; N40.1 Benign prostatic hyperplasia with lower urinary tract symptoms; Z20.822 Contact with and (suspected) exposure to COVID-19; R33.8 Other retention of urine; I48.0 Paroxysmal atrial fibrillation; I10 Essential (primary) hypertension; E78.5 Hyperlipidemia, unspecified; E11.9 Type 2 diabetes mellitus without complications; Z79.01 Long term (current) use of anticoagulants; Z79.4 Long term (current) use of insulin; Z79.51 Long term (current) use of inhaled steroids; Z79.82 Long term (current) use of aspirin; Z79.899 Other long term (current) drug therapy; Z86.718 Personal history of other venous thrombosis and embolism; Z99.81 Dependence on supplemental oxygen; Z87.891 Personal history of nicotine dependence; R31.9 Hematuria, unspecified
CPT/HCPCS: 36415; 71045; 71046; 80048; 80053; 81001; 81003; 83605; 83735; 83880; 84145; 84484; 85025; 85610; 85730; 86140; 87040; 87070; 87077; 87086; 87186; 87205; 87635; 93005; 94640; 94760; 96374; 99285

== ENCOUNTER 2020-09-19 22:46 | Inpatient (IN) | payer MEDICARE, OTHER ==
[2020-09-19] MEDS ORDERED: ALBUTEROL NEBULIZED 2.5 MG/3 ML INHALATION STA (23:05)
[2020-09-19] MEDS ORDERED: SODIUM CHLORIDE 0.9% 1,000 ML IV STA (23:05)
[2020-09-19] MEDS ORDERED: IPRATROPIUM 0.5 MG/2.5 ML NEBU INHALATION STA (23:05)
--- NOTE | 2020-09-19 23:06 | ED ---
SOB HPI - General Chief Complaint: Shortness of Breath Stated Complaint: Shortness of Breath Time Seen by Provider: 09/19/20 22:52 Source: patient, EMS, RN notes reviewed, old records reviewed Mode of arrival: EMS Limitations: no limitations - History of Present Illness Initial Comments: This is a 64-year-old male to the ER for evaluation of shortness of breath reevaluation after discharged earlier in the day. Patient is having significant and persistent shortness of breath with cough and congestion today. He went to his house after this. Due to just exercise of walking patient became significantly weak legs became weak he went to the ground findings a pass out. He never did have any significant chest pain but needed called EMS for recurrent evaluation. Patient presents to the ER for complaints of shortness of breath and weakness MD Complaint: shortness of breath, cough, anxiety -: days(s) Severity: mild Quality: aching Consistency: constant Improves With: nothing Worsens With: nothing Known History Of: COPD Context: recent URI, recent illness Associated Symptoms: pain with inspiration, cough, sputum production, palpitations, nausea/vomiting Treatments Prior to Arrival: oxygen - Related Data Home Medications Medication Instructions Recorded Confirmed Insulin Glargine [Lantus] 20 unit SQ HS 04/25/16 09/19/20 Montelukast [Singulair] 10 mg PO DAILY@119904/25/16 09/19/20 ALPRAZolam [Xanax] 0.25 mg PO BID PRN 09/10/20 09/19/20 Albuterol Sulfate [Ventolin HFA] 2 puff INHALATION RT-Q4H PRN 09/10/20 09/19/20 Aspirin EC [Ecotrin Low Dose] 81 mg PO DAILY@119909/10/20 09/19/20 Baclofen [Lioresal] 10 mg PO TID 09/10/20 09/19/20 Budesonide/Formoterol Fumarate 2 puff INHALATION RT-BID 09/10/20 09/19/20 [Symbicort 160-4.5 Mcg Inhaler] Ipratropium-Albuterol Nebulize 3 ml INHALATION RT-QID 09/10/20 09/19/20 [Duoneb 0.5 mg-3 mg/3 ml Soln] Magnesium Oxide 400 mg PO DAILY@119909/10/20 09/19/20 Pantoprazole Sodium [Protonix] 40 mg PO DAILY@1200 09/10/20 09/19/20 predniSONE See Taper PO DIRECTED 09/19/20 09/19/20 Previous Rx's Medication Instructions Recorded Atorvastatin [Lipitor] 20 mg PO HS #30 tab 09/12/20 Diltiazem Cd [Cardizem CD] 120 mg PO DAILY #30 cap.er.24h 09/12/20 Tamsulosin [Flomax] 0.4 mg PO BID #60 cap 09/12/20 guaiFENesin [Mucinex] 600 mg PO QID #100 tablet.er 09/12/20 Apixaban [Eliquis] 5 mg PO BID tab 09/19/20 Formoterol Fumarate [Perforomist] 20 mcg INHALATION RT-BID #8 nebu 09/19/20 Levofloxacin [Levaquin] 500 mg PO Q24H 5 Days #5 tab 09/19/20 Allergies Allergy/AdvReac Type Severity Reaction Status Date / Time No Known Allergies Allergy Verified 09/19/20 23:21 Review of Systems ROS Statement: Those systems with pertinent positive or pertinent negative responses have been documented in the HPI. ROS Other: All systems not noted in ROS Statement are negative. Past Medical History Past Medical History: COPD, Diabetes Mellitus, GERD/Reflux, Hypertension Additional Past Medical History / Comment(s): BPH, left leg dvt History of Any Multi-Drug Resistant Organisms: None Reported Past Surgical History: Cholecystectomy, Hernia Repair Additional Past Surgical History / Comment(s): hemmorids removed, Past Anesthesia/Blood Transfusion Reactions: No Reported Reaction Past Psychological History: No Psychological Hx Reported Smoking Status: Former smoker Past Alcohol Use History: None Reported Past Drug Use History: None Reported General Exam General appearance: alert, in no apparent distress, anxious Head exam: Present: atraumatic, normocephalic, normal inspection Eye exam: Present: normal appearance, PERRL, EOMI. Absent: scleral icterus, conjunctival injection, periorbital swelling ENT exam: Present: normal exam, mucous membranes moist Neck exam: Present: normal inspection. Absent: tenderness, meningismus, lymphadenopathy Respiratory exam: Present: wheezes, accessory muscle use, decreased breath sounds, prolonged expiratory. Absent: respiratory distress, rales, rhonchi, stridor Cardiovascular Exam: Present: regular rate, normal rhythm, normal heart sounds. Absent: systolic murmur, diastolic murmur, rubs, gallop, clicks GI/Abdominal exam: Present: soft, normal bowel sounds. Absent: distended, tenderness, guarding, rebound, rigid Extremities exam: Present: normal inspection, full ROM, normal capillary refill. Absent: tenderness, pedal edema, joint swelling, calf tenderness Back exam: Present: normal inspection Neurological exam: Present: alert, oriented X3, CN II-XII intact Psychiatric exam: Present: normal affect, normal mood Skin exam: Present: warm, dry, intact, normal color. Absent: rash Course Vital Signs 09/19/20 09/19/20 09/19/20 22:48 23:50 23:56 Temperature 97.9 F Pulse Rate 91 86 82 Respiratory 26 H 24 16 Rate Blood Pressure 110/82 138/83 O2 Sat by Pulse 95 96 Oximetry 09/20/20 00:04 Temperature Pulse Rate 81 Respiratory 20 Rate Blood Pressure O2 Sat by Pulse Oximetry - Reevaluation(s) Reevaluation #1: 09/20/20 01:00 Medical record is reviewed Reevaluation #2: 09/20/20 01:00 Patient has persistent significant shortness of breath here in the ER Reevaluation #3: 09/20/20 01:00 Patient has no improvement despite breathing treatment here in the ER Medical Decision Making - Medical Decision Making 64 male DF for evaluation patient Dese for evaluation of COPD patient is weak had a near syncopal episode at home troponin is mildly elevated white count significantly more elevated than discharge. Patient will be admitted may need placement - Lab Data Result diagrams: 09/19/20 23:00 09/19/20 23:00 Lab Results 09/19/20 09/19/20 09/19/20 Range/Units 23:00 23:00 23:00 WBC 18.2 H (3.8-10.6) k/uL RBC 5.03 (4.30-5.90) m/uL Hgb 14.9 (13.0-17.5) gm/dL Hct 46.2 (39.0-53.0) % MCV 91.9 (80.0-100.0) fL MCH 29.6 (25.0-35.0) pg MCHC 32.2 (31.0-37.0) g/dL RDW 14.2 (11.5-15.5) % Plt Count 222 (150-450) k/uL MPV 7.6 Neutrophils % 96 % Lymphocytes % 0 % Monocytes % 3 % Eosinophils % 0 % Basophils % 1 % Neutrophils # 17.5 H (1.3-7.7) k/uL Lymphocytes # 0.0 L (1.0-4.8) k/uL Monocytes # 0.5 (0-1.0) k/uL Eosinophils # 0.0 (0-0.7) k/uL Basophils # 0.2 (0-0.2) k/uL PT 12.3 H (9.0-12.0) sec INR 1.2 H (<1.2) APTT 21.1 L (22.0-30.0) sec Sodium 137 (137-145) mmol/L Potassium 4.9 (3.5-5.1) mmol/L Chloride 96 L (98-107) mmol/L Carbon Dioxide 32 H (22-30) mmol/L Anion Gap 9 mmol/L BUN 34 H (9-20) mg/dL Creatinine 0.49 L (0.66-1.25) mg/dL Est GFR (CKD-EPI)AfAm >90 (>60 ml/min/1.73 sqM) Est GFR (CKD-EPI)NonAf >90 (>60 ml/min/1.73 sqM) Glucose 214 H (74-99) mg/dL Plasma Lactic Acid Jourdan (0.7-2.0) mmol/L Calcium 8.9 (8.4-10.2) mg/dL Magnesium 2.0 (1.6-2.3) mg/dL Total Bilirubin 0.7 (0.2-1.3) mg/dL AST 22 (17-59) U/L ALT 26 (4-49) U/L Alkaline Phosphatase 44 (38-126) U/L Creatine Kinase 34 L (55-170) U/L Troponin I (0.000-0.034) ng/mL NT-Pro-B Natriuret Pep pg/mL Total Protein 5.9 L (6.3-8.2) g/dL Albumin 3.4 L (3.5-5.0) g/dL 09/19/20 09/19/20 09/19/20 Range/Units 23:00 23:00 23:00 WBC (3.8-10.6) k/uL RBC (4.30-5.90) m/uL Hgb (13.0-17.5) gm/dL Hct (39.0-53.0) % MCV (80.0-100.0) fL MCH (25.0-35.0) pg MCHC (31.0-37.0) g/dL RDW (11.5-15.5) % Plt Count (150-450) k/uL MPV Neutrophils % % Lymphocytes % % Monocytes % % Eosinophils % % Basophils % % Neutrophils # (1.3-7.7) k/uL Lymphocytes # (1.0-4.8) k/uL Monocytes # (0-1.0) k/uL Eosinophils # (0-0.7) k/uL Basophils # (0-0.2) k/uL PT (9.0-12.0) sec INR (<1.2) APTT (22.0-30.0) sec Sodium (137-145) mmol/L Potassium (3.5-5.1) mmol/L Chloride (98-107) mmol/L Carbon Dioxide (22-30) mmol/L Anion Gap mmol/L BUN (9-20) mg/dL Creatinine (0.66-1.25) mg/dL Est GFR (CKD-EPI)AfAm (>60 ml/min/1.73 sqM) Est GFR (CKD-EPI)NonAf (>60 ml/min/1.73 sqM) Glucose (74-99) mg/dL Plasma Lactic Acid Jourdan 2.0 (0.7-2.0) mmol/L Calcium (8.4-10.2) mg/dL Magnesium (1.6-2.3) mg/dL Total Bilirubin (0.2-1.3) mg/dL AST (17-59) U/L ALT (4-49) U/L Alkaline Phosphatase (38-126) U/L Creatine Kinase (55-170) U/L Troponin I 0.085 H* (0.000-0.034) ng/mL NT-Pro-B Natriuret Pep 410 pg/mL Total Protein (6.3-8.2) g/dL Albumin (3.5-5.0) g/dL - EKG Data -: EKG Interpreted by Me (EKG is sinus rhythm 80 MD 188 QRS 84 QTc 403) Critical Care Time Critical Care Time: Yes Total Critical Care Time: 31 Disposition Clinical Impression: Hypoxia, COPD exacerbation, Acute exacerbation of chronic obstructive airways disease, Near syncope Disposition: ADMITTED IP TO THIS HOSP Condition: Fair Is patient prescribed a controlled substance at d/c from ED?: No Referrals: Chetan Lang DO [Primary Care Provider] - 1-2 days
[2020-09-19 23:33] LABS: Basophils # (A) 0.2 k/uL (0-0.2); Basophils % (A) 1 %; Eosinophils % (A) 0 %; HCT 46.2 % (39.0-53.0); HGB 14.9 gm/dL (13.0-17.5); Lymphocytes % (A) 0 %; MCH 29.6 pg (25.0-35.0); MCHC 32.2 g/dL (31.0-37.0); MCV 91.9 fL (80.0-100.0); Mean Platelet Volume 7.6; Monocytes # (A) 0.5 k/uL (0-1.0); Monocytes % (A) 3 %; Neutrophils # (A) 17.5 k/uL (1.3-7.7); Neutrophils % (A) 96 %; Platelet Count 222 k/uL (150-450); RBC 5.03 m/uL (4.30-5.90); RDW 14.2 % (11.5-15.5); WBC 18.2 k/uL (3.8-10.6)
--- NOTE | 2020-09-19 23:34 | XR ---
EXAMINATION TYPE: XR chest 2V DATE OF EXAM: 09/19/2020 COMPARISON: 09/17/2020 HISTORY: Short of breath TECHNIQUE: FINDINGS: There is some pulmonary hyperinflation and flattening the diaphragm. Heart size is normal. Lungs are clear of consolidation. There are no hilar masses. Bony thorax appears intact. There are ch est leads. IMPRESSION: COPD. Normal heart. No acute lung disease. No change.
[2020-09-19 23:45] LABS: ALT 26 U/L (4-49); AST 22 U/L (17-59); African American GFR (CKD) >90 (>60 ml/min/1.73 sqM); Albumin 3.4 g/dL (3.5-5.0); Alkaline Phosphatase 44 U/L (38-126); Anion Gap 9 mmol/L; Blood Urea Nitrogen 34 mg/dL (9-20); Calcium 8.9 mg/dL (8.4-10.2); Carbon Dioxide 32 mmol/L (22-30); Chloride 96 mmol/L (98-107); Creatine Kinase 34 U/L (55-170); Glucose 214 mg/dL (74-99); Non-African American GFR(CKD) >90 (>60 ml/min/1.73 sqM); Potassium 4.9 mmol/L (3.5-5.1); Sodium 137 mmol/L (137-145); Total Bilirubin 0.7 mg/dL (0.2-1.3); Total Protein 5.9 g/dL (6.3-8.2)
[2020-09-20 00:05] LABS: INR 1.2 (<1.2); Prothrombin Time 12.3 sec (9.0-12.0)
[2020-09-20 00:16] LABS: Partial Thromboplastin Time 21.1 sec (22.0-30.0)
[2020-09-20] MEDS ORDERED: IPRATROPIUM-ALBUTEROL 3 ML NEB INHALATION STA (00:57)
[2020-09-20] MEDS: SODIUM CHLORIDE 0.9% 1,000 ML IV SCH ×2 (01:27→21:26)
[2020-09-20] MEDS: IPRATROPIUM-ALBUTEROL 3 ML NEB INHALATION PRN ×3 (04:59→20:36)
[2020-09-20] MEDS: INSULIN ASPART (NovoLOG) 100 UNIT/ML VIAL SQ SCH ×4 (06:11→21:27)
[2020-09-20] MEDS: methylPREDNISolone SOD SUCCI 125 MG/2 ML VIAL IV SCH ×4 (06:11→23:13)
[2020-09-20 06:14] LABS: Glucose,Whole Blood 320 mg/dL (75-99)
[2020-09-20 07:27] LABS: African American GFR (CKD) >90 (>60 ml/min/1.73 sqM); Anion Gap 4 mmol/L; Blood Urea Nitrogen 36 mg/dL (9-20); Calcium 8.9 mg/dL (8.4-10.2); Carbon Dioxide 35 mmol/L (22-30); Chloride 98 mmol/L (98-107); Glucose 258 mg/dL (74-99); Magnesium 1.9 mg/dL (1.6-2.3); Non-African American GFR(CKD) >90 (>60 ml/min/1.73 sqM); Potassium 4.5 mmol/L (3.5-5.1); Sodium 137 mmol/L (137-145)
[2020-09-20] MEDS: ALPRAZolam 0.25 MG TAB PO SCH ×2 (08:07→21:27)
[2020-09-20 08:33] LABS: Basophils % (A) 0 %; Eosinophils % (A) 0 %; HCT 44.1 % (39.0-53.0); HGB 14.2 gm/dL (13.0-17.5); Hypochromasia Slight; Lymphocytes # (A) 0.2 k/uL (1.0-4.8); Lymphocytes % (A) 1 %; MCHC 32.2 g/dL (31.0-37.0); Mean Platelet Volume 6.9; Monocytes # (A) 0.3 k/uL (0-1.0); Monocytes % (A) 2 %; Neutrophils # (A) 14.2 k/uL (1.3-7.7); Neutrophils % (A) 96 %; Platelet Count 187 k/uL (150-450); RBC 4.74 m/uL (4.30-5.90); RDW 14.6 % (11.5-15.5); WBC 14.7 k/uL (3.8-10.6)
[2020-09-20] MEDS: ALBUTEROL NEBULIZED 2.5 MG/3 ML INHALATION SCH ×2 (08:43→12:21)
--- NOTE | 2020-09-20 11:57 | P.HPIM ---
History of Present Illness This is a pleasant 64 years old male with multiple medical problems was admitted on 09/13 for urinary retention and shortness of breath. Found to have acute COPD exacerbation improved with steroids, and his been discharged on tapered prednisone. Yesterday patient was breathing at his baseline on 4 L oxygen which is also baseline. He had been treated for UTI secondary to staph epidermidis and discharged on Levaquin for 5 days. His heart rate was controlled for his history of A. fib. And he was started on Eliquis at higher dose 5 mg twice a day, His co-pay for Eliquis is $9.2, Physical therapy recommended subacute rehab. However patient declined He was doing well when he left the hospital and during the right bouts when he was trying to get home his legs gave way and collapsed son while standing by him held him from hitting the floor. He denies any trauma. He ended up lying on his knees without trauma or current knee pain. His breathing is slightly more tachypneic and worse than yesterday. No chest pain. No abdominal pain. He had some urinary retention earlier need a straight cath. No dysuria. No nausea vomiting. No headache or symmetrical weakness or numbness. WBC, and down to 14.7 K. Rest of CBC and BMP is unremarkable. Liver is elevated which is expected he is on steroids. Some elevated troponin of 0.1 Chest x-ray: No change EKG showed normal sinus rhythm at 80 bpm, no significant ST-T changes Review of Systems CONSTITUTIONAL: No fever, no malaise, no fatigue. HEENT: No recent visual problems or hearing problems. Denied any sore throat. CARDIOVASCULAR: No orthopnea, PND, no palpitations, no syncope. PULMONARY: No chest wall tenderness, no hemoptysis. GASTROINTESTINAL: No diarrhea, no nausea, no vomiting, no abdominal pain. Normoactive bowel sounds. NEUROLOGICAL: No headaches, no weakness, no numbness. HEMATOLOGICAL: Denies any bleeding or petechiae. GENITOURINARY: Denies any burning micturition, frequency, or urgency. MUSCULOSKELETAL/RHEUMATOLOGICAL: Denies any joint pain, swelling, or any muscle pain. ENDOCRINE: Denies any polyuria or polydipsia. Past Medical History Past Medical History: COPD, Diabetes Mellitus, GERD/Reflux, Hypertension Additional Past Medical History / Comment(s): BPH, left leg dvt History of Any Multi-Drug Resistant Organisms: None Reported Past Surgical History: Cholecystectomy, Hernia Repair Additional Past Surgical History / Comment(s): hemmorids removed, Past Anesthesia/Blood Transfusion Reactions: No Reported Reaction Past Psychological History: No Psychological Hx Reported Smoking Status: Former smoker Past Alcohol Use History: None Reported Past Drug Use History: None Reported Medications and Allergies Home Medications Medication Instructions Recorded Confirmed Type Insulin Glargine [Lantus] 20 unit SQ HS 04/25/16 09/19/20 History Montelukast [Singulair] 10 mg PO DAILY@1200 04/25/16 09/19/20 History ALPRAZolam [Xanax] 0.25 mg PO BID PRN 09/10/20 09/19/20 History Albuterol Sulfate [Ventolin HFA] 2 puff INHALATION RT-Q4H PRN 09/10/20 09/19/20 History Aspirin EC [Ecotrin Low Dose] 81 mg PO DAILY@119909/10/20 09/19/20 History Baclofen [Lioresal] 10 mg PO TID 09/10/20 09/19/20 History Budesonide/Formoterol Fumarate 2 puff INHALATION RT-BID 09/10/20 09/19/20 History [Symbicort 160-4.5 Mcg Inhaler] Ipratropium-Albuterol Nebulize 3 ml INHALATION RT-QID 09/10/20 09/19/20 History [Duoneb 0.5 mg-3 mg/3 ml Soln] Magnesium Oxide 400 mg PO DAILY@119909/10/20 09/19/20 History Pantoprazole Sodium [Protonix] 40 mg PO DAILY@119909/10/20 09/19/20 History Atorvastatin [Lipitor] 20 mg PO HS #30 tab 09/12/20 09/19/20 Rx Diltiazem Cd [Cardizem CD] 120 mg PO DAILY #30 cap.er.24h 09/12/20 09/19/20 Rx Tamsulosin [Flomax] 0.4 mg PO BID #60 cap 09/12/20 09/19/20 Rx guaiFENesin [Mucinex] 600 mg PO QID #100 tablet.er 09/12/20 09/19/20 Rx Apixaban [Eliquis] 5 mg PO BID tab 09/19/20 09/19/20 Rx Formoterol Fumarate [Perforomist] 20 mcg INHALATION RT-BID #8 nebu 09/19/20 09/19/20 Rx Levofloxacin [Levaquin] 500 mg PO Q24H 5 Days #5 tab 09/19/20 09/19/20 Rx predniSONE See Taper PO DIRECTED 09/19/20 09/19/20 History Allergies Allergy/AdvReac Type Severity Reaction Status Date / Time No Known Allergies Allergy Verified 09/19/20 23:21 Physical Exam Vitals: Vital Signs Temp Pulse Pulse Resp BP BP Pulse Ox 09/20/20 09:09 90 09/20/20 08:44 90 09/20/20 08:00 74 24 171/77 98 09/20/20 05:00 77 18 09/20/20 04:00 98.2 F 75 22 144/78 94 L 09/20/20 02:32 88 21 09/20/20 02:29 24 09/20/20 02:23 98 09/20/20 02:21 83 20 09/20/20 02:13 97.7 F 92 24 138/94 95 09/20/20 01:28 83 16 140/85 95 09/20/20 00:04 81 20 09/19/20 23:56 82 16 138/83 96 09/19/20 23:50 86 24 09/19/20 22:48 97.9 F 91 26 H 110/82 95 Intake and Output 09/19/20 09/20/20 09/20/20 22:59 06:59 14:59 Intake Total 80 Output Total 500 200 Balance -420 -200 Intake: IV 80 Sodium Chloride 0.9% 1, 80 000 ml @ 100 mls/hr IV . Q10H [facility] Rx#:[id number] Output: Urine 500 200 Straight 500 Other: # Voids 1 Weight 90.718 kg 93 kg GENERAL: The patient is alert and oriented x3, not in any acute distress. Well developed, well nourished. HEENT: Pupils are round and equally reacting to light. EOMI. No scleral icterus. No conjunctival pallor. Normocephalic, atraumatic. No pharyngeal erythema. No thyromegaly. CARDIOVASCULAR: S1 and S2 present. No murmurs, rubs, or gallops. -PULMONARY: Chest is clear to auscultation, bilateral expiratory wheezing, with somewhat limited air entry. ABDOMEN: Soft, nontender, nondistended, normoactive bowel sounds. No palpable organomegaly. MUSCULOSKELETAL: No joint swelling or deformity. EXTREMITIES: No cyanosis, clubbing, or pedal edema. NEUROLOGICAL: Gross neurological examination did not reveal any focal deficits. SKIN: No rashes. No petechiae Results CBC & Chem 7: 09/20/20 06:34 09/20/20 06:34 Labs: Abnormal Lab Results - Last 24 Hours (Table) 09/19/20 09/19/20 09/19/20 Range/Units 23:00 23:00 23:00 WBC 18.2 H (3.8-10.6) k/uL Neutrophils # 17.5 H (1.3-7.7) k/uL Lymphocytes # 0.0 L (1.0-4.8) k/uL PT 12.3 H (9.0-12.0) sec INR 1.2 H (<1.2) APTT 21.1 L (22.0-30.0) sec Chloride 96 L (98-107) mmol/L Carbon Dioxide 32 H (22-30) mmol/L BUN 34 H (9-20) mg/dL Creatinine 0.49 L (0.66-1.25) mg/dL Glucose 214 H (74-99) mg/dL POC Glucose (mg/dL) (75-99) mg/dL Creatine Kinase 34 L (55-170) U/L Troponin I (0.000-0.034) ng/mL Total Protein 5.9 L (6.3-8.2) g/dL Albumin 3.4 L (3.5-5.0) g/dL 09/19/20 09/20/20 09/20/20 Range/Units 23:00 06:00 06:34 WBC 14.7 H (3.8-10.6) k/uL Neutrophils # 14.2 H (1.3-7.7) k/uL Lymphocytes # 0.2 L (1.0-4.8) k/uL PT (9.0-12.0) sec INR (<1.2) APTT (22.0-30.0) sec Chloride (98-107) mmol/L Carbon Dioxide (22-30) mmol/L BUN (9-20) mg/dL Creatinine (0.66-1.25) mg/dL Glucose (74-99) mg/dL POC Glucose (mg/dL) 320 H (75-99) mg/dL Creatine Kinase (55-170) U/L Troponin I 0.085 H* (0.000-0.034) ng/mL Total Protein (6.3-8.2) g/dL Albumin (3.5-5.0) g/dL 09/20/20 09/20/20 Range/Units 06:34 06:34 WBC (3.8-10.6) k/uL Neutrophils # (1.3-7.7) k/uL Lymphocytes # (1.0-4.8) k/uL PT (9.0-12.0) sec INR (<1.2) APTT (22.0-30.0) sec Chloride (98-107) mmol/L Carbon Dioxide 35 H (22-30) mmol/L BUN 36 H (9-20) mg/dL Creatinine 0.49 L (0.66-1.25) mg/dL Glucose 258 H (74-99) mg/dL POC Glucose (mg/dL) (75-99) mg/dL Creatine Kinase (55-170) U/L Troponin I 0.116 H* (0.000-0.034) ng/mL Total Protein (6.3-8.2) g/dL Albumin (3.5-5.0) g/dL Thrombosis Risk Factor Assmnt - Choose All That Apply Any of the Below Risk Factors Present?: Yes Each Factor Represents 1 point: Serious lung disease incl. pneumonia (< 1month) Other Risk Factors: Yes Each Risk Factor Represents 2 Points: Age 61-74 years Other congenital or acquired thrombophilia - If yes, enter type in comment: No Thrombosis Risk Factor Assessment Total Risk Factor Score: 3 Thrombosis Risk Factor Assessment Level: Moderate Risk Assessment and Plan Assessment: Diagnoses: generalized weakness and fall while walking secondary to deconditioning, this time patient agreeable to go to rehaB Mild Acute COPD exacerbation, patient close to baseline Elevated troponin secondary to COPD per logistics operations manager. No chest pain Recent Acute urinary tract infection secondary to staph epidermidis, continue with short course of Levaquin Recent history of urinary retention, improved Chronic hypoxic respiratory failure Plan: this is a pleasant 64 years old male was recently discharged yesterday, presents with fall due to deconditioning. ask for PT/OT evaluation For COPD which puts him back on some Medrol 60 mg, we'll ask pulmonary to see him again since he is not to their service Continue with oral antibiotics Check a bladder scan and UA yesterday with confirmed with logistics operations manager he should be on Eliquis with i ncreased dose to 5 mg twice a day while discontinue baby aspirin Labs and medication were reviewed.. Continue same treatment. Continue with symptomatic treatment. Resume home medication. Monitor lytes and vitals. DVT and GI prophylaxis. Further recommendations depends on the clinical course of the patient DVT prophylaxis: Subcutaneous heparin GI Prophylaxis: Pepcid PT/OT: Pending Prognosis is guarded
[2020-09-20 12:22] LABS: Glucose,Whole Blood 201 mg/dL (75-99)
[2020-09-20] MEDS: guaiFENesin 600 MG TABLET.ER PO SCH ×3 (12:31→21:27)
[2020-09-20] MEDS: PANTOPRAZOLE 40 MG TABLET PO SCH (12:31)
[2020-09-20] MEDS: LEVOFLOXACIN 500 MG TAB PO SCH (12:31)
[2020-09-20] MEDS: MAGNESIUM OXIDE 400 MG TAB PO SCH (12:31)
[2020-09-20] MEDS: MONTELUKAST 10 MG TAB PO SCH (12:32)
[2020-09-20] MEDS: TAMSULOSIN 0.4 MG CAP.ER.24H PO SCH ×2 (12:36→21:27)
--- NOTE | 2020-09-20 15:26 | P.CNPUL ---
History of Present Illness Consult date: 09/20/20 Reason for consult: COPD History of present illness: This is a 64-year-old male patient who got admitted back to the hospital immediately following his discharge because of generalized weakness, inability to taken care of himself at home and he tells the paper much collapsed on the floor. As such she was brought back to the emergency department. He is known to have advanced COPD. We'll took care of him for a COPD exacerbation earlier this week and he has had multiple hospitalizations for the same. He has short of breath at all times. With activity, his legs become very weak and he's unable to provide much take care of himself. He did not have syncope. Does not pass out. He did not have any head trauma. No significant sputum production. No hemoptysis. No pleurisy. Other during his last hospitalization, he had a indwelling Abad catheter because of urinary retention and that Abad catheter was essentially removed. In the emergency room, his white cell count was at 14.7 initial white cell count was 18, his troponins were 0.08 and 0.01 respectively 2. He does have some troponin leak during his earlier hospitalization. ProBNP level was at 410. BUN is 36 with a creatinine of 0.4. Serum bicarb is at 35. Hemoglobin is at 14.2. Is currently resting in bed. He has short of breath. He is on 6 L of oxygen by nasal cannula. cardiac rhythm is sinus Review of Systems Constitutional: Reports fever, Denies chills Eyes: denies blurred vision, denies pain Ears, nose, mouth and throat: Denies headache, Denies sore throat Cardiovascular: Denies chest pain, Denies shortness of breath Respiratory: Reports cough with sputum, Reports dyspnea, Reports home oxygen, Reports respiratory infections, Reports wheezing, Denies cough Gastrointestinal: Denies abdominal pain, Denies diarrhea, Denies nausea, Denies vomiting Musculoskeletal: Denies myalgias Integumentary: Denies pruritus, Denies rash Neurological: Denies numbness,, unable to ambulate, unable to go past his house door as the patient felt that he cannot carry himself around and he collapsed on the floor. No loss of consciousness. He has generalized motor weakness in all 4 extremities. Psychiatric: Denies anxiety, Denies depression Endocrine: Denies fatigue, Denies weight change Past Medical History Past Medical History: COPD, Diabetes Mellitus, GERD/Reflux, Hypertension Additional Past Medical History / Comment(s): BPH, left leg dvt History of Any Multi-Drug Resistant Organisms: None Reported Past Surgical History: Cholecystectomy, Hernia Repair Additional Past Surgical History / Comment(s): hemmorids removed, Past Anesthesia/Blood Transfusion Reactions: No Reported Reaction Past Psychological History: No Psychological Hx Reported Smoking Status: Former smoker Past Alcohol Use History: None Reported Past Drug Use History: None Reported Medications and Allergies Home Medications Medication Instructions Recorded Confirmed Type Insulin Glargine [Lantus] 20 unit SQ HS 04/25/16 09/19/20 History Montelukast [Singulair] 10 mg PO DAILY@1200 04/25/16 09/19/20 History ALPRAZolam [Xanax] 0.25 mg PO BID PRN 09/10/20 09/19/20 History Albuterol Sulfate [Ventolin HFA] 2 puff INHALATION RT-Q4H PRN 09/10/20 09/19/20 History Aspirin EC [Ecotrin Low Dose] 81 mg PO DAILY@119909/10/20 09/19/20 History Baclofen [Lioresal] 10 mg PO TID 09/10/20 09/19/20 History Budesonide/Formoterol Fumarate 2 puff INHALATION RT-BID 09/10/20 09/19/20 History [Symbicort 160-4.5 Mcg Inhaler] Ipratropium-Albuterol Nebulize 3 ml INHALATION RT-QID 09/10/20 09/19/20 History [Duoneb 0.5 mg-3 mg/3 ml Soln] Magnesium Oxide 400 mg PO DAILY@119909/10/20 09/19/20 History Pantoprazole Sodium [Protonix] 40 mg PO DAILY@119909/10/20 09/19/20 History Atorvastatin [Lipitor] 20 mg PO HS #30 tab 09/12/20 09/19/20 Rx Diltiazem Cd [Cardizem CD] 120 mg PO DAILY #30 cap.er.24h 09/12/20 09/19/20 Rx Tamsulosin [Flomax] 0.4 mg PO BID #60 cap 09/12/20 09/19/20 Rx guaiFENesin [Mucinex] 600 mg PO QID #100 tablet.er 09/12/20 09/19/20 Rx Apixaban [Eliquis] 5 mg PO BID tab 09/19/20 09/19/20 Rx Formoterol Fumarate [Perforomist] 20 mcg INHALATION RT-BID #8 nebu 09/19/20 09/19/20 Rx Levofloxacin [Levaquin] 500 mg PO Q24H 5 Days #5 tab 09/19/20 09/19/20 Rx predniSONE See Taper PO DIRECTED 09/19/20 09/19/20 History Allergies Allergy/AdvReac Type Severity Reaction Status Date / Time No Known Allergies Allergy Verified 09/19/20 23:21 Physical Exam Vitals: Vital Signs Temp Pulse Pulse Resp BP BP Pulse Ox 09/20/20 12:41 90 09/20/20 12:22 88 09/20/20 12:00 79 16 146/79 97 09/20/20 09:09 90 09/20/20 08:44 90 09/20/20 08:00 74 24 171/77 98 09/20/20 05:00 77 18 09/20/20 04:00 98.2 F 75 22 144/78 94 L 09/20/20 02:32 88 21 09/20/20 02:29 24 09/20/20 02:23 98 09/20/20 02:21 83 20 09/20/20 02:13 97.7 F 92 24 138/94 95 09/20/20 01:28 83 16 140/85 95 09/20/20 00:04 81 20 09/19/20 23:56 82 16 138/83 96 09/19/20 23:50 86 24 09/19/20 22:48 97.9 F 91 26 H 110/82 95 Intake and Output 09/20/20 09/20/20 09/20/20 06:59 14:59 22:59 Intake Total 80 Output Total 500 300 Balance -420 -300 Intake: IV 80 Sodium Chloride 0.9% 1, 80 000 ml @ 100 mls/hr IV . Q10H [facility] Rx#:[id number] Output: Urine 500 300 Straight 500 Other: # Voids 1 Weight 93 kg GENERAL EXAM: Alert, very pleasant, 64-year-old white male, on 6 L of oxygen pulse ox of 98%, comfortable in no apparent distress. HEAD: Normocephalic/atraumatic. EYES: Normal reaction of pupils, equal size. Conjunctiva pink, sclera white. NOSE: Clear with pink turbinates. THROAT: No erythema or exudates. NECK: No masses, no JVD, no thyroid enlargement, no adenopathy. CHEST: No chest wall deformity. Symmetrical expansion. LUNGS: Equal air entry with no evidence of rhonchi or wheezing CVS: Regular rate and rhythm, normal S1 and S2, no gallops, no murmurs, no rubs ABDOMEN: Soft, nontender. No hepatosplenomegaly, normal bowel sounds, no guarding or rigidity. EXTREMITIES: No clubbing, 1+ lower extremity edema no cyanosis, 2+ pulses and upper and lower extremities. Bruising of the second, third, fourth toes on the left leg MUSCULOSKELETAL: Muscle strength and tone normal. SPINE: No scoliosis or deformity SKIN: No rashes CENTRAL NERVOUS SYSTEM: Alert and oriented -3. No focal deficits, tone is normal in all 4 extremities. PSYCHIATRIC: Alert and oriented -3. Appropriate affect. Intact judgment and insight Results - Laboratory Findings CBC and BMP: 09/20/20 06:34 09/20/20 06:34 PT/INR, D-dimer PT 12.3 sec (9.0-12.0) H 09/19/20 23:00 INR 1.2 (<1.2) H 09/19/20 23:00 Abnormal lab findings: Abnormal Labs 09/19/20 09/19/20 09/19/20 23:00 23:00 23:00 WBC 18.2 H Neutrophils # 17.5 H Lymphocytes # 0.0 L PT 12.3 H INR 1.2 H APTT 21.1 L Chloride 96 L Carbon Dioxide 32 H BUN 34 H Creatinine 0.49 L Glucose 214 H POC Glucose (mg/dL) Creatine Kinase 34 L Troponin I Total Protein 5.9 L Albumin 3.4 L 09/19/20 09/20/20 09/20/20 23:00 06:00 06:34 WBC 14.7 H Neutrophils # 14.2 H Lymphocytes # 0.2 L PT INR APTT Chloride Carbon Dioxide BUN Creatinine Glucose POC Glucose (mg/dL) 320 H Creatine Kinase Troponin I 0.085 H* Total Protein Albumin 09/20/20 09/20/20 09/20/20 06:34 06:34 12:20 WBC Neutrophils # Lymphocytes # PT INR APTT Chloride Carbon Dioxide 35 H BUN 36 H Creatinine 0.49 L Glucose 258 H POC Glucose (mg/dL) 201 H Creatine Kinase Troponin I 0.116 H* Total Protein Albumin - Diagnostic Findings Chest x-ray: image reviewed Assessment and Plan Plan: #1. Advanced COPD with chronic hypoxic respiratory failure and significant limitation in exercise capacity due to advanced COPD. Patient has had multiple hospitalization for the same and he was discharged probably less than 24 hours ago and he had to come back to the hospital because of generalized weakness, failure to take care of himself at home, failure to move around because of significant weakness in lower extremities and unable to carry his body weight. He very much collapse and he came back to the hospital and currently is being managed accordingly. He is quite debilitated. He is quite weak. He may need placement. #2. Acute urinary tract infection, currently on secondary to MSSA, treated, currently on no antibiotics during her hospitalization. #3. Mild elevation of troponins, cardiology is following. During this current hospitalization the patient had similar troponin leak. The patient is a normal ejection fraction of 55-60%. RV severely enlarged and this is due to chronic lung disease and chronic hypoxemic respiratory failure. Pulmonary artery pressures were 35. #4. Generalized weakness/debility #5. BPH #6. Advanced COPD, normally wears 4 L of oxygen on a regular basis #7. Ex-smoker #8. Paroxysmal A. fib, currently in sinus rhythm, on Eliquis #9. Diabetes mellitus #10. History of left leg DVT #11 hypertension Plan: Continue IV Solu Medrol Continue DuoNeb nebulized treatments around the clock Continue emperic Antibiotic coverage with Levaquin although there is no clear signs of an infection Anticoagulation with Eliquis automotive worker to work on placement Involve physical therapy We'll follow
[2020-09-20 16:29] LABS: Hemoglobin A1C 7.9 % (4.0-6.0)
[2020-09-20] MEDS: BACLOFEN 10 MG TAB PO SCH ×2 (16:51→21:27)
[2020-09-20] MEDS ORDERED: ACETAMINOPHEN TAB 325 MG TAB PO PRN (16:57)
[2020-09-20 17:14] LABS: Glucose,Whole Blood 266 mg/dL (75-99)
[2020-09-20] MEDS: BENZOCAINE/MENTHOL LOZENG 1 EACH LOZENGE MUCOUS MEM PRN ×2 (17:22→23:14)
[2020-09-20 20:43] LABS: Glucose,Whole Blood 180 mg/dL (75-99)
[2020-09-20] MEDS: APIXABAN 5 MG TAB PO SCH (21:27)
[2020-09-20] MEDS: ATORVASTATIN 20 MG TAB PO SCH (21:27)
[2020-09-21] MEDS: ALBUTEROL NEBULIZED 2.5 MG/3 ML INHALATION PRN (01:05)
[2020-09-21] MEDS: SODIUM CHLORIDE 0.9% 1,000 ML IV SCH ×3 (03:27→16:51)
[2020-09-21 03:54] LABS: Appearance,Urine Clear (Clear); Bilirubin,Urine Negative (Negative); Blood,Urine Negative (Negative); Color,Urine Yellow; Glucose,Urine (UA) 4+ (Negative); Ketones,Urine Negative (Negative); Leukocyte Esterase,Urine Negative (Negative); Nitrite,Urine Negative (Negative); PH, Urine 5.5 (5.0-8.0); Protein,Urine Trace (Negative); Specific Gravity,Urine 1.033 (1.001-1.035); Urobilinogen,Urine <2.0 mg/dL (<2.0)
[2020-09-21 06:02] LABS: Glucose,Whole Blood 240 mg/dL (75-99)
[2020-09-21] MEDS: methylPREDNISolone SOD SUCCI 125 MG/2 ML VIAL IV SCH ×4 (06:31→23:48)
[2020-09-21] MEDS: INSULIN ASPART (NovoLOG) 100 UNIT/ML VIAL SQ SCH ×4 (06:32→21:17)
[2020-09-21] MEDS: IPRATROPIUM-ALBUTEROL 3 ML NEB INHALATION PRN ×4 (07:48→20:36)
[2020-09-21 07:53] LABS: Basophils % (A) 0 %; Eosinophils % (A) 0 %; HCT 45.8 % (39.0-53.0); HGB 14.3 gm/dL (13.0-17.5); Hypochromasia Slight; Lymphocytes # (A) 0.2 k/uL (1.0-4.8); Lymphocytes % (A) 2 %; MCH 29.5 pg (25.0-35.0); MCHC 31.2 g/dL (31.0-37.0); MCV 94.5 fL (80.0-100.0); Mean Platelet Volume 7.1; Monocytes # (A) 0.3 k/uL (0-1.0); Monocytes % (A) 2 %; Neutrophils # (A) 12.7 k/uL (1.3-7.7); Neutrophils % (A) 96 %; Platelet Count 176 k/uL (150-450); RBC 4.85 m/uL (4.30-5.90); RDW 14.1 % (11.5-15.5); WBC 13.3 k/uL (3.8-10.6)
[2020-09-21 08:04] LABS: African American GFR (CKD) >90 (>60 ml/min/1.73 sqM); Anion Gap 1 mmol/L; Blood Urea Nitrogen 34 mg/dL (9-20); Calcium 8.9 mg/dL (8.4-10.2); Carbon Dioxide 39 mmol/L (22-30); Chloride 99 mmol/L (98-107); Glucose 251 mg/dL (74-99); Non-African American GFR(CKD) >90 (>60 ml/min/1.73 sqM); Potassium 4.8 mmol/L (3.5-5.1); Sodium 139 mmol/L (137-145)
[2020-09-21] MEDS: ALPRAZolam 0.25 MG TAB PO SCH ×2 (08:06→21:16)
[2020-09-21] MEDS: TAMSULOSIN 0.4 MG CAP.ER.24H PO SCH ×2 (08:06→21:16)
[2020-09-21] MEDS: DILTIAZEM CD 120 MG CAP.ER.24H PO SCH (08:06)
[2020-09-21] MEDS: guaiFENesin 600 MG TABLET.ER PO SCH ×4 (08:06→21:16)
[2020-09-21] MEDS: APIXABAN 5 MG TAB PO SCH ×2 (08:06→21:16)
[2020-09-21] MEDS: BACLOFEN 10 MG TAB PO SCH ×3 (08:06→21:16)
--- NOTE | 2020-09-21 10:54 | P.PN ---
Subjective Progress Note Date: 09/21/20 This is a 64-year-old male patient who got admitted back to the hospital immediately following his discharge because of generalized weakness, inability to taken care of himself at home and he tells the paper much collapsed on the floor. As such she was brought back to the emergency department. He is known to have advanced COPD. We'll took care of him for a COPD exacerbation earlier this week and he has had multiple hospitalizations for the same. He has short of breath at all times. With activity, his legs become very weak and he's unable to provide much take care of himself. He did not have syncope. Does not pass out. He did not have any head trauma. No significant sputum production. No hemoptysis. No pleurisy. Other during his last hospitalization, he had a indwelling Abad catheter because of urinary retention and that Abad catheter was essentially removed. In the emergency room, his white cell count was at 14.7 initial white cell count was 18, his troponins were 0.08 and 0.01 respectively 2. He does have some troponin leak during his earlier hospitalization. ProBNP level was at 410. BUN is 36 with a creatinine of 0.4. Serum bicarb is at 35. Hemoglobin is at 14.2. Is currently resting in bed. He has short of breath. He is on 6 L of oxygen by nasal cannula. cardiac rhythm is sinus 09/21/2020, slightly better, awake and alert and communicating. He is short of breath all the time and limited exercise capacity and he was in bed all the time. Did not use BiPAP overnight and he is on 6 L of oxygen by nasal cannula. He remains on bronchodilators. He remains on IV Solu-Medrol. Empiric antibiotic coverage with Levaquin. rider ticket worker consult for possible placement regarding his ongoing disability and advanced COPD. Pulse ox is in order of 99% of the FiO2 can be gradually weaned off. Objective - Vital Signs Vital signs: Vital Signs Temp 97.8 F 09/21/20 08:04 Pulse 76 09/21/20 08:04 Resp 24 09/21/20 08:04 BP 155/88 09/21/20 08:04 Pulse Ox 99 09/21/20 08:04 Intake & Output 09/20/20 09/21/20 09/21/20 18:59 06:59 18:59 Intake Total 480 0 Output Total 300 700 150 Balance 180 -700 -150 Weight 93.5 kg Intake: Oral 480 0 Output: Urine 300 700 150 Other: Voiding Method Urinal - Exam GENERAL EXAM: Alert, very pleasant, 64-year-old white male, on 6 L of oxygen pulse ox of 98%, comfortable in no apparent distress. HEAD: Normocephalic/atraumatic. EYES: Normal reaction of pupils, equal size. Conjunctiva pink, sclera white. NOSE: Clear with pink turbinates. THROAT: No erythema or exudates. NECK: No masses, no JVD, no thyroid enlargement, no adenopathy. CHEST: No chest wall deformity. Symmetrical expansion. LUNGS: Equal air entry with no evidence of rhonchi or wheezing CVS: Regular rate and rhythm, normal S1 and S2, no gallops, no murmurs, no rubs ABDOMEN: Soft, nontender. No hepatosplenomegaly, normal bowel sounds, no guarding or rigidity. EXTREMITIES: No clubbing, 1+ lower extremity edema no cyanosis, 2+ pulses and upper and lower extremities. Bruising of the second, third, fourth toes on the left leg MUSCULOSKELETAL: Muscle strength and tone normal. SPINE: No scoliosis or deformity SKIN: No rashes CENTRAL NERVOUS SYSTEM: Alert and oriented -3. No focal deficits, tone is normal in all 4 extremities. PSYCHIATRIC: Alert and oriented -3. Appropriate affect. Intact judgment and insight - Labs CBC & Chem 7: 09/21/20 07:43 09/21/20 07:43 Labs: Abnormal Lab Results - Last 24 Hours (Table) 09/20/20 09/20/20 09/20/20 Range/Units 06:34 12:20 17:12 WBC (3.8-10.6) k/uL Neutrophils # (1.3-7.7) k/uL Lymphocytes # (1.0-4.8) k/uL Carbon Dioxide (22-30) mmol/L BUN (9-20) mg/dL Creatinine (0.66-1.25) mg/dL Glucose (74-99) mg/dL POC Glucose (mg/dL) 201 H 266 H (75-99) mg/dL Hemoglobin A1c 7.9 H (4.0-6.0) % Urine Protein (Negative) Urine Glucose (UA) (Negative) 07/09/20/20 09/21/20 Range/Units 20:41 21:07 05:57 WBC (3.8-10.6) k/uL Neutrophils # (1.3-7.7) k/uL Lymphocytes # (1.0-4.8) k/uL Carbon Dioxide (22-30) mmol/L BUN (9-20) mg/dL Creatinine (0.66-1.25) mg/dL Glucose (74-99) mg/dL POC Glucose (mg/dL) 180 H 240 H (75-99) mg/dL Hemoglobin A1c (4.0-6.0) % Urine Protein Trace H (Negative) Urine Glucose (UA) 4+ H (Negative) 09/21/20 09/21/20 Range/Units 07:43 07:43 WBC 13.3 H (3.8-10.6) k/uL Neutrophils # 12.7 H (1.3-7.7) k/uL Lymphocytes # 0.2 L (1.0-4.8) k/uL Carbon Dioxide 39 H (22-30) mmol/L BUN 34 H (9-20) mg/dL Creatinine 0.40 L (0.66-1.25) mg/dL Glucose 251 H (74-99) mg/dL POC Glucose (mg/dL) (75-99) mg/dL Hemoglobin A1c (4.0-6.0) % Urine Protein (Negative) Urine Glucose (UA) (Negative) Assessment and Plan Plan: #1. Advanced COPD with chronic hypoxic respiratory failure and significant limitation in exercise capacity due to advanced COPD. Patient has had multiple hospitalization for the same and he was discharged probably less than 24 hours ago and he had to come back to the hospital because of generalized weakness, failure to take care of himself at home, failure to move around because of significant weakness in lower extremities and unable to carry his body weight. He very much collapse and he came back to the hospital and currently is being managed accordingly. He is quite debilitated. He is quite weak. He may need placement. #2. Acute urinary tract infection, currently on secondary to MSSA, treated, currently on no antibiotics during her hospitalization. #3. Mild elevation of troponins, cardiology is following. During this current hospitalization the patient had similar troponin leak. The patient is a normal ejection fraction of 55-60%. RV severely enlarged and this is due to chronic lung disease and chronic hypoxemic respiratory failure. Pulmonary artery pressures were 35. #4. Generalized weakness/debility #5. BPH #6. Advanced COPD, normally wears 4 L of oxygen on a regular basis #7. Ex-smoker #8. Paroxysmal A. fib, currently in sinus rhythm, on Eliquis #9. Diabetes mellitus #10. History of left leg DVT #11 hypertension Plan: Continue IV Solu Medrol Continue DuoNeb nebulized treatments around the clock Continue emperic Antibiotic coverage with Levaquin although there is no clear signs of an infection Anticoagulation with Eliquis rider ticket worker to work on placement We'll continue same treatment for now with a combination of bronchodilators and steroids. We'll wean down the FiO2 to maintain saturation above 90%. I will suggest covering and down to 4 L. Cardiac rhythm is sinus. He will be given an incentive spirometer. No other significant events overnight. Blood sugars are slightly elevated because of systemic steroids. We will restart Lantus 20 units at bedtime in addition to a sliding scale insulin coverage. We'll continue to follow.
[2020-09-21] MEDS: MAGNESIUM OXIDE 400 MG TAB PO SCH (11:08)
[2020-09-21] MEDS: MONTELUKAST 10 MG TAB PO SCH (11:08)
[2020-09-21] MEDS: LEVOFLOXACIN 500 MG TAB PO SCH (11:08)
[2020-09-21] MEDS: PANTOPRAZOLE 40 MG TABLET PO SCH (11:08)
[2020-09-21 11:58] LABS: Glucose,Whole Blood 194 mg/dL (75-99)
[2020-09-21 16:41] LABS: Glucose,Whole Blood 206 mg/dL (75-99)
--- NOTE | 2020-09-21 20:42 | P.PN ---
Subjective This is a pleasant 64 years old male with multiple medical problems was admitted on 09/13 for urinary retention and shortness of breath. Found to have acute COPD exacerbation improved with steroids, and his been discharged on tapered prednisone. Yesterday patient was breathing at his baseline on 4 L oxygen which is also baseline. He had been treated for UTI secondary to staph epidermidis and discharged on Levaquin for 5 days. His heart rate was controlled for his history of A. fib. And he was started on Eliquis at higher dose 5 mg twice a day, His co-pay for Eliquis is $9.2, Physical therapy recommended subacute rehab. However patient declined He was doing well when he left the hospital and during the right bouts when he was trying to get home his legs gave way and collapsed son while standing by him held him from hitting the floor. He denies any trauma. He ended up lying on his knees without trauma or current knee pain. His breathing is slightly more tachypneic and worse than yesterday. No chest pain. No abdominal pain. He had some urinary retention earlier need a straight cath. No dysuria. No nausea vomiting. No headache or symmetrical weakness or numbness. WBC, and down to 14.7 K. Rest of CBC and BMP is unremarkable. Liver is elevated which is expected he is on steroids. Some elevated troponin of 0.1 Chest x-ray: No change EKG showed normal sinus rhythm at 80 bpm, no significant ST-T changes 09/21/2020 This morning patient was feeling more short of breath and more difficult for him to breathe and he was on 6 L oxygen via nasal cannula. I discussed with the nerve to protect him on BiPAP for short-term. Rest of vital signs stable. Labs showing only mild leukocytosis of 13 K while he is on steroids. He remains on some Medrol 60 mg Repeat urinalysis is negative so discontinue oral Levaquin. Last admission was diagnosed with UTI secondary to staph epidermidis. He is continued on home dose of Eliquis O5 milligrams, Cardizem 120 mg and Levemir 20 units at bedtime. Patient agrees to go to [facility] this time upon discharge, PT/OT consult Objective - Vital Signs Vital signs: Vital Signs Temp 97.9 F 09/21/20 12:19 Pulse 75 09/21/20 14:00 Resp 22 09/21/20 14:00 BP 149/79 07/31/21 12:19 Pulse Ox 98 09/21/20 12:19 Intake & Output 09/20/20 09/21/20 09/21/20 18:59 06:59 18:59 Intake Total 480 240 Output Total 300 700 425 Balance 180 -700 -185 Weight 93.5 kg Intake: Oral 480 240 Output: Urine 300 700 425 Other: Voiding Method Urinal Urinal - Exam GENERAL: The patient is alert and oriented x3, not in any acute distress. Well developed, well nourished. HEENT: Pupils are round and equally reacting to light. EOMI. No scleral icterus. No conjunctival pallor. Normocephalic, atraumatic. No pharyngeal erythema. No thyromegaly. CARDIOVASCULAR: S1 and S2 present. No murmurs, rubs, or gallops. -PULMONARY: Chest is clear to auscultation, bilateral expiratory wheezing, with somewhat limited air entry. ABDOMEN: Soft, nontender, nondistended, normoactive bowel sounds. No palpable organomegaly. MUSCULOSKELETAL: No joint swelling or deformity. EXTREMITIES: No cyanosis, clubbing, or pedal edema. NEUROLOGICAL: Gross neurological examination did not reveal any focal deficits. SKIN: No rashes. No petechiae - Labs CBC & Chem 7: 09/21/20 07:43 09/21/20 07:43 Labs: Abnormal Lab Results - Last 24 Hours (Table) 09/20/20 09/20/20 09/20/20 Range/Units 06:34 17:12 20:41 WBC (3.8-10.6) k/uL Neutrophils # (1.3-7.7) k/uL Lymphocytes # (1.0-4.8) k/uL Carbon Dioxide (22-30) mmol/L BUN (9-20) mg/dL Creatinine (0.66-1.25) mg/dL Glucose (74-99) mg/dL POC Glucose (mg/dL) 266 H 180 H (75-99) mg/dL Hemoglobin A1c 7.9 H (4.0-6.0) % Urine Protein (Negative) Urine Glucose (UA) (Negative) 09/20/20 09/21/20 09/21/20 Range/Units 21:07 05:57 07:43 WBC 13.3 H (3.8-10.6) k/uL Neutrophils # 12.7 H (1.3-7.7) k/uL Lymphocytes # 0.2 L (1.0-4.8) k/uL Carbon Dioxide (22-30) mmol/L BUN (9-20) mg/dL Creatinine (0.66-1.25) mg/dL Glucose (74-99) mg/dL POC Glucose (mg/dL) 240 H (75-99) mg/dL Hemoglobin A1c (4.0-6.0) % Urine Protein Trace H (Negative) Urine Glucose (UA) 4+ H (Negative) 09/21/20 09/21/20 Range/Units 07:43 11:56 WBC (3.8-10.6) k/uL Neutrophils # (1.3-7.7) k/uL Lymphocytes # (1.0-4.8) k/uL Carbon Dioxide 39 H (22-30) mmol/L BUN 34 H (9-20) mg/dL Creatinine 0.40 L (0.66-1.25) mg/dL Glucose 251 H (74-99) mg/dL POC Glucose (mg/dL) 194 H (75-99) mg/dL Hemoglobin A1c (4.0-6.0) % Urine Protein (Negative) Urine Glucose (UA) (Negative) Assessment and Plan Assessment: Diagnoses: generalized weakness and fall while walking secondary to deconditioning, this time patient agreeable to go to rehab Acute COPD exacerbation, Elevated troponin secondary to COPD per sas sql developer. No chest pain Recent Acute urinary tract infection secondary to staph epidermidis, repeat UA is negative. May discontinue Levaquin Recent history of urinary retention, improved Chronic hypoxic respiratory failure Plan: this is a pleasant 64 years old male was recently discharged yesterday, presents with fall due to deconditioning. ask for PT/OT evaluation For COPD which puts him back on some Medrol 60 mg, pulmonary, Discontinue Levaquin as repeat urinalysis is negative Check a bladder scan Continue with the Eliquis to 5 mg twice a day while no need to baby aspirin (discussed with the sas sql developer during last admission) Pending physical therapy evaluation Labs and medication were reviewed.. Continue same treatment. Continue with symptomatic treatment. Resume home medication. Monitor lytes and vitals. DVT and GI prophylaxis. Further recommendations depends on the clinical course of the patient DVT prophylaxis: Subcutaneous heparin GI Prophylaxis: Pepcid PT/OT: Pending Prognosis is guarded
[2020-09-21] MEDS ORDERED: INSULIN DETEMIR (LEVEMIR) 100 UNIT/ML SYR SQ SCH (21:00)
[2020-09-21 21:01] LABS: Glucose,Whole Blood 237 mg/dL (75-99)
[2020-09-21] MEDS: BENZOCAINE/MENTHOL LOZENG 1 EACH LOZENGE MUCOUS MEM PRN (21:16)
[2020-09-21] MEDS: ATORVASTATIN 20 MG TAB PO SCH (21:16)
[2020-09-22] MEDS: ALBUTEROL NEBULIZED 2.5 MG/3 ML INHALATION PRN ×4 (02:38→23:39)
[2020-09-22] MEDS: SODIUM CHLORIDE 0.9% 1,000 ML IV SCH ×3 (05:17→23:01)
[2020-09-22] MEDS: methylPREDNISolone SOD SUCCI 125 MG/2 ML VIAL IV SCH ×4 (05:18→22:59)
[2020-09-22 06:40] LABS: Glucose,Whole Blood 199 mg/dL (75-99)
[2020-09-22] MEDS: INSULIN ASPART (NovoLOG) 100 UNIT/ML VIAL SQ SCH ×4 (06:44→20:48)
[2020-09-22] MEDS: IPRATROPIUM-ALBUTEROL 3 ML NEB INHALATION PRN ×3 (07:40→15:55)
[2020-09-22] MEDS: APIXABAN 5 MG TAB PO SCH ×2 (08:21→20:47)
[2020-09-22] MEDS: ALPRAZolam 0.25 MG TAB PO SCH ×2 (08:21→20:48)
[2020-09-22] MEDS: DILTIAZEM CD 120 MG CAP.ER.24H PO SCH (08:21)
[2020-09-22] MEDS: TAMSULOSIN 0.4 MG CAP.ER.24H PO SCH ×2 (08:21→20:48)
[2020-09-22] MEDS: BACLOFEN 10 MG TAB PO SCH ×3 (08:21→21:03)
[2020-09-22] MEDS: guaiFENesin 600 MG TABLET.ER PO SCH ×4 (08:21→21:03)
--- NOTE | 2020-09-22 11:21 | P.PN ---
Subjective Progress Note Date: 09/22/20 This is a 64-year-old male patient who got admitted back to the hospital immediately following his discharge because of generalized weakness, inability to taken care of himself at home and he tells the paper much collapsed on the floor. As such she was brought back to the emergency department. He is known to have advanced COPD. We'll took care of him for a COPD exacerbation earlier this week and he has had multiple hospitalizations for the same. He has short of breath at all times. With activity, his legs become very weak and he's unable to provide much take care of himself. He did not have syncope. Does not pass out. He did not have any head trauma. No significant sputum production. No hemoptysis. No pleurisy. Other during his last hospitalization, he had a indwelling Abad catheter because of urinary retention and that Abad catheter was essentially removed. In the emergency room, his white cell count was at 14.7 initial white cell count was 18, his troponins were 0.08 and 0.01 respectively 2. He does have some troponin leak during his earlier hospitalization. ProBNP level was at 410. BUN is 36 with a creatinine of 0.4. Serum bicarb is at 35. Hemoglobin is at 14.2. Is currently resting in bed. He has short of breath. He is on 6 L of oxygen by nasal cannula. cardiac rhythm is sinus 09/21/2020, slightly better, awake and alert and communicating. He is short of breath all the time and limited exercise capacity and he was in bed all the time. Did not use BiPAP overnight and he is on 6 L of oxygen by nasal cannula. He remains on bronchodilators. He remains on IV Solu-Medrol. Empiric antibiotic coverage with Levaquin. bag shop worker consult for possible placement regarding his ongoing disability and advanced COPD. Pulse ox is in order of 99% of the FiO2 can be gradually weaned off. 09/22/2020, clinically the same. Still having difficulties in breathing. Very limited exercise capacity. Still on oxygen at 5 L per minute nasal cannula. Still on Levaquin. Still on IV Solu Medrol. Receiving bronchodilators around the clock. No angina. No palpitation. Tolerating his diet. Using incentive spirometer although not frequently. Objective - Vital Signs Vital signs: Vital Signs Temp 98.1 F 09/22/20 08:18 Pulse 74 09/22/20 08:18 Resp 18 09/22/20 08:18 BP 155/90 09/22/20 08:18 Pulse Ox 98 09/22/20 08:18 Intake & Output 09/21/20 09/22/20 09/22/20 18:59 06:59 18:59 Intake Total 720 240 Output Total 625 500 350 Balance 95 -500 -110 Weight 94 kg Intake: Oral 720 240 Output: Urine 625 500 350 Other: Voiding Method Urinal Urinal Urinal # Voids 1 # Bowel Movements 1 - Exam GENERAL EXAM: Alert, very pleasant, 64-year-old white male, on 5 L of oxygen pulse ox of 98%, comfortable in no apparent distress. HEAD: Normocephalic/atraumatic. EYES: Normal reaction of pupils, equal size. Conjunctiva pink, sclera white. NOSE: Clear with pink turbinates. THROAT: No erythema or exudates. NECK: No masses, no JVD, no thyroid enlargement, no adenopathy. CHEST: No chest wall deformity. Symmetrical expansion. LUNGS: Equal air entry with no evidence of rhonchi or wheezing CVS: Regular rate and rhythm, normal S1 and S2, no gallops, no murmurs, no rubs ABDOMEN: Soft, nontender. No hepatosplenomegaly, normal bowel sounds, no guarding or rigidity. EXTREMITIES: No clubbing, 1+ lower extremity edema no cyanosis, 2+ pulses and upper and lower extremities. Bruising of the second, third, fourth toes on the left leg MUSCULOSKELETAL: Muscle strength and tone normal. SPINE: No scoliosis or deformity SKIN: No rashes CENTRAL NERVOUS SYSTEM: Alert and oriented -3. No focal deficits, tone is normal in all 4 extremities. PSYCHIATRIC: Alert and oriented -3. Appropriate affect. Intact judgment and insight - Labs CBC & Chem 7: 09/21/20 07:43 09/21/20 07:43 Labs: Abnormal Lab Results - Last 24 Hours (Table) 09/21/20 09/21/20 09/21/20 Range/Units 11:56 16:40 20:29 POC Glucose (mg/dL) 194 H 206 H 237 H (75-99) mg/dL 09/22/20 Range/Units 06:15 POC Glucose (mg/dL) 199 H (75-99) mg/dL Assessment and Plan Plan: #1. Advanced COPD with chronic hypoxic respiratory failure and significant freeman itation in exercise capacity due to advanced COPD. Patient has had multiple hospitalization for the same and he was discharged probably less than 24 hours ago and he had to come back to the hospital because of generalized weakness, failure to take care of himself at home, failure to move around because of significant weakness in lower extremities and unable to carry his body weight. He very much collapse and he came back to the hospital and currently is being managed accordingly. He is quite debilitated. He is quite weak. He may need placement. Currently, is on a combination of DuoNeb nebulized treatments around the clock, IV Solu-Medrol and Levaquin. Condition essentially unchanged. Currently on 5 L about 2 by nasal cannula. Quite debilitated. Advanced lung disease #2. Acute urinary tract infection, currently on secondary to MSSA, treated, currently on no antibiotics during her hospitalization. #3. Mild elevation of troponins, cardiology is following. During this current hospitalization the patient had similar troponin leak. The patient is a normal ejection fraction of 55-60%. RV severely enlarged and this is due to chronic lung disease and chronic hypoxemic respiratory failure. Pulmonary artery pressures were 35. #4. Generalized weakness/debility #5. BPH #6. Advanced COPD, normally wears 4 L of oxygen on a regular basis #7. Ex-smoker #8. Paroxysmal A. fib, currently in sinus rhythm, on Eliquis #9. Diabetes mellitus #10. History of left leg DVT #11 hypertension Plan: Continue IV Solu Medrol Continue DuoNeb nebulized treatments around the clock Continue emperic Antibiotic coverage with Levaquin although there is no clear signs of an infection Anticoagulation with Eliquis bag shop worker to work on placement Progress over the past 24 hours. He has advanced end-stage lung disease. Will need placement. May utilize BiPAP overnight.
[2020-09-22 11:49] LABS: Glucose,Whole Blood 223 mg/dL (75-99)
[2020-09-22] MEDS: MAGNESIUM OXIDE 400 MG TAB PO SCH (11:58)
[2020-09-22] MEDS: MONTELUKAST 10 MG TAB PO SCH (11:58)
[2020-09-22] MEDS: PANTOPRAZOLE 40 MG TABLET PO SCH (11:58)
[2020-09-22 16:34] LABS: Glucose,Whole Blood 271 mg/dL (75-99)
[2020-09-22] MEDS: BENZOCAINE/MENTHOL LOZENG 1 EACH LOZENGE MUCOUS MEM PRN (16:56)
[2020-09-22] MEDS ORDERED: DILTIAZEM ORAL 30 MG TAB PO STA (17:54)
--- NOTE | 2020-09-22 19:49 | P.PN ---
Subjective This is a pleasant 64 years old male with multiple medical problems was admitted on 09/13 for urinary retention and shortness of breath. Found to have acute COPD exacerbation improved with steroids, and his been discharged on tapered prednisone. Yesterday patient was breathing at his baseline on 4 L oxygen which is also baseline. He had been treated for UTI secondary to staph epidermidis and discharged on Levaquin for 5 days. His heart rate was controlled for his history of A. fib. And he was started on Eliquis at higher dose 5 mg twice a day, His co-pay for Eliquis is $9.2, Physical therapy recommended subacute rehab. However patient declined He was doing well when he left the hospital and during the right bouts when he was trying to get home his legs gave way and collapsed son while standing by him held him from hitting the floor. He denies any trauma. He ended up lying on his knees without trauma or current knee pain. His breathing is slightly more tachypneic and worse than yesterday. No chest pain. No abdominal pain. He had some urinary retention earlier need a straight cath. No dysuria. No nausea vomiting. No headache or symmetrical weakness or numbness. WBC, and down to 14.7 K. Rest of CBC and BMP is unremarkable. Liver is elevated which is expected he is on steroids. Some elevated troponin of 0.1 Chest x-ray: No change EKG showed normal sinus rhythm at 80 bpm, no significant ST-T changes 09/21/2020 This morning patient was feeling more short of breath and more difficult for him to breathe and he was on 6 L oxygen via nasal cannula. I discussed with the nerve to protect him on BiPAP for short-term. Rest of vital signs stable. Labs showing only mild leukocytosis of 13 K while he is on steroids. He remains on some Medrol 60 mg Repeat urinalysis is negative so discontinue oral Levaquin. Last admission was diagnosed with UTI secondary to staph epidermidis. He is continued on home dose of Eliquis O5 milligrams, Cardizem 120 mg and Levemir 20 units at bedtime. Patient agrees to go to [facility] this time upon discharge, PT/OT consult 09/22/2020 This is a pleasant 64 years old male was recently discharged from the hospital secondary to UTI with staph epidermidis and contaminated blood culture with micrococcus evaluated by ID team and discharge on 5 days of Levaquin. Patient refused to go to rehab and wanted to go to home with home healthcare however on the day of discharge he felt once he got to his home and his son brought him back to the hospital. This time patient is convinced he needs and agrees to go to rehab. This to have severe case of COPD with pulmonary team on the case. He was placed back on systemic steroids of soluMedrol 60 mg, BiPAP as needed for example at night sometimes. Currently he needs 6 L/m of oxygen compared to 4 L at home He has mild leukocytosis secondary to steroids. No fever. Referral Agent evaluated him during last admission secondary to elevated troponin which is thought secondary to his COPD and paroxysmal atrial fibrillation. He is on Eliquis 5 mg with co-pay is $9.2 and patient agrees to it. Also his on Cardizem 120 daily. His Levemir increased tonight to 25 units, at home was 20 units at bedtime Objective - Vital Signs Vital signs: Vital Signs Temp 97.9 F 09/22/20 16:08 Pulse 85 09/22/20 16:08 Resp 18 09/22/20 16:08 BP 139/96 09/22/20 16:08 Pulse Ox 97 09/22/20 16:08 Intake & Output 09/21/20 09/22/20 09/22/20 18:59 06:59 18:59 Intake Total 720 480 Output Total 625 500 950 Balance 95 -500 -470 Weight 94 kg Intake: Oral 720 480 Output: Urine 625 500 950 Other: Voiding Method Urinal Urinal Urinal # Voids 1 # Bowel Movements 1 - Exam GENERAL: The patient is alert and oriented x3, not in any acute distress. Well developed, well nourished. HEENT: Pupils are round and equally reacting to light. EOMI. No scleral icterus. No conjunctival pallor. Normocephalic, atraumatic. No pharyngeal erythema. No thyromegaly. CARDIOVASCULAR: S1 and S2 present. No murmurs, rubs, or gallops. -PULMONARY: Chest is clear to auscultation, bilateral expiratory wheezing, with somewhat limited air entry. ABDOMEN: Soft, nontender, nondistended, normoactive bowel sounds. No palpable organomegaly. MUSCULOSKELETAL: No joint swelling or deformity. EXTREMITIES: No cyanosis, clubbing, or pedal edema. NEUROLOGICAL: Gross neurological examination did not reveal any focal deficits. SKIN: No rashes. 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 No chest pain Paroxysmal A. fib Recent Acute urinary tract infection secondary to staph epidermidis, repeat UA is negative. May discontinue Levaquin Recent history of urinary retention, improved Chronic hypoxic respiratory failure Plan: this is a pleasant 64 years old male was recently discharged yesterday, presents with fall due to deconditioning. ask for PT/OT evaluation For COPD which puts him back on cellule soluMedrol 60 mg, pulmonary, Discontinue Levaquin as repeat urinalysis is negative Check a bladder scan Continue with the Eliquis to 5 mg twice a day while no need to baby aspirin (discussed with the cannon crewmember during last admission) Pending physical therapy evaluation Labs and medication were reviewed.. Continue same treatment. Continue with symptomatic treatment. Resume home medication. Monitor lytes and vitals. DVT and GI prophylaxis. Further recommendations depends on the clinical course of the patient DVT prophylaxis: Subcutaneous heparin GI Prophylaxis: Pepcid PT/OT: Pending Prognosis is guarded
[2020-09-22] MEDS: ATORVASTATIN 20 MG TAB PO SCH (20:47)
[2020-09-22] MEDS: METOPROLOL TARTRATE 50 MG TAB PO SCH (20:47)
[2020-09-22] MEDS: INSULIN DETEMIR (LEVEMIR) 100 UNIT/ML SYR SQ SCH (20:48)
[2020-09-22 21:04] LABS: Glucose,Whole Blood 244 mg/dL (75-99)
[2020-09-23] MEDS: ALBUTEROL NEBULIZED 2.5 MG/3 ML INHALATION PRN ×2 (02:32→23:54)
[2020-09-23] MEDS: SODIUM CHLORIDE 0.9% 1,000 ML IV SCH ×2 (05:25→17:58)
[2020-09-23] MEDS: IPRATROPIUM-ALBUTEROL 3 ML NEB INHALATION PRN ×2 (06:07→08:45)
[2020-09-23] MEDS: methylPREDNISolone SOD SUCCI 125 MG/2 ML VIAL IV SCH ×2 (06:14→11:06)
[2020-09-23] MEDS: BENZOCAINE/MENTHOL LOZENG 1 EACH LOZENGE MUCOUS MEM PRN (06:15)
[2020-09-23] MEDS: INSULIN ASPART (NovoLOG) 100 UNIT/ML VIAL SQ SCH ×4 (06:36→20:44)
[2020-09-23 06:50] LABS: Glucose,Whole Blood 236 mg/dL (75-99)
[2020-09-23] MEDS: APIXABAN 5 MG TAB PO SCH ×2 (07:48→20:43)
[2020-09-23] MEDS: ALPRAZolam 0.25 MG TAB PO SCH ×3 (07:48→20:44)
[2020-09-23] MEDS: METOPROLOL TARTRATE 50 MG TAB PO SCH ×2 (07:48→20:44)
[2020-09-23] MEDS: DILTIAZEM CD 120 MG CAP.ER.24H PO SCH (07:48)
[2020-09-23] MEDS: guaiFENesin 600 MG TABLET.ER PO SCH ×4 (07:48→20:44)
[2020-09-23] MEDS: BACLOFEN 10 MG TAB PO SCH ×3 (07:48→20:44)
[2020-09-23] MEDS: TAMSULOSIN 0.4 MG CAP.ER.24H PO SCH ×2 (07:49→20:43)
[2020-09-23 10:36] LABS: Glucose,Whole Blood 235 mg/dL (75-99)
--- NOTE | 2020-09-23 10:39 | P.CRDCN ---
History of Present Illness History of present illness: HISTORY OF PRESENTING ILLNESS This is a pleasant 64-year-old male past medical history significant for paroxysmal atrial fibrillation on long-term anticoagulation, COPD on home oxygen, hypertension, diabetes mellitus and gastroesophageal reflux disease. He denies prior history of coronary artery disease and does not follow in the office with a blending tank tender. We have been asked to see in consultation for Kiersten cortés. He presented to the hospital with symptoms of shortness of breath. He had been discharged earlier that day. He states after discharge she was walking into his house when he became extremely weak and fell. He denied loss of consciousness. He was too weak to get back up and had to call EMS. Yesterday evening the patient had an episode of atrial fibrillation. His rate with 116. Dr. Liriano was called and gave an additional 30 mg of diltiazem. The patient subsequently converted back to sinus rhythm and has been maintaining since. Pulmonary is following and he is receiving IV Solu-Medrol, nebulizers and empiric antibiotics. Due to his advanced COPD he will need placement. He is seen and examined sitting up in bed. He is mildly tachypnea, exam. He states he cannot tolerate the BiPAP he becomes claustrophobic. Respiratory is at the bedside to provide nebulizer treatment. The patient denies chest pain, dizziness or palpitations. Most recent echocardiogram obtained 09/10/2020 revealed preserved LV systolic function with ejection fraction 55-60%, severely enlarged right ventricle, mild TR and mild pulmonary hypertension with an RVSP of 35 mmHg. Laboratory data reviewed, WBC 13.3, hemoglobin 14.3, platelets 176, sodium 139, potassium 4.8, creatinine 0.4, magnesium 1.9, troponin 0.085, 0.116 and NT proBNP 410. Current daily cardiac medications include Eliquis 5 mg twice a day, aspirin 81 mg daily, diltiazem 120 mg daily, atorvastatin 20 mg daily REVIEW OF SYSTEMS At the time of my exam: CONSTITUTIONAL: Denies fever or chills. CARDIOVASCULAR: Complains of shortness of breath. Denies chest pain, orthopnea, PND or palpitations. RESPIRATORY: Denies cough. GASTROINTESTINAL: Denies abdominal pain, diarrhea, constipation, nausea or vomiting. MUSCULOSKELETAL: Denies myalgias. NEUROLOGIC: Denies numbness, tingling, headacbe or weakness. ENDOCRINE: Denies fatigue, weight change, polydipsia or polyurina. GENITOURINARY: Denies burning, hematuria or urgency with micturation. HEMATOLOGIC: Denies history of anemia or bleeding. PHYSICAL EXAMINATION Blood pressure 131/92 heart rate 94 afebrile and maintaining oxygen saturation on 5 flow nasal cannula. CONSTITUTIONAL: No apparent distress. HEENT: Head is normocephalic. Pupils are equal, round. Sclerae anicteric. Mucous membranes of the mouth are moist. No JVD. No carotid bruit. CHEST EXAMINATION: Prolonged expiratory wheezing, diminished bilaterally, no rales or rhonchi. No chest wall tenderness is noted on palpation or with deep breathing. HEART EXAMINATION: Regular rate and rhythm. S1, S2 heard. No murmurs, gallops or rub. ABDOMEN: Soft, nontender. Positive bowel sounds. EXTREMITIES: 2+ peripheral pulses, no lower extremity edema and no calf tenderness. NEUROLOGIC EXAMINATION: Patient is awake, alert and oriented x3. ASSESSMENT Paroxysmal atrial fibrillation, currently maintaining sinus mechanism Acute exacerbation of COPD Hypertension Diabetes mellitus PLAN Increase Cardizem 280 mg daily. Continue Eliquis for thromboembolic protection. Given the patient's history of paroxysmal atrial fibrillation and advanced COPD it is expected that he will have intermittent episodes of atrial fibrillation, especially during an acute exacerbation. Thank you kindly for this consultation. Nurse Practitioner note has been reviewed, I agree with a documented findings and plan of care. Patient was seen and examined. Past Medical History Past Medical History: COPD, Diabetes Mellitus, GERD/Reflux, Hypertension Additional Past Medical History / Comment(s): BPH, left leg dvt History of Any Multi-Drug Resistant Organisms: None Reported Past Surgical History: Cholecystectomy, Hernia Repair Additional Past Surgical History / Comment(s): hemmorids removed, Past Anesthesia/Blood Transfusion Reactions: No Reported Reaction Past Psychological History: No Psychological Hx Reported Smoking Status: Former smoker Past Alcohol Use History: None Reported Past Drug Use History: None Reported Medications and Allergies Home Medications Medication Instructions Recorded Confirmed Type Insulin Glargine [Lantus] 20 unit SQ HS 04/25/16 09/19/20 History Montelukast [Singulair] 10 mg PO DAILY@1200 04/25/16 09/19/20 History ALPRAZolam [Xanax] 0.25 mg PO BID PRN 09/10/20 09/19/20 History Albuterol Sulfate [Ventolin HFA] 2 puff INHALATION RT-Q4H PRN 09/10/20 09/19/20 History Aspirin EC [Ecotrin Low Dose] 81 mg PO DAILY@1200 09/10/20 09/19/20 History Baclofen [Lioresal] 10 mg PO TID 09/10/20 09/19/20 History Budesonide/Formoterol Fumarate 2 puff INHALATION RT-BID 09/10/20 09/19/20 History [Symbicort 160-4.5 Mcg Inhaler] Ipratropium-Albuterol Nebulize 3 ml INHALATION RT-QID 09/10/20 09/19/20 History [Duoneb 0.5 mg-3 mg/3 ml Soln] Magnesium Oxide 400 mg PO DAILY@1200 09/10/20 09/19/20 History Pantoprazole Sodium [Protonix] 40 mg PO DAILY@1200 09/10/20 09/19/20 History Atorvastatin [Lipitor] 20 mg PO HS #30 tab 09/12/20 09/19/20 Rx Diltiazem Cd [Cardizem CD] 120 mg PO DAILY #30 cap.er.24h 09/12/20 09/19/20 Rx Tamsulosin [Flomax] 0.4 mg PO BID #60 cap 09/12/20 09/19/20 Rx guaiFENesin [Mucinex] 600 mg PO QID #100 tablet.er 09/12/20 09/19/20 Rx Apixaban [Eliquis] 5 mg PO BID tab 09/19/20 09/19/20 Rx Formoterol Fumarate [Perforomist] 20 mcg INHALATION RT-BID #8 nebu 09/19/20 09/19/20 Rx Levofloxacin [Levaquin] 500 mg PO Q24H 5 Days #5 tab 09/19/20 09/19/20 Rx predniSONE See Taper PO DIRECTED 09/19/20 09/19/20 History Allergies Allergy/AdvReac Type Severity Reaction Status Date / Time No Known Allergies Allergy Verified 09/19/20 23:21 Physical Exam Vitals: Vital Signs Temp Pulse Pulse Pulse Resp BP Pulse Ox 09/23/20 08:57 88 09/23/20 08:45 84 09/23/20 07:35 16 09/23/20 07:34 97.8 F 105 H 16 132/74 90 L 09/23/20 06:15 99 09/23/20 06:09 94 09/23/20 04:00 98.1 F 74 22 113/89 95 09/23/20 02:41 84 09/23/20 02:34 79 09/23/20 00:06 100 09/23/20 00:00 98.1 F 80 18 132/79 97 09/22/20 23:58 104 H 09/22/20 20:00 98.0 F 130 H 124 H 20 155/70 95 09/22/20 19:48 132 H 09/22/20 16:08 97.9 F 85 18 139/96 97 09/22/20 16:04 70 09/22/20 15:55 78 09/22/20 14:00 81 18 09/22/20 12:00 98.0 F 81 18 141/85 96 09/22/20 11:57 74 09/22/20 11:47 70 Intake and Output 09/22/20 09/23/20 09/23/20 22:59 06:59 14:59 Intake Total 480 420 Output Total 1000 400 Balance -520 -400 420 Intake: Oral 480 420 Output: Urine 1000 400 Other: Voiding Method Urinal Urinal Urinal # Voids 1 1 Weight 93.5 kg Results 09/21/20 07:43 09/21/20 07:43 Current Medications Generic Name Dose Route Start Last Admin Trade Name Freq PRN Reason Stop Dose Admin Acetaminophen 650 mg 09/20/20 16:57 09/20/20 17:21 Acetaminophen Tab 325 Mg Tab PO 650 mg Q6HR PRN Administration Fever and/ or Pain Albuterol Sulfate 2.5 mg 09/23/20 12:00 Albuterol Nebulized 2.5 Mg/3 Ml INHALATION RT-QID CHARLES Albuterol/Ipratropium 3 ml 09/23/20 12:00 Ipratropium-Albuterol 3 Ml Neb INHALATION RT-QID CHARLES Alprazolam 0.25 mg 09/23/20 16:00 Alprazolam 0.25 Mg Tab PO TID CHARLES Apixaban 5 mg 09/20/20 21:00 09/23/20 07:48 Apixaban 5 Mg Tab PO 5 mg BID [facility] Administration Protocol Atorvastatin Calcium 20 mg 09/20/20 21:00 09/22/20 20:47 Atorvastatin 20 Mg Tab PO 20 mg HS CHARLES Administration Baclofen 10 mg 09/20/20 16:00 09/23/20 07:48 Baclofen 10 Mg Tab PO 10 mg TID CHARLES Administration Benzocaine/Menthol 1 each 09/20/20 16:57 09/23/20 06:15 Benzocaine/Menthol Lozeng 1 Each Lozenge MUCOUS MEM 1 each Q6HR PRN Administration Cough Diltiazem HCl 120 mg 09/21/20 09:00 09/23/20 07:48 Diltiazem Cd 120 Mg Cap.Er.24h PO 120 mg DAILY CHARLES Administration Guaifenesin 600 mg 09/20/20 13:00 09/23/20 07:48 Guaifenesin 600 Mg Tablet.Er PO 600 mg QID CHARLES Administration Sodium Chloride 1,000 mls @ 100 mls/hr 09/20/20 01:00 09/23/20 05:25 Saline 0.9% IV 100 mls/hr .Q10H [facility]LES Administration Insulin Aspart 0 unit 09/20/20 07:30 09/23/20 06:36 Insulin Aspart (Novolog) 100 Unit/Ml Vial SQ 5 unit ACHS [facility] Administration Protocol Insulin Detemir 25 unit 09/22/20 21:00 09/22/20 20:48 Insulin Detemir (Levemir) 100 Unit/Ml Syr SQ 25 unit HS [facility] Administration Magnesium Oxide 400 mg 09/20/20 12:00 09/22/20 11:58 Magnesium Oxide 400 Mg Tab PO 400 mg DAILY@1200 [facility] Administration Methylprednisolone Sodium Succinate 60 mg 09/20/20 06:00 09/23/20 06:14 Methylprednisolone Sod Succi 125 Mg/2 Ml Vial IV 60 mg Q6HR [facility]LES Administration Metoprolol Tartrate 50 mg 09/22/20 21:00 09/23/20 07:48 Metoprolol Tartrate 50 Mg Tab PO 50 mg BID [facility]LES Administration Montelukast Sodium 10 mg 09/20/20 12:00 09/22/20 11:58 Montelukast 10 Mg Tab PO 10 mg DAILY@1200 [facility] Administration Pantoprazole Sodium 40 mg 09/20/20 12:00 09/22/20 11:58 Pantoprazole 40 Mg Tablet PO 40 mg DAILY@1200 [facility] Administration Tamsulosin HCl 0.4 mg 09/20/20 12:00 09/23/20 07:49 Tamsulosin 0.4 Mg Cap.Er.24h PO 0.4 mg BID [facility]LES Administration Intake and Output 09/22/20 09/23/20 09/23/20 22:59 06:59 14:59 Intake Total 480 420 Output Total 1000 400 Balance -520 -400 420 Intake: Oral 480 420 Output: Urine 1000 400 Other: Voiding Method Urinal Urinal Urinal # Voids 1 1 Weight 93.5 kg 09/21/20 07:43 09/21/20 07:43
[2020-09-23] MEDS: PANTOPRAZOLE 40 MG TABLET PO SCH (11:06)
[2020-09-23] MEDS: MONTELUKAST 10 MG TAB PO SCH (11:06)
[2020-09-23] MEDS: MAGNESIUM OXIDE 400 MG TAB PO SCH (11:06)
[2020-09-23] MEDS: IPRATROPIUM-ALBUTEROL 3 ML NEB INHALATION SCH ×3 (12:33→20:04)
[2020-09-23] MEDS: ALBUTEROL NEBULIZED 2.5 MG/3 ML INHALATION SCH ×3 (12:36→20:04)
--- NOTE | 2020-09-23 13:38 | P.PN ---
Subjective Progress Note Date: 09/23/20 Principal diagnosis: Acute on chronic hypoxic respiratory failure secondary to acute exacerbation of COPD. This is a 64-year-old male patient who got admitted back to the hospital immediately following his discharge because of generalized weakness, inability to taken care of himself at home and he tells the paper much collapsed on the floor. As such she was brought back to the emergency department. He is known to have advanced COPD. We'll took care of him for a COPD exacerbation earlier this week and he has had multiple hospitalizations for the same. He has short of breath at all times. With activity, his legs become very weak and he's unable to provide much take care of himself. He did not have syncope. Does not pass out. He did not have any head trauma. No significant sputum production. No hemoptysis. No pleurisy. Other during his last hospitalization, he had a indwelling Abad catheter because of urinary retention and that Abad catheter was essentially removed. In the emergency room, his white cell count was at 14.7 initial white cell count was 18, his troponins were 0.08 and 0.01 respectively 2. He does have some troponin leak during his earlier hospitalization. ProBNP level was at 410. BUN is 36 with a creatinine of 0.4. Serum bicarb is at 35. Hemoglobin is at 14.2. Is currently resting in bed. He has short of breath. He is on 6 L of oxygen by nasal cannula. cardiac rhythm is sinus 09/21/2020, slightly better, awake and alert and communicating. He is short of breath all the time and limited exercise capacity and he was in bed all the time. Did not use BiPAP overnight and he is on 6 L of oxygen by nasal cannula. He remains on bronchodilators. He remains on IV Solu-Medrol. Empiric antibiotic coverage with Levaquin. signal worker helper consult for possible placement regarding his ongoing disability and advanced COPD. Pulse ox is in order of 99% of the FiO2 can be gradually weaned off. 09/22/2020, clinically the same. Still having difficulties in breathing. Very limited exercise capacity. Still on oxygen at 5 L per minute nasal cannula. Still on Levaquin. Still on IV Solu Medrol. Receiving bronchodilators around the clock. No angina. No palpitation. Tolerating his diet. Using incentive spirometer although not frequently. Reevaluated today on 09/23/2020, patient is basically about the same, feels g enerally weak, short of breath with any activity, remains on 6 L nasal cannula, however his saturations are in the high 90s, and I cut him down to 5 L. Remains on bronchodilators, there is also on Levaquin, and Solu-Medrol. Patient is being evaluated by cardiology for paroxysmal atrial fibrillation, during my evaluation patient was in sinus rhythm. Cardiology recommended increasing Cardizem dose, and to continue Eliquis. Objective - Vital Signs Vital signs: Vital Signs Temp 97.8 F 09/23/20 10:24 Pulse 58 L 09/23/20 12:44 Resp 18 09/23/20 10:24 BP 131/92 09/23/20 10:24 Pulse Ox 96 09/23/20 10:24 Intake & Output 09/22/20 09/23/20 09/23/20 18:59 06:59 18:59 Intake Total 960 420 Output Total 950 800 Balance 10 -800 420 Weight 93.5 kg Intake: Oral 960 420 Output: Urine 950 800 Other: Voiding Method Urinal Urinal Urinal # Voids 1 - Exam Physical Exam: Revealed a 64-year-old white male, chronically ill-looking, in no distress at rest. On 6 L nasal cannula. Head: Atraumatic, normocephalic. HEENT:[Neck is supple.] [No neck masses.] [No thyromegaly.] [No JVD.] Chest: [Medical chest expansion, extremely diminished breath sound bilaterally, minimal wheezing on forced expiratory maneuver. Cardiac Exam: [Normal S1 and S2, no S3 gallop, no murmur.] Abdomen: [Soft, nontender, no megaly, no rebound, no guarding, normal bowel sounds.] Extremities: [No clubbing, no edema, no cyanosis.] Neurological Exam: [No focal neurologic deficit.] Alert and oriented 3, generally weak. Psychiatric: Depressed mood, flat affect, normal mental status examination. Skin: No rashes. However there is evidence of ecchymosis over the dorsal aspect of the right foot, and diminished distal pulses. - Labs CBC & Chem 7: 09/21/20 07:43 09/21/20 07:43 Labs: Abnormal Lab Results - Last 24 Hours (Table) 09/22/20 09/22/20 09/23/20 Range/Units 16:32 20:12 06:16 POC Glucose (mg/dL) 271 H 244 H 236 H (75-99) mg/dL 09/23/20 Range/Units 10:35 POC Glucose (mg/dL) 235 H (75-99) mg/dL Assessment and Plan Assessment: Impression: Acute on chronic hypoxic respiratory failure secondary to severe COPD and acute exacerbation of COPD. Acute urinary tract infection Generalized fatigue and weakness. Severe COPD and chronic hypoxic respiratory failure Paroxysmal atrial fibrillation Type 2 diabetes. History of left lower extremity DVT. Benign essential hypertension. Recommendation: Continue bronchodilators. Continue updrafts. Continue IV Solu-Medrol. Continue empiric antibioticsLevaquin. Continue Eliquis. Patient will eventually need placement, doubt if the patient could survive on his own. We'll continue to follow. Time with Patient: Less than 30
[2020-09-23 16:32] LABS: Glucose,Whole Blood 228 mg/dL (75-99)
--- NOTE | 2020-09-23 16:42 | P.PN ---
Progress Note - Text Progress Note Date: 09/23/20 Chief Complaint: Short of breath History of presenting complaint: This is a 64-year-old patient who follows with Dr. Hernandez. Chronic stable medical conditions include diabetes, GERD, hypertension, BPH. Home oxygen-4 L. Just Admitted to the hospital from September 10 through September 12: with acute COPD exacerbation. Acute urinary retention. Abda catheter was placed. Seen by urology. Dose of Flomax was increased. Discharged with Abad. He was to follow up with urology as outpatient. Also seen by vascular. No intervention. Readmitted from September 14 through September 19 with hematuria COPD exacerbation. Patient had decline ECF. Now admitted with COPD exacerbation and medical deconditioning. September 23: Sitting up in bed. Slight short of breath. Atrial flutter controlled. Eating some. Son and [id number] at the bedside. Patient earlier decline PTOT. Review of systems: Was done for constitutional, cardiovascular, GI, pulmonary. relevant finding as above Active Medications Acetaminophen (Acetaminophen Tab 325 Mg Tab) 650 mg PO Q6HR PRN PRN Reason: Fever and/ or Pain Last Admin: 09/20/20 17:21 Dose: 650 mg Documented by: Albuterol Sulfate (Albuterol Nebulized 2.5 Mg/3 Ml) 2.5 mg INHALATION RT-QID [facility] Last Admin: 09/23/20 16:07 Dose: Not Given Documented by: Albuterol/Ipratropium (Ipratropium-Albuterol 3 Ml Neb) 3 ml INHALATION RT-QID [facility] Last Admin: 09/23/20 16:05 Dose: 3 ml Documented by: Alprazolam (Alprazolam 0.25 Mg Tab) 0.25 mg PO TID [facility] Last Admin: 09/23/20 15:28 Dose: 0.25 mg Documented by: Apixaban (Apixaban 5 Mg Tab) 5 mg PO BID [facility]; Protocol Last Admin: 09/23/20 07:48 Dose: 5 mg Documented by: Atorvastatin Calcium (Atorvastatin 20 Mg Tab) 20 mg PO [facility] Last Admin: 09/22/20 20:47 Dose: 20 mg Documented by: Baclofen (Baclofen 10 Mg Tab) 10 mg PO TID [facility] Last Admin: 09/23/20 15:28 Dose: 10 mg Documented by: Benzocaine/Menthol (Benzocaine/Menthol Lozeng 1 Each Lozenge) 1 each MUCOUS MEM Q6HR PRN PRN Reason: Cough Last Admin: 09/23/20 06:15 Dose: 1 each Documented by: Diltiazem HCl (Diltiazem Cd 180 Mg Cap.Er.24h) 180 mg PO DAILY [facility] Guaifenesin (Guaifenesin 600 Mg Tablet.Er) 600 mg PO QID [facility] Last Admin: 09/23/20 11:06 Dose: 600 mg Documented by: Sodium Chloride (Saline 0.9%) 1,000 mls @ 100 mls/hr IV .Q10H [facility] Last Admin: 09/23/20 05:25 Dose: 100 mls/hr Documented by: Insulin Aspart (Insulin Aspart (Novolog) 100 Unit/Ml Vial) 0 unit SQ [facility]; Protocol Last Admin: 09/23/20 11:05 Dose: 5 unit Documented by: Insulin Detemir (Insulin Detemir (Levemir) 100 Unit/Ml Syr) 25 unit SQ [facility] Last Admin: 09/22/20 20:48 Dose: 25 unit Documented by: Magnesium Oxide (Magnesium Oxide 400 Mg Tab) 400 mg PO DAILY@1200 [facility] Last Admin: 09/23/20 11:06 Dose: 400 mg Documented by: Methylprednisolone Sodium Succinate (Methylprednisolone Sod Succi 40 Mg/Ml 1 Ml Vial) 40 mg IV Q8HR [facility] Metoprolol Tartrate (Metoprolol Tartrate 50 Mg Tab) 50 mg PO BID [facility] Last Admin: 09/23/20 07:48 Dose: 50 mg Documented by: Montelukast Sodium (Montelukast 10 Mg Tab) 10 mg PO DAILY@1200 [facility] Last Admin: 09/23/20 11:06 Dose: 10 mg Documented by: Pantoprazole Sodium (Pantoprazole 40 Mg Tablet) 40 mg PO DAILY@1200 [facility] Last Admin: 09/23/20 11:06 Dose: 40 mg Documented by: Tamsulosin HCl (Tamsulosin 0.4 Mg Cap.Er.24h) 0.4 mg PO BID [facility] Last Admin: 09/23/20 07:49 Dose: 0.4 mg Documented by: Past medical history to include: COPD, diabetes, GERD, hypertension, BPH, left leg DVT Social history: Lives alone. Does use a walker. Smoked about 2 packs a day for close to 40 years stopped about 14 years ago. Used to work with [employer] Family history: Reviewed, noncontributory to presentation Physical examination: VITAL SIGNS: 98, 67, 18, 146.76, 98% on 6 L GENERAL: A reclining in bed,, some short of breath EYES: Pupils equal. Conjunctiva normal. HEENT: External appearance of nose and ears normal, oral cavity grossly normal. NECK: JVD unable to assess; masses not palpable. HEART: First and second heart sounds are normal; no edema. LUNGS: Respiratory rate increased, diminished breath sounds prolonged expiration ABDOMEN: Soft, nontender, liver spleen not palpable, no masses palpable. PSYCH: Alert and oriented x3; mood and affect anxious MUSCULAR skeletal: Evidence of OA INVESTIGATIONS, reviewed in the clinical context: WBC 13.3 hemoglobin 14.3 potassium 4.8 BUN 34 creatinine 0.4. EKG: Normal sinus rhythm Chest x-ray film: No obvious infiltrates Recent testing 2-D echocardiogram: Moderate concentric LVH. EF 55-60% right ventricle severely enlarged Assessment and plan: -Acute advanced COPD exacerbation in a previous smoker: Slow to respond DuoNeb, every 4 hours, IV Solu-Medrol, and inhaled Pulmicort -Acute hypoxic respiratory failure from COPD On 6 L of oxygen -Chronic hypoxic respiratory failure from COPD Home oxygen 4 L -BPH with urinary retention Flomax to 0.4 mg twice a day. Abad catheter. Follow-up outpatient by Dr. obregon -Diabetes mellitus type 2, chronically on insulin On Lantus. For Accu-Cheks -Paroxysmal atrial fibrillation, currently sinus rhythm Cardizem CD 180 mg. Lopressor 50 mg twice a day. eliquis -GERD On PPI -Chronic gait dysfunction, uses a walker at baseline -Acute on chronic medical debility PT OT -Possible PAD. Aspirin. Lipitor. Care was discussed with the patient, the son and [id number]. It was stressed that patient should participate in PT OT if looking for inpatient rehab. Patient is agreeable to same. Inhaled corticosteroids is being added. Other medications to continue. BiPAP will be addressed by pulmonary. Advanced care planning: Discussion was held with the patient, the son and [id number]. Patient is a DO NOT RESUSCITATE. Ordered be placed in the chart. No other heroic measures. Patient does not have a D POA. This was discussed with the son. Understand patient prognosis guarded. They will contact patent attorney to get paperwork for the same. Patient may need a long-term placement. Patient currently lives alone. The son lives nearby. 20 minutes was spent for a ACP
[2020-09-23] MEDS: methylPREDNISolone SOD SUCCI 40 MG/ML 1 ML VIAL IV SCH ×2 (16:56→22:49)
[2020-09-23] MEDS: BUDESONIDE 1 MG/2 ML NEBU INHALATION SCH (20:04)
[2020-09-23 20:06] LABS: Glucose,Whole Blood 256 mg/dL (75-99)
[2020-09-23] MEDS: INSULIN DETEMIR (LEVEMIR) 100 UNIT/ML SYR SQ SCH (20:43)
[2020-09-23] MEDS: ATORVASTATIN 20 MG TAB PO SCH (20:43)
[2020-09-24] MEDS: SODIUM CHLORIDE 0.9% 1,000 ML IV SCH ×2 (01:52→17:22)
[2020-09-24] MEDS: ALBUTEROL NEBULIZED 2.5 MG/3 ML INHALATION PRN ×2 (03:53→23:33)
[2020-09-24 06:20] LABS: Glucose,Whole Blood 164 mg/dL (75-99)
[2020-09-24] MEDS: INSULIN ASPART (NovoLOG) 100 UNIT/ML VIAL SQ SCH ×4 (06:32→21:18)
[2020-09-24 08:19] LABS: African American GFR (CKD) >90 (>60 ml/min/1.73 sqM); Blood Urea Nitrogen 39 mg/dL (9-20); Calcium 9.4 mg/dL (8.4-10.2); Chloride 95 mmol/L (98-107); Glucose 132 mg/dL (74-99); Non-African American GFR(CKD) >90 (>60 ml/min/1.73 sqM); Potassium 5.2 mmol/L (3.5-5.1); Sodium 144 mmol/L (137-145)
[2020-09-24 08:27] LABS: Anion Gap 3 mmol/L
[2020-09-24] MEDS: BUDESONIDE 1 MG/2 ML NEBU INHALATION SCH ×2 (08:27→20:11)
[2020-09-24] MEDS: IPRATROPIUM-ALBUTEROL 3 ML NEB INHALATION SCH ×4 (08:27→20:11)
[2020-09-24] MEDS: DILTIAZEM CD 180 MG CAP.ER.24H PO SCH (08:54)
[2020-09-24] MEDS: ALPRAZolam 0.25 MG TAB PO SCH ×3 (08:54→21:18)
[2020-09-24] MEDS: methylPREDNISolone SOD SUCCI 40 MG/ML 1 ML VIAL IV SCH (08:54)
[2020-09-24] MEDS: METOPROLOL TARTRATE 50 MG TAB PO SCH ×2 (08:54→21:18)
[2020-09-24] MEDS: guaiFENesin 600 MG TABLET.ER PO SCH ×4 (08:54→21:18)
[2020-09-24] MEDS: APIXABAN 5 MG TAB PO SCH ×2 (08:55→21:18)
[2020-09-24] MEDS: BACLOFEN 10 MG TAB PO SCH ×3 (08:55→21:18)
[2020-09-24] MEDS: TAMSULOSIN 0.4 MG CAP.ER.24H PO SCH ×2 (08:55→21:18)
[2020-09-24 09:04] LABS: Carbon Dioxide 46 mmol/L (22-30)
--- NOTE | 2020-09-24 10:50 | P.PN ---
Subjective Progress Note Date: 09/24/20 Principal diagnosis: Acute on chronic hypoxic respiratory failure secondary to acute exacerbation of COPD. This is a 64-year-old male patient who got admitted back to the hospital immediately following his discharge because of generalized weakness, inability to taken care of himself at home and he tells the paper much collapsed on the floor. As such she was brought back to the emergency department. He is known to have advanced COPD. We'll took care of him for a COPD exacerbation earlier this week and he has had multiple hospitalizations for the same. He has short of breath at all times. With activity, his legs become very weak and he's unable to provide much take care of himself. He did not have syncope. Does not pass out. He did not have any head trauma. No significant sputum production. No hemoptysis. No pleurisy. Other during his last hospitalization, he had a indwelling Abad catheter because of urinary retention and that Abad catheter was essentially removed. In the emergency room, his white cell count was at 14.7 initial white cell count was 18, his troponins were 0.08 and 0.01 respectively 2. He does have some troponin leak during his earlier hospitalization. ProBNP level was at 410. BUN is 36 with a creatinine of 0.4. Serum bicarb is at 35. Hemoglobin is at 14.2. Is currently resting in bed. He has short of breath. He is on 6 L of oxygen by nasal cannula. cardiac rhythm is sinus 09/21/2020, slightly better, awake and alert and communicating. He is short of breath all the time and limited exercise capacity and he was in bed all the time. Did not use BiPAP overnight and he is on 6 L of oxygen by nasal cannula. He remains on bronchodilators. He remains on IV Solu-Medrol. Empiric antibiotic coverage with Levaquin. 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 Pulse ox is in order of 99% of the FiO2 can be gradually weaned off. 09/22/2020, clinically the same. Still having difficulties in breathing. Very limited exercise capacity. Still on oxygen at 5 L per minute nasal cannula. Still on Levaquin. Still on IV Solu Medrol. Receiving bronchodilators around the clock. No angina. No palpitation. Tolerating his diet. Using incentive spirometer although not frequently. Reevaluated today on 09/23/2020, patient is basically about the same, feels ge nerally weak, short of breath with any activity, remains on 6 L nasal cannula, however his saturations are in the high 90s, and I cut him down to 5 L. Remains on bronchodilators, there is also on Levaquin, and Solu-Medrol. Patient is being evaluated by cardiology for paroxysmal atrial fibrillation, during my evaluation patient was in sinus rhythm. Cardiology recommended increasing Cardizem dose, and to continue Eliquis. The patient is seen today 09/24/2020 in follow-up on the selective care unit. He is currently resting fairly comfortably in bed. Awake and alert in no acute distress. Maintaining O2 saturations in the low 90s on 6 L high flow nasal cannula. He is afebrile. Sodium 144. Potassium 5.2. Bicarb 46. Creatinine 0.47. Glucose 132. He remains on DuoNeb inhalations, Pulmicort and Perforomist inhalations, IV Solu-Medrol. Anticoagulated with Eliquis. Objective - Vital Signs Vital signs: Vital Signs Temp 98.1 F 09/24/20 08:00 Pulse 68 09/24/20 08:40 Resp 18 09/24/20 08:00 BP 148/89 09/24/20 08:00 Pulse Ox 97 09/24/20 03:27 Intake & Output 09/23/20 09/24/20 09/24/20 18:59 06:59 18:59 Intake Total 660 540 240 Output Total 900 550 Balance -240 -10 240 Weight 95.5 kg Intake: Oral 660 540 240 Output: Urine 900 550 Other: Voiding Method Urinal Urinal # Voids 1 - Exam GENERAL EXAM: Alert, pleasant 64-year-old gentleman, appears older than stated age, fairly comfortable in no apparent distress. HEAD: Normocephalic. EYES: Normal reaction of pupils, equal size. NOSE: Clear with pink turbinates. THROAT: No erythema or exudates. NECK: No masses, no JVD. CHEST: No chest wall deformity. LUNGS: Equal air entry with faint end expiratory wheeze, diminished CVS: S1 and S2 normal with no audible murmur, regular rhythm. ABDOMEN: No hepatosplenomegaly, normal bowel sounds, no guarding or rigidity. SPINE: No scoliosis or deformity SKIN: No rashes CENTRAL NERVOUS SYSTEM: No focal deficits, tone is normal in all 4 extremities. EXTREMITIES: There is no peripheral edema. No clubbing, no cyanosis. Peripheral pulses are intact. - Labs CBC & Chem 7: 09/21/20 07:43 09/24/20 07:34 Labs: Abnormal Lab Results - Last 24 Hours (Table) 09/23/20 09/23/20 09/24/20 Range/Units 16:30 20:04 06:16 Potassium (3.5-5.1) mmol/L Chloride (98-107) mmol/L Carbon Dioxide (22-30) mmol/L BUN (9-20) mg/dL Creatinine (0.66-1.25) mg/dL Glucose (74-99) mg/dL POC Glucose (mg/dL) 228 H 256 H 164 H (75-99) mg/dL 09/24/20 Range/Units 07:34 Potassium 5.2 H (3.5-5.1) mmol/L Chloride 95 L (98-107) mmol/L Carbon Dioxide 46 H* (22-30) mmol/L BUN 39 H (9-20) mg/dL Creatinine 0.47 L (0.66-1.25) mg/dL Glucose 132 H (74-99) mg/dL POC Glucose (mg/dL) (75-99) mg/dL Assessment and Plan Assessment: 1 Acute on chronic hypoxic respiratory failure secondary to severe COPD and acute exacerbation of COPD. 2 Mild troponin elevation 3 Generalized fatigue and weakness. 4 Severe COPD and chronic hypoxic respiratory failure 5 Paroxysmal atrial fibrillation 6 Type 2 diabetes. 7 History of left lower extremity DVT. 8 Benign essential hypertension. Plan: The patient was seen and evaluated by Dr. Dsouza Switch from IV Solu-Medrol to oral prednisone Continue bronchodilators Continue Eliquis Titrate down the FiO2 as tolerated Discharge planning is in place I, the cosigning physician, performed a history & physical examination of the patient. Lungs sounds bilateral end expiratory wheeze, diminished. Maintaining good O2 saturations in the 90s on 6 L high flow nasal cannula. I discussed the assessment and plan of care with my nurse practitioner, Chapis Rascon. I attest to the above note as dictated by her.
[2020-09-24 11:41] LABS: Glucose,Whole Blood 150 mg/dL (75-99)
[2020-09-24] MEDS: PANTOPRAZOLE 40 MG TABLET PO SCH (13:31)
[2020-09-24] MEDS: MAGNESIUM OXIDE 400 MG TAB PO SCH (13:31)
[2020-09-24] MEDS: MONTELUKAST 10 MG TAB PO SCH (13:31)
[2020-09-24] MEDS: predniSONE 20 MG TAB PO SCH (13:34)
[2020-09-24 16:49] LABS: Glucose,Whole Blood 177 mg/dL (75-99)
--- NOTE | 2020-09-24 20:02 | P.PN ---
Progress Note - Text Progress Note Date: 09/24/20 Chief Complaint: Short of breath History of presenting complaint: This is a 64-year-old patient who follows with Dr. Hernandez. Chronic stable medical conditions include diabetes, GERD, hypertension, BPH. Home oxygen-4 L. Just Admitted to the hospital from September 10 through September 12: with acute COPD exacerbation. Acute urinary retention. Abad catheter was placed. Seen by urology. Dose of Flomax was increased. Discharged with Abad. He was to follow up with urology as outpatient. Also seen by vascular. No intervention. Readmitted from September 14 through September 19 with hematuria COPD exacerbation. Patient had decline ECF. Now admitted with COPD exacerbation and medical deconditioning. September 23: Sitting up in bed. Slight short of breath. Atrial flutter controlled. Eating some. Son and [id number] at the bedside. Patient earlier decline PTOT. September 24: Reclining in bed. Nasal cannula. Some shortness of breath. Breathing better. Atrial flutter controlled. Patient refused PTOT. Tired. Late in the evening a spoke to patient's son Raghav and his over the phone. Did inform them about the patient not participating in therapy. Discussion was held about options. Oral intake fair Review of systems: Was done for constitutional, cardiovascular, GI, pulmonary. relevant finding as above Active Medications Acetaminophen (Acetaminophen Tab 325 Mg Tab) 650 mg PO Q6HR PRN PRN Reason: Fever and/ or Pain Last Admin: 09/20/20 17:21 Dose: 650 mg Documented by: Albuterol Sulfate (Albuterol Nebulized 2.5 Mg/3 Ml) 2.5 mg INHALATION RT-QID PRN PRN Reason: Shortness Of Breath Or Wheezing Last Admin: 09/24/20 03:53 Dose: 2.5 mg Documented by: Albuterol/Ipratropium (Ipratropium-Albuterol 3 Ml Neb) 3 ml INHALATION RT-QID [facility] Last Admin: 09/24/20 16:02 Dose: 3 ml Documented by: Alprazolam (Alprazolam 0.25 Mg Tab) 0.25 mg PO TID [facility] Last Admin: 09/24/20 17:21 Dose: 0.25 mg Documented by: Apixaban (Apixaban 5 Mg Tab) 5 mg PO BID [facility]; Protocol Last Admin: 09/24/20 08:55 Dose: 5 mg Documented by: Atorvastatin Calcium (Atorvastatin 20 Mg Tab) 20 mg PO [facility] Last Admin: 09/23/20 20:43 Dose: 20 mg Documented by: Baclofen (Baclofen 10 Mg Tab) 10 mg PO TID [facility] Last Admin: 09/24/20 17:21 Dose: 10 mg Documented by: Benzocaine/Menthol (Benzocaine/Menthol Lozeng 1 Each Lozenge) 1 each MUCOUS MEM Q6HR PRN PRN Reason: Cough Last Admin: 09/23/20 06:15 Dose: 1 each Documented by: Budesonide (Budesonide 1 Mg/2 Ml Nebu) 1 mg INHALATION RT-BID [facility] Last Admin: 09/24/20 08:27 Dose: 1 mg Documented by: Diltiazem HCl (Diltiazem Cd 180 Mg Cap.Er.24h) 180 mg PO DAILY [facility] Last Admin: 09/24/20 08:54 Dose: 180 mg Documented by: Guaifenesin (Guaifenesin 600 Mg Tablet.Er) 600 mg PO QID [facility] Last Admin: 09/24/20 17:21 Dose: 600 mg Documented by: Sodium Chloride (Saline 0.9%) 1,000 mls @ 100 mls/hr IV .Q10H [facility] Last Admin: 09/24/20 17:22 Dose: Not Given Documented by: Insulin Aspart (Insulin Aspart (Novolog) 100 Unit/Ml Vial) 0 unit SQ [facility]; Protocol Last Admin: 09/24/20 17:21 Dose: 3 unit Documented by: Insulin Detemir (Insulin Detemir (Levemir) 100 Unit/Ml Syr) 25 unit SQ [facility] Last Admin: 09/23/20 20:43 Dose: 25 unit Documented by: Magnesium Oxide (Magnesium Oxide 400 Mg Tab) 400 mg PO DAILY@1200 [facility] Last Admin: 09/24/20 13:31 Dose: 400 mg Documented by: Metoprolol Tartrate (Metoprolol Tartrate 50 Mg Tab) 50 mg PO BID [facility] Last Admin: 09/24/20 08:54 Dose: 50 mg Documented by: Montelukast Sodium (Montelukast 10 Mg Tab) 10 mg PO DAILY@1200 [facility] Last Admin: 09/24/20 13:31 Dose: 10 mg Documented by: Pantoprazole Sodium (Pantoprazole 40 Mg Tablet) 40 mg PO DAILY@1200 [facility] Last Admin: 09/24/20 13:31 Dose: 40 mg Documented by: Prednisone (Prednisone 20 Mg Tab) 40 mg PO DAILY [facility] Last Admin: 09/24/20 13:34 Dose: 40 mg Documented by: Tamsulosin HCl (Tamsulosin 0.4 Mg Cap.Er.24h) 0.4 mg PO BID [facility] Last Admin: 09/24/20 08:55 Dose: 0.4 mg Documented by: Past medical history to include: COPD, diabetes, GERD, hypertension, BPH, left leg DVT Social history: Lives alone. Does use a walker. Smoked about 2 packs a day for close to 40 years stopped about 14 years ago. Used to work with [employer] Family history: Reviewed, noncontributory to presentation Physical examination: VITAL SIGNS: 97.9, 66, 18, 140/88, 94% on 5 L GENERAL: Reclining in bed, breathing better EYES: Pupils equal. Conjunctiva normal. HEENT: External appearance of nose and ears normal, oral cavity grossly normal. NECK: JVD unable to assess; masses not palpable. HEART: First and second heart sounds are normal; no edema. LUNGS: Respiratory rate increased, diminished breath sounds prolonged expiration ABDOMEN: Soft, nontender, liver spleen not palpable, no masses palpable. PSYCH: Alert and oriented x3; mood and affect anxious MUSCULAR skeletal: Evidence of OA INVESTIGATIONS, reviewed in the clinical context: September 24: Potassium 5.2 bicarb 46 BUN 39 creatinine 0.47 WBC 13.3 hemoglobin 14.3 potassium 4.8 BUN 34 creatinine 0.4. EKG: Normal sinus rhythm Chest x-ray film: No obvious infiltrates Recent testing 2-D echocardiogram: Moderate concentric LVH. EF 55-60% right ventricle severely enlarged Assessment and plan: -Acute advanced COPD exacerbation in a previous smoker: Improving DuoNeb, 4 times a day, IV [id number], and inhaled Pulmicort. Oral prednisone started -Acute hypoxic respiratory failure from COPD On 5 L of oxygen -Chronic hypoxic respiratory failure from COPD Home oxygen 4 L -BPH with urinary retention Flomax to 0.4 mg twice a day. Abad catheter. Follow-up outpatient by Dr. obregon -Diabetes mellitus type 2, chronically on insulin On Lantus. For Accu-Cheks -Paroxysmal atrial fibrillation, currently sinus rhythm Cardizem CD 180 mg. Lopressor 50 mg twice a day. eliquis -GERD On PPI -Chronic gait dysfunction, uses a walker at baseline -Acute on chronic medical debility PT OT -Possible PAD. Aspirin. Lipitor. Patient was changed over to oral prednisone. DuoNeb cutback to 4 times a day. They put on oxygen to keep the pulse ox above 90%. Spoke to the son and [id number]. Total time spent today about 40 minutes with over 25 minutes of discussion. Discussed with the nurse. Hopefully discharge in 24 hours.
[2020-09-24 20:21] LABS: Glucose,Whole Blood 165 mg/dL (75-99)
[2020-09-24] MEDS: ATORVASTATIN 20 MG TAB PO SCH (21:18)
[2020-09-24] MEDS: INSULIN DETEMIR (LEVEMIR) 100 UNIT/ML SYR SQ SCH (21:20)
[2020-09-25] MEDS: ALBUTEROL NEBULIZED 2.5 MG/3 ML INHALATION PRN (03:37)
[2020-09-25 06:06] LABS: Glucose,Whole Blood 104 mg/dL (75-99)
[2020-09-25] MEDS: INSULIN ASPART (NovoLOG) 100 UNIT/ML VIAL SQ SCH ×4 (06:29→21:19)
[2020-09-25 08:16] LABS: African American GFR (CKD) >90 (>60 ml/min/1.73 sqM); Blood Urea Nitrogen 43 mg/dL (9-20); Calcium 8.9 mg/dL (8.4-10.2); Chloride 94 mmol/L (98-107); Glucose 115 mg/dL (74-99); Non-African American GFR(CKD) >90 (>60 ml/min/1.73 sqM); Potassium 5.1 mmol/L (3.5-5.1); Sodium 140 mmol/L (137-145)
[2020-09-25 08:22] LABS: Anion Gap 5 mmol/L
[2020-09-25] MEDS: IPRATROPIUM-ALBUTEROL 3 ML NEB INHALATION SCH ×4 (08:27→20:23)
[2020-09-25] MEDS: BUDESONIDE 1 MG/2 ML NEBU INHALATION SCH ×2 (08:27→20:23)
[2020-09-25 08:34] LABS: Carbon Dioxide 41 mmol/L (22-30)
[2020-09-25] MEDS: predniSONE 20 MG TAB PO SCH (09:44)
[2020-09-25] MEDS: guaiFENesin 600 MG TABLET.ER PO SCH ×4 (09:44→21:21)
[2020-09-25] MEDS: DILTIAZEM CD 180 MG CAP.ER.24H PO SCH (09:44)
[2020-09-25] MEDS: BACLOFEN 10 MG TAB PO SCH ×3 (09:44→21:19)
[2020-09-25] MEDS: TAMSULOSIN 0.4 MG CAP.ER.24H PO SCH ×2 (09:45→21:19)
[2020-09-25] MEDS: APIXABAN 5 MG TAB PO SCH ×2 (09:45→21:19)
[2020-09-25] MEDS: ALPRAZolam 0.25 MG TAB PO SCH ×3 (09:45→21:19)
[2020-09-25] MEDS: METOPROLOL TARTRATE 50 MG TAB PO SCH ×2 (09:45→21:19)
--- NOTE | 2020-09-25 10:45 | P.PN ---
Subjective Progress Note Date: 09/25/20 Principal diagnosis: Acute on chronic hypoxic respiratory failure secondary to acute exacerbation of COPD. This is a 64-year-old male patient who got admitted back to the hospital immediately following his discharge because of generalized weakness, inability to taken care of himself at home and he tells the paper much collapsed on the floor. As such she was brought back to the emergency department. He is known to have advanced COPD. We'll took care of him for a COPD exacerbation earlier this week and he has had multiple hospitalizations for the same. He has short of breath at all times. With activity, his legs become very weak and he's unable to provide much take care of himself. He did not have syncope. Does not pass out. He did not have any head trauma. No significant sputum production. No hemoptysis. No pleurisy. Other during his last hospitalization, he had a indwelling Abad catheter because of urinary retention and that Abad catheter was essentially removed. In the emergency room, his white cell count was at 14.7 initial white cell count was 18, his troponins were 0.08 and 0.01 respectively 2. He does have some troponin leak during his earlier hospitalization. ProBNP level was at 410. BUN is 36 with a creatinine of 0.4. Serum bicarb is at 35. Hemoglobin is at 14.2. Is currently resting in bed. He has short of breath. He is on 6 L of oxygen by nasal cannula. cardiac rhythm is sinus 09/21/2020, slightly better, awake and alert and communicating. He is short of breath all the time and limited exercise capacity and he was in bed all the time. Did not use BiPAP overnight and he is on 6 L of oxygen by nasal cannula. He remains on bronchodilators. He remains on IV Solu-Medrol. Empiric antibiotic coverage with Levaquin. 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 Pulse ox is in order of 99% of the FiO2 can be gradually weaned off. 09/22/2020, clinically the same. Still having difficulties in breathing. Very limited exercise capacity. Still on oxygen at 5 L per minute nasal cannula. Still on Levaquin. Still on IV Solu Medrol. Receiving bronchodilators around the clock. No angina. No palpitation. Tolerating his diet. Using incentive spirometer although not frequently. Reevaluated today on 09/23/2020, patient is basically about the same, feels ge nerally weak, short of breath with any activity, remains on 6 L nasal cannula, however his saturations are in the high 90s, and I cut him down to 5 L. Remains on bronchodilators, there is also on Levaquin, and Solu-Medrol. Patient is being evaluated by cardiology for paroxysmal atrial fibrillation, during my evaluation patient was in sinus rhythm. Cardiology recommended increasing Cardizem dose, and to continue Eliquis. The patient is seen today 09/24/2020 in follow-up on the selective care unit. He is currently resting fairly comfortably in bed. Awake and alert in no acute distress. Maintaining O2 saturations in the low 90s on 6 L high flow nasal cannula. He is afebrile. Sodium 144. Potassium 5.2. Bicarb 46. Creatinine 0.47. Glucose 132. He remains on DuoNeb inhalations, Pulmicort and Perforomist inhalations, IV Solu-Medrol. Anticoagulated with Eliquis. The patient is seen today 09/25/2020 in follow-up on the selective care unit. He is currently awake and alert in no acute distress. Resting fairly comfortably in bed. He is down to oxygen at 3 L/m per nasal cannula. He's been converted to oral prednisone. Sodium 140. Potassium 5.1. Bicarb 41. Creatinine 0.40. Glucose 115. He remains anticoagulated with Eliquis. Objective - Vital Signs Vital signs: Vital Signs Temp 97.9 F 09/25/20 09:00 Pulse 63 09/25/20 09:00 Resp 24 09/25/20 09:00 BP 151/79 09/25/20 09:00 Pulse Ox 95 09/25/20 09:00 Intake & Output 09/24/20 09/25/20 09/25/20 18:59 06:59 18:59 Intake Total 720 0 Output Total 150 500 250 Balance 570 -500 -250 Weight 94 kg Intake: Oral 720 0 Output: Urine 150 500 250 Other: # Voids 1 # Bowel Movements 1 - Exam GENERAL EXAM: Alert, pleasant 64-year-old gentleman, appears older than stated age, on 3 L nasal cannula, fairly comfortable in no apparent distress. HEAD: Normocephalic. EYES: Normal reaction of pupils, equal size. NOSE: Clear with pink turbinates. THROAT: No erythema or exudates. NECK: No masses, no JVD. CHEST: No chest wall deformity. LUNGS: Equal air entry with faint end expiratory wheeze, diminished CVS: S1 and S2 normal with no audible murmur, regular rhythm. ABDOMEN: No hepatosplenomegaly, normal bowel sounds, no guarding or rigidity. SPINE: No scoliosis or deformity SKIN: No rashes CENTRAL NERVOUS SYSTEM: No focal deficits, tone is normal in all 4 extremities. EXTREMITIES: There is no peripheral edema. No clubbing, no cyanosis. Peripheral pulses are intact. - Labs CBC & Chem 7: 09/21/20 07:43 09/25/20 07:29 Labs: Abnormal Lab Results - Last 24 Hours (Table) 09/24/20 09/24/20 09/24/20 Range/Units 11:39 16:47 20:20 Chloride (98-107) mmol/L Carbon Dioxide (22-30) mmol/L BUN (9-20) mg/dL Creatinine (0.66-1.25) mg/dL Glucose (74-99) mg/dL POC Glucose (mg/dL) 150 H 177 H 165 H (75-99) mg/dL 09/25/20 09/25/20 Range/Units 06:05 07:29 Chloride 94 L (98-107) mmol/L Carbon Dioxide 41 H* (22-30) mmol/L BUN 43 H (9-20) mg/dL Creatinine 0.40 L (0.66-1.25) mg/dL Glucose 115 H (74-99) mg/dL POC Glucose (mg/dL) 104 H (75-99) mg/dL Assessment and Plan Assessment: 1 Acute on chronic hypoxic respiratory failure secondary to severe COPD and acute exacerbation of COPD. 2 Mild troponin elevation 3 Generalized fatigue and weakness. 4 Severe COPD and chronic hypoxic respiratory failure 5 Paroxysmal atrial fibrillation 6 Type 2 diabetes. 7 History of left lower extremity DVT. 8 Benign essential hypertension. Plan: The patient was seen and evaluated by Dr. Dsouza Continue bronchodilators Continue Eliqugeovanny Plan is for ECF placement today I, the cosigning physician, performed a history & physical examination of the patient. Lungs sounds bilateral end expiratory wheeze, diminished. Maintaining good O2 saturations in the 90s on 3 L high flow nasal cannula. I discussed the assessment and plan of care with my nurse practitioner, Chapis Rasocn. I attest to the above note as dictated by her.
[2020-09-25] MEDS ORDERED: NITROGLYCERIN SL TABS 0.4 MG TAB SUBLINGUAL ONE (12:02)
[2020-09-25] MEDS ORDERED: DEXTROSE 50% SYRINGE 50 ML IVP ONE (12:04)
[2020-09-25 12:06] LABS: Glucose,Whole Blood 65 mg/dL (75-99)
[2020-09-25 12:06] LABS: Glucose,Whole Blood 66 mg/dL (75-99)
[2020-09-25] MEDS ORDERED: DEXTROSE 50% SYRINGE 50 ML IVP STA (12:08)
[2020-09-25 12:23] LABS: Glucose,Whole Blood 125 mg/dL (75-99)
[2020-09-25] MEDS: MONTELUKAST 10 MG TAB PO SCH (12:27)
[2020-09-25] MEDS: MAGNESIUM OXIDE 400 MG TAB PO SCH (12:27)
[2020-09-25] MEDS: PANTOPRAZOLE 40 MG TABLET PO SCH (12:27)
--- NOTE | 2020-09-25 12:43 | XR ---
EXAMINATION TYPE: XR chest 1V portable DATE OF EXAM: 09/25/2020 COMPARISON: 09/19/2020 INDICATION: Chest pain TECHNIQUE: Single frontal view of the chest is obtained. FINDINGS: The heart size is normal. The pulmonary vasculature is normal. The lungs are clear. IMPRESSION: 1. No acute pulmonary process.
[2020-09-25] MEDS: LORazepam 0.5 MG TAB PO PRN ×2 (12:54→21:32)
[2020-09-25] MEDS ORDERED: MORPHINE SULFATE 2 MG/ML SYRINGE IVP STA (13:19)
--- NOTE | 2020-09-25 16:06 | P.PN ---
Progress Note - Text Progress Note Date: 09/25/20 Chief Complaint: Short of breath History of presenting complaint: This is a 64-year-old patient who follows with Dr. Hernandez. Chronic stable medical conditions include diabetes, GERD, hypertension, BPH. Home oxygen-4 L. Just Admitted to the hospital from September 10 through September 12: with acute COPD exacerbation. Acute urinary retention. Abad catheter was placed. Seen by urology. Dose of Flomax was increased. Discharged with Abad. He was to follow up with urology as outpatient. Also seen by vascular. No intervention. Readmitted from September 14 through September 19 with hematuria COPD exacerbation. Patient had decline ECF. Now admitted with COPD exacerbation and medical deconditioning. September 23: Sitting up in bed. Slight short of breath. Atrial flutter controlled. Eating some. Son and [id number] at the bedside. Patient earlier decline PTOT. September 24: Reclining in bed. Nasal cannula. Some shortness of breath. Breathing better. Atrial flutter controlled. Patient refused PTOT. Tired. Late in the evening a spoke to patient's son Raghav and his over the phone. Did inform them about the patient not participating in therapy. Discussion was held about options. Oral intake fair September 25: Earlier today patient had episode of chest pain. EKG troponins and cardiology was ordered. Patient is more short of breath. BiPAP was ordered by pulmonary. Patient's finding it difficult to put on. Tired. Review of systems: Attempted for constitutional, cardiovascular, GI, pulmonary. relevant finding as above Active Medications Acetaminophen (Acetaminophen Tab 325 Mg Tab) 650 mg PO Q6HR PRN PRN Reason: Fever and/ or Pain Last Admin: 09/20/20 17:21 Dose: 650 mg Documented by: Albuterol Sulfate (Albuterol Nebulized 2.5 Mg/3 Ml) 2.5 mg INHALATION RT-QID PRN PRN Reason: Shortness Of Breath Or Wheezing Last Admin: 09/25/20 03:37 Dose: 2.5 mg Documented by: Albuterol/Ipratropium (Ipratropium-Albuterol 3 Ml Neb) 3 ml INHALATION RT-QID [facility] Last Admin: 09/25/20 11:37 Dose: 3 ml Documented by: Alprazolam (Alprazolam 0.25 Mg Tab) 0.25 mg PO TID [facility] Last Admin: 09/25/20 09:45 Dose: 0.25 mg Documented by: Apixaban (Apixaban 5 Mg Tab) 5 mg PO BID [facility]; Protocol Last Admin: 09/25/20 09:45 Dose: 5 mg Documented by: Atorvastatin Calcium (Atorvastatin 20 Mg Tab) 20 mg PO [facility] Last Admin: 09/24/20 21:18 Dose: 20 mg Documented by: Baclofen (Baclofen 10 Mg Tab) 10 mg PO TID [facility] Last Admin: 09/25/20 09:44 Dose: 10 mg Documented by: Benzocaine/Menthol (Benzocaine/Menthol Lozeng 1 Each Lozenge) 1 each MUCOUS MEM Q6HR PRN PRN Reason: Cough Last Admin: 09/23/20 06:15 Dose: 1 each Documented by: Budesonide (Budesonide 1 Mg/2 Ml Nebu) 1 mg INHALATION RT-BID [facility] Last Admin: 09/25/20 08:27 Dose: 1 mg Documented by: Diltiazem HCl (Diltiazem Cd 180 Mg Cap.Er.24h) 180 mg PO DAILY [facility] Last Admin: 09/25/20 09:44 Dose: 180 mg Documented by: Guaifenesin (Guaifenesin 600 Mg Tablet.Er) 600 mg PO QID [facility] Last Admin: 09/25/20 12:28 Dose: Not Given Documented by: Insulin Aspart (Insulin Aspart (Novolog) 100 Unit/Ml Vial) 0 unit SQ [facility]; Protocol Last Admin: 09/25/20 12:26 Dose: Not Given Documented by: Insulin Detemir (Insulin Detemir (Levemir) 100 Unit/Ml Syr) 25 unit SQ [facility] Last Admin: 09/24/20 21:20 Dose: 25 unit Documented by: Lorazepam (Lorazepam 0.5 Mg Tab) 0.5 mg PO Q8HR PRN PRN Reason: Agitation or Acute Anxiety Last Admin: 09/25/20 12:54 Dose: 0.5 mg Documented by: Magnesium Oxide (Magnesium Oxide 400 Mg Tab) 400 mg PO DAILY@1200 [facility] Last Admin: 09/25/20 12:27 Dose: Not Given Documented by: Methylprednisolone Sodium Succinate (Methylprednisolone Sod Succi 40 Mg/Ml 1 Ml Vial) 40 mg IV Q8HR [facility] Metoprolol Tartrate (Metoprolol Tartrate 50 Mg Tab) 50 mg PO BID [facility] Last Admin: 09/25/20 09:45 Dose: 50 mg Documented by: Montelukast Sodium (Montelukast 10 Mg Tab) 10 mg PO DAILY@1200 [facility] Last Admin: 09/25/20 12:27 Dose: Not Given Documented by: Pantoprazole Sodium (Pantoprazole 40 Mg Tablet) 40 mg PO DAILY@1200 [facility] Last Admin: 09/25/20 12:27 Dose: Not Given Documented by: Tamsulosin HCl (Tamsulosin 0.4 Mg Cap.Er.24h) 0.4 mg PO BID [facility] Last Admin: 09/25/20 09:45 Dose: 0.4 mg Documented by: Past medical history to include: COPD, diabetes, GERD, hypertension, BPH, left leg DVT Social history: Lives alone. Does use a walker. Smoked about 2 packs a day for close to 40 years stopped about 14 years ago. Used to work with [employer] Family history: Reviewed, noncontributory to presentation Physical examination: VITAL SIGNS: 97.9, 63, 24, 151/79, 95% on 3 daughters GENERAL: Reclining in bed, short of breath, slightly lethargic EYES: Pupils equal. Conjunctiva normal. HEENT: External appearance of nose and ears normal, oral cavity grossly normal. NECK: JVD unable to assess; masses not palpable. HEART: First and second heart sounds are normal; no edema. LUNGS: Respiratory rate increased, diminished breath sounds prolonged expiration ABDOMEN: Soft, nontender, liver spleen not palpable, no masses palpable. PSYCH: Lethargic we'll answer occasional questions MUSCULAR skeletal: Evidence of OA INVESTIGATIONS, reviewed in the clinical context: September 25: Potassium 5.1 by cup 41 BUN 43 creatinine 0.40 Chest x-ray film personally reviewed by me-[September 25]: Hyperinflated. No obvious infiltrate Troponin I 0.055 September 24: Potassium 5.2 bicarb 46 BUN 39 creatinine 0.47 WBC 13.3 hemoglobin 14.3 potassium 4.8 BUN 34 creatinine 0.4. EKG: Normal sinus rhythm Chest x-ray film: No obvious infiltrates Recent testing 2-D echocardiogram: Moderate concentric LVH. EF 55-60% right ventricle severely enlarged Assessment and plan: -Acute advanced COPD exacerbation in a previous smoker: Worsening today DuoNeb, 4 times a day,, and inhaled Pulmicort. IV Solu-Medrol resumed -Acute hypoxic respiratory failure from COPD On 3 L of oxygen. BiPAP reorder today -Chronic hypoxic respiratory failure from COPD Home oxygen 4 L -BPH with urinary retention Flomax to 0.4 mg twice a day. Abad catheter. Follow-up outpatient by Dr. obregon -Diabetes mellitus type 2, chronically on insulin. Uncontrolled with hypoglycemia On Lantus. For Accu-Cheks. Cutback dose of Lantus -Paroxysmal atrial fibrillation, currently sinus rhythm Cardizem CD 180 mg. Lopressor 50 mg twice a day. eliquis -GERD On PPI -Chronic gait dysfunction, uses a walker at baseline -Acute on chronic medical debility PT OT -Possible PAD. Aspirin. Lipitor. - EKG, troponin, cardiology ordered today. We will order Doppler ultrasound of lower extremity to rule out VTE. Prognosis guarded. Family coming in to see the patient. BiPAP ordered.
[2020-09-25 16:38] LABS: Glucose,Whole Blood 75 mg/dL (75-99)
[2020-09-25] MEDS: methylPREDNISolone SOD SUCCI 40 MG/ML 1 ML VIAL IV SCH (17:22)
--- NOTE | 2020-09-25 18:44 | US ---
EXAMINATION TYPE: US venous doppler duplex LE DATE OF EXAM: 09/25/2020 6:00 PM COMPARISON: NONE CLINICAL HISTORY: Rule out proximal DVT. R/O DVT. Limited history from patient. SIDE PERFORMED: Bilateral TECHNIQUE: The lower extremity deep venous system is examined utilizing real time linear array sonog popeye with graded compression, doppler sonography and color-flow sonography. VESSELS IMAGED: Common Femoral Vein Deep Femoral Vein Greater Saphenous Vein * Femoral Vein Popliteal Vein Small Saphenous Vein * Proximal Calf Veins (* superficial vessels) Right Leg: Color flow is seen in veins imaged. Veins imaged do appear to compress incompletely- pos sible chronic internal echoes along vessel burroughs. Left Leg: Color flow is seen in veins imaged. Veins imaged do appear to compress incompletely- poss ible chronic internal echoes along vessel burroughs. IMPRESSION: No evidence of acute deep vein thrombosis. There is evidence for some mild bilateral chr onic deep vein thrombosis.
[2020-09-25 20:08] LABS: Glucose,Whole Blood 67 mg/dL (75-99)
[2020-09-25 20:42] LABS: Glucose,Whole Blood 96 mg/dL (75-99)
[2020-09-25] MEDS ORDERED: INSULIN DETEMIR (LEVEMIR) 100 UNIT/ML SYR SQ SCH (21:00)
[2020-09-25] MEDS: ATORVASTATIN 20 MG TAB PO SCH (21:19)
[2020-09-26] MEDS ORDERED: NITROGLYCERIN SL TABS 0.4 MG TAB SUBLINGUAL ONE (00:29)
[2020-09-26] MEDS: methylPREDNISolone SOD SUCCI 40 MG/ML 1 ML VIAL IV SCH ×2 (00:45→09:27)
[2020-09-26 03:09] LABS: Glucose,Whole Blood 170 mg/dL (75-99)
[2020-09-26 06:33] LABS: Glucose,Whole Blood 174 mg/dL (75-99)
[2020-09-26] MEDS: IPRATROPIUM-ALBUTEROL 3 ML NEB INHALATION SCH ×2 (08:04→11:37)
[2020-09-26] MEDS: BUDESONIDE 1 MG/2 ML NEBU INHALATION SCH (08:04)
[2020-09-26 08:25] LABS: Glucose,Whole Blood 167 mg/dL (75-99)
[2020-09-26] MEDS: TAMSULOSIN 0.4 MG CAP.ER.24H PO SCH (09:27)
[2020-09-26] MEDS: INSULIN ASPART (NovoLOG) 100 UNIT/ML VIAL SQ SCH ×2 (09:27→11:59)
[2020-09-26] MEDS: guaiFENesin 600 MG TABLET.ER PO SCH (09:27)
[2020-09-26] MEDS: BACLOFEN 10 MG TAB PO SCH (09:27)
[2020-09-26] MEDS: DILTIAZEM CD 180 MG CAP.ER.24H PO SCH (09:27)
[2020-09-26] MEDS: METOPROLOL TARTRATE 50 MG TAB PO SCH (09:27)
[2020-09-26] MEDS: APIXABAN 5 MG TAB PO SCH (09:27)
[2020-09-26] MEDS: ALPRAZolam 0.25 MG TAB PO SCH (09:37)
[2020-09-26 09:43] VITALS: TEMP 97.7
[2020-09-26] MEDS ORDERED: LORazepam 2 MG/ML INJ IV PRN (11:37)
[2020-09-26 11:39] LABS: Glucose,Whole Blood 178 mg/dL (75-99)
[2020-09-26] MEDS: PANTOPRAZOLE 40 MG TABLET PO SCH (11:46)
[2020-09-26] MEDS: MONTELUKAST 10 MG TAB PO SCH (11:46)
[2020-09-26] MEDS: MAGNESIUM OXIDE 400 MG TAB PO SCH (11:46)
--- NOTE | 2020-09-26 11:46 | P.PN ---
Subjective Progress Note Date: 09/26/20 Principal diagnosis: Acute on chronic hypoxic respiratory failure secondary to acute exacerbation of COPD. This is a 64-year-old male patient who got admitted back to the hospital immediately following his discharge because of generalized weakness, inability to taken care of himself at home and he tells the paper much collapsed on the floor. As such she was brought back to the emergency department. He is known to have advanced COPD. We'll took care of him for a COPD exacerbation earlier this week and he has had multiple hospitalizations for the same. He has short of breath at all times. With activity, his legs become very weak and he's unable to provide much take care of himself. He did not have syncope. Does not pass out. He did not have any head trauma. No significant sputum production. No hemoptysis. No pleurisy. Other during his last hospitalization, he had a indwelling Abad catheter because of urinary retention and that Abad catheter was essentially removed. In the emergency room, his white cell count was at 14.7 initial white cell count was 18, his troponins were 0.08 and 0.01 respectively 2. He does have some troponin leak during his earlier hospitalization. ProBNP level was at 410. BUN is 36 with a creatinine of 0.4. Serum bicarb is at 35. Hemoglobin is at 14.2. Is currently resting in bed. He has short of breath. He is on 6 L of oxygen by nasal cannula. cardiac rhythm is sinus 09/21/2020, slightly better, awake and alert and communicating. He is short of breath all the time and limited exercise capacity and he was in bed all the time. Did not use BiPAP overnight and he is on 6 L of oxygen by nasal cannula. He remains on bronchodilators. He remains on IV Solu-Medrol. Empiric antibiotic coverage with Levaquin. 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 Pulse ox is in order of 99% of the FiO2 can be gradually weaned off. 09/22/2020, clinically the same. Still having difficulties in breathing. Very limited exercise capacity. Still on oxygen at 5 L per minute nasal cannula. Still on Levaquin. Still on IV Solu Medrol. Receiving bronchodilators around the clock. No angina. No palpitation. Tolerating his diet. Using incentive spirometer although not frequently. Reevaluated today on 09/23/2020, patient is basically about the same, feels ge nerally weak, short of breath with any activity, remains on 6 L nasal cannula, however his saturations are in the high 90s, and I cut him down to 5 L. Remains on bronchodilators, there is also on Levaquin, and Solu-Medrol. Patient is being evaluated by cardiology for paroxysmal atrial fibrillation, during my evaluation patient was in sinus rhythm. Cardiology recommended increasing Cardizem dose, and to continue Eliquis. The patient is seen today 09/24/2020 in follow-up on the selective care unit. He is currently resting fairly comfortably in bed. Awake and alert in no acute distress. Maintaining O2 saturations in the low 90s on 6 L high flow nasal cannula. He is afebrile. Sodium 144. Potassium 5.2. Bicarb 46. Creatinine 0.47. Glucose 132. He remains on DuoNeb inhalations, Pulmicort and Perforomist inhalations, IV Solu-Medrol. Anticoagulated with Eliquis. The patient is seen today 09/25/2020 in follow-up on the selective care unit. He is currently awake and alert in no acute distress. Resting fairly comfortably in bed. He is down to oxygen at 3 L/m per nasal cannula. He's been converted to oral prednisone. Sodium 140. Potassium 5.1. Bicarb 41. Creatinine 0.40. Glucose 115. He remains anticoagulated with Eliquis. The patient is seen today 09/26/2000 in follow-up on the selective care unit. He is currently awake, alert, but hallucinating and having some garbled speech. He was trialed on BiPAP 12/5 and 50% FiO2 yesterday for altered mental status without much improvement. Glucose 178. He remains on IV sinus drug, DuoNeb inhalations, Pulmicort and Perforomist inhalations. He is on Singulair. Lungs sounds still remain quite diminished. He is currently on 6 L high flow nasal cannula. Doppler of the lower extremities reveals some mild bilateral chronic DVTs but no acute DVTs. He remains on Eliquis. Objective - Vital Signs Vital signs: Vital Signs Temp 97.7 F 09/26/20 09:42 Pulse 61 09/26/20 08:21 Resp 30 H 09/26/20 11:29 BP 139/84 09/26/20 08:21 Pulse Ox 68 L 09/26/20 11:29 Intake & Output 09/25/20 09/26/20 09/26/20 18:59 06:59 18:59 Intake Total 340 60 Output Total 250 Balance 90 60 Weight 94.5 kg Intake: Oral 340 60 Output: Urine 250 Other: Voiding Method Urinal Urinal # Voids 1 1 1 - Exam GENERAL EXAM: Alert, disoriented 64-year-old gentleman, appears older than stated age, on 6 L nasal cannula alternating with BiPAP, fairly comfortable in no apparent distress. HEAD: Normocephalic. EYES: Normal reaction of pupils, equal size. NOSE: Clear with pink turbinates. THROAT: No erythema or exudates. NECK: No masses, no JVD. CHEST: No chest wall deformity. LUNGS: Equal air entry with faint end expiratory wheeze, diminished throughout CVS: S1 and S2 normal with no audible murmur, regular rhythm. ABDOMEN: No hepatosplenomegaly, normal bowel sounds, no guarding or rigidity. SPINE: No scoliosis or deformity SKIN: No rashes CENTRAL NERVOUS SYSTEM: No focal deficits, tone is normal in all 4 extremities. EXTREMITIES: There is no peripheral edema. No clubbing, no cyanosis. Peripheral pulses are intact. - Labs CBC & Chem 7: 09/21/20 07:43 09/25/20 07:29 Labs: Abnormal Lab Results - Last 24 Hours (Table) 09/25/20 09/25/20 09/25/20 Range/Units 11:53 12:03 12:15 POC Glucose (mg/dL) 65 L 66 L (75-99) mg/dL Troponin I 0.055 H* (0.000-0.034) ng/mL 09/25/20 09/25/20 09/26/20 Range/Units 12:22 20:03 03:07 POC Glucose (mg/dL) 125 H 67 L 170 H (75-99) mg/dL Troponin I (0.000-0.034) ng/mL 09/26/20 09/26/20 09/26/20 Range/Units 06:07 08:23 11:37 POC Glucose (mg/dL) 174 H 167 H 178 H (75-99) mg/dL Troponin I (0.000-0.034) ng/mL Assessment and Plan Assessment: 1 Acute on chronic hypoxic respiratory failure secondary to an acute exacerbation of severe COPD. 2 Mild troponin elevation 3 Generalized fatigue and weakness. 4 Severe COPD and chronic hypoxic respiratory failure 5 Paroxysmal atrial fibrillation 6 Type 2 diabetes. 7 History of chronic bilateral lower extremity DVT. No acute DVT this admission 8 Benign essential hypertension. Plan: The patient was seen and evaluated by Dr. Dsouza Remains on 6 L high flow nasal cannula, alternating with BiPAP No significant improvement in overall functional performance We are recommending hospice/comfort care I, the cosigning physician, performed a history & physical examination of the patient. Lungs sounds bilateral end expiratory wheeze, diminished. Maintaining O2 saturations in the 90s on 6 L high flow nasal cannula alternating with BiPAP. I discussed the assessment and plan of care with my nurse practitioner, Chapis Rascon. I attest to the above note as dictated by her.
[2020-09-26 11:50] VITALS: BP 137/74; PULSE 52; RESP 25
--- NOTE | 2020-09-26 14:07 | P.PN ---
Progress Note - Text Progress Note Date: 09/26/20 Chief Complaint: Short of breath History of presenting complaint: This is a 64-year-old patient who follows with Dr. Hernandez. Chronic stable medical conditions include diabetes, GERD, hypertension, BPH. Home oxygen-4 L. Just Admitted to the hospital from September 10 through September 12: with acute COPD exacerbation. Acute urinary retention. Abad catheter was placed. Seen by urology. Dose of Flomax was increased. Discharged with Abad. He was to follow up with urology as outpatient. Also seen by vascular. No intervention. Readmitted from September 14 through September 19 with hematuria COPD exacerbation. Patient had decline ECF. Now admitted with COPD exacerbation and medical deconditioning. September 23: Sitting up in bed. Slight short of breath. Atrial flutter controlled. Eating some. Son and [id number] at the bedside. Patient earlier decline PTOT. September 24: Reclining in bed. Nasal cannula. Some shortness of breath. Breathing better. Atrial flutter controlled. Patient refused PTOT. Tired. Late in the evening a spoke to patient's son Raghav and his over the phone. Did inform them about the patient not participating in therapy. Discussion was held about options. Oral intake fair September 25: Earlier today patient had episode of chest pain. EKG troponins and cardiology was ordered. Patient is more short of breath. BiPAP was ordered by pulmonary. Patient's finding it difficult to put on BiPAP Tired. Late in the evening to discuss with the patient's son and [id number] about patient's guarded prognosis. We'll see how things go. September 26: Patient not doing too well. Short of breath. Somewhat delirious. Put him off his BiPAP. Ativan ordered. Spoke to the bilingual patient support caseworker, nurse. Also spoke to patient's son on the phone about patient's poor clinical condition. Informational visit with the hospice was being done. If things don't improve patient proceed with hospice. Late in the afternoon patient continued to do worse. Patient be open to inpatient hospice GIP. Review of systems: Attempted for constitutional, cardiovascular, GI, pulmonary. relevant finding as above Active Medications Acetaminophen (Acetaminophen Tab 325 Mg Tab) 650 mg PO Q6HR PRN PRN Reason: Fever and/ or Pain Last Admin: 09/20/20 17:21 Dose: 650 mg Documented by: Albuterol Sulfate (Albuterol Nebulized 2.5 Mg/3 Ml) 2.5 mg INHALATION RT-QID PRN PRN Reason: Shortness Of Breath Or Wheezing Last Admin: 09/25/20 03:37 Dose: 2.5 mg Documented by: Albuterol/Ipratropium (Ipratropium-Albuterol 3 Ml Neb) 3 ml INHALATION RT-QID [facility] Last Admin: 09/26/20 11:37 Dose: 3 ml Documented by: Alprazolam (Alprazolam 0.25 Mg Tab) 0.25 mg PO TID [facility] Last Admin: 09/26/20 09:37 Dose: 0.25 mg Documented by: Apixaban (Apixaban 5 Mg Tab) 5 mg PO BID [facility]; Protocol Last Admin: 09/26/20 09:27 Dose: 5 mg Documented by: Atorvastatin Calcium (Atorvastatin 20 Mg Tab) 20 mg PO [facility] Last Admin: 09/25/20 21:19 Dose: 20 mg Documented by: Baclofen (Baclofen 10 Mg Tab) 10 mg PO TID [facility] Last Admin: 09/26/20 09:27 Dose: 10 mg Documented by: Benzocaine/Menthol (Benzocaine/Menthol Lozeng 1 Each Lozenge) 1 each MUCOUS MEM Q6HR PRN PRN Reason: Cough Last Admin: 09/23/20 06:15 Dose: 1 each Documented by: Budesonide (Budesonide 1 Mg/2 Ml Nebu) 1 mg INHALATION RT-BID [facility] Last Admin: 09/26/20 08:04 Dose: 1 mg Documented by: Diltiazem HCl (Diltiazem Cd 180 Mg Cap.Er.24h) 180 mg PO DAILY [facility] Last Admin: 09/26/20 09:27 Dose: 180 mg Documented by: Guaifenesin (Guaifenesin 600 Mg Tablet.Er) 600 mg PO QID [facility] Last Admin: 09/26/20 09:27 Dose: 600 mg Documented by: Insulin Aspart (Insulin Aspart (Novolog) 100 Unit/Ml Vial) 0 unit SQ [facility]; Protocol Last Admin: 09/26/20 11:59 Dose: Not Given Documented by: Insulin Detemir (Insulin Detemir (Levemir) 100 Unit/Ml Syr) 18 unit SQ [facility] Last Admin: 09/26/20 00:47 Dose: Not Given Documented by: Lorazepam (Lorazepam 0.5 Mg Tab) 0.5 mg PO Q8HR PRN PRN Reason: Agitation or Acute Anxiety Last Admin: 09/25/20 21:32 Dose: 0.5 mg Documented by: Lorazepam (Lorazepam 2 Mg/Ml Inj) 0.5 mg IV Q8HR PRN PRN Reason: Anxiety Last Admin: 09/26/20 11:46 Dose: 0.5 mg Documented by: Magnesium Oxide (Magnesium Oxide 400 Mg Tab) 400 mg PO DAILY@1200 [facility] Last Admin: 09/26/20 11:46 Dose: Not Given Documented by: Methylprednisolone Sodium Succinate (Methylprednisolone Sod Succi 40 Mg/Ml 1 Ml Vial) 40 mg IV Q8HR [facility] Last Admin: 09/26/20 09:27 Dose: 40 mg Documented by: Metoprolol Tartrate (Metoprolol Tartrate 50 Mg Tab) 50 mg PO BID [facility] Last Admin: 09/26/20 09:27 Dose: 50 mg Documented by: Montelukast Sodium (Montelukast 10 Mg Tab) 10 mg PO DAILY@1200 [facility] Last Admin: 09/26/20 11:46 Dose: Not Given Documented by: Pantoprazole Sodium (Pantoprazole 40 Mg Tablet) 40 mg PO DAILY@1200 [facility] Last Admin: 09/26/20 11:46 Dose: Not Given Documented by: Tamsulosin HCl (Tamsulosin 0.4 Mg Cap.Er.24h) 0.4 mg PO BID [facility] Last Admin: 09/26/20 09:27 Dose: 0.4 mg Documented by: Past medical history to include: COPD, diabetes, GERD, hypertension, BPH, left leg DVT Social history: Lives alone. Does use a walker. Smoked about 2 packs a day for close to 40 years stopped about 14 years ago. Used to work with [employer] Family history: Reviewed, noncontributory to presentation Physical examination: VITAL SIGNS: 97.7, 61, 20, 139/84, 94% on BiPAP GENERAL: Reclining in bed, short of breath, delirious EYES: Pupils equal. Conjunctiva normal. HEENT: External appearance of nose and ears normal, oral cavity grossly normal. NECK: JVD unable to assess; masses not palpable. HEART: First and second heart sounds are normal; no edema. LUNGS: Respiratory rate increased, diminished breath sounds prolonged expiration , accessory muscles are working. ABDOMEN: Soft, nontender, liver spleen not palpable, no masses palpable. PSYCH: Unable to answer questions MUSCULAR skeletal: Evidence of OA INVESTIGATIONS, reviewed in the clinical context: September 25: Potassium 5.1 by cup 41 BUN 43 creatinine 0.40 Chest x-ray film personally reviewed by me-[September 25]: Hyperinflated. No obvious infiltrate Troponin I 0.055 September 24: Potassium 5.2 bicarb 46 BUN 39 creatinine 0.47 WBC 13.3 hemoglobin 14.3 potassium 4.8 BUN 34 creatinine 0.4. EKG: Normal sinus rhythm Chest x-ray film: No obvious infiltrates Recent testing 2-D echocardiogram: Moderate concentric LVH. EF 55-60% right ventricle severely enlarged Assessment and plan: -Acute advanced COPD exacerbation in a previous smoker: Worsening DuoNeb, 4 times a day,, and inhaled Pulmicort. IV Solu-Medrol . Put back on BiPAP -Acute hypoxic respiratory failure from COPD On 3 L of oxygen. BiPAP -Chronic hypoxic respiratory failure from COPD Home oxygen 4 L -BPH with urinary retention Flomax to 0.4 mg twice a day. Abad catheter. Follow-up outpatient by Dr. obregon -Diabetes mellitus type 2, chronically on insulin. Uncontrolled with hypoglycemia On Lantus. For Accu-Cheks. -Paroxysmal atrial fibrillation, currently sinus rhythm Cardizem CD 180 mg. Lopressor 50 mg twice a day. eliquis -GERD On PPI -Chronic gait dysfunction, uses a walker at baseline -Acute on chronic medical debility PT OT -Possible PAD. Aspirin. Lipitor. - Continue current medication treatment plan. BiPAP. Prognosis guarded. Patient unable to eat anymore. Advanced care planning: Spoke to the patient's son over the phone. Explain patient's poor clinical condition. Hospice has been called in. Spoke to the bilingual patient support caseworker. Spoke to the nurse. Son is agreed to proceed with hospice care. GIP care will be initiated. Comfort measures will be initiated. Time spent for this was 25 minutes
--- NOTE | 2020-09-26 17:07 | P.DS ---
Providers Date of admission: 09/23/20 08:24 Expected date of discharge: 09/26/20 Attending physician: Gonzalez Hernández Consults: 09/20/20 11:46 Consult Physician Urgent Consulting Provider: Farhad Mesa Consult Reason/Comments: COPD Do you want consulting provider notified?: Yes 09/22/20 17:49 Consult Physician Routine Consulting Provider: Porfirio Liriano Consult Reason/Comments: afib rvr Do you want consulting provider notified?: Already Contacted Primary care physician: Chetan Garcia [facility] Course: Chief Complaint: Short of breath History of presenting complaint: This is a 64-year-old patient who follows with Dr. Hernandez. Chronic stable medical conditions include diabetes, GERD, hypertension, BPH. Home oxygen-4 L. Just Admitted to the hospital from September 10 through September 12: with acute COPD exacerbation. Acute urinary retention. Abad catheter was placed. Seen by urology. Dose of Flomax was increased. Discharged with Abad. He was to follow up with urology as outpatient. Also seen by vascular. No intervention. Readmitted from September 14 through September 19 with hematuria COPD exacerbation. Patient had decline ECF. Now admitted with COPD exacerbation and medical deconditioning. September 23: Sitting up in bed. Slight short of breath. Atrial flutter controlled. Eating some. Son and rypvhber-zp-ipu at the bedside. Patient earlier decline PTOT. September 24: Reclining in bed. Nasal cannula. Some shortness of breath. Breathing better. Atrial flutter controlled. Patient refused PTOT. Tired. Late in the evening a spoke to patient's son Raghav and his over the phone. Did inform them about the patient not participating in therapy. Discussion was held about options. Oral intake fair September 25: Earlier today patient had episode of chest pain. EKG troponins and cardiology was ordered. Patient is more short of breath. BiPAP was ordered by pulmonary. Patient's finding it difficult to put on BiPAP Tired. Late in the evening to discuss with the patient's son and dpkligpk-pz-evj about patient's guarded prognosis. We'll see how things go. September 26: Patient not doing too well. Short of breath. Somewhat delirious. Put him off his BiPAP. Ativan ordered. Spoke to the case liner, nurse. Also spoke to patient's son on the phone about patient's poor clinical condition. Informational visit with the hospice was being done. If things don't improve patient proceed with hospice. Late in the afternoon patient continued to do worse. Patient be open to inpatient hospice GIP. Consultation: Cardiology associates Dr. Mesa partners from pulmonary Past medical history to include: COPD, diabetes, GERD, hypertension, BPH, left leg DVT Social history: Lives alone. Does use a walker. Smoked about 2 packs a day for close to 40 years stopped about 14 years ago. Used to work with [employer] Family history: Reviewed, noncontributory to presentation Physical examination: VITAL SIGNS: 97.7, 61, 20, 139/84, 94% on BiPAP GENERAL: Reclining in bed, short of breath, delirious EYES: Pupils equal. Conjunctiva normal. HEENT: External appearance of nose and ears normal, oral cavity grossly normal. NECK: JVD unable to assess; masses not palpable. HEART: First and second heart sounds are normal; no edema. LUNGS: Respiratory rate increased, diminished breath sounds prolonged expiration , accessory muscles are working. ABDOMEN: Soft, nontender, liver spleen not palpable, no masses palpable. PSYCH: Unable to answer questions MUSCULAR skeletal: Evidence of OA INVESTIGATIONS, reviewed in the clinical context: September 25: Potassium 5.1 by cup 41 BUN 43 creatinine 0.40 Chest x-ray film personally reviewed by me-[September 25]: Hyperinflated. No obvious infiltrate Troponin I 0.055 September 24: Potassium 5.2 bicarb 46 BUN 39 creatinine 0.47 WBC 13.3 hemoglobin 14.3 potassium 4.8 BUN 34 creatinine 0.4. EKG: Normal sinus rhythm Chest x-ray film: No obvious infiltrates Recent testing 2-D echocardiogram: Moderate concentric LVH. EF 55-60% right ventricle severely enlarged Assessment and plan: -Acute advanced COPD exacerbation in a previous smoker: Worsening DuoNeb, 4 times a day,, and inhaled Pulmicort. IV Solu-Medrol . Put back on BiPAP -Acute hypoxic respiratory failure from COPD On 3 L of oxygen. BiPAP -Chronic hypoxic respiratory failure from COPD Home oxygen 4 L -BPH with urinary retention Flomax to 0.4 mg twice a day. Abad catheter. Follow-up outpatient by Dr. obregon -Diabetes mellitus type 2, chronically on insulin. Uncontrolled with hypoglycemia On Lantus. For Accu-Cheks. -Paroxysmal atrial fibrillation, currently sinus rhythm Cardizem CD 180 mg. Lopressor 50 mg twice a day. eliquis -GERD On PPI -Chronic gait dysfunction, uses a walker at baseline -Acute on chronic medical debility PT OT -Possible PAD. Aspirin. Lipitor. - Disposition: Patient placed on GIP/hospice Plan - Discharge Summary Discharge Rx Participant: No New Discharge Prescriptions: No Action Montelukast [Singulair] 10 mg PO DAILY@1200 Insulin Glargine [Lantus] 20 unit SQ HS Pantoprazole Sodium [Protonix] 40 mg PO DAILY@1200 Aspirin EC [Ecotrin Low Dose] 81 mg PO DAILY@1200 ALPRAZolam [Xanax] 0.25 mg PO BID PRN PRN Reason: Anxiety guaiFENesin [Mucinex] 600 mg PO QID #100 tablet.er Levofloxacin [Levaquin] 500 mg PO Q24H 5 Days #5 tab Formoterol Fumarate [Perforomist] 20 mcg INHALATION RT-BID #8 nebu Budesonide/Formoterol Fumarate [Symbicort 160-4.5 Mcg Inhaler] 2 puff INHALATION RT-BID Albuterol Sulfate [Ventolin HFA] 2 puff INHALATION RT-Q4H PRN PRN Reason: Shortness Of Breath Magnesium Oxide 400 mg PO DAILY@1200 Ipratropium-Albuterol Nebulize [Duoneb 0.5 mg-3 mg/3 ml Soln] 3 ml INHALATION RT-QID Baclofen [Lioresal] 10 mg PO TID Diltiazem Cd [Cardizem CD] 120 mg PO DAILY #30 cap.er.24h Atorvastatin [Lipitor] 20 mg PO HS #30 tab Tamsulosin [Flomax] 0.4 mg PO BID #60 cap Apixaban [Eliquis] 5 mg PO BID tab predniSONE See Taper PO DIRECTED Discharge Medication List Insulin Glargine [Lantus] 20 unit SQ HS 04/25/16 [History] Montelukast [Singulair] 10 mg PO DAILY@1200 04/25/16 [History] ALPRAZolam [Xanax] 0.25 mg PO BID PRN 09/10/20 [History] Albuterol Sulfate [Ventolin HFA] 2 puff INHALATION RT-Q4H PRN 09/10/20 [History] Aspirin EC [Ecotrin Low Dose] 81 mg PO DAILY@1200 09/10/20 [History] Baclofen [Lioresal] 10 mg PO TID 09/10/20 [History] Budesonide/Formoterol Fumarate [Symbicort 160-4.5 Mcg Inhaler] 2 puff INHALATION RT-BID 09/10/20 [History] Ipratropium-Albuterol Nebulize [Duoneb 0.5 mg-3 mg/3 ml Soln] 3 ml INHALATION RT-QID 09/10/20 [History] Magnesium Oxide 400 mg PO DAILY@1200 09/10/20 [History] Pantoprazole Sodium [Protonix] 40 mg PO DAILY@1200 09/10/20 [History] Atorvastatin [Lipitor] 20 mg PO HS #30 tab 09/12/20 [Rx] Diltiazem Cd [Cardizem CD] 120 mg PO DAILY #30 cap.er.24h 09/12/20 [Rx] Tamsulosin [Flomax] 0.4 mg PO BID #60 cap 09/12/20 [Rx] guaiFENesin [Mucinex] 600 mg PO QID #100 tablet.er 09/12/20 [Rx] Apixaban [Eliquis] 5 mg PO BID tab 09/19/20 [Rx] Formoterol Fumarate [Perforomist] 20 mcg INHALATION RT-BID #8 nebu 09/19/20 [Rx] Levofloxacin [Levaquin] 500 mg PO Q24H 5 Days #5 tab 09/19/20 [Rx] predniSONE See Taper PO DIRECTED 09/19/20 [History] Follow up Appointment(s)/Referral(s): Chetan Lang DO [Primary Care Provider] - 1-2 days Shashi Rob MD [STAFF PHYSICIAN] - 2 Weeks Discharge Disposition: DISCH TO [facility]
== END 2020-09-26 14:34 | disposition hospice, inpatient (51) | DRG 190 ==
LOC: EC 22:46 → 3SCARD 09-20 00:57 → OBSVTOIN 09-23 08:24
PROVIDERS: ADMIT Hospitalist; ATTEND Hospitalist
PROC: 5A0945A Assistance with Respiratory Ventilation, 24-96 Consecutive Hours, High Flow/Velocity Cannula (ICD-10-PCS; principal; 2020-09-20)
PROC: 5A09357 Assistance with Respiratory Ventilation, Less than 24 Consecutive Hours, Continuous Positive Airway Pressure (ICD-10-PCS; 2020-09-26)
DX: J44.1 Chronic obstructive pulmonary disease with (acute) exacerbation (principal); J96.21 Acute and chronic respiratory failure with hypoxia; N39.0 Urinary tract infection, site not specified; I82.503 Chronic embolism and thrombosis of unspecified deep veins of lower extremity, bilateral; I48.92 Unspecified atrial flutter; Z87.891 Personal history of nicotine dependence; Z79.82 Long term (current) use of aspirin; Z79.51 Long term (current) use of inhaled steroids; Z79.01 Long term (current) use of anticoagulants; Z79.4 Long term (current) use of insulin; I48.0 Paroxysmal atrial fibrillation; N40.1 Benign prostatic hyperplasia with lower urinary tract symptoms; R33.8 Other retention of urine; I10 Essential (primary) hypertension; E11.69 Type 2 diabetes mellitus with other specified complication; R77.8 Other specified abnormalities of plasma proteins; K21.9 Gastro-esophageal reflux disease without esophagitis; Z66 Do not resuscitate; Z99.81 Dependence on supplemental oxygen; I27.20 Pulmonary hypertension, unspecified; F41.9 Anxiety disorder, unspecified; Z79.899 Other long term (current) drug therapy; B95.7 Other staphylococcus as the cause of diseases classified elsewhere; W18.30XA Fall on same level, unspecified, initial encounter; R53.1 Weakness
CPT/HCPCS: 36415; 71045; 71046; 80048; 80053; 81003; 82550; 83036; 83605; 83735; 83880; 84484; 85025; 85610; 85730; 93005; 93970; 94640; 94660; 94760; 96360; 99291

== ENCOUNTER 2020-09-26 14:21 | Inpatient (IN) | payer MEDICAID ==
[2020-09-26] MEDS ORDERED: ATROPINE OPHTH SOLN 1% 5ML BTL SUBLINGUAL PRN (14:23)
[2020-09-26] MEDS ORDERED: ACETAMINOPHEN SUPPOSITORY 650 MG SUPP RECTAL PRN (14:23)
[2020-09-26] MEDS ORDERED: MORPHINE SULFATE 4 MG/ML SYRINGE IV PRN (14:23)
[2020-09-26] MEDS ORDERED: ONDANSETRON 4 MG/2 ML VIAL IVP PRN (14:23)
[2020-09-26] MEDS ORDERED: GLYCOPYRROLATE 0.2 MG/ML 2 ML VIAL IVP PRN (14:23)
[2020-09-26] MEDS ORDERED: MORPHINE SULFATE (100 MG/2 ML) 100 MG in SODIUM CHLORIDE 0.9% 100 ML IV SCH (14:30)
[2020-09-26] MEDS: LORazepam 2 MG/ML INJ IV PRN ×2 (14:59→16:55)
[2020-09-26] MEDS ORDERED: SCOPOLAMINE 1.5MG/72HR PATCH TRANSDERM SCH (15:00)
[2020-09-26 16:12] VITALS: PULSE 53; RESP 20
--- NOTE | 2020-09-27 10:44 | P.DS ---
Providers Date of admission: 09/26/20 14:39 Expected date of discharge: 09/26/20 Attending physician: Gonzalez Hernández Primary care physician: Stated None Hospital Course: Chief Complaint: Short of breath History of presenting complaint: This is a 64-year-old patient who follows with Dr. Hernandez. Admitted early in the day to inpatient hospice/GIP for comfort measures. Comfort measure protocol was initiated. Family aware. Patient succumbed underlying condition late in the day. Past medical history to include: COPD, diabetes, GERD, hypertension, BPH, left leg DVT Social history: Lives alone. Does use a walker. Smoked about 2 packs a day for close to 40 years stopped about 14 years ago. Used to work with [employer] Family history: Reviewed, noncontributory to presentation Cause of : COPD Assessment and plan: -Acute advanced COPD exacerbation in a previous smoker: -Acute hypoxic respiratory failure from COPD Disposition: Patient Plan - Discharge Summary New Discharge Prescriptions: No Action Montelukast [Singulair] 10 mg PO DAILY@1200 Insulin Glargine [Lantus] 20 unit SQ HS Pantoprazole Sodium [Protonix] 40 mg PO DAILY@1200 Aspirin EC [Ecotrin Low Dose] 81 mg PO DAILY@1200 ALPRAZolam [Xanax] 0.25 mg PO BID PRN PRN Reason: Anxiety guaiFENesin [Mucinex] 600 mg PO QID #100 tablet.er Levofloxacin [Levaquin] 500 mg PO Q24H 5 Days #5 tab Formoterol Fumarate [Perforomist] 20 mcg INHALATION RT-BID #8 nebu Budesonide/Formoterol Fumarate [Symbicort 160-4.5 Mcg Inhaler] 2 puff INHALATION RT-BID Albuterol Sulfate [Ventolin HFA] 2 puff INHALATION RT-Q4H PRN PRN Reason: Shortness Of Breath Magnesium Oxide 400 mg PO DAILY@1200 Ipratropium-Albuterol Nebulize [Duoneb 0.5 mg-3 mg/3 ml Soln] 3 ml INHALATION RT-QID Baclofen [Lioresal] 10 mg PO TID Diltiazem Cd [Cardizem CD] 120 mg PO DAILY #30 cap.er.24h Atorvastatin [Lipitor] 20 mg PO HS #30 tab Tamsulosin [Flomax] 0.4 mg PO BID #60 cap Apixaban [Eliquis] 5 mg PO BID tab predniSONE See Taper PO DIRECTED Discharge Medication List Insulin Glargine [Lantus] 20 unit SQ HS 04/25/16 [History] Montelukast [Singulair] 10 mg PO DAILY@1200 04/25/16 [History] ALPRAZolam [Xanax] 0.25 mg PO BID PRN 09/10/20 [History] Albuterol Sulfate [Ventolin HFA] 2 puff INHALATION RT-Q4H PRN 09/10/20 [History] Aspirin EC [Ecotrin Low Dose] 81 mg PO DAILY@1200 09/10/20 [History] Baclofen [Lioresal] 10 mg PO TID 09/10/20 [History] Budesonide/Formoterol Fumarate [Symbicort 160-4.5 Mcg Inhaler] 2 puff INHALATION RT-BID 09/10/20 [History] Ipratropium-Albuterol Nebulize [Duoneb 0.5 mg-3 mg/3 ml Soln] 3 ml INHALATION RT-QID 09/10/20 [History] Magnesium Oxide 400 mg PO DAILY@1200 09/10/20 [History] Pantoprazole Sodium [Protonix] 40 mg PO DAILY@1200 09/10/20 [History] Atorvastatin [Lipitor] 20 mg PO HS #30 tab 09/12/20 [Rx] Diltiazem Cd [Cardizem CD] 120 mg PO DAILY #30 cap.er.24h 09/12/20 [Rx] Tamsulosin [Flomax] 0.4 mg PO BID #60 cap 09/12/20 [Rx] guaiFENesin [Mucinex] 600 mg PO QID #100 tablet.er 09/12/20 [Rx] Apixaban [Eliquis] 5 mg PO BID tab 09/19/20 [Rx] Formoterol Fumarate [Perforomist] 20 mcg INHALATION RT-BID #8 nebu 09/19/20 [Rx] Levofloxacin [Levaquin] 500 mg PO Q24H 5 Days #5 tab 09/19/20 [Rx] predniSONE See Taper PO DIRECTED 09/19/20 [History] Discharge Disposition: - Preliminary Cause of Preliminary Cause of : COPD
== END 2020-09-26 19:47 | disposition expired | DRG 951 ==
LOC: 3SCARD 14:39
PROVIDERS: ADMIT Hospitalist; ATTEND Hospitalist
DX: Z51.5 Encounter for palliative care (principal); J96.21 Acute and chronic respiratory failure with hypoxia; J44.1 Chronic obstructive pulmonary disease with (acute) exacerbation; E11.9 Type 2 diabetes mellitus without complications; Z79.4 Long term (current) use of insulin; K21.9 Gastro-esophageal reflux disease without esophagitis; I10 Essential (primary) hypertension; N40.1 Benign prostatic hyperplasia with lower urinary tract symptoms; R33.8 Other retention of urine; Z79.01 Long term (current) use of anticoagulants; Z79.82 Long term (current) use of aspirin; Z79.51 Long term (current) use of inhaled steroids; Z79.899 Other long term (current) drug therapy; Z60.2 Problems related to living alone; Z87.891 Personal history of nicotine dependence; Z86.718 Personal history of other venous thrombosis and embolism; Z90.49 Acquired absence of other specified parts of digestive tract; Z87.19 Personal history of other diseases of the digestive system; Z98.890 Other specified postprocedural states